=== PATIENT | female | born 1960 | race Two or more races ===

== ENCOUNTER 2023-06-06 10:56 | Outpatient (REF) | payer MEDICAID, SELFPAY ==
[2023-06-08 03:51] LABS: HBS Num1 0.29 mIU/mL (0-7.99); HBc Num1 0.12 S/CO (0.00-0.79); HBsAGNum1 0.29 S/CO (0.00-0.99); Hepatitis A Antibody IgM 0.45 Index (0-0.79); Hepatitis B Core Antibody Nonreactive (Nonreactive); Hepatitis B Surface Antigen Negative (Negative); ~HepC Num1 0.08 S/CO (0.00-0.79); ~Hepatitis A Antibody IgM Nonreactive (Nonreactive); ~Hepatitis B Surface Antibody NONREACTIVE (Nonreactive); ~Hepatitis C Antibody Nonreactive (Nonreactive)
[2023-06-08 16:28] LABS: Immunoglobulin G 1486 mg/dL (600-1540)
[2023-06-09 11:33] LABS: Cyclic Citrullinated Peptide <16 UNITS
[2023-06-14 14:48] LABS: Anti Nuclear Antibody Pattern Nuclear, Homogeneous; Anti Nuclear Antibody Screen POSITIVE (NEGATIVE); Anti Nuclear Antibody Titer 1:40 titer
== END 2023-06-06 10:57 | disposition home or self-care (01) ==
LOC: HO.CHCLDS 10:56
PROVIDERS: Visit Provider Family Medicine
DX: M25.50 Pain in unspecified joint (principal)
CPT/HCPCS: 36415; 82784; 84550; 85652; 86038; 86039; 86140; 86200; 86431; 86704; 86706; 86709; 86803; 87340

== ENCOUNTER 2023-09-16 08:19 | Outpatient (REF) | payer MEDICAID, SELFPAY ==
[2023-09-16 14:31] LABS: MANUAL DIFF FLAG NO
[2023-09-16 14:44] LABS: Basophils Percent Auto 0.6 % (0-2); Eosinophils Absolute Auto 0.1 X10*3/uL (0.0-0.4); Eosinophils Percent Auto 2.1 % (0-4); Hematocrit 45.8 % (37.0-47.0); Imm Gran Abs Auto 0.01 X10*3/uL (0.00-0.03); Imm Gran Pct Auto 0.2 % (0.0-0.4); Lymphocytes Absolute Auto 2.7 X10*3/uL (1.2-4.9); Lymphocytes Percent Auto 41.5 % (20-40); Mean Corpuscular HGB Conc 32.8 g/dl (31.0-35.0); Mean Corpuscular Hemoglobin 29.6 pg (27.0-33.0); Mean Corpuscular Volume 90.3 fL (80.0-98.0); Mean Platelet Volume 9.3 fL (9.4-12.3); Monocytes Absolute Auto 0.6 X10*3/uL (0.1-1.2); Monocytes Percent Auto 8.5 % (2-11); Neutrophils Absolute Auto 3.1 x10*3/uL (2.0-8.3); Neutrophils Percent Auto 47.1 % (45-73); Platelet Count 287 X10*3/uL (160-400); Red Blood Count 5.07 X10*6/uL (4.20-5.50); Red Cell Distribution Width 15.1 % (11.0-16.0); White Blood Count 6.6 X10*3/uL (4.8-10.8)
[2023-09-16 14:46] LABS: Appearance Urine Clear; Color Urine Yellow; Glucose Urine UA Negative (Negative); Leukocyte Esterase Urine Negative (Negative); Nitrite Urine Negative (Negative); PH 6.5 (5.0-9.0); Urine Blood Negative (Negative); Urine Ketones Negative (Negative); Urine Protein Negative (Neg-Trace)
[2023-09-16 14:57] LABS: Estimated Average Glucose 108 mg/dL; Hemoglobin A1c % 5.4 % (<6.0)
[2023-09-16 14:59] LABS: Alanine Aminotransferase 11 U/L (0-31); Albumin Level 4.4 g/dL (3.5-5.0); Alkaline Phosphatase 96 U/L (39-117); Anion Gap 14 (12-20); Aspartate Amino Transferase 20 U/L (5-31); Bilirubin Total 0.7 mg/dL (0.0-1.0); Blood Urea Nitrogen 11 mg/dL (9-16); Calcium 10.2 mg/dL (8.4-10.2); Carbon Dioxide 26 mmol/L (22-29); Chloride 103 mmol/L (96-108); Cholesterol 169 mg/dL (<200); Estimated Glomerular Filt Rate > 60; Glucose Fasting 78 mg/dL (60-99); HDL Cholesterol 53 mg/dL (>40); LDL Cholesterol Calculated 98 mg/dL (<100); Potassium 4.2 mmol/L (3.3-5.1); Sodium 139 mmol/L (135-145); Total Protein 8.1 g/dL (6.5-8.0); Triglycerides 91 mg/dL (<150)
[2023-09-16 15:15] LABS: TSH reflex Free T4 2.29 uIU/mL (0.32-4.0)
[2023-09-16 15:30] LABS: Creatinine Urine 196.49 mg/dL; Microalbum/Creatinine Ratio Ur 5.5 ug/mg cr (<30)
[2023-09-19 03:45] LABS: HIV AB/AG Nonreactive (Nonreactive); HIV Num 1 0.05 S/CO (0.00-0.99)
[2023-09-21 17:38] LABS: VITAMIN D (1,25 OH) D3 54 pg/mL; Vit D (1,25-Dihydroxy) Total 54 pg/mL (18-72); Vitamin D (1,25 OH) D2 <8 pg/mL
== END 2023-09-16 08:20 | disposition home or self-care (01) ==
LOC: HO.CHCLDS 08:19
PROVIDERS: Visit Provider Family Medicine
DX: I10 Essential (primary) hypertension (principal); E66.9 Obesity, unspecified; Z68.36 Body mass index [BMI] 36.0-36.9, adult; R73.03 Prediabetes; E55.9 Vitamin D deficiency, unspecified; Z11.4 Encounter for screening for human immunodeficiency virus [HIV]
CPT/HCPCS: 36415; 80053; 80061; 81003; 82043; 82570; 82652; 83036; 84443; 85025; 87389

== ENCOUNTER 2024-08-10 08:21 | Outpatient (REF) | payer MEDICAID, SELFPAY ==
[2024-08-10 14:57] LABS: MANUAL DIFF FLAG NO
[2024-08-10 15:03] LABS: Basophils Absolute Auto 0.1 X10*3/uL (0.0-0.2); Basophils Percent Auto 0.7 % (0-2); Eosinophils Absolute Auto 0.1 X10*3/uL (0.0-0.4); Hematocrit 45.9 % (37.0-47.0); Hemoglobin 15.3 g/dl (12.0-16.0); Imm Gran Abs Auto 0.02 X10*3/uL (0.00-0.03); Imm Gran Pct Auto 0.3 % (0.0-0.4); Lymphocytes Absolute Auto 2.7 X10*3/uL (1.2-4.9); Mean Corpuscular HGB Conc 33.3 g/dl (31.0-35.0); Mean Corpuscular Hemoglobin 29.9 pg (27.0-33.0); Mean Corpuscular Volume 89.8 fL (80.0-98.0); Monocytes Absolute Auto 0.6 X10*3/uL (0.1-1.2); Monocytes Percent Auto 8.3 % (2-11); Neutrophils Absolute Auto 3.6 x10*3/uL (2.0-8.3); Neutrophils Percent Auto 50.7 % (45-73); Platelet Count 307 X10*3/uL (160-400); Red Blood Count 5.11 X10*6/uL (4.20-5.50); Red Cell Distribution Width 14.7 % (11.0-16.0); White Blood Count 7.1 X10*3/uL (4.8-10.8)
[2024-08-10 15:09] LABS: Estimated Average Glucose 108 mg/dL; Hemoglobin A1c % 5.4 % (<6.0); Total Hemoglobin (HGBA1C) 3744.1805 umol/L
[2024-08-10 15:28] LABS: Alanine Aminotransferase 12 U/L (0-31); Albumin Level 4.4 g/dL (3.5-5.0); Alkaline Phosphatase 78 U/L (39-117); Anion Gap 13 (12-20); Aspartate Amino Transferase 18 U/L (5-31); Bilirubin Total 0.7 mg/dL (0.0-1.0); Blood Urea Nitrogen 10 mg/dL (9-16); Calcium 10.1 mg/dL (8.4-10.2); Carbon Dioxide 27 mmol/L (22-29); Chloride 105 mmol/L (96-108); Cholesterol 197 mg/dL (<200); Estimated Glomerular Filt Rate > 60; Glucose Random 71 mg/dL (60-115); HDL Cholesterol 58 mg/dL (>40); LDL Cholesterol Calculated 120 mg/dL (<100); Potassium 4.1 mmol/L (3.3-5.1); Sodium 141 mmol/L (135-145); Total Protein 7.9 g/dL (6.5-8.0); Triglycerides 97 mg/dL (<150)
[2024-08-10 15:45] LABS: Folate 10.5 ng/mL (> or = 4.0); TSH reflex Free T4 2.16 uIU/mL (0.32-4.0); Vitamin B12 456 pg/mL (200-900)
[2024-08-10 17:00] LABS: Valproate < 12.5 mcg/mL (50.0-100.0)
== END 2024-08-10 08:22 | disposition home or self-care (01) ==
LOC: HO.CHCLDS 08:21
PROVIDERS: Visit Provider Family Medicine
DX: E66.09 Other obesity due to excess calories (principal); Z68.35 Body mass index [BMI] 35.0-35.9, adult; S09.90XS Unspecified injury of head, sequela; R73.03 Prediabetes
CPT/HCPCS: 36415; 80053; 80061; 80164; 82607; 82746; 83036; 84443; 85025

== ENCOUNTER 2024-12-11 13:29 | Outpatient (REF) | payer MEDICAID, SELFPAY ==
[2024-12-11 16:17] LABS: Bacterial Vaginosis PCR NEGATIVE (Negative); Candida Group PCR NOT DETECTED (Not Detect); Candida glab krusei PCR NOT DETECTED (Not Detect); Trichomonas vaginalis PCR NOT DETECTED (Not Detect)
[2024-12-11 16:49] LABS: CT PCR NOT DETECTED (Not Detect.); NG PCR NOT DETECTED (Not Detect.)
== END 2024-12-11 13:30 | disposition home or self-care (01) ==
LOC: HO.CHCLNP 13:29
PROVIDERS: Visit Provider Internal Medicine
DX: B37.31 Acute candidiasis of vulva and vagina (principal); Z11.3 Encounter for screening for infections with a predominantly sexual mode of transmission
CPT/HCPCS: 81515; 87491; 87591

== ENCOUNTER 2025-01-30 08:07 | Outpatient (REF) | payer MEDICAID, SELFPAY ==
--- OUTSIDE RECORDS SUMMARY | 2025-01-30 08:21 | XMS_ITS | Data Portability ---
Author Organization [place] [facility] Former[facility], Allergy Address [address] [address] Assessment Encounter Date Assessment Date Assessment LastModified by Organization Details LastModified Time 04/13/2024 04/13/2024 Patient with several months or more of bilateral tinnitus and hearing loss. History of head trauma but no clear episode causing perforation. She has had no discharge from the ear. Audiometric testing shows bilateral sensorineural hearing loss with a slight conductive component on the right side in the mid frequencies. Tympanometry confirms large volume consistent with perforation. Because of the snoring, hypertension and diabetes coupled with the physical examination I recommended a sleep study. Medically clear for amplification for both ears [email or web address] Not available 04/13/2024 15:50:07 Plan of Treatment Reminders Order Date Submit Date Provider Last Modified By Organization Details Last Modified Time Details Appointments None recorded. Lab None recorded. Referral None recorded. Procedures home sleep testing (PROC) [phone] [email or web address], [address] [place] [address], [address], 11:12:14 Surgeries None recorded. Imaging None recorded. Medication Orders None recorded. Patient TargetsNo targets recorded. Patient InstructionsNo instructions recorded. Reason for Referral None Reported. Results Created Date Observation Date Name Description Value Unit Range Abnormal Flag Note LastModifiedBy Organization Detail LastModifiedTime 07/17/20 24 04/13/2024 imagi ng/di agnos tic resul t No observ ation record ed. [email or web address] Not Available 16:03:12 07/17/20 24 04/13/2024 imagi ng/di agnos tic resul t No observ ation record ed. [email or web address] Not Available 16:03:15 Result Notes None recorded. Problems Name Problem SNOMED Code Status Onset Date Resolution Date Notes Provider Name and Address Organization Details Recorded Time Sensorineur al hearing loss of bilateral ears 130555877 Active 2023 BERHANE AKINS 100 [facility],[address], [place], [address], [facility] - [facility] [place] 4 15:02:30 Bilateral tinnitus 6218364933566 Active 2023 BERHANE AKINS 100 [facility],[address], [place], [address], [facility] - [facility] [place] 4 15:02:42 Sensorineur al hearing loss of bilateral ears 938491219 Active 2023 QUINCY HERNANDEZ , AUD 100 [facility],[address], [place], [address], [facility] - [facility] [place] 4 15:02:54 Central perforation of right tympanic membrane 6326691901532 101 Active 2023 DANIELLE LOREDO MD 100 [facility],[address], [place], [address], [facility] - [facility] [place] 4 15:48:50 Snoring 59110335 Active 2023 DANIELLE LOREDO MD 100 [facility],[address], [place], [address], [facility] - [facility] [place] 4 15:49:05 Problem Notes None recorded. Procedures Surgical History Date Name Laterality Status Provider Name and Address Organization Details Recorded Time 4 Comp Audio with Tymps (93516 & 35926) completed BERHANE AKINS 100 [facility],[place] [address], [place], [address], [facility] - [facility] 04/13/2024 15:02:06 procedure on urinary bladder completed Ray Galvan [place] - [facility] 04/13/2024 15:16:05 hernia repair completed Ray Galvna [place] - [facility] 04/13/2024 15:16:30 Imaging Results Imaging Date Name Status LastModified by Organ [facility] Details LastModified Time 04/13/2024 imaging/diag nostic result completed Information not available 07/17/2024 16:03:12 04/13/2024 imaging/diag nostic result completed Information not available 07/17/2024 16:03:15 Procedure Notes None recorded. Medical Equipment None Reported. Medications Name Sig Start Date Stop Date Status Note LastModified by Organization Details LastModified Time gabapentin 600 mg tablet TAKE 1 TABLET BY MOUTH 3 TIMES DAILY. active Not Available Not Available No t Available sumatriptan 100 mg tablet PLEASE SEE ATTACHED FOR DETAILED DIRECTIONS active Not Available Not Available N ot Available felodipine ER 5 mg tablet,exten ded release 24 hr TAKE ONE TABLET EVERY MORNING active Not Available Not Available No t Available doxepin 10 mg capsule TAKE 1 CAPSULE (10 MG TOTAL) BY MOUTH NIGHTLY. active Not Available Not Available No t Available acetaminophe n 500 mg tablet TAKE 1 TABLET (500 MG) BY MOUTH EVERY 6 (SIX) HOURS IF NEEDED FOR MILD PAIN FOR UP TO 10 DAYS. active Not Available Not Available No t Available lidocaine-pr ilocaine 2.5 %-2.5 % topical cream APPLY TO RIGHT LEG ONE HOUR PRIOR TO PROCEDURE AND WRAP LEG IN PLASTIC WRAP. active Not Available Not Available No t Available lorazepam 0.5 mg tablet TAKE 1 TABLET BY MOUTH EVENING PRIOR TO PROCEDURE AND 1 TAB 1 HOUR PRIOR TO PROCEDURE active Not Available Not Available No t Available pantoprazole 40 mg tablet,delay ed release TAKE ONE TABLET EVERY MORNING BEFORE BREAKFAST active Not Available Not Available No t Available divalproex ER 500 mg tablet,exten ded release 24 hr TOME DOS TABLETAS POR VIA ORAL TODOS LOS SHARIF active Not Available Not Available No t Available gabapentin 300 mg capsule TAKE ONE CAPSULE THREE TIMES DAILY active Not Available Not Available No t Available ammonium lactate 12 % topical cream APPLY TO THE AFFECTED AREA(S) TWICE DAILY active Not Available Not Available Not Available gabapentin 100 mg capsule TOME LADAN C PSULAS POR V A ORAL LADAN VECES AL D A active Not Available Not Available No t Available losartan 100 mg tablet TAKE ONE TABLET EVERY MORNING active Not Available Not Available No t Available cholecalcife rol (vitamin D3) 25 mcg (1,000 unit) tablet TAKE TWO TABLETS BY MOUTH EVERY MORNING active Not Available Not Available No t Available calcium 600 mg (as carbonate)-v itamin D3 10 mcg (400 unit) tablet TAKE ONE TABLET EVERY MORNING active Not Available Not Available No t Available diclofenac 1 % topical gel APPLY 4 G TOPICALLY 4 (FOUR) TIMES A DAY. APPLY TO NECK active Not Available Not Available No t Available Vitals Date Recorded Body height Body mass index (BMI) Body weight Provider Name and Address Organization Details Last Updated DateTime 04/13/2024 185.42 cm 26.4 kg/m2 51014.47 g Ray Galvan [facility] 04/13/2024 15:18:16 Social History Question Answer Notes LastModified by Organizat ion Details LastModified Time Tobacco Smoking Status Never Smoker Ray dela cruz [facility] 04/13/2024 14:20:35 What Is Your Level Of Alcohol Consumption? None [email or web address] Information not available 04/13/2024 Do You Use Any Illicit Or Recreational Drugs? No [email or web address] Information not available 04/13/2024 Do You Or Have You Ever Used Any Other Forms Of Tobacco Or Nicotine? No [email or web address] Information not available 04/13/2024 Sex: Unknown Functional Status None recorded. Mental Status None recorded. Family History Nothing Reported. Medical History Condition Response Allergies/Hayfever N Heart Problems N Anxiety Y Tonsil Infections N Emphysema N Migraines Y Thyroid Problems N Glaucoma N Depression Y Developmental Delay N Nasal or Sinus Problems N Anemia N Anesthesia Complications N Heart Attack ([place]) N Other Skin Condition N Diabetes Y Rhinitis N Bleeding Disorder N Food Allergy N Arthritis N Hearing Loss Y Cancer N Stroke N Dementia N Asthma N Sleep Disorder N High Cholesterol Y Liver Disease N Headaches Y Fibromyalgia N Hypertension Y Speech Delay N Kidney Disease N Gynecological HistoryNo gynecological history recorded. Obstetrics History GPAL:G 0 P 0 0 0 0 Past Encounters Encounter ID Performer Location Encounter Start Date Encounter Closed Date Diagnosis/Indication Diagnosis SNOMED-CT Code Diagnosis ICD10 Code Diagnosis Note [id number] DANIELLE RON MD [facility] [address] [address] 04/13/2024 14:14:08 04/13/2024 15:57:41 Sensorineural hearing loss of bilateral ears 138141923 H90.3 Audiometri c evaluation results: Right ear: {{Normal M ild Modera te Moderat taty-severe Severe Pr ofound Bor derline normal to moderate #}} {{hearing flat high frequency low frequency mid frequency cookie bite braga curve SNHL #}} {{with* se nsorineura l hearing loss with condu ctive hearing loss with mixed hearing loss with}} {{excellen t* good fa ir poor no t measurable }} speech discrimina tion. Left ear: {{Normal M ild Modera te Moderat taty-severe Severe Pr ofound Mil d #}} {{hearing flat high frequency low frequency mid frequency cookie bite braga curve SNHL #}} {{with* se nsorineura l hearing loss with condu ctive hearing loss with mixed hearing loss with}} {{excellen t* good fa ir poor no t measurable }} speech discrimina tion. Tympanomet ry: Right Ear:{{Type A Type As Type Ad Type C Type C, shallow & rounded Ty pe B Type B with large volume* Co uld not maintain a hermetic seal}} Left Ear:{{Type A* Type As Type Ad Type C Type C, shallow & rounded Ty pe B Type B with large volume Cou ld not maintain a hermetic seal}} Recommenda tions include:Trever finch may want to consider amplificat ion pending medical clearance. Bilateral tinnitus 62619 43363 102 H93.13 Central pe rforation of right tympanic membrane 3119053763 935765 H72.01 Snoring 59807205 R06.83 Health Concerns Section Related Observation LastModified by Organization Detai ls LastModified Time None Recorded Concern Status LastModified by Organization Details LastModified Time None Recorded Advance Directives Directive None Recorded Payers Encounter Date Sequence Insurance Name Policy Number Policy Milian Covered Member ID Milian Member ID Guarantor Name 04/13/2024 1 [place] [facility] Ruthie Powell [id number] Ruthie Powell Notes Date Note Type Note Provider Name and Address Organization Details Recorded Time 04/13/2024 text/html Patient reports multiple falls where she hit her head. She notes ringing in the ears for several months and hearing loss for some time. She has snoring without clear history of apnea. She has type 2 diabetes and hypertension. She denies any drainage from the ears. Lightheaded with arising but no true vertigo DANIELLE DOMINGUEZ MD [address] [place] [address], [place], [address], [place] [facility] 04/13/2024 15:50:27 OBGyn Episode No OBEpisode recorded.
--- OUTSIDE RECORDS SUMMARY | 2025-01-30 08:21 | XMS_ITS | Clinical Summary ---
Author Organization 175 [facility] Address [address] [place] [address] Phone Care Team Providers Care Applications Administrator Name Role Phone Marley Rich MD Primary Care Provider [phone] Social History Tobacco Use Types Packs/Day Years Used Date Smoking Tobacco: Never Assessed Comments Unknown Sex and Gender Information Value Date Recorded Sex Assigned at Not on file Legal Sex Female 11:13 AM EST Gender Identity Not on file Sexual Orientation Not on file Plan of Treatment Upcoming Encounters Date Type Department Care Team ([facility] Contact Info) Description 02/20/2025 3:15 PM EDT Consult Orthopedic Surgery - [place] [id number] [phone] Aditya Mclaughlin, DPM [address] [address] Health Maintenance Due Date Last Done Comments Breast Cancer Screening 1960 DTaP,Tdap,and Td Vaccines (1 - Tdap) 1979 Cervical Cancer Screening: P ap Smear 1981 Pneumococcal Vaccine: 50+ Ye ars (1 of 1 - PCV) 2010 Zoster Vaccines (1 of 2) 2010 COVID-19 Vaccine ( - 2023-2 5 season) 2024 Influenza Vaccine (#1) 2024 Colorectal Cancer Screening: Colonoscopy 01/02/2025 Depression Screening 01/02/2025 HIV Screening 01/02/2025 Hepatitis C Screening 01/02/2025 Social Influencers of Health Screening 01/02/2025 RSV Immunization Patients 60 + Years Old (1 - 1-dose 75+ series) 2035 HIB Vaccines Aged Out No longer eligi ble based on patient's age to complete this topic HPV Vaccines Aged Out No longer eligi ble based on patient's age to complete this topic Hepatitis A Vaccines Aged Out No long er eligible based on patient's age to complete this topic Hepatitis B Vaccines Aged Out No long er eligible based on patient's age to complete this topic IPV Vaccines Aged Out No longer eligi ble based on patient's age to complete this topic MMR Vaccines Aged Out No longer eligi ble based on patient's age to complete this topic Meningococcal ACWY Vaccine Aged Out N o longer eligible based on patient's age to complete this topic Meningococcal B Vacine Aged Out No lo nger eligible based on patient's age to complete this topic Pneumococcal Vaccine: Pediat rics (0 to 5 Years) and At-Risk Patients (6 to 64 Years) Aged Out No longer eligible b ased on patient's age to complete this topic RSV Immunization Patients Un olaf 20 months Aged Out No longer eligible b ased on patient's age to complete this topic Varicella Vaccines Aged Out No longer eligible based on patient's age to complete this topic Insurance MEDICAID - [place] Care Teams Applications Administrator Relationship Specialty Start Date End Date Marley Rich MD [address] [place] [id number] PCP - General Family Medicine 01/02/25
[2025-01-30 14:38] LABS: Cholesterol 178 mg/dL (<200); HDL Cholesterol 56 mg/dL (>40); LDL Cholesterol Calculated 105 mg/dL (<100); Triglycerides 86 mg/dL (<150)
[2025-01-30 14:52] LABS: Vitamin D 25-OH Total 70.5 ng/mL (>30)
== END 2025-01-30 08:08 | disposition home or self-care (01) ==
LOC: HO.CHCLDS 08:07
PROVIDERS: Visit Provider Registered Nurse
DX: I10 Essential (primary) hypertension (principal); E55.9 Vitamin D deficiency, unspecified
CPT/HCPCS: 36415; 80061; 82306

== ENCOUNTER 2025-06-20 08:15 | Outpatient (REF) | payer MEDICAID, SELFPAY ==
--- OUTSIDE RECORDS SUMMARY | 2022-03-10 08:24 | XMS_ITS | Continuity of Care Document ---
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 [place] tel:[phone] [facility] f/u labs. (chief complaint) Autoimmune diseasePosit zach LENCHO (antinuclear antibody)Pre diabetes 5 No Information [facility], [address] [facility] [address], [place], [place], [id number], [place] tel:[phone] [facility] Joint painPositive LENCHO (antinuclear antibody) 4 No Information OFFICE/OUTPA TIENT VISIT, [facility], [address] [facility] [address], [place], [place], [id number], [place] tel:[phone] [facility] f/u chest xray (chief complaint)pa in on her bones (chief complaint)Ch est discomfort (chief complaint)fo ot wound (chief complaint) Joint painDizzines sChest Tightness 4 No Information OFFICE/OUTPA TIENT VISIT, [facility], [address], [place], [place], [id number], [place] tel:[phone] [facility] Cough (chief complaint) CoughURI, acute Oct- 0- 4 No Information [facility], [address], [place], [place], [id number], [place] tel:[phone] [facility] Sleep apnea Oct- 8- 4 No Information OFFICE/OUTPA TIENT VISIT, EST [facility], [address], [place], [place], [id number], [place] tel:[phone] [facility] sore throat (chief complaint) URI, acute 4 No Information OFFICE/OUTPA TIENT VISIT, [facility], [address], [place], [place], [id number], [place] tel:[phone] [facility] Hypertension (follow up) (chief complaint) HeadacheHype rtension, Benign Sep-2 - 4 No Information OFFICE/OUTPA TIENT VISIT, EST [facility], [address], [place], [place], [id number], [place] tel:[phone] [facility] hypertension (follow up) (chief complaint) Hypertension , Benign Sep-0 2- 4 No Information [facility], [address], [place], [place], [id number], [place] tel:[phone] [facility] Unspecified abnormal mammogram Jun- 4 No Information OFFICE/OUTPA TIENT VISIT, [facility], [address], [place], [place], [id number], [place] tel:[phone] [facility] hypertension (follow up) (chief complaint) Urine frequencyHyp ertension, Benign Jun-0 - 4 No Information [facility], [address], [place], [place], [id number], [place] tel:[phone] [facility] Unspecified abnormal mammogram 4 No Information OFFICE/OUTPA TIENT VISIT, EST Anam [facility], [address], [place], [place], [id number], [place] tel:[phone] [facility] follow up on lab/diagnost ic test (chief complaint)he adache (chief complaint)va ricose veins (chief complaint) Urge incontinence Varicose veinsHeadach eHypertensio n, Benign 4 No Information OFFICE/OUTPA TIENT VISIT, EST izzy [facility], [address], [place], [place], [id number], [place] tel:[phone] [facility] walk-in- UTI sx (chief complaint) Urinary symptom or sign 4 No Information OFFICE/OUTPA TIENT VISIT, EST izzy [facility], [address], [place], [place], [id number], [place] tel:[phone] [facility] f/u ED (chief complaint)he adache (chief complaint)fo llow up on lab/diagnost ic test (chief complaint)ur ine problems (chief complaint) Urinary incontinence Calcaneal spurVaginal itchingHeada yeimy 4 No Information OFFICE/OUTPA TIENT VISIT, EST izzy [facility], [address], [place], [place], [id number], [place] tel:[phone] [facility] PAP test (chief complaint)BP check (chief complaint)fo ot pain (chief complaint) Screening for malignant neoplasms of the cervixHypert ension, BenignBilate ral foot painVaginiti s 4 No Information PREV VISIT, EST, AGE 40-64 [facility], [address], [place], [place], [id number], [place] tel:[phone] [facility] preventive exam (chief complaint) Routine general medical examination at [facility] for screening colonoscopyE demaHeadache Hypertension , BenignRoutin e Medical Exam 4 No Information OFFICE/OUTPA TIENT VISIT, B[facility], [address], [place], [place], [id number], [place] tel:[phone] [facility] care (chief complaint)hy pertension (chief complaint) Hypertension , BenignMammog simeon, Screening 4 No Information Family History Family Member [...] Immuniza tion Record Influenza Quad MDV 0.5ml administered Source: New Immuniza tion Record Influenza, [...] Provider Payers Payer name Insurance type Covered libertarian ID Authoriza tion(s) [facility] C3 ACO [id number] [facility] C3 ACO [id number] [facility] C3 ACO [id number] [facility] C3 ACO [id number] [facility] C3 ACO [id number] [facility] [id number] [facility] [id number] [facility] [id number] [id number] [id number] [facility] CI [id number] [facility] [id number] [facility] [id number] [facility] CI [id number] Social History Type Description Quantity Date Captured Comments Sex Female Smoking Status No Information Chief Complaint And Reason For Visit No [...] on due Goal Diabetes Screening. Due on 6 due Goal IAP. Due on due Goal [...] Influenza vaccine. Due on Se due Goal LDL Cholesterol (Direct). Due on [...] Referral Referred To: Dr Durham Ordered: Referrals: Uro/Tuber Machine Cutter. Dr Durham. Location: [facility]. Evaluate and treat ordered Referral Ordered: MAMMOGRAM [...] Evaluate and treat. ordered Referral Ordered: Referral: Uro/Tuber Machine Cutter. Evaluate and treat. ordered Referral Ordered: Referral: Podiatry. Evaluate and treat. ordered Referral Ordered: X-RAY EXAM OF FOOT 2 VIEWS ordered Referral Ordered: COLONOSCOPY SCREENING ordered Referral Ordered: MAMMOGRAM SCREENING, BILATERAL Appointment date/timeframe: 04/02/2014 ordered Patient Education Upper Respiratory Infec tion: After You completed Future Order: Lab Order UA/M w/r flx Culture, Routine ([id number]), Sent on: Sent Future Order: Lab Order CULTURE, GROUP A STREP ([id number]), Sent on: Sent Future Order: Lab Order CULTURE, URINE ([id number]), Sent on: Sent Future Order: Lab Order BASIC ME TABOLIC PANEL ([id number]), Sent on: Sent Future Order: Lab Order LIPID PA JOSE ([id number]), Sent on: Sent Future Order: Lab Order HEMOGLOB IN A1C ([id number]), Sent on: Sent Future Order: Lab Order [...] Needs Mammo referral 1 preventive exam (comments) 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 Contraindications and risk factors assessed. Patient's questions answered. 1 COVID test Pt presents for car side COV ID test via nasal swab per provider POC for positive exposure. 1 COVID Vaccine #1 Patient presents in NAD for COVID vaccin e. Patient meets criteria of cohort currently sanctioned by [facility]. Contraindications and risk factors assessed. Patient's questions [...] also had similar ED visit back in [facility] but was not given ativan script for home. 1 Anxiety This is an initial visit. Re lated symptoms are unstable. The patient presents with anxious/fearful thoughts and excessive worry. Additional information: went to [facility] ER on 12/22 s/p COVID dx [...] letter to work. 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 interperter [facility] [place] # [id number] 0 Headache Additional information: has meds with neurologist at [facility]. doing okay. 0 chronic conditions 1) Essential [...] regardign job injury. neurologist /dr Luis at [facility] tx'ed with meds. f/u. 0 BP check Pt appears in NAD for BP yeimy ck, per plan by [facility]. Per chart review, pt taking 50 mg [...] occurs constantly. Additional information: offered surgery at [facility] with urogyn. but pt refused.. 9 Urinary [...] injury. has neurologist Dr Sergei Luis at [facility] saw him before injury. appt was in march started on doxepin and ibfn. taking with some benefit. f/u planned for aug 9 head injury The patient does not use alc ohol. Associated symptoms include gait disturbance and headache. Pertinent negatives include seizures. 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 ED visit [...] information: Dr Mira Viramontes (first name) at [facility] for depression prescribing sleeping medicatio and antidepressantsrecent pap with at [facility] pap normal-1 mos ago. had UVP, 03/2015 supracervical hysterectomy and mesh support. preventive exam (comments) doesn't recall sleeping pill name taking fluoxetine not duloxetine. ct to have multiple joint pains back pain and headaches. 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 urinary symptoms Onset: 1 week ago. Additional [...] wants to go in to one in [place]. 8 headache Additional information: hurt s very much get very dizzy forget everything neurologist told me there is nothing else he can do for me wants a good doctor in [place] happened at work work insurance has to [...] vaginal symptoms. klebsiella was sensitive to bactrim 7 dysuria 7 sore throat (comments) also c/o 2 days [...] types of tx's. pt doesn't recall which. 7 Burning on urination Presenting/Initial symptoms include burn ing. Associated symptoms include dysuria, frequency, pelvic pain and urgency. Pertinent negatives include dribbling, hesitancy, nocturia or vaginal discharge. Additional information: certain that she has a UTI, urgency burning. pelvic pain. ditropan didn't help. pelvic pain Location is diffuse. Sympto m is aggravated by intercourse. Additional information: hx [...] Pt also goes to vision therapy at [place], next appointment is next week. Pt also experiences burning, redness and floaters. Pt experiences CASTILLO and diplopia everyday since accident mostly on the right side of her head. Pt does not experience flashes, discharge, itching, or watering. 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 Follow Up of car [...] cinthya, h/as . neurologist Dr. Cheung @ [facility] pelvic and abdom pain nausea no vomitting. taking ibfn 600 tid . notes sexual dysfunction. saw 3d specialist surgeon, Dr Durham pt tried on ditropan [...] went with medication first. f/u appt in [place] in 2 mos. urinary symptoms The problem is resolved. Additional info rmation: history of UTIs, sexually active and saw urogyne in [place] Dr Durham saw pt had UTI felt better after treatment. every thing seems fine now. always some urgency. can't hold it long. interperter #[id number]. Hemorrhoids Location is perianal. The rosamaria finch [...] thinking about her pain. doing PT in [place] sees Neurologist this week constipation, dry mouth [...] information: stop ped flouxetine a therapist at [facility] told her to stop it. headache (comments) [...] into the skin and quintana. 7 f/u [facility] 12/24 fell at work. since then has had severe pain. 01/10 in [facility] ER for pain headache, back and [...] 3 days. no increase in freq. pos urgency dysuria Vaginal discharge (comments) little bit. bothers. [...] headaches.accident at work. 01/19/2014 went to ER [facility]. slipped and fell backward on wet floor and hit her head. no loc. went to ER CT head and neck neg. went home. had h/a's saw Neurologist 09/2014 ongoing headaches unable to get back to work. MRI T2 changes suggestive of post trauma h/a concussion. started on nortyptiline with some improvement. still not able to work, however. 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 requests improved documentation of health care. can insurance help me. ?? 6 urinary symptoms [id number] 6 urinary symptoms (comments) She saw her specialist in [place] 1 week ago ( ? urogYN) and [...] asking for MRI back results ordered by administrative specialist . Dysuria Onset: 8 days ago. [...] . unresolving.also she has appoint soon with [employer] for f/u . of note she had [...] no urine symptoms. no other GI symptoms. Follow Up of headache Follow Up of [...] was denied by insurance. 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 his employer said if she cannot [...] work off until she see ortho at [facility] 07/04/15 . says she cannot work with [...] up Pt says she had surgery in [place] in apr for uterine prolapse ? supracervical [...] result Pt saw Dr Светлана durham at [facility] urogyn , she was scheduled for [...] new, it has just worsened with PT Back pain Additional information: Pt h ere [...] area, radiates to left arm, works in [place], involves heavy lifting, vague pain in left [...] negatives include chills/rigors, fever, headache or rhinitis. 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
--- OUTSIDE RECORDS SUMMARY | 2025-06-20 08:27 | XMS_ITS | Encounter Summary ---
Author Organization [employer] Address [address] [place] [address] 7 [place] [address] Care Team Providers Care Underwriter Solicitation Director Name Role Phone Marley Rich MD Primary Care Provider [phone] Encounter Details Date Type Department Care Team ([facility] st Contact Info) Description 03/09/2023 Orders Only [facility] MED & PEDS [address] [place] [address] Marley Rich MD [address] [place] [address] Social History Tobacco Use Types Packs/Day Years Used Date Smoking Tobacco: Never Passive Smoke Exposure: Never Smokeless Tobacco: Never Alcohol Use Standard Drinks/Week Comments Never 0 (1 standard drink = 0.6 oz pur e alcohol) Depression Answer Date Recorded Patient Health Questionnaire-9 Score 10 03/04/2023 Depression Answer Date Recorded Patient Health Questionnaire-2 Score 2 03/04/2023 Comments Unknown Sex and Gender Information Value Date Recorded Sex Assigned at Female 09/27/2022 10:39 AM EDT Legal Sex Female 10:39 AM EDT Gender Identity Female 09/27/2022 10:39 AM EDT Sexual Orientation Straight 12/02/2022 8: 21 PM EST COVID-19 Exposure Response Date Recorded In the last 10 days, have yo u been in contact with someone who was confirmed or suspected to have Coronavirus/COVID-19? No / Unsure 03/04/2023 11:07 AM EDT documented as of this encounter Plan of Treatment Upcoming Encounters Date Type Department Care Team (Late st Contact Info) Description 07/26/2025 9:00 AM EDT Office Visit [facility] MED & PEDS [address] [place] [address] Marley Rich MD [address] [place] [address] 08/23/2025 3:00 PM EDT Office Visit [facility] ADULT DENTAL [address] [place] [address] Carli Casanova Pending Results Name Type Priority Associated Diagnoses Date /Time LENCHO SCR, IFA W/Refl Titer and Pattern Lab Routine 06/06/2023 11:38 AM EDT documented as of this encounter Procedures Procedure Name Priority Date/Time Associated Diagnosis Comments URINALYSIS WITH REFLEX TO MICROSCOPIC Routine 09/16/2023 8:30 AM EDT COMPREHENSIVE METABOLIC PANEL, FASTING Routine 09/16/2023 8:27 AM EDT HIV ANTIBODY/ANTIGEN ([place] [facility]) Routine 09/16/2023 8:27 AM EDT HEPATITIS PANEL, GENERAL Routine 06/06/2023 11:38 AM EDT CYCLIC CITRULLINATED PEPTIDE (CCP) AB (IGG) Routine 06/06/2023 11:38 AM EDT SED RATE BY MODIFIED WESTERGREN Routine 06/06/2023 11:38 AM EDT RHEUMATOID FACTOR Routine 06/06/2023 11: 38 AM EDT C-REACTIVE PROTEIN Routine 06/06/2023 11 :38 AM EDT LENCHO SCREEN, IFA, W/REFL TITER AND PATTERN Routine 06/06/2023 11:38 AM EDT URIC ACID Routine 06/06/2023 11:38 AM EDT IMMUNOGLOBULIN G Routine 06/06/2023 11:3 8 AM EDT COLONOSCOPY Routine 12/30/2022 documented in this encounter Results * Urinalysis with Reflex to Microscopic (09/16/2023 8:30 AM EDT) Color Urine Yellow [facility] Appearance Urine Clear [facility] PH 6.5 5.0 - 9.0 [facility] Glucose Urine UA Negative Negative mg/dL [facility] Urine Blood Negative Negative [facility] Specific [place] - Urine 1.020 1.005 - 1.025 [facility] Urine Protein Negative Neg-Trace mg/dL [facility] Urine Ketones Negative Negative mg/dL [facility] Nitrite Urine Negative Negative [facility] Leukocyte Esterase Urine Negative Negative [facility] 09/16/2023 8:30 AM EDT 09/16/2023 2:34 PM EDT us Marley Rich MD LAB URINE ORDERABLES Final Re sult [facility] [address] [place] [address] [phone] * HIV Ab/Ag ([facility]) (09/16/2023 8:27 AM EDT) HIV AB/AG Nonreactive Nonreactive [facility] Comment:HIV-1 p24 Ag and/or HIV-1/HIV-2 Ab not detected.A test result that is nonreactive does not exclude thepossibility of exposure to or infection with HIV-1 and/orHIV-2. Nonreactive results in this assay for individualswith prior exposure to HIV-1 and/or HIV-2 may be due toantigen and antibody levels that are below the limit ofdetection of this assay.[employer] HIV Ag/Ab Combo assay result andsupplemental assay results should be interpreted inconjunction with the patient's clinical presentation,history and other laboratory results. If the results areinconsistent with clinical evidence, additional testing issuggested to confirm the result. 09/16/2023 8:27 AM EDT 09/16/2023 2:26 PM EDT us Marley Rich MD LAB BLOOD ORDERABLES Final Re sult [facility] [address] [place] [address] [phone] * (ABNORMAL) Comprehensive Metabolic Panel, Fasting (09/16/2023 8:27 AM EDT) Sodium 139 135 - 145 mmol/L [facility] Potassium 4.2 3.3 - 5.1 mmol/L [facility] Chloride 103 96 - 108 mmol/L [facility] Carbon Dioxide 26 22 - 29 mmol/L [facility] Anion Gap 14 12 - 20 [facility] Urea Nitrogen (BUN) 11 9 - 16 mg/dL [facility] Creatinine, Serum 0.74 0.5 - 1.4 mg/dL [facility] Estimated Glomerular Filt Rate >60 [facility] Comment:NOTE: For -Am erican individuals, multiply the result by 1.210.Chronic Kidney Disease: Estimated GFR < 60 mL/min/1.47i7Wlnbzh Kidney Disease: Estimated GFR < 15 mL/min/1.73m2 Glucose Fasting 78 60 - 99 mg/dL [facility] Calcium 10.2 8.4 - 10.2 mg/dL [facility] Bilirubin, Total 0.7 0.0 - 1.0 mg/dL [facility] Aspartate Amino Transferase 20 5 - 31 U/L [facility] Alanine Aminotransferase 11 0 - 31 U/L [facility] Total Protein 8.1(H) 6.5 - 8.0 g/dL [facility] Albumin Level 4.4 3.5 - 5.0 g/dL [facility] Alkaline Phosphatase 96 39 - 117 U/L [facility] 09/16/2023 8:27 AM EDT 09/16/2023 2:26 PM EDT Marley Rich MD LAB BLOOD ORDERABLES Final Re sult Performing Organization Address [facility] Co de Phone Number [facility] [address] [place] [phone] * Cyclic Citrullinated Peptide (CCP) Antibody (IgG) (06/06/2023 11:38 AM EDT) Pathologist [facility] Cyclic Citrullinated Peptide <16 UNITS [facility] Comment:Reference RangeNegat zach: <20Weak Positive: 20-39Moderate Positive: 40-59Strong Positive: >59THIS TEST WAS PERFORMED AT:[employer] [address] [phone] RODGERS MD 06/06/2023 11:3 8 AM EDT 06/06/2023 2:12 PM EDT Result [facility] External Provider LAB BLO OD ORDERABLES Final Result Performing Organization Address [facility] de Phone Number [facility] [address] [place] [phone] * Immunoglobulin G (06/06/2023 11:38 AM EDT) Pathologist [facility] Immunoglobulin G 1486 600 - 1540 mg/dL [facility] Comment:THIS TEST WAS PERFOR MED AT:[employer] [address] [id number] RODGERS MD 06/06/2023 11:3 8 AM EDT 06/06/2023 2:12 PM EDT [facility] External Provider LAB BLO OD ORDERABLES Final Result Performing Organization Address [facility] Co de Phone Number [facility] [address] [place] [phone] * Hepatitis Panel, General (06/06/2023 11:38 AM EDT) Hepatitis A IgM Nonreactive Nonreactive [facility] Comment:IgM antibodies to CASTILLO V not detected; does not exclude earlyacute or recovered HAV infection. ~Hepatitis B Surface Antibody NONREACTIVE Nonreactive [facility] Comment:Nonreactive: < 8.00 mIU/mL Hepatitis B Core Antibody Nonreactive Nonreactive [facility] Hepatitis C Antibody Nonreactive Nonreactive [facility] Comment:Antibodies to HCV no t detected; does not exclude early acuteHCV infection. Hepatitis B Surface Ag Negative Negative [facility] 06/06/2023 11:3 8 AM EDT 06/06/2023 2:12 PM EDT [facility] External Provider LAB BLO OD ORDERABLES Final Result Performing Organization Address [facility] de Phone Number [facility] [address] [place] [phone] * Rheumatoid Factor (06/06/2023 11:38 AM EDT) Rheumatoid Factor <13.0 <15.0 IU/mL [facility] 06/06/2023 11:3 8 AM EDT 06/06/2023 2:12 PM EDT [facility] External Provider LAB BLO OD ORDERABLES Final Result Performing Organization Address [facility] Co de Phone Number [facility] [address] [place] [phone] * (ABNORMAL) C-reactive Protein (06/06/2023 11:38 AM EDT) C Reactive Protein 0.66(H) < or = 0.50 mg/dL [facility] 06/06/2023 11:3 8 AM EDT 06/06/2023 2:12 PM EDT [facility] External Provider LAB BLO OD ORDERABLES Final Result Performing Organization Address [facility] Co de Phone Number [facility] [address] [place] [address] [phone] * Uric acid (06/06/2023 11:38 AM EDT) Uric Acid 4.3 2.4 - 5.7 mg/dL [facility] 06/06/2023 11:3 8 AM EDT 06/06/2023 2:12 PM EDT [facility] External Provider LAB BLO OD ORDERABLES Final Result Performing Organization Address [facility] [place] [facility] de Phone Number [facility] [address] [place] [address] [phone] * Sed Rate by Modified Javyren (06/06/2023 11:38 AM EDT) Erythrocyte Sedimentation Rate 11 0 - 20 MM/HR [facility] Comment:Patients with polycy themia and many hemoglobin abnormalitiesmay have depressed sed rates whereas patients with anemiamay have elevated sed rates. 06/06/2023 11:3 8 AM EDT 06/06/2023 2:12 PM EDT [facility] External Provider LAB BLO OD ORDERABLES Final Result Performing Organization Address [facility] [place] [facility] de Phone Number [facility] [address] [place] [address] [phone] * Hm Colonoscopy (12/30/2022) Colonoscopy Normal Normal 12/30/2022 Historical Provider HEALTH MAINTENANCE Edited Result - Final documented in this encounter Visit Diagnoses Not on filedocumented in this encounter Additional Health Concerns Assessment Noted Time PHQ-9 Depression Total Score: 10 03/04/2 023 11:29 AM EDT documented as of this encounter Care Teams Underwriter Solicitation Director Relationship Specialty Start Date End Date Marley Rich MD [address] [place] [address] PCP - General Family Medicine 11/25/21 documented as of this encounter
--- OUTSIDE RECORDS SUMMARY | 2025-06-20 08:27 | XMS_ITS | Clinical Summary ---
Author Organization [facility] Address [address] [place] [address] Phone Care Team Providers Care Health Program Analyst Name Role Phone Marley Rich MD Primary Care Provider [phone] Allergies No known active allergies Medications ciclopirox (PENLAC) 8 % solution Apply topically at bedtime. Apply over nail and surrounding skin. Apply daily over previous coat. After seven (7) days, may remove with alcohol and continue cycle. 6.6 mL 3 08/21/20 25 Active Encounters Date Type Department Care Team Description 05/23/2025 2:30 PM EDT Office Visit Orthopedic Surgery [facility] [address] [facility] [address] [place] [phone] Aditya Mclaughlin, DPM Dermatophytosis of nail (Primary Dx); Ingrown toenail; Pain in toe of right foot; Pain in toe of left foot; Difficulty walking from Last 3 Months Social History Tobacco Use Types Packs/Day Years Used Date Smoking Tobacco: Never Assessed Comments Unknown Sex and Gender Information Value Date Recorded Sex Assigned at Not on file Legal Sex Female 11:13 AM EST Gender Identity Not on file Sexual Orientation Not on file Last Filed Vital Signs Vital Sign Reading Time Taken Comments Blood Pressure - - Pulse - - Temperature - - Respiratory Rate - - Oxygen Saturation - - Inhaled Oxygen Concentration - - Weight 96.2 kg (212 lb) 02/20/2025 3:30 PM EDT Height 165.1 cm (5' 5 ) 02/20/2025 3:30 PM EDT Body Mass Index 35.28 02/20/2025 3:30 PM EDT Plan of Treatment Upcoming Encounters Date Type Department Care Team ([facility] st Contact Info) Description 08/26/2025 2:15 PM EDT Office Visit Orthopedic Surgery - [place] 250 175 [facility] [address] [place] [phone] Aditya Mclaughlin, DPChika [address] [address] Health Maintenance Due Date Last Done Comments Breast Cancer Screening 1960 COVID-19 Vaccine ( season) 2024 09/19/2023, 01/26/2023, 05/05/2022, Additional history exists Depression Screening 11/28/2024 Colorectal Cancer Screening: Colonoscopy 01/02/2025 HIV Screening 01/02/2025 Hepatitis C Screening 01/02/2025 Social Influencers of Health Screening 01/02/2025 Hypertension/CHF/CAD Annual BMP Blood Test 02/20/2025 Influenza Vaccine (#1) 2025 , 07/26/2023, 08/09/2022, Additional history exists Cervical Cancer Screening: Pap Smear 09/09/2025 09/09/2022 Cholesterol Screening (Lipid Panel) 01/30/2030 01/30/2025 DTaP,Tdap,and Td Vaccines (3 - Td or Tdap) 09/12/2033 09/12/2023, 07/17/2013 MMR Vaccines Aged Out 07/17/2013 No longer eligi ble based on patient's age to complete this topic Zoster Vaccines Completed 04/08/2020, 12/18/2019 Hepatitis A Vaccines Aged Out 2021, 12/18/19 20 No longer eligible based on patient's age to complete this topic Pneumococcal Vaccine: 50+ Years Completed 07/04/2023 RSV Immunization Adult Patients Completed 09/26/2023 HIB Vaccines Aged Out No longer eligi [...] age to complete this topic Meningococcal B Vaccine Aged Out No l onger eligible based on patient's age to complete this topic RSV Immunization Patients Under 20 months Aged Out No longer eligible based on patient's age to complete this topic Varicella Vaccines Aged Out No longer eligible based on patient's age to complete this topic Insurance MEDICAID - [place] Care Teams Health Program Analyst Relationship Specialty Start Date End Date Marley Rich MD [address] [place] [address] PCP - General Family Medicine 01/02/25
--- OUTSIDE RECORDS SUMMARY | 2025-06-20 08:27 | XMS_ITS | Encounter Summary ---
Author Organization [facility] Address [address] [address] Phone Care Team Providers Care Lens Silverer Name Role Phone Unknown, Unknown Primary Care Provider Veronique Jackson MD Primary Care Provider [phone] Reason for Referral * Physical Therapy (Within 1 month) - Closed Specialty Diagnoses / Procedures Referred By Contac t Referred To Contact Physical Therapy Diagnoses Traumatic injury of head, sequela Sergei Luis MD Phone: tel: fax: mailto:[email or web address] [email or web address] Page PT Phone: tel: mailto:[email or web address] Referral ID Status Reason Start Date Expiration Date Visits Re quested Visits Authorized [id number] Closed 01/28/2020 04/07/2020 9 9 Encounter Details Date Type Department Care Team (Latest Contact Info) Description 01/28/2020 Transcribe Orders [facility] [address] [place] [phone] Sergei Luis MD [address] [place] [address], [place] [address] [email or web address] Traumatic injury of head, sequela (Primary Dx) Social History Tobacco Use Types Packs/Day Years Used Date Smoking Tobacco: Never Assessed Comments Unknown Sex and Gender Information Value Date Recorded Sex Assigned at Not on file Legal Sex Female 9:34 AM EST Gender Identity Not on file Sexual Orientation Not on file documented as of this encounter Plan of Treatment Upcoming Encounters Date Type Department Care Team ([facility] st Contact Info) Description 12/24/2025 9:00 AM EST Office Visit [facility] in [address] [address] Chauncey Kurtz OD [address] [place] [address] [email or web address] 12/24/2025 9:15 AM EST Procedure visit [facility] in [address] [address] Scheduled Referrals Name Type Priority Associated Diagnoses Order Schedule Ambulatory referral to N Physical Therapy Outpatient Referral Routine Traumatic injury of head, sequela Ordered: 01/28/2020 documented as of this encounter Visit Diagnoses Diagnosis Traumatic injury of head, sequela- Primary documented in this encounter Care Teams Lens Silverer Relationship Specialty Start Date End Date Unknown, Unknown, MD PCP - General 12/20/19 07/03/20 Veronique Jack MD [address] [place] [phone] [email or web address] PCP - General Internal Medicine 07/04/20 documented as of this encounter Additional Source Comments The information contained in this document represents components of the legal health record. It is not the complete legal health record.[facility]
--- OUTSIDE RECORDS SUMMARY | 2025-06-20 08:28 | XMS_ITS | Data Portability ---
Author Organization [place] [facility], Allergy Address [address] [address] Assessment Encounter Date Assessment Date Assessment LastModified [...] Procedures home sleep testing (PROC) [phone] [email or web address] Sleep [facility] Services, [facility]0 [place], [address], 4 11:12:14 Surgeries None recorded. Imaging None recorded. Medication Orders None recorded. Patient TargetsNo targets recorded. Patient InstructionsNo instructions recorded. Reason for Referral None Reported. Results Created Date Observation Date Name Description Value Unit Range Abnormal Flag Note LastModifiedBy Organization Detail LastModifiedTime 07/17/2004/13/2024 imagi ng/di agnos tic resul t No observ ation record ed. [email or web address] Not Available 16:03:12 07/17/20 24 04/13/2024 imagi ng/di agnos tic resul t No observ ation record ed. [email or web address] Not Available 16:03:15 Result Notes None recorded. Problems Name Problem SNOMED Code Status Onset Date Resolution Date Notes Provider Name and Address Organization Details Recorded Time Sensorineur al hearing loss of bilateral ears 172881315 Active 2023 QUINCY HERNANDEZ , BERHANE [address] [place], [place], [phone], [facility] - [facility] [place] 4 15:02:30 Bilateral tinnitus 2739893948656 Active 2023 QUINCY HERNANDEZ , BERHANE [address] [facility] [place], [place], [address], [facility] - [facility] [place] 4 15:02:42 Sensorineur al hearing loss of bilateral ears 915246934 Active 2023 QUINCY HERNANDEZ , AUD [address] [facility] [place], [place], [phone], [facility] - [facility] [place] 4 15:02:54 Central perforation of right tympanic membrane 4895302620748 101 Active 2023 DANIELLE LOERDO MD [address] [facility],[address], [place], [phone], [facility] - [facility] [place] 4 15:48:50 Snoring 37082563 Active 2023 DANIELLE LOREDO MD [address] [facility] [place], [place], [address], [facility] - [facility] 4 15:49:05 Problem Notes None recorded. Procedures Surgical History Date Name Laterality Status Provider Name and Address Organization Details Recorded Time 4 Comp Audio with Tymps - 09059 & 57958 completed BERHANE AKINS [address] [facility] [place],[address], [address], [facility] - [facility] 04/13/2024 15:02:06 procedure on urinary bladder completed Ray Galvan [place] - [facility] 04/13/2024 15:16:05 hernia repair completed Ray Galvan [place] - [facility] 04/13/2024 15:16:30 Imaging Results None recorded. Procedure Notes None recorded. Medical Equipment None [...] Updated DateTime 04/13/2024 185.42 cm 26.4 kg/m2 33814.47 g Ray Galvan [place] - [facility] 04/13/2024 15:18:16 Social History None recorded. Functional Status Question Answer Note LastModified by Organizat ion Details LastModified Time Do you use any illicit or recreational drugs? No [email or web address] Information not available 04/13/2024 Do you or have you ever used any other forms of tobacco or nicotine? No [email or web address] Information not available 04/13/2024 What is your level of alcohol consumption? None [email or web address] Information not available 04/13/2024 Mental Status None recorded. Family History Nothing Reported. Medical History Condition Response Allergies/Hayfever N Heart Problems N Anxiety Y Tonsil Infections N Emphysema N Migraines Y Thyroid Problems N Developmental Delay N Glaucoma N Depression Y Nasal or Sinus Problems N Anemia N Anesthesia Complications N Heart Attack (AR) N Other Skin Condition N Diabetes Y Rhinitis N Bleeding Disorder N Food Allergy N Arthritis N Hearing Loss Y Cancer N Stroke N Dementia N Asthma N High Cholesterol Y Sleep Disorder N Liver Disease N Headaches Y Fibromyalgia N Hypertension Y Speech Delay N Kidney Disease N Gynecological HistoryNo gynecological history recorded. Obstetrics History GPAL:G 0 P 0 0 0 0 Past Encounters Encounter ID Performer Location Encounter Start Date Encounter Closed Date Diagnosis/Indication Diagnosis SNOMED-CT Code Diagnosis ICD10 Code Diagnosis Note [id number] DANIELLE RON MD [facility] [address] [phone] 04/13/2024 14:14:08 04/13/2024 15:57:41 Sensorineural hearing loss of bilateral ears 824155495 H90.3 Audiometri c evaluation results: Right ear: Borderline normal to moderate SNHL with excellent speech discrimina tion. Left ear: Mild SNHL with excellent speech discrimina tion. Tympanomet ry: Right Ear:Type B with large volume Left Ear:Type A Recommenda tions include:Trever tient may want to consider amplificat ion pending medical clearance. Bilateral tinnitus [address] 00348 102 H93.13 Central pe rforation of right tympanic membrane 0388139101 971313 H72.01 Snoring 07267152 R06.83 Health Concerns Section Related Observation LastModified by Organization Detai ls LastModified Time None Recorded Concern Status LastModified by Organization Details LastModified Time None Recorded Advance Directives Directive None Recorded Payers Insurance Date Sequence Insurance Name Policy Number Policy Milian Covered Member ID Milian Member ID Guarantor Name 04/13/2024 1 [place] [facility] Ruthie Powell [id number] Ruthie Powell Notes Date Note Type Note [...] but no true vertigo DANIELLE DOMINGUEZ MD [address] [place] [address], [phone], [facility] - [facility] 04/13/2024 15:50:27 OBGyn Episode No OBEpisode recorded.
[2025-06-20 14:05] LABS: MANUAL DIFF FLAG NO
[2025-06-20 14:13] LABS: Hematocrit 42.5 % (37.0-47.0); Hemoglobin 14.2 g/dl (12.0-16.0); Imm Gran Abs Auto 0.01 X10*3/uL (0.00-0.03); Imm Gran Pct Auto 0.2 % (0.0-0.4); Lymphocytes Absolute Auto 2.6 X10*3/uL (1.2-4.9); Mean Corpuscular HGB Conc 33.4 g/dl (31.0-35.0); Mean Corpuscular Hemoglobin 29.6 pg (27.0-33.0); Mean Corpuscular Volume 88.5 fL (80.0-98.0); NRBC Abs Auto 0.000 X10*3/uL (0.0-0.012); NRBC Pct Auto 0.0 /100WBC (0.0-0.2); Platelet Count 239 X10*3/uL (160-400); Red Blood Count 4.80 X10*6/uL (4.20-5.50); White Blood Count 6.0 X10*3/uL (4.8-10.8)
[2025-06-20 14:41] LABS: Alanine Aminotransferase 11 U/L (0-31); Albumin Level 4.5 g/dL (3.5-5.0); Alkaline Phosphatase 79 U/L (39-117); Anion Gap 10 (12-20); Aspartate Amino Transferase 27 U/L (5-31); Blood Urea Nitrogen 13 mg/dL (9-16); Calcium 9.4 mg/dL (8.4-10.2); Carbon Dioxide 28 mmol/L (22-29); Chloride 107 mmol/L (96-108); Cholesterol 111 mg/dL (<200); Estimated Glomerular Filt Rate > 60; HDL Cholesterol 55 mg/dL (>40); Iron 90 mcg/dL (30-160); Percent Iron Saturation 34 % (15-50); Potassium 3.8 mmol/L (3.3-5.1); Sodium 141 mmol/L (135-145); Total Iron Binding Capacity 262 mcg/dL (228-428); Total Protein 7.6 g/dL (6.5-8.0); Triglycerides 59 mg/dL (<150); Unsaturated Iron Binding 172 ug/dL
[2025-06-20 15:01] LABS: Ferritin 254 ng/mL (10-250)
[2025-06-20 15:03] LABS: Folate 9.5 ng/mL (> or = 4.0); Vitamin B12 478 pg/mL (200-900)
[2025-06-26 20:28] LABS: Calprotectin, Fecal 86 mcg/g
== END 2025-06-20 08:16 | disposition home or self-care (01) ==
LOC: CF 08:15
PROVIDERS: Visit Provider Family Medicine
DX: I10 Essential (primary) hypertension (principal); K12.1 Other forms of stomatitis; E78.49 Other hyperlipidemia
CPT/HCPCS: 36415; 80053; 80061; 82607; 82728; 82746; 83540; 83993; 85025

== ENCOUNTER 2025-07-13 08:45 | Outpatient (REF) | payer MEDICAID, SELFPAY ==
--- NOTE | ~2025-07-13 | CT_ITS ---
CLINICAL HISTORY: Lumbar pain CT lumbar spine without contrast Comparison: None provided Findings: Normal vertebral body alignment. No acute fractures or dislocations. No significant degenerative change. Visualized abdominal contents unremarkable. IMPRESSION: No acute findings. No significant spondylosis. This document has been electronically signed by: Les Rowland MD on 07/15/2025 23:00:55
[2025-07-13 11:17] LABS: Alanine Aminotransferase 10 U/L (0-31); Albumin Level 4.6 g/dL (3.5-5.0); Alkaline Phosphatase 80 U/L (39-117); Aspartate Amino Transferase 23 U/L (5-31); Total Protein 7.7 g/dL (6.5-8.0)
== END 2025-07-13 08:46 | disposition home or self-care (01) ==
LOC: HO.CT 08:45
PROVIDERS: Registered Nurse; PCP Family Medicine; Visit Provider Family Medicine
DX: E78.49 Other hyperlipidemia (principal); K12.1 Other forms of stomatitis; M54.16 Radiculopathy, lumbar region
CPT/HCPCS: 36415; 72131; 80076; 84630

== ENCOUNTER → 2025-07-13 09:00 | Outpatient (BNV) | payer MEDICAID, SELFPAY | PROVIDERS: PCP Family Medicine; Visit Provider Student in an Organized Health Care Education/Training Program | DX: M54.50 Low back pain, unspecified (principal) | CPT/HCPCS: 72131 ==

== ENCOUNTER 2025-07-13 09:49 | Emergency (ER) | payer MEDICAID, SELFPAY ==
[2025-07-13 10:00] VITALS: BP 119/69; PULSE 83; RESP 16; TEMP 36.7; O2SAT 95; BMI 27.5
--- NOTE | 2025-07-13 10:10 | ED_ITS ---
HPI - Female Genitourinary General Chief complaint: Urogenital-Female Stated complaint: urine infection Time Seen by Provider: 07/13/25 10:10 Source: patient and vice president financial (all interactions with this patient were facilitated with an [facility] communications station manager.) Mode of arrival: ambulatory Limitations: language barrier (all interactions with this patient were facilitated with an [facility] communications station manager.) History of Present Illness ED Provider: Neelam Franco PA-C HPI Narrative: Patient is a 64 year old assigned female at with no significant past medical history presenting with 2 days of pain and burning with urination. She says she has had UTI's in the past and this feels similar to those times. She describes pain in her lower abdomen as well as in her flanks. The pain does not radiate to anywhere else. She denies fever, chills, chest pain, nausea, vomiting, or shortness of breath. Related Data Previous Rx's ?Medication ?Instructions ?Recorded cefpodoxime 200 mg tablet 200 mg PO BID 10 days #20 ta bs 07/13/25 Allergies Allergy/AdvReac Type Severity Reaction Status Date / Time No Known Allergies Allergy Verified 07/13/25 10:01 Review of Systems 2 Constitutional: Constitutional: Reports no additional constitutional complaints, Denies chills, Denies fever(s) and Denies night sweats Eyes: Eyes: Reports no additional eye complaints, Denies blurry vision and Denies eye pain ENT: Denies dizziness Cardiovascular: Cardiovascular: Reports no additional cardiovascular complaints, Denies chest pain, Denies lightheadedness, Denies Loss of Consciousness and Denies dyspnea Respiratory: Respiratory: Reports no additional respiratory complaints and Denies dyspnea Gastrointestinal: Gastrointestinal: Reports no additional gastrointestinal complaints, Denies nausea and Denies vomiting Genitourinary: Genitourinary: Reports as per HPI, Denies hematuria, Reports urinary frequency, Reports dysuria, Denies urinary hesitancy and Denies urinary urgency Musculoskeletal: Musculoskeletal: Reports no additional musculoskeletal complaints, Reports back pain (flank), Denies numbness and Denies tingling Neurologic: Denies dizziness, Denies numbness and Denies tingling Psychiatric: Psychiatric: Reports no additional psychiatric complaints Endocrine: Endocrine: Reports no additional endocrine complaints Hematologic/Lymphatic: Hematologic/Lymphatic: Reports no additional hematologic/lymphatic complaints Allergic/Immunologic: Allergic/Immunologic: Reports no additional allergic/immunologic complaints PMFSH Past Medical History Attestation statement: The following information was validated with the patient. Source: old records reviewed and nursing notes reviewed Social History Social History Smoked in Last 30 Days: No Use of substances other than those prescribed or required for medical reasons: No Advance Directives: Yes Advance Directives Information Provided: Yes Advance Directives on File: No Patient : No Physical Exam 2 Vital Signs: Vital Signs: Last Vital Signs Temp 98 F 07/13/25 13:03 Pulse 79 07/13/25 13:03 Resp 17 07/13/25 13:03 BP 121/65 07/13/25 13:03 Pulse Ox 96 07/13/25 13:03 O2 Del Method Room Air 07/13/25 13:03 BMI result Body Mass Index 27.5 Const: General: cooperative, no acute distress, alert and awake Nutritional Appearance: well nourished Orientation/consciousness: patient oriented x3 HEENT: Head: Yes normal to inspection and Yes atraumatic Ears: hearing grossly normal bilaterally and external ears normal General nose exam: Normal external nose present, no nasal discharge noted and no epistaxis Face and sinus: Yes normal facial exam, No abrasion and No laceration Mouth: Normal oral and palatal mucosa present, no drooling and no muffled voice Eyes: General: appearance normal, both eyes and all related structures P eriorbital: periorbital findings normal Eyelids: Yes eyelids normal C onjunctivae: conjunctivae normal Pupils: Equal, round and reactive pupils present EOM: EOMs intact bilaterally Neck: Neck: Yes normal visual inspection and Yes full ROM Resp: Effort & Inspection: normal respiratory effort and able to speak in complete sentences GI: Inspection: Yes normal to inspection Palpation (GI): Soft to palpation, not firm, nontender and no guarding Auscultation: normal bowel sounds : General: Yes CVA tenderness Back/Spine/Pelvis: Back: CVA tenderness Neuro: General: patient oriented x3, moves all extremities and CN's II-XI intact bilaterally Cranial nerves: Yes Equal, round and reactive pupils present Cognition (Neuro): normal cognition Extrem: General: Yes normal to inspection, Yes full ROM and Yes capillary refill normal Psych: Appearance: grossly normal Mental Status: mental status grossly normal Affect: normal affect Attitude: cooperative Thought process: N ormal thought process present Thought content: Normal thought content present Insight: Good insight present (Psych) Medications Administered Discontinued Medications Generic Name Dose Route Start Last Admin Trade Name Diya PRN Reason Stop Dose Admin Ceftriaxone Sodium 1 gm 07/13/25 10:39 07/13/25 11:14 Ceftriaxone Sodium 1 Gm Vial IVPUSH 07/13/25 10:40 1 gm ONCE ONE Administration Sodium Chloride 1,000 mls @ 999 mls/hr 07/13/25 10:45 07/13/25 12:41 Ns IV 07/13/25 11:45 Infused .Q1H1M BEBE Infusion Medical Decision Making Medical Decision Making [facility] Narrative: Patient is a 64 year old assigned female at with no significant past medical history presenting with 2 days of pain and burning with urination. Patient's physical exam was as noted in the physical exam portion of this note. Patient's blood work was unremarkable. Patient's urine showed evidence of a UTI. I explained my physical exam findings as well as all test results to the patient. I answered all questions asked by the patient. Patient received IV fluids while in the department. I stressed the importance of the patient taking her medication as directed (either prescribed or as the over the counter packaging recommends). I stressed the importance of the patient following up with her primary care provider. I stressed the importance of the patient returning to the emergency department immediately if her symptoms were to worsen or if she were to develop any dizziness, shortness of breath, difficulty breathing, chest pain, blurry vision, loss of vision, nausea, vomiting, abdominal pain, fever, chills, back pain, or any other complaints. Patient verbalized agreement and understanding with this treatment plan and discharge. Note: Patient was able to tolerate PO intake while in the department and had no episodes of vomiting. Differential Diagnosis Differential Diagnoses: The differential diagnosis associated with the presentation includes UTI Pyelonephritis Admission/Observation Consideration of admission/observation: Escalation of care including admission/observation considered Patient would have been admitted to the hospital had her work up had any findings where hospital admission was appropriate and her clinical presentation warranted hospital admission. Lab Data [facility] Lab Attestation statement: I reviewed the patient's lab results. My interpretation of these results are in the MDM Rationale portion of this note. 07/13/25 10:49 07/13/25 10:49 Labs: Lab Results 07/13/25 07/13/25 Range/Units 10:20 10:49 WBC 6.9 (4.8-10.8) X10*3/uL RBC 4.70 (4.20-5.50) X10*6/uL Hgb 13.8 (12.0-16.0) g/dl Hct 40.5 (37.0-47.0) % MCV 86.2 (80.0-98.0) fL MCH 29.4 (27.0-33.0) pg MCHC 34.1 (31.0-35.0) g/dl RDW 14.9 (11.0-16.0) % Plt Count 246 (160-400) X10*3/uL MPV 8.1 L (9.4-12.3) fL Immature Gran % (Auto) 0.3 (0.0-0.4) % Neut % (Auto) 66.0 (45-73) % Lymph % (Auto) 24.0 (20-40) % Calhoun % (Auto) 7.9 (2-11) % Eos % (Auto) 1.2 (0-4) % Baso % (Auto) 0.6 (0-2) % Lymph # (Auto) 1.7 (1.2-4.9) X10*3/uL Calhoun # (Auto) 0.5 (0.1-1.2) X10*3/uL Eos # (Auto) 0.1 (0.0-0.4) X10*3/uL Baso # (Auto) 0.0 (0.0-0.2) X10*3/uL Abs Immat Gran (auto) 0.02 (0.00-0.03) X10*3/uL Absolute Neuts (auto) 4.5 (2.0-8.3) x10*3/uL Absolute Nucleated RBC 0.000 (0.0-0.012) X10*3/uL Nucleated RBC % (auto) 0.0 (0.0-0.2) /100WBC Sodium 143 (135-145) mmol/L Potassium 4.0 (3.3-5.1) mmol/L Chloride 104 (96-108) mmol/L Carbon Dioxide 27 (22-29) mmol/L Anion Gap 16 (12-20) BUN 15 (9-16) mg/dL Creatinine 0.79 (0.5-1.4) mg/dL Estim Creat Clear Calc 67.6 Estimated GFR > 60 Random Glucose 99 (60-115) mg/dL Calcium 9.8 (8.4-10.2) mg/dL Magnesium 1.9 (1.6-2.6) mg/dL Total Bilirubin 0.4 (0.0-1.0) mg/dL AST 21 (5-31) U/L ALT 8 (0-31) U/L Alkaline Phosphatase 81 (39-117) U/L Total Protein 7.8 (6.5-8.0) g/dL Albumin 4.7 (3.5-5.0) g/dL Urine Color Yellow Urine Appearance Clear Urine pH 8.0 (5.0-9.0) Ur Specific Peterson 1.010 (1.005-1.025) Urine Protein Negative (Neg-Trace) mg/dL Urine Glucose (UA) Negative (Negative) mg/dL Urine Ketones Negative (Negative) mg/dL Urine Blood Negative (Negative) Urine Nitrite Negative (Negative) Ur Leukocyte Esterase Large (3+) H (Negative) Urine RBC 0-2 (0-2) /HPF Urine WBC >50 H (0-5) /HPF Ur Squamous Epith Cells 0-2 (0-2) /HPF Urine Bacteria Trace (None Seen) Hyaline Casts 0-2 (0-2) /LPF Tests considered The following testing was considered but not selected: I considered obtaining a CT scan of the abdomen / pelvis however, the patient's current clinical presentation and work up did not warrant this. Prescription Management I considered prescription management with: Antibiotic (Patient was prescribed an antibiotic for UTI vs. Pyelonephritis) Discharge Plan Discharge Clinical Impression: Pyelonephritis, Urinary tract infection Patient Disposition: Home, Self-Care Instructions: Urinary Tract Infection in Older Adults (ED) Additional Instructions: Your work up today showed evidence of a urinary tract infection and given your symptoms of low back pain - I am suspicious there is kidney involvement. It is crucial you take your antibiotic as prescribed. Tus an?lisis de hoy mostraron evidencia de payam infecci?n del tracto urinario y, dados tus s?ntomas de dolor lumbar, sospecho que hay afectaci?n renal. Es crucial que tomes el antibi?vini seg?n lo recetado. IF you are prescribed home medications and/or you are taking over the counter medications at home- it is very important you continue to do so as prescribed / directed unless told otherwise. SI le recetan medicamentos y/o est? tomando medicamentos de venta torsten, es muy importante que contin?e haci?ndolo seg?n lo recetado/indicado a menos que le indiquen lo contrario. Follow up with your primary care provider. Return to the emergency department immediately if your symptoms worsen or if you develop any dizziness, shortness of breath, difficulty breathing, chest pain, blurry vision, loss of vision, nausea, vomiting, abdominal pain, fever, chills, back pain, or any other complaints. Noelle?seguimiento?con shaw m?dico de atenci?n primaria. Acuda inmediatamente al servicio de urgencias si brandan s?ntomas empeoran o si presenta falta de aliento, dificultad para respirar, dolor tor?cico, mareos, aturdimiento, dolor de espalda, dolor abdominal, fiebre, escalofr?os o cualquier otro s?ntoma. Please see the information below about our Patient Portal. If you are not yet enrolled in the [facility] Patient Portal, you will receive an enrollment email invitation following your visit to any [facility] setting. You may also self-enroll in the Patient Portal by visiting our website: [email or web address] The following information is required to access the Patient Portal: - Your [facility] Medical Record Number - Your personal home email address (must match what is in your electronic medical record, Registration staff can assist with this) - Name - Date of Capabilities of the Patient Portal: - Message some providers - View upcoming appointments - Access your health summary, medical history, and visit history - View current conditions and allergies - View procedure and lab results - View your medications, including guidelines, side effects, and precautions - Complete pre-appointment questionnaires requested by your provider - Ready summary reports of your office visits and procedures To access the Patient Portal Mobile Lianne, follow these directions: - Search [employer] in the Lianne Store or AOL Store - Download the Lianne - Search for [facility] - Enter your login/password Portal del paciente Si usted no esta inscrito en el portal de pacientes de [facility] y [facility], recibira payam invitacion de inscripcion despues de shaw visita al [facility] o al [facility] via correo electronico. Tambien puede inscribirse voluntariamente en el portal de pacientes visitando nuestra pagina web: [email or web address]/portal La siguiente informacion sera requerida para acceder al portal: - Shaw chanelle de historia medica de [facility] - Shaw direccion de correo electronico personal - Nombre - Fecha de nacimiento Capacidades: Las siguientes capacidades estan disponibles en el portal de pacientes: - Enviar mensajes a algunos doctores - Verificar proximas citas - Acceso a shaw historial de salomón, registro medico e historial de visitas - [place] las condiciones actuales y alergias [place] procedimientos y resultados del laboratorio - [place] brandan medicamentos, incluyendo las pautas - Efectos secundarios y precauciones - Completar o llenar formularios / cuestionarios de - Citas solicitadas por shaw doctor - Leer los resumenes de reportes medicos de brandan visitas y procedimientos Theresa acceder a la aplicacion movil: - Busque [employer] en la Lianne Store o AOL Store - Descargue la aplicacion - Busque [facility] - Ingrese shaw nombre de usuario / Contrasena Prescriptions: New cefpodoxime 200 mg tablet 200 mg PO BID 10 Days Qty: 20 0RF Rx Instructions: must administer with a meal/food Referrals: Marley Rich MD [Primary Care Provider, Medical] Interventions: ED Discharge Assessment Last Done: 07/13/25 13:03 Discharge Date/Time: 07/13/25 13:04 Print Language: Romansh
--- OUTSIDE RECORDS SUMMARY | 2025-07-13 10:22 | XMS_ITS | Clinical Summary ---
Author Organization [address] [facility] Address [address] [place] [address] Phone Care Team Providers Care Director Of Market Intelligence Name Role Phone Marley Rich MD Primary Care Provider [phone] Allergies No known active allergies Medications ciclopirox [...] [facility] [address] [facility] [address] [place] [phone] Aditya Mclaughlin, DPM Dermatophytosis of nail [...] [facility] st Contact Info) Description 08/26/2025 2:15 PM EDT Office Visit Orthopedic Surgery - [place] [address] [facility] [address] [place] [phone] Aditya Mclaughlin, DPChika [address] [address] Health Maintenance Due Date Last Done Comments [...] topic Insurance MEDICAID - [place] Care Teams Director Of Market Intelligence Relationship Specialty Start Date End Date Marley Rich MD [address] [place] [address] PCP - General Family Medicine 01/02/25
--- OUTSIDE RECORDS SUMMARY | 2025-07-13 10:22 | XMS_ITS | Encounter Summary ---
Author Organization [facility] Address [address] [address] Phone Care Team Providers Care Senior Auditor Name Role Phone Unknown, Unknown Primary Care Provider Veronique Jackson MD Primary Care Provider [phone] Reason for Referral * Physical Therapy (Within 1 month) - Closed Specialty Diagnoses / Procedures Referred By Contac t Referred To Contact Physical Therapy Diagnoses Traumatic injury of head, sequela Sergei Luis MD Phone: tel: fax: mailto:[email or web address] Giovanna Page PT Phone: tel: mailto:[email or web address] Referral ID Status Reason Start Date Expiration Date Visits Re quested Visits Authorized [id number] Closed 01/28/2020 04/07/2020 9 9 Encounter Details Date Type Department Care Team (Latest Contact Info) Description 01/28/2020 Transcribe Orders [facility] [address] [place] [id number] Sergei Luis MD [address] [place] [address], [place] [address] [email or web address] Traumatic injury of head, sequela (Primary Dx) [...] Upcoming Encounters Date Type Department Care Team ([facility] st Contact Info) Description 12/24/2025 9:00 AM EST Office Visit [facility] in [address] [address] Chauncey Kurtz OD [address] [place] [address] [email or web address] 12/24/2025 9:15 AM EST Procedure visit [facility] in [address] [address] Scheduled Referrals Name Type Priority Associated Diagnoses Order Schedule Ambulatory referral to N Physical Therapy Outpatient Referral Routine Traumatic injury of head, sequela Ordered: 01/28/2020 documented as of this encounter Visit Diagnoses Diagnosis Traumatic injury of head, sequela- Primary documented in this encounter Care Teams Senior Auditor Relationship Specialty Start Date End Date Unknown, Unknown, MD PCP - General 12/20/19 07/03/20 Veronique Jack MD [address] [place] [id number] [email or web address] PCP - General Internal Medicine 07/04/20 documented as of this encounter Additional Source Comments The information contained in this document represents components of the legal health record. It is not the complete legal health record.[facility]
--- OUTSIDE RECORDS SUMMARY | 2025-07-13 10:22 | XMS_ITS | Encounter Summary ---
Author Organization [employer] Address [address] [place] [address] 7 [place] [address] Care Team Providers Care Health And Nutrition Specialist Name Role Phone Marley Rich MD Primary Care Provider [phone] Encounter Details Date Type Department Care Team ([facility] st Contact Info) Description 03/09/2023 Orders Only [facility] MED & PEDS [address] [place] [address] Marley Rich MD [address] [place] [address] Social History Tobacco Use Types Packs/Day Years [...] Description 07/26/2025 9:00 AM EDT Office Visit [facility] MED & PEDS [address] [place] [address] Marley Rich MD [address] [place] [address] 08/23/2025 3:00 PM EDT Office Visit [facility] ADULT DENTAL [address] [place] [address] Carli Casanova 09/17/2025 11:20 AM EDT Procedure Visit [facility] MED & PEDS [address] [place] [address] Marley Rich MD [address] [place] [address] Pending Results Name Type Priority Associated Diagnoses [...] G Routine 06/06/2023 11:3 8 AM EDT HM COLONOSCOPY Routine 12/30/2022 documented in this encounter Results * Urinalysis with Reflex to Microscopic (09/16/2023 8:30 AM EDT) Color Urine Yellow [facility] Appearance Urine Clear [facility] PH 6.5 5.0 - 9.0 [facility] Glucose Urine UA Negative Negative mg/dL [facility] Urine Blood Negative Negative [facility] Specific [place] - Urine 1.020 1.005 - 1.025 [facility] Urine Protein Negative Neg-Trace mg/dL [facility] Urine Ketones Negative Negative mg/dL [facility] Nitrite Urine Negative Negative [facility] Leukocyte Esterase Urine Negative Negative [facility] 09/16/2023 8:30 AM EDT 09/16/2023 2:34 PM EDT us Marley Rich MD LAB URINE ORDERABLES Final Re sult [facility] [address] [place] [phone] * HIV Ab/Ag (OK DP) (09/16/2023 8:27 AM EDT) HIV AB/AG Nonreactive Nonreactive [facility] Comment:HIV-1 p24 Ag and/or HIV-1/HIV-2 Ab not detected.A test result that is nonreactive does not exclude thepossibility of exposure to or infection with HIV-1 and/orHIV-2. Nonreactive results in this assay for individualswith prior exposure to HIV-1 and/or HIV-2 may be due toantigen and antibody levels that are below the limit ofdetection of this assay.The [employer] HIV Ag/Ab Combo assay result andsupplemental assay results should be interpreted inconjunction with the patient's clinical presentation,history and other laboratory results. If the results areinconsistent with clinical evidence, additional testing issuggested to confirm the result. 09/16/2023 8:27 AM EDT 09/16/2023 2:26 PM EDT us Marley Rihc MD LAB BLOOD ORDERABLES Final Re sult [facility] [address] [place] [address] [phone] * (ABNORMAL) Comprehensive Metabolic Panel, Fasting (09/16/2023 8:27 AM EDT) Sodium 139 135 - 145 mmol/L [facility] Potassium 4.2 3.3 - 5.1 mmol/L [facility] Chloride 103 96 - 108 mmol/L [facility] Carbon Dioxide 26 22 - 29 mmol/L [facility] Anion Gap 14 12 - 20 [facility] Urea Nitrogen (BUN) 11 9 - 16 mg/dL [facility] Creatinine, Serum 0.74 0.5 - 1.4 mg/dL [facility] Estimated Glomerular Filt Rate >60 [facility] Comment:NOTE: For -Am erican individuals, multiply the result by 1.210.Chronic Kidney Disease: Estimated GFR < 60 mL/min/[id number] Kidney Disease: Estimated GFR < 15 mL/min/1.73m2 Glucose Fasting 78 60 - 99 mg/dL [facility] Calcium 10.2 8.4 - 10.2 mg/dL [facility] Bilirubin, Total 0.7 0.0 - 1.0 mg/dL [facility] Aspartate Amino Transferase 20 5 - 31 U/L [facility] Alanine Aminotransferase 11 0 - 31 U/L [facility] Total Protein 8.1(H) 6.5 - 8.0 g/dL [facility] Albumin Level 4.4 3.5 - 5.0 g/dL [facility] Alkaline Phosphatase 96 39 - 117 U/L [facility] 09/16/2023 8:27 AM EDT 09/16/2023 2:26 PM EDT Result [facility] Marley Rich MD LAB BLOOD ORDERABLES Final Re sult Performing Organization Address [facility] Co de Phone Number [facility] [address] [place] [address] [phone] * Cyclic Citrullinated Peptide (CCP) Antibody (IgG) (06/06/2023 11:38 AM EDT) Cyclic Citrullinated Peptide <16 UNITS [facility] Comment:Reference RangeNegat zach: <20Weak Positive: 20-39Moderate Positive: 40-59Strong Positive: >59THIS TEST WAS PERFORMED AT:[facility] [address] [id number] RODGERS MD 06/06/2023 11:3 8 AM EDT 06/06/2023 2:12 PM EDT Result [facility] External Provider LAB BLO OD ORDERABLES Final Result Performing Organization Address [facility] de Phone Number [facility] [address] [place] [address] [phone] * Immunoglobulin G (06/06/2023 11:38 AM EDT) Immunoglobulin G 1486 600 - 1540 mg/dL [facility] Comment:THIS TEST WAS PERFOR MED AT:[facility] [address] [id number] RODGERS MD 06/06/2023 11:3 8 AM EDT 06/06/2023 2:12 PM EDT [facility] External Provider LAB BLO OD ORDERABLES Final Result Performing Organization Address [facility]/ZIP Co de Phone Number [facility] [address] [place] [phone] * Hepatitis Panel, General (06/06/2023 11:38 AM EDT) Hepatitis A IgM Nonreactive Nonreactive [facility] Comment:IgM antibodies to CASTILLO V not detected; does not exclude earlyacute or recovered HAV infection. ~Hepatitis B Surface Antibody NONREACTIVE Nonreactive [facility] Comment:Nonreactive: < 8.00 mIU/mL Hepatitis B Core Antibody Nonreactive Nonreactive [facility] Hepatitis C Antibody Nonreactive Nonreactive [facility] Comment:Antibodies to HCV no t detected; does not exclude early acuteHCV infection. Hepatitis B Surface Ag Negative Negative [facility] 06/06/2023 11:3 8 AM EDT 06/06/2023 2:12 PM EDT [facility] External Provider LAB BLO OD ORDERABLES Final Result Performing Organization Address [facility]/ZIP Co de Phone Number [facility] [address] [place] [phone] * Rheumatoid Factor (06/06/2023 11:38 AM EDT) Pathologist [facility] Rheumatoid Factor <13.0 <15.0 IU/mL [facility] 06/06/2023 11:3 8 AM EDT 06/06/2023 2:12 PM EDT [facility] External Provider LAB BLO OD ORDERABLES Final Result Performing Organization Address [facility] Co de Phone Number [facility] [address] [place] [phone] * (ABNORMAL) C-reactive Protein (06/06/2023 11:38 AM EDT) Pathologist [facility] C Reactive Protein 0.66(H) < or = 0.50 mg/dL [facility] 06/06/2023 11:3 8 AM EDT 06/06/2023 2:12 PM EDT [facility] External Provider LAB BLO OD ORDERABLES Final Result Performing Organization Address [facility] Co de Phone Number [facility] [address] [place] [phone] * Uric acid (06/06/2023 11:38 AM EDT) Uric Acid 4.3 2.4 - 5.7 mg/dL [facility] 06/06/2023 11:3 8 AM EDT 06/06/2023 2:12 PM EDT [facility] External Provider LAB BLO OD ORDERABLES Final Result Performing Organization Address [facility] de Phone Number [facility] [address] [place] [phone] * Sed Rate by Modified Nimeshergren (06/06/2023 11:38 AM EDT) Erythrocyte Sedimentation Rate 11 0 - 20 MM/HR [facility] Comment:Patients with polycy themia and many hemoglobin abnormalitiesmay have depressed sed rates whereas patients with anemiamay have elevated sed rates. 06/06/2023 11:3 8 AM EDT 06/06/2023 2:12 PM EDT [facility] External Provider LAB BLO OD ORDERABLES Final Result Performing Organization Address [facility] de Phone Number [facility] [address] [place] [phone] * Hm Colonoscopy (12/30/2022) Colonoscopy Normal Normal 12/30/2022 us Historical Provider HEALTH MAINTENANCE Edited Result - Final documented in this encounter Visit Diagnoses Not on filedocumented in this encounter Additional Health Concerns Assessment Noted Time PHQ-9 Depression Total Score: 10 023 11:29 AM EDT documented as of this encounter Care Teams Health And Nutrition Specialist Relationship Specialty Start Date End Date Marley Rich MD [address] [place] [address] PCP - General Family Medicine 11/25/21 documented as of this encounter
[2025-07-13 10:29] LABS: Appearance Urine Clear; Glucose Urine UA Negative (Negative); PH 8.0 (5.0-9.0); Specific Gravity - Urine 1.010 (1.005-1.025); UMIC TRIGGER UACC YES
[2025-07-13 10:41] LABS: UACC Culture Trigger YES
[2025-07-13 10:53] LABS: MANUAL DIFF FLAG NO
[2025-07-13 10:55] LABS: Hematocrit 40.5 % (37.0-47.0); Hemoglobin 13.8 g/dl (12.0-16.0); Imm Gran Abs Auto 0.02 X10*3/uL (0.00-0.03); Imm Gran Pct Auto 0.3 % (0.0-0.4); Lymphocytes Absolute Auto 1.7 X10*3/uL (1.2-4.9); Mean Corpuscular HGB Conc 34.1 g/dl (31.0-35.0); Mean Corpuscular Hemoglobin 29.4 pg (27.0-33.0); Mean Corpuscular Volume 86.2 fL (80.0-98.0); NRBC Abs Auto 0.000 X10*3/uL (0.0-0.012); NRBC Pct Auto 0.0 /100WBC (0.0-0.2); Platelet Count 246 X10*3/uL (160-400); Red Blood Count 4.70 X10*6/uL (4.20-5.50); White Blood Count 6.9 X10*3/uL (4.8-10.8)
[2025-07-13 11:11] LABS: Alanine Aminotransferase 8 U/L (0-31); Albumin Level 4.7 g/dL (3.5-5.0); Alkaline Phosphatase 81 U/L (39-117); Anion Gap 16 (12-20); Aspartate Amino Transferase 21 U/L (5-31); Blood Urea Nitrogen 15 mg/dL (9-16); Calcium 9.8 mg/dL (8.4-10.2); Carbon Dioxide 27 mmol/L (22-29); Chloride 104 mmol/L (96-108); Creatinine Clr Calc Pharmacy 67.6; Estimated Glomerular Filt Rate > 60; Magnesium 1.9 mg/dL (1.6-2.6); Potassium 4.0 mmol/L (3.3-5.1); Sodium 143 mmol/L (135-145); Total Protein 7.8 g/dL (6.5-8.0)
[2025-07-13 12:08] VITALS: BP 115/63; PULSE 80; RESP 16; TEMP 36.8; O2SAT 96
[2025-07-13 13:03] VITALS: BP 121/65; PULSE 79; RESP 17; TEMP 36.6; O2SAT 96
== END 2025-07-13 13:04 | disposition home or self-care (01) ==
PROVIDERS: Physician Assistant Medical; Emergency Provider Emergency Medicine; PCP Family Medicine
DX: N10 Acute pyelonephritis (principal); N39.0 Urinary tract infection, site not specified
CPT/HCPCS: 36415; 80053; 81001; 83735; 85025; 87086; 87088; 87186; 96361; 96374; 99284; J0696

== ENCOUNTER 2025-08-17 08:37 | Outpatient (REF) | payer MEDICAID, SELFPAY ==
--- OUTSIDE RECORDS SUMMARY | 2022-03-10 08:24 | XMS_ITS | Continuity of Care Document ---
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 tel:[phone] [facility] Back pain (chief complaint) Low back painDizzines sBenign essential hypertension 5 No Information OFFICE/OUTPA TIENT VISIT, [facility], [address] [facility] [address], [place], [place], [id number], [place] tel:[phone] [facility] chest pain radiating to Left arm (chief complaint)dy suria (chief complaint)CASTILLO (chief complaint) DysuriaRight shoulder painPersiste nt headaches 5 No Information [facility], [address] [facility] [address], [place], [place], [id number], [place] tel:[phone] [facility] Abnormal mammogram 5 No Information OFFICE/OUTPA TIENT VISIT, [facility], [address] [facility] [facility],[address], [place], [place], [id number], [place] tel:[phone] [facility] f/u labs. (chief complaint) Autoimmune diseasePosit zach LENCHO (antinuclear antibody)Pre diabetes 5 No Information [facility], [address] [facility] [address], [place], [place], [id number], [place] tel:[phone] [facility] Joint painPositive LENCHO (antinuclear antibody) 4 No Information OFFICE/OUTPA TIENT VISIT, [facility], [address] [facility] [facility],[address], [place], [place], [id number], [place] tel:[phone] [facility] f/u chest xray (chief complaint)pa in on her bones (chief complaint)Ch est discomfort (chief complaint)fo ot wound (chief complaint) Joint painDizzines sChest Tightness 4 No Information OFFICE/OUTPA TIENT VISIT, [facility], [address], [place], [place], [id number], [place] tel:[phone] [facility] Cough (chief complaint) CoughURI, acute Oct- 0- 4 No Information [facility], [address], [place], [place], [id number], [place] tel:[phone] [facility] Sleep apnea Oct- 8- 4 No Information OFFICE/OUTPA TIENT VISIT, EST [facility], [address] [facility] [address], [place], [place], [id number], [place] tel:[phone] [facility] sore throat (chief complaint) URI, acute 4 No Information OFFICE/OUTPA TIENT VISIT, [facility], [address] [facility] [address], [place], [place], [id number], [place] tel:[phone] [facility] Hypertension (follow up) (chief complaint) HeadacheHype rtension, Benign Sep-2 - 4 No Information OFFICE/OUTPA TIENT VISIT, EST [facility], [address] [facility] [address], [place], [place], [id number], [place] tel:[phone] [facility] hypertension (follow up) (chief complaint) Hypertension , Benign Sep-0 2- 4 No Information [facility], [address] [facility] [address], [place], [place], [id number], [place] tel:[phone] [facility] Unspecified abnormal mammogram Jun- 4 No Information OFFICE/OUTPA TIENT VISIT, [facility], [address] [facility] [address], [place], [place], [id number], [place] tel:[phone] [facility] hypertension (follow up) (chief complaint) Urine frequencyHyp ertension, Benign Jun-0 - 4 No Information [facility], [address] [facility] [address], [place], [place], [id number], [place] tel:[phone] [facility] Unspecified abnormal mammogram 4 No Information OFFICE/OUTPA TIENT VISIT, EST [facility], [address] [facility] [address], [place], [place], [id number], [place] tel:[phone] [facility] follow up on lab/diagnost ic test (chief complaint)he adache (chief complaint)va ricose veins (chief complaint) Urge incontinence Varicose veinsHeadach eHypertensio n, Benign 4 No Information OFFICE/OUTPA TIENT VISIT, EST izzy [facility], [address] [facility] [address], [place], [place], [id number], [place] tel:[phone] [facility] walk-in- UTI sx (chief complaint) Urinary symptom or sign 4 No Information OFFICE/OUTPA TIENT VISIT, EST izzy [facility], [address] [facility] [address], [place], [place], [id number], [place] tel:[phone] [facility] f/u ED (chief complaint)he adache (chief complaint)fo llow up on lab/diagnost ic test (chief complaint)ur ine problems (chief complaint) Urinary incontinence Calcaneal spurVaginal itchingHeada yeimy 4 No Information OFFICE/OUTPA TIENT VISIT, EST izzy [facility], [address] [facility] [address], [place], [place], [id number], [place] tel:[phone] [facility] PAP test (chief complaint)BP check (chief complaint)fo ot pain (chief complaint) Screening for malignant neoplasms of the cervixHypert ension, BenignBilate ral foot painVaginiti s 4 No Information PREV VISIT, EST, AGE 40-64 [facility], [address] [facility] [address], [place], [place], [id number], [place] tel:[phone] [facility] preventive exam (chief complaint) Routine general medical examination at [facility] for screening colonoscopyE demaHeadache Hypertension , BenignRoutin e Medical Exam 4 No Information OFFICE/OUTPA TIENT VISIT, [facility], [address], [place], [place], [address], [place] tel:[phone] [facility] care (chief complaint)hy pertension (chief [...] type Covered alliance party ID Authoriza tion(s) [facility] C3 ACO [id number] [facility] C3 ACO [id number] [facility] C3 ACO [id number] [facility] C3 ACO [id number] [facility] C3 ACO [id number] [facility] [id number] [facility] [id number] [facility] [id number] [id number] [facility] [id number] [facility] CI [id number] [facility] [id number] [facility] [id number] [facility] CI [id number] Social History Type Description Quantity Date Captured [...] Referral Referred To: Dr Durham Ordered: Referrals: Uro/Pediatrics Hospitalist. Dr Durham. Location: [facility]. Evaluate and treat ordered Referral Ordered: MAMMOGRAM [...] Evaluate and treat. ordered Referral Ordered: Referral: Uro/Pediatrics Hospitalist. Evaluate and treat. ordered Referral Ordered: Referral: Podiatry. Evaluate and treat. ordered Referral Ordered: X-RAY EXAM OF FOOT 2 VIEWS ordered Referral Ordered: COLONOSCOPY SCREENING ordered Referral Ordered: MAMMOGRAM SCREENING, BILATERAL Appointment date/timeframe: 04/02/2014 ordered Patient Education Upper Respiratory Infec tion: After You completed Future Order: Lab Order UA/M w/r flx Culture, Routine ([id number]), Sent on: Sent Future Order: Lab Order CULTURE, GROUP A STREP ([id number]), Sent on: Sent Future Order: Lab Order CULTURE, URINE ([id number]), Sent on: Sent Future Order: Lab Order BASIC ME TABOLIC PANEL ([id number]), Sent on: Sent Future Order: Lab Order LIPID PA JOSE ([id number]), Sent on: Sent Future Order: Lab Order HEMOGLOB IN A1C ([id number]), Sent on: Sent Future Order: Lab Order [...] Needs Mammo referral 1 preventive exam (comments) swazi 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 Contraindications and risk factors assessed. Patient's questions answered. 1 COVID test Pt presents for car side COV ID test via nasal swab per provider POC for positive exposure. 1 COVID Vaccine #1 Patient presents in NAD for COVID vaccin e. Patient meets criteria of cohort currently sanctioned by [facility]. Contraindications and risk factors assessed. Patient's [...] also had similar ED visit back in [facility] but was not given ativan script for home. 1 Anxiety This is an initial visit. Re lated symptoms are unstable. The patient presents with anxious/fearful thoughts and excessive worry. Additional information: went to [facility] ER on 12/22 s/p COVID dx [...] letter to work. 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 interperter [facility] # [id number] Headache Additional information: has meds with neurologist at [facility]. doing okay. 0 chronic conditions 1) Essential [...] regardign job injury. neurologist /dr Luis at [facility] tx'ed with meds. f/u. 0 BP check Pt appears in NAD for BP yeimy ck, per plan by [facility]. Per chart review, pt taking 50 mg [...] occurs constantly. Additional information: offered surgery at [facility] with urogyn. but pt refused.. 9 Urinary [...] injury. has neurologist Dr Sergei Luis at [facility] saw him before injury. appt was in march started on doxepin and ibfn. taking with some benefit. f/u planned for aug 9 head injury The patient does not use alc ohol. Associated symptoms include gait disturbance and headache. Pertinent negatives include seizures. 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 ED visit [...] information: Dr Mira Viramontes (first name) at [facility] for depression prescribing sleeping medicatio and antidepressantsrecent pap with at [facility] pap normal-1 mos ago. had UVP, 03/2015 supracervical hysterectomy and mesh support. preventive exam (comments) doesn't recall sleeping pill name taking fluoxetine not duloxetine. ct to have multiple joint pains back pain and headaches. 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 urinary symptoms Onset: 1 week ago. Additional [...] wants to go in to one in [place]. 8 headache Additional information: hurt s very much get very dizzy forget everything neurologist told me there is nothing else he can do for me wants a good doctor in [place] happened at work work insurance has to [...] Pt also goes to vision therapy at [place], next appointment is next week. Pt also experiences burning, redness and floaters. Pt experiences CASTILLO and diplopia everyday since accident mostly on the right side of her head. Pt does not experience flashes, discharge, itching, or watering. 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 Follow Up of car [...] cinthya, h/as . neurologist Dr. Cheung @ [facility] 7 pelvic and abdom pain nausea no vomitting. taking ibfn 600 tid . notes sexual dysfunction. saw logistics research engineer surgeon, Dr Durham pt tried on ditropan [...] went with medication first. f/u appt in [place] in 2 mos. urinary symptoms The problem is resolved. Additional info rmation: history of UTIs, sexually active and saw urogyne in [place] Dr Durham saw pt had UTI felt better after treatment. every thing seems fine now. always some urgency. can't hold it long. interperter #[id number]. Hemorrhoids Location is [place]. The rosamaria finch [...] thinking about her pain. doing PT in [place] sees Neurologist this week constipation, dry mouth [...] information: stop ped flouxetine a therapist at [facility] told her to stop it. [...] on second step fell back wards on [facility] and back, back probably [...] into the skin and quintana. 7 f/u [facility] 12/24 fell at work. since then has had severe pain. 01/10 in [facility] ER for pain headache, back and chest [...] headaches.accident at work. 01/19/2014 went to ER [facility]. slipped and fell backward on wet floor and hit her head. no loc. went to ER CT head and neck neg. went home. had h/a's saw Neurologist 09/2014 ongoing headaches unable to get back to work. MRI T2 changes suggestive of post trauma h/a concussion. started on nortyptiline with some improvement. still not able to work, however. 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 requests improved documentation of health care. can insurance help me. ?? 6 urinary symptoms [id number] 6 urinary symptoms (comments) She saw her specialist in [place] 1 week ago ( ? urogYN) and [...] asking for MRI back results ordered by agricultural systems specialist . Dysuria Onset: 8 days ago. [...] . unresolving.also she has appoint soon with [employer] for f/u . of note she had [...] was denied by insurance. 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 his employer said if she cannot [...] work off until she see ortho at [facility] 07/04/15 . says she cannot work [...] up Pt says she had surgery in [place] in apr for uterine prolapse ? 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
--- NOTE | ~2025-08-17 | MR_ITS ---
CLINICAL HISTORY: Radiculopathy lumbar region MR lumbar spine without gadolinium Comparison: CT/SR - CT LUMBAR SPINE WO IV CON - 07/13/25 09:04 EDT Findings: Normal alignment. No acute fracture or pathologic bone lesion. Cauda equina and conus medullaris within normal limits. Disc desiccation is seen at all levels in the lumbar spine. Mild loss of disc height is noted at L1-L2 and L5-S1 in particular. At T12-L1 there is no significant annular bulge or focal disc herniation. The foramina are patent. At L1-L2 there is a mild annular bulge mildly deforming the dural sac. The foramina are patent. At L2-L3 there is a minimal annular bulge. The foramina are patent. At L3-L4 there is a minimal annular bulge. The neural foramina are patent. At L4-L5 there is a right subarticular disc protrusion. There is no neural foraminal narrowing At L5-S1 there is a minimal annular bulge with mild right neural foraminal narrowing. There is no evidence of nerve root impingement at this or any other level. Hemangiomata are noted at T12, L2 and L4. The paraspinal soft tissues are normal. The visualized abdominal and pelvic contents are within normal limits. IMPRESSION: 1. Hemangiomata at T12, L2 and L4. 2. Multilevel disc desiccation with disc space narrowing particularly at the L1-L2 and L5-S1 levels. 3. Mild to minimal annular bulges are seen at the L1-L2 through L3-L4 and at L5-S1. There is mild right neural foraminal narrowing at L5-S1. 4. Right subarticular disc protrusion at L4-L5. This document has been electronically signed by: Ernesto Pereira MD on 08/19/2025 12:45:33
--- OUTSIDE RECORDS SUMMARY | 2025-08-17 08:40 | XMS_ITS | Encounter Summary ---
Author Organization [employer] Address [address] [place] [address] 7 [place] [address] Care Team Providers Care Marker Machine Attendant Name Role Phone Marley Rich MD Primary Care Provider [phone] Encounter Details Date Type Department Care Team ([facility] st Contact Info) Description 03/09/2023 Orders Only [facility] MED & PEDS [address] [place] [address] Marley Rich MD [address] [place] [address] Social History Tobacco Use Types Packs/Day Years [...] Care Team (Late st Contact Info) Description 08/23/2025 2:00 PM EDT Office Visit [facility]ULT [facility] [address] [place] [address] Kamran Sherman 08/28/2025 3:15 PM EDT Clinical Support [facility] [address] [place] [address] Aletha Vazquez RN [address] [place] [address] 09/17/2025 11:20 AM EDT Procedure Visit [facility] [address] [place] [address] Marley Rich MD [address] [place] [address] Pending Results Name Type Priority Associated Diagnoses [...] (09/16/2023 8:30 AM EDT) Color Urine Yellow [facility] Appearance Urine Clear [facility] PH 6.5 5.0 - 9.0 [facility] Glucose Urine UA Negative Negative mg/dL [facility] Urine Blood Negative Negative [facility] Specific [place] - Urine 1.020 1.005 - 1.025 [facility] Urine Protein Negative Neg-Trace mg/dL [facility] Urine Ketones Negative Negative mg/dL [facility] Nitrite Urine Negative Negative [facility] Leukocyte Esterase Urine Negative Negative [facility] 09/16/2023 8:30 AM EDT 09/16/2023 2:34 PM EDT us Marley Rich MD LAB URINE ORDERABLES Final Re sult [facility] [address] [place] [phone] * HIV Ab/Ag ([place] [facility]) (09/16/2023 8:27 AM EDT) HIV AB/AG Nonreactive Nonreactive [facility] Comment:HIV-1 p24 Ag and/or HIV-1/HIV-2 Ab not detected.A test result that is nonreactive does not exclude thepossibility of exposure to or infection with HIV-1 and/orHIV-2. Nonreactive results in this assay for individualswith prior exposure to HIV-1 and/or HIV-2 may be due toantigen and antibody levels that are below the limit ofdetection of this assay.The [employer] HIV Ag/Ab Combo assay result andsupplemental assay results should be interpreted inconjunction with the patient's clinical presentation,history and other laboratory results. If the results areinconsistent with clinical evidence, additional testing issuggested to confirm the result. 09/16/2023 8:27 AM EDT 09/16/2023 2:26 PM EDT us Marley Rich MD LAB BLOOD ORDERABLES Final Re sult [facility] [address] [place] [phone] [phone] * (ABNORMAL) Comprehensive Metabolic Panel, Fasting (09/16/2023 8:27 AM EDT) Sodium 139 135 - 145 mmol/L [facility] Potassium 4.2 3.3 - 5.1 mmol/L [facility] Chloride 103 96 - 108 mmol/L [facility] Carbon Dioxide 26 22 - 29 mmol/L [facility] Anion Gap 14 12 - 20 [facility] Urea Nitrogen (BUN) 11 9 - 16 mg/dL [facility] Creatinine, Serum 0.74 0.5 - 1.4 mg/dL [facility] Estimated Glomerular Filt Rate >60 [facility] Comment:NOTE: For -Am erican individuals, multiply the result by 1.210.Chronic Kidney Disease: Estimated GFR < 60 mL/min/1.52u2Cdlrmz Kidney Disease: Estimated GFR < 15 mL/min/1.73m2 Glucose Fasting 78 60 - 99 mg/dL [facility] Calcium 10.2 8.4 - 10.2 mg/dL [facility] Bilirubin, Total 0.7 0.0 - 1.0 mg/dL [facility] Aspartate Amino Transferase 20 5 - 31 U/L [facility] Alanine Aminotransferase 11 0 - 31 U/L [facility] Total Protein 8.1(H) 6.5 - 8.0 g/dL [facility] Albumin Level 4.4 3.5 - 5.0 g/dL [facility] Alkaline Phosphatase 96 39 - 117 U/L [facility] 09/16/2023 8:27 AM EDT 09/16/2023 2:26 PM EDT Result [facility] Marley Rich MD LAB BLOOD ORDERABLES Final Re sult Performing Organization Address [facility] Co de Phone Number [facility] [address] [place] [phone] [phone] * Cyclic Citrullinated Peptide (CCP) Antibody (IgG) (06/06/2023 11:38 AM EDT) Cyclic Citrullinated Peptide <16 UNITS [facility] Comment:Reference RangeNegat zach: <20Weak Positive: 20-39Moderate Positive: 40-59Strong Positive: >59THIS TEST WAS PERFORMED AT:[facility] [employer] [address] [id number] RODGERS MD 06/06/2023 11:3 8 AM EDT 06/06/2023 2:12 PM EDT Result [facility] External Provider LAB BLO OD ORDERABLES Final Result Performing Organization Address [facility] de Phone Number [facility] [address] [place] [phone] * Immunoglobulin G (06/06/2023 11:38 AM EDT) Immunoglobulin G 1486 600 - 1540 mg/dL [facility] Comment:THIS TEST WAS PERFOR MED AT:[facility] [employer] [address] [id number] RODGERS MD 06/06/2023 11:3 8 AM EDT 06/06/2023 2:12 PM EDT [facility] External Provider LAB BLO OD ORDERABLES Final Result Performing Organization Address [facility] Co de Phone Number [facility] [address] [place] [phone] * Hepatitis Panel, General (06/06/2023 11:38 AM EDT) Hepatitis A IgM Nonreactive Nonreactive [facility] Comment:IgM antibodies to CASTILLO V not detected; does not exclude earlyacute or recovered HAV infection. ~Hepatitis B Surface Antibody NONREACTIVE Nonreactive [facility] Comment:Nonreactive: < 8.00 mIU/mL Hepatitis B Core Antibody Nonreactive Nonreactive [facility] Hepatitis C Antibody Nonreactive Nonreactive [facility] Comment:Antibodies to HCV no t detected; does not exclude early acuteHCV infection. Hepatitis B Surface Ag Negative Negative [facility] 06/06/2023 11:3 8 AM EDT 06/06/2023 2:12 PM EDT [facility] External Provider LAB BLO OD ORDERABLES Final Result Performing Organization Address [facility] Co de Phone Number [facility] [address] [place] [phone] * Rheumatoid Factor (06/06/2023 11:38 AM EDT) Pathologist [facility] Rheumatoid Factor <13.0 <15.0 IU/mL [facility] 06/06/2023 11:3 8 AM EDT 06/06/2023 2:12 PM EDT [facility] External Provider LAB BLO OD ORDERABLES Final Result Performing Organization Address [facility] Co de Phone Number [facility] [address] [place] [phone] * (ABNORMAL) C-reactive Protein (06/06/2023 11:38 AM EDT) Pathologist [facility] C Reactive Protein 0.66(H) < or = 0.50 mg/dL [facility] 06/06/2023 11:3 8 AM EDT 06/06/2023 2:12 PM EDT [facility] External Provider LAB BLO OD ORDERABLES Final Result Performing Organization Address [facility] de Phone Number [facility] [address] [place] [phone] * Uric acid (06/06/2023 11:38 AM EDT) Uric Acid 4.3 2.4 - 5.7 mg/dL [facility] 06/06/2023 11:3 8 AM EDT 06/06/2023 2:12 PM EDT [facility] External Provider LAB BLO OD ORDERABLES Final Result Performing Organization Address [facility] Phone Number [facility] [address] [place] [phone] * Sed Rate by Modified Nimeshergren (06/06/2023 11:38 AM EDT) Erythrocyte Sedimentation Rate 11 0 - 20 MM/HR [facility] Comment:Patients with polycy themia and many hemoglobin abnormalitiesmay have depressed sed rates whereas patients with anemiamay have elevated sed rates. 06/06/2023 11:3 8 AM EDT 06/06/2023 2:12 PM EDT [facility] External Provider LAB BLO OD ORDERABLES Final Result Performing Organization Address [facility] de Phone Number [facility] [address] [place] [phone] * Hm Colonoscopy (12/30/2022) Colonoscopy Normal Normal 12/30/2022 us Historical Provider HEALTH MAINTENANCE Edited Result - Final documented in this encounter Visit Diagnoses Not on filedocumented in this encounter Additional Health Concerns Assessment Noted Time PHQ-9 Depression Total Score: 10 023 11:29 AM EDT documented as of this encounter Care Teams Marker Machine Attendant Relationship Specialty Start Date End Date Marley Rich MD [address] [place] [address] PCP - General Family Medicine 11/25/21 documented as of this encounter
--- OUTSIDE RECORDS SUMMARY | 2025-08-17 08:40 | XMS_ITS | Encounter Summary ---
Author Organization [email or web address] Address [address] [place] [address] [address] [place] [address] Care Team Providers Care Child Care Assistant Name Role Phone Marley Rich MD Primary Care Provider [phone] Reason for Visit * Reason Comments Med Refill Encounter Details Date Type Department Care Team ([facility] st Contact Info) Description 08/14/2025 Refill [facility] PEDS [address] [place] [address] Marley Rich MD [address] [place] [address] Lumbar back pain with radiculopathy affecting right lower extremity; History of vitamin D deficiency Social History Tobacco Use Types Packs/Day Years Used Date Smoking Tobacco: Never Passive Smoke Exposure: Never Smokeless Tobacco: Never Alcohol Use Standard Drinks/Week Comments Never 0 (1 standard drink = 0.6 oz pur e alcohol) Depression Answer Date Recorded Patient Health Questionnaire-9 Score 0 06/14/2025 Patient Health Questionnaire-9 Score 0 06/14/2025 Last PHQ-9: Questionnaire Data Not on file 0 06/14/2025 Housing Stability Answer Date Recorded What is your housing situation today? I have randy montgomery 04/30/[address] you li ve. Do you have problems with any of the following? None of the above 04/30/2025 Food Insecurity Answer Date Recorded Within the past 12 months, y ou worried that your food would run out before you got money to buy more: Sometimes True 2024 Within the past 12 months,th e food you bought just didn't last and you didn't have enough money to get more: Sometimes True 04/30/2025 Transportation Answer Date Recorded In the past 12 months, has l ack of transportation kept you from medical appts, meetings, work or from getting things needed for daily living? No 04/30/2025 Utilities Answer Date Recorded In the past 12 months, has t he electric, gas, oil or water company threatened to shut off services in your home? Yes 04/30/2025 Depression Answer Date Recorded Patient Health Questionnaire-2 Score 0 06/14/2025 Internet Access Answer Date Recorded Internet Access Q1 Yes 04/30/2025 Internet Access Q2 Not on file 04/30/2025 Comments No Sex and Gender Information Value Date Recorded Sex Assigned at Female 09/27/2022 10:39 AM EDT Legal Sex Female 10:39 AM EDT Gender Identity Female 09/27/2022 10:39 AM EDT Sexual Orientation Straight 12/02/2022 8: 21 PM EST documented as of this encounter Plan of Treatment Upcoming Encounters Date Type Department Care Team (Late st Contact Info) Description 08/23/2025 2:00 PM EDT Office Visit [facility] [address] [place] [address] Kamran Sherman 08/28/2025 3:15 PM EDT Clinical Support [facility] MED & PEDS [address] [place] [address] Aletha Vazquez, EAN [address] [place] [address] 09/17/2025 11:20 AM EDT Procedure Visit [facility] MED & PEDS [address] [place] [address] Marley Rich MD [address] [place] [address] documented as of this encounter Goals Goal Patient Goal Type Associated Problems Recent Progress Patient-Stated? Author Blood Pressure < 150/90 Blood Pressure 138/78(2024 8:58 AM EDT) No Mary Higgins PharmD Immunization General No Higgins, Mary, PharmD Note: Receive all recommended vaccines: due for RSV documented as of this encounter Visit Diagnoses Diagnosis Lumbar back pain with radiculopathy affecting right lower extremity History of vitamin D deficiency documented in this encounter Additional Health Concerns Assessment Noted Time PHQ-9 Depression Total Score: 0 06/14/20 25 10:14 AM EDT documented as of this encounter Care Teams Child Care Assistant Relationship Specialty Start Date End Date Marley Rich MD [address] [place] [phone] PCP - General Family Medicine 11/25/21 documented as of this encounter
--- OUTSIDE RECORDS SUMMARY | 2025-08-17 08:40 | XMS_ITS | Encounter Summary ---
Author Organization [employer] Address [address] [place] [address] 7 [place] [address] Care Team Providers Care Bottle Dealer Name Role Phone Marley Rich MD Primary Care Provider [phone] Reason for Visit * Reason Onset Date Comments pt1 07/30/2025 Encounter Details Date Type Department Care Team ([facility] st Contact Info) Description 07/30/[address] [facility] CHC MED & PEDS [address] [place] [address] Marley Rich MD [address] [place] [address] pt1 Social History Tobacco Use Types Packs/Day Years [...] PM EST documented as of this encounter Miscellaneous Notes * Telephone Encounter - Aletha Vazquez RN - 08/01/2025 3:17 PM EDT TC to pt via S ID# [id number]. Initial [employer] appt scheduled for 08/28/25 @ 3:15pm. * Telephone Encounter - Justa Frausto - 07/30/2025 12:33 PM EDT Patient calling requesting PT1 Home Address verified: Y/N: Yes Provider name or facility name: [email or web address] [address] [facility] Escort needed: Y/N: No Do you have a wheelchair: Y/N: No If yes- Manual or electric: Visits: 1x a month documented in this encounter Plan of Treatment Upcoming Encounters Date Type Department Care Team ([facility] st Contact Info) Description 08/23/2025 2:00 PM EDT Office Visit [facility]ULT [facility] [address] [place] [address] Kamran Sherman 08/28/2025 3:15 PM EDT Clinical Support [facility] MED & PEDS [address] [place] [address] Aletha Vazquez, RN 505 [place] [address] 09/17/2025 11:20 AM EDT Procedure Visit [facility] MED & PEDS [address] [place] [address] Marley Rich MD [address] [place] [address] documented as of this encounter Goals Goal Patient Goal Type Associated Problems Recent Progress Patient-Stated? Author Blood Pressure < 150/90 Blood Pressure 138/78(2024 8:58 AM EDT) No Mary Higgins PharmD Immunization General No Mary Higgins PharmD Note: Receive all recommended vaccines: due for RSV documented as of this encounter Visit Diagnoses Not on filedocumented in this encounter Additional Health Concerns Assessment Noted Time PHQ-9 Depression Total Score: 0 06/14/20 25 10:14 AM EDT documented as of this encounter Care Teams Bottle Dealer Relationship Specialty Start Date End Date Marley Rich MD [address] [place] [address] PCP - General Family Medicine 11/25/21 documented as of this encounter
--- OUTSIDE RECORDS SUMMARY | 2025-08-17 08:40 | XMS_ITS | Encounter Summary ---
Author Organization [employer] Address [address] [place] [address] 7 [place] [address] Care Team Providers Care Security Auditor Name Role Phone Marley Rich MD Primary Care Provider [phone] Reason for Visit * Reason Comments Med Refill Encounter Details Date Type Department Care Team ([facility] st Contact Info) Description 08/12/2025 Refill [facility] CHC MED & PEDS [address] [place] [address] Marley Rich MD [address] [place] [address] Acute bilateral low back pain with right-sided sciatica Social History Tobacco Use Types Packs/Day Years [...] Description 08/23/2025 2:00 PM EDT Office Visit [facility] [address] [place] [address] Kamran Sherman 08/28/2025 3:15 PM EDT Clinical Support [facility] MED & PEDS [address] [place] [address] Aletha Vazquez RN 505 [place] [address] 09/17/2025 11:20 AM EDT Procedure Visit [facility] MED & PED[facility] [address] [place] [address] Marley Rich MD [address] [place] [address] documented as of this encounter Goals Goal Patient Goal Type Associated Problems Recent Progress Patient-Stated? Author Blood Pressure < 150/90 Blood Pressure 138/78(2024 8:58 AM EDT) No Mary Higgins PharmD Immunization General No Mary Higgins PharmD Note: Receive all recommended vaccines: due for RSV documented as of this encounter Visit Diagnoses Diagnosis Acute bilateral low back pain with right-sided sciatica documented in this encounter Additional Health Concerns Assessment Noted Time PHQ-9 Depression Total Score: 0 06/14/20 25 10:14 AM EDT documented as of this encounter Care Teams Security Auditor Relationship Specialty Start Date End Date Marley Rich MD [address] [place] [address] PCP - General Family Medicine 11/25/21 documented as of this encounter
--- OUTSIDE RECORDS SUMMARY | 2025-08-17 08:40 | XMS_ITS | Encounter Summary ---
Author Organization [employer] Address [address] [place] [address] 7 [place] [address] Care Team Providers Care Erp Pm Name Role Phone Marley Rich MD Primary Care Provider [phone] Encounter Details Date Type Department Care Team (Late st Contact Info) Description 07/23/2025 Results Follow-Up [facility] CHC MED & PEDS [address] [place] [address] Marley Rich MD [address] [place] [address] CT Lumbar Spine w/o Contrast Social History Tobacco Use Types Packs/Day Years [...] Description 08/23/2025 2:00 PM EDT Office Visit [facility] ADULT DENT[facility] [address] [place] [address] Kamran Sherman 08/28/2025 3:15 PM EDT Clinical Support [facility] MED & PEDS [address] [place] [address] Aletha Vazquez RN [address] [place] [address] 09/17/2025 11:20 AM EDT Procedure Visit [facility] MED & PEDS [address] [place] [address] Marley Rich MD [address] [place] [address] documented as of this encounter Goals Goal [...] documented as of this encounter Care Teams Erp Pm Relationship Specialty Start Date End Date Marley Rich MD [address] [place] [address] PCP - General Family Medicine 11/25/21 documented as of this encounter
--- OUTSIDE RECORDS SUMMARY | 2025-08-17 08:40 | XMS_ITS | Encounter Summary ---
Author Organization [employer] Address [address] [place] [address] 7 [place] [address] Care Team Providers Care Associate Professor Of Forestry Name Role Phone Marley Rich MD Primary Care Provider [phone] Reason for Visit * Reason Comments Med Refill Encounter Details Date Type Department Care Team ([facility] st Contact Info) Description 07/15/2025 Refill [facility] CHC MED & PEDS [address] [place] [address] Ashlee Huertas FNP [address] [place], [place] [id number] Essential hypertension Social History Tobacco Use Types Packs/Day Years [...] EDT Office Visit [facility] [address] [place] [address] Kamran Sherman 08/28/2025 3:15 PM EDT Clinical Support [facility] [address] [place] [address] Aletha Vazquez RN [address] [place] [address] 09/17/2025 11:20 AM EDT Procedure Visit [facility] [address] [place] [address] Marley Rich MD [address] [place] [address] documented as of this encounter Goals Goal Patient Goal Type Associated Problems Recent Progress Patient-Stated? Author Blood Pressure < 150/90 Blood Pressure 138/78(2024 8:58 AM EDT) No Mary Higgins PharmD Immunization General No Mary Higgins PharmD Note: Receive all recommended vaccines: due for RSV documented as of this encounter Visit Diagnoses Diagnosis Essential hypertension Unspecified essential hypertension documented in this encounter Additional Health Concerns Assessment Noted Time PHQ-9 Depression Total Score: 0 06/14/20 25 10:14 AM EDT documented as of this encounter Care Teams Associate Professor Of Forestry Relationship Specialty Start Date End Date Marley Rich MD [address] [place] [address] PCP - General Family Medicine 11/25/21 documented as of this encounter
--- OUTSIDE RECORDS SUMMARY | 2025-08-17 08:41 | XMS_ITS | Encounter Summary ---
Author Organization [employer] Address [address] [place] [address] 7 [place] [address] Care Team Providers Care Feather Washer Name Role Phone Marley Rich MD Primary Care Provider [phone] Reason for Visit * Reason Onset Date Comments PT1 06/17/2025 Encounter Details Date Type Department Care Team ([facility] st Contact Info) Description 06/17/[address] [facility] CHC MED & PEDS [address] [place] [address] Marley Rich MD [address] [place] [address] PT1 Social History Tobacco Use Types Packs/Day Years [...] encounter Miscellaneous Notes * Telephone Encounter - Luis Hoffman - 06/17/2025 3:17 PM EDT Patient calling requesting PT1 Home Address verified: Y/N: Yes Provider name or facility name: [facility] radiology Escort needed: Y/N: No Do you have a wheelchair: Y/N: No Visits: (2x months) documented in this encounter Plan of Treatment Upcoming Encounters Date Type Department Care Team (Late st Contact Info) Description 08/23/2025 2:00 PM EDT Office Visit [facility] [address] [place] [address] Kamran Sherman 08/28/2025 3:15 PM EDT Clinical Support [facility] MED & PEDS [address] [place] [address] Aletha Vazquez, RN [address] [place] [address] 09/17/2025 11:20 AM EDT Procedure Visit [facility] MED & PEDS [address] [place] [address] Marley Rich MD [address] [place] [address] documented as of this encounter Goals Goal [...] documented as of this encounter Care Teams Feather Washer Relationship Specialty Start Date End Date Marley Rich MD [address] [place] [address] PCP - General Family Medicine 11/25/21 documented as of this encounter
--- OUTSIDE RECORDS SUMMARY | 2025-08-17 08:41 | XMS_ITS | Encounter Summary ---
Author Organization [facility] Address [address] [address] Phone Care Team Providers Care Facilities Maintenance Worker Name Role Phone Unknown, Unknown Primary Care Provider Veronique Jackson MD Primary Care Provider [phone] Reason for Referral * Physical Therapy (Within 1 month) - Closed Specialty Diagnoses / Procedures Referred By Contac t Referred To Contact Physical Therapy Diagnoses Traumatic injury of head, sequela Sergei Luis MD Phone: tel: fax: mailto:[email or web address] Giovanna aPge PT Phone: tel: mailto:[email or web address] Referral ID Status Reason Start Date Expiration Date Visits Re quested Visits Authorized [id number] Closed 01/28/2020 04/07/2020 9 9 Encounter Details Date Type Department Care Team (Latest Contact Info) Description 01/28/2020 Transcribe Orders [facility] [address] [place] [address] Sergei Luis MD [address] [place] [address], [place] [address] [email or web address] Traumatic injury of head, sequela (Primary Dx) [...] Upcoming Encounters Date Type Department Care Team ([facility] st Contact Info) Description 12/24/2025 9:00 AM EST Office Visit [facility] in [address] [address] Chauncey Kurtz OD [address] [place] [address] [email or web address] 12/24/2025 9:15 AM EST Procedure visit [facility] in [address] [address] Scheduled Referrals Name Type Priority Associated Diagnoses Order Schedule Ambulatory referral to N Physical Therapy Outpatient Referral Routine Traumatic injury of head, sequela Ordered: 01/28/2020 documented as of this encounter Visit Diagnoses Diagnosis Traumatic injury of head, sequela- Primary documented in this encounter Care Teams Facilities Maintenance Worker Relationship Specialty Start Date End Date Unknown, Unknown, MD PCP - General 12/20/19 07/03/20 Veronique Jack MD [address] [place] [address] [email or web address] PCP - General Internal Medicine 07/04/20 documented as of this encounter Additional Source Comments The information contained in this document represents components of the legal health record. It is not the complete legal health record.[facility]
--- OUTSIDE RECORDS SUMMARY | 2025-08-17 08:41 | XMS_ITS | Encounter Summary ---
Author Organization [employer] Address [address] [place] [address] 7 [place] [address] Care Team Providers Care Insert Cutter Name Role Phone Marley Rich MD Primary Care Provider [phone] Reason for Visit * Reason Comments Med Refill Encounter Details Date Type Department Care Team ([facility] st Contact Info) Description 08/15/2025 Refill [facility] CHC MED & PEDS [address] [place] [address] Marley Rich MD [address] [place] [address] History of vitamin D deficiency Social History [...] 2:00 PM EDT Office Visit [facility] ADULT D[facility] [address] [place] [address] Kamran Sherman 08/28/2025 3:15 PM EDT Clinical Support [facility] MED & PEDS [address] [place] [address] Aletha Vazquez RN [address] [place] [address] 09/17/2025 11:20 AM EDT Procedure Visit [facility] MED & PEDS [address] [place] [address] Marley Rich MD [address] [place] [address] documented as of this encounter Goals Goal Patient Goal Type Associated Problems Recent Progress Patient-Stated? Author Blood Pressure < 150/90 Blood Pressure 138/78(2024 8:58 AM EDT) No Mary Higgins, Isabelle Immunization General No Mary Higgins PharmD Note: Receive all recommended vaccines: due for RSV documented as of this encounter Visit Diagnoses Diagnosis History of vitamin D deficiency documented in this encounter Additional Health Concerns Assessment Noted Time PHQ-9 Depression Total Score: 0 06/14/20 25 10:14 AM EDT documented as of this encounter Care Teams Insert Cutter Relationship Specialty Start Date End Date Marley Rich MD [address] [place] [address] PCP - General Family Medicine 11/25/21 documented as of this encounter
--- OUTSIDE RECORDS SUMMARY | 2025-08-17 08:41 | XMS_ITS | Encounter Summary ---
Author Organization [employer] Address [address] [place] [address] 7 [place] [address] Care Team Providers Care Bulldozer Operator Name Role Phone Marley Rich MD Primary Care Provider [phone] Reason for Visit * Reason Comments Med Refill Encounter Details Date Type Department Care Team ([facility] st Contact Info) Description 05/14/2025 Refill [facility] [address] [place] [address] Carl Casillas, DMD [address] [place] [address] Dental caries Social History Tobacco Use Types Packs/Day Years Used Date Smoking Tobacco: Never Passive Smoke Exposure: Never Smokeless Tobacco: Never Alcohol Use Standard Drinks/Week Comments Never 0 (1 standard drink = 0.6 oz pur e alcohol) Depression Answer Date Recorded Patient Health Questionnaire-9 Score 2 08/06/2024 Patient Health Questionnaire-9 Score 2 08/06/2024 Last PHQ-9: Questionnaire Data Not on file 0 08/06/2024 Housing Stability Answer Date Recorded What is [...] Date Recorded Patient Health Questionnaire-2 Score 0 08/06/2024 Internet Access Answer Date Recorded Internet Access [...] encounter Miscellaneous Notes * Telephone Encounter - Carl Casillas DMD - 05/14/2025 8:24 AM EDT Approving, but needs appt for additional refills. documented in this encounter Plan of Treatment Upcoming Encounters Date Type Department Care Team (Late st Contact Info) Description 08/23/2025 2:00 PM EDT Office [facility] [address] [place] [address] Kamran Sherman 08/28/2025 3:15 PM EDT Clinical Support [facility] MED [facility] PEDS [address] [place] [address] Aletha Vazquez RN 505 [place] [address] 09/17/2025 11:20 AM EDT Procedure Visit [facility] [address] [place] [address] Marley Rich MD [address] [place] [address] documented as of this encounter Goals Goal Patient Goal Type Associated Problems Recent Progress Patient-Stated? Author Blood Pressure < 150/90 Blood Pressure 138/78(2024 8:58 AM EDT) No Mary Higgins PharmD Immunization General No Mary Higgins PharmD Note: Receive all recommended vaccines: due for RSV documented as of this encounter Visit Diagnoses Diagnosis Dental caries Unspecified dental caries documented in this encounter Additional Health Concerns Assessment Noted Time PHQ-9 Depression Total Score: 2 08/06/20 24 10:25 AM EDT documented as of this encounter Care Teams Bulldozer Operator Relationship Specialty Start Date End Date Marley Rich MD [address] [place] [address] PCP - General Family Medicine 11/25/21 documented as of this encounter
--- OUTSIDE RECORDS SUMMARY | 2025-08-17 08:41 | XMS_ITS | Clinical Summary ---
Author Organization [employer] Address [address] [place] [address] [address] [place] [address] Care Team Providers Care Subject Scientific Research Name Role Phone Marley Rich MD Primary Care Provider [phone] Allergies No known active allergies Medications Blood Pressure Monitor misc Check blood pressure on arm as directed 1-2 TIMES DAILY Active divalproex (Depakote ER) 500 MG 24 hr tablet TOME DOS TABLETAS POR VIA ORAL A DIARIO (TAKE 2 TABLETS BY MOUTH DAILY). Active SUMAtriptan (Imitrex) 100 MG tablet PLEASE SEE ATTACHED FOR DETAILED DIRECTIONS Active loratadine (Claritin) 10 MG tablet Take 1 tablet (10 mg) by mouth Once per day. 90 tablet 1 024 Active ammonium lactate (Amlactin) 12 % creamIndications: Xerosis of skin APPLY TOPICALLY TO AFFECTED AREA(s) TWICE DAILY 385 g 1 024 Active pantoprazole (ProtoNix) 40 MG EC tabletIndications :Gastroesophageal reflux disease, unspecified whether esophagitis present Take 1 tablet (40 mg) by mouth before breakfast. Do not crush, chew, or split. 90 tablet 1 025 Active gabapentin (Neurontin) 300 MG capsule Take 2 capsules (600 mg) by mouth 3 times daily. 180 capsule 2025 Active Spacer/Aero-Holdi ng Chambers (OptiChamber Patrizia) misc 1 each every 4 (four) hours if needed (asthma). 1 each 025 Active acetaminophen (Tylenol Extra Strength) 500 MG tabletIndications :Fibromyalgia Take 1-2 tablets (500-1,000 mg) by mouth every 8 (eight) hours if needed (pain or fever). 100 tablet 1 025 2025 Active losartan (Cozaar) 100 MG tabletIndications :Essential hypertension TAKE ONE TABLET EVERY MORNING 90 tablet 1 025 Active Calcium Carb-Cholecalcife rol (Calcium + Vitamin D3) 600-10 MG-MCG tabletIndications :Vitamin D deficiency Take 1 tablet by mouth in the morning. 90 tablet 1 025 Active Ventolin HFA 108 (90 Base) MCG/ACT inhalerIndication s:Upper respiratory disease INHALE 2 PUFFS EVERY 4 (FOUR) HOURS IF NEEDED FOR WHEEZING OR SHORTNESS OF BREATH. 1 g 1 025 Active Sod Fluoride-Potassiu m Nitrate (Sodium Fluoride 5000 Sensitive) 1.1-5 % gelIndications:De ntal caries BRUSH TEETH FOR 2 MINUTES, MORNING AND NIGHT. SPIT, DO NOT RINSE. DO NOT EAT OR DRINK ANYTHING FOR 30 MINUTES FOLLOWING USE 112 g 3 025 Active Diclofenac Sodium 1 % gel APPLY 4 G TOPICALLY 4 (FOUR) TIMES A DAY. APPLY TO NECK 300 g 025 Active meloxicam (Mobic) 15 MG tabletIndications :Acute bilateral low back pain with right-sided sciatica Take 1 tablet (15 mg) by mouth Once per day. 30 tablet 025 2025 Active triamcinolone (Kenalog) 0.1 % oral paste Use in the mouth or throat 2 times daily. 10 g 025 Active felodipine ER (Plendil) 5 MG 24 hr tabletIndications :Essential hypertension Take 1 tablet (5 mg) by mouth Once per day. Take with 2.5mg dose for total daily dose of 7.5mg. Do not crush, chew, or split. 90 tablet 1 025 Active felodipine ER (Plendil) 2.5 MG 24 hr tabletIndications :Essential hypertension Take 1 tablet (2.5 mg) by mouth Once per day. Do not crush, chew, or split. (Take with the 5mg dose for total dose of 7.5mg daily) 90 tablet 1 025 Active rosuvastatin (Crestor) 10 MG tabletIndications :Other hyperlipidemia Take 1 tablet (10 mg) by mouth at bedtime. (For cholesterol) 90 tablet 1 025 Active cyclobenzaprine (Flexeril) 10 MG tabletIndications :Acute bilateral low back pain with right-sided sciatica TAKE ONE TABLET THREE TIMES DAILY 90 tablet 1 025 Active traMADol (Ultram) 50 MG tabletIndications :Lumbar back pain with radiculopathy affecting right lower extremity Take 1 tablet (50 mg) by mouth every 8 (eight) hours if needed for severe pain for up to 14 days. 42 tablet 025 2024 Active cholecalciferol (Vitamin D-3) 25 MCG tabletIndications :History of vitamin D deficiency TAKE 1 TABLET (25 MCG) BY MOUTH ONCE PER DAY. 90 tablet 1 025 Active cholecalciferol (Vitamin D-3) 25 MCG tabletIndications :History of vitamin D deficiency Take 1 tablet (25 mcg) by mouth Once per day. 90 tablet 1 025 2024 Discontinued(R eorder (will not trigger notification to Pharmacy)) rosuvastatin (Crestor) 10 MG tabletIndications :Other hyperlipidemia Take 1 tablet (10 mg) by mouth at bedtime. (For cholesterol) 90 tablet 1 025 2024 Discontinued(R eorder (will not trigger notification to Pharmacy)) cyclobenzaprine (Flexeril) 10 MG tabletIndications :Acute bilateral low back pain with right-sided sciatica Take 1 tablet (10 mg) by mouth 3 times daily. 90 tablet 1 025 2024 Discontinued(R eorder (will not trigger notification to Pharmacy)) benzocaine (Orajel) 10 % mucosal gel Use in the mouth or throat if needed for mucositis. 9 g 025 2024 Discontinued(T herapy completed) chlorhexidine (Peridex) 0.12 % solutionIndicatio ns:Gingival ulcer Swish 15 mL morning and night for 1 minute. Spit, do not swallow. Do not eat or drink for 30 minutes following use. 473 mL 025 2024 Discontinued(T herapy completed) traMADol (Ultram) 50 MG tabletIndications :Lumbar back pain with radiculopathy affecting right lower extremity Take 1 tablet (50 mg) by mouth every 6 (six) hours if needed for severe pain for up to 5 days. 15 tablet 025 2024 Discontinued traMADol (Ultram) 50 MG tabletIndications :Lumbar back pain with radiculopathy affecting right lower extremity Take 1 tablet (50 mg) by mouth every 6 (six) hours if needed for severe pain. 56 tablet 025 2024 Discontinued Active Problems Problem Noted Date Diagnosed Date Pyelonephritis 07/26/2025 Stomatitis 06/14/2025 Other insomnia 06/11/2025 Overview (07/26/2025): 06/12/25 [facility]: Referred by Rajwinder Cassidy MD, for CBT-I. Pt reports poor sleep due to headache and incontinence 3x/week for several years since first TBI in 2016. Pt describes prolonged sleep onset latency (30-45min) at beginning of night and trouble falling back asleep after waking up 2-3x/night to go to bathroom. Pt denies naps; endorses staying in bed in the AM to avoid daytime sleepiness. Pt denies substance use and SI/HI/AVH/selvin. Focus treatment on stimulus control, relaxation, and cognitive patterns to manage trouble falling asleep and falling back asleep. Modify stimulus control given Pt's chronic pain conditions and limited mobility. No sleep restriction given h/o TBI. Pt would benefit from behavioral therapy focused on urinary incontinence; will recommend to referring provider. 06/12/25 [facility]: Referred by Rajwinder Cassidy MD, for CBT-I. Pt reports poor sleep due to headache and incontinence 3x/week for several years since first TBI in 2016. Pt describes prolonged sleep onset latency (30-45min) at beginning of night and trouble falling back asleep after waking up 2-3x/night to go to bathroom. Pt denies naps; endorses staying in bed in the AM to avoid daytime sleepiness. Pt denies substance use and SI/HI/AVH/selvin. 07/24/25 Termination. CBT-I not recommended for this patient as poor sleep primarily due to poorly managed pain and urinary incontinence. Provided brief course of treatment on stimulus control, relaxation, and cognitive patterns to manage trouble falling asleep and falling back asleep. No sleep restriction given h/o TBI. Refer back to referring provider, Dr. Cassidy. Pt may benefit from behavioral therapy focused on urinary incontinence. Other hyperlipidemia 02/07/2025 Overview (02/07/2025): Lab Results Component Value Date CHOL 178 01/30/2025 CHOL 197 08/10/2024 CHOL 169 09/16/2023 TRIG 86 01/30/2025 TRIG 97 08/10/2024 TRIG 91 09/16/2023 HDL 56 01/30/2025 HDL 58 08/10/2024 HDL 53 09/16/2023 LDLCHOLCAL 105 (H) 01/30/2025 LDLCHOLCAL 120 (H) 08/10/2024 LDLCHOLCAL 98 09/16/2023 - Cont lifestyle modifications - Rosuvastatin 10mg nightly Assessment & Plan (02/07/2025 5:02 PM EDT): The 10-year ASCVD risk score (Neil COTO, et al., 2019) is: 7.2% Values used to calculate the score: Age: 64 years Sex: Female Is Non- : No Diabetic: No Tobacco smoker: No Systolic Blood Pressure: 138 mmHg Is BP treated: Yes HDL Cholesterol: 56 mg/dL Total Cholesterol: 178 mg/dL Shared decision making to proceed with initiation of statin therapy in conjunction with lifestyle interventions. Plan: start rosuvastatin 10mg nightly. Reviewed med safety and SE. Repeat LFT and FLP in 4-12 weeks. 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 Pt stated it is causing side effects (Dizziness). -Pt agreed continuing med's but at a lower dosage. Lowered dosage of Gabapentin (Neurontin)from 600 to 300 MG capsule -Pt's XR results confirmed Arthritis -Pt gave consent to have injections administered at 3:15 pm -To relieve pain , the pt was injected with : lidocaine (Xylocaine) 1 % injection 20 mg triamcinolone acetonide (Kenalog-40) injection 40 mg -Advised pt to ice the site of injection Assessment & Plan (03/20/2024 3:39 PM EDT): Ordering XR imaging of left shoulder for further investigation of rotator cuff pain. Discussed continuing on current medication but increasing dosage. F/u in 6 weeks. Relevant Medication Gabapentin (Neurontin) 600 MG Tablet Assessment & Plan (01/26/2024 10:45 AM EST): Per equip tech patient has fibromyalgia. I prescribed her Gabapentin 300 mg. If this medication doesn't help with the pain then I will change the medication to Lyrica. 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 Varicose veins of both legs with edema Assessment & Plan (06/06/2023 10:51 AM EDT): Patient with varicose veins of bilateral lower extremities with associated edema. Will refer to vascular surgeon for further evaluation. Polyarthralgia 06/06/2023 Assessment & Plan (12/06/2024 1:36 PM EST): Ddx Fibromyalgia vs other causes of joint aches. Autoimmune lab test. Assessment & Plan (06/06/2023 10:53 AM EDT): Patient with chronic polyarthralgia with tenderness upon palpation, joint line pain, and pain with arlene and fadir upon examination. Will refer to rheumatology for further evaluation and send labs to check levels. Ear pain, bilateral 12/02/2022 Assessment & Plan (12/02/2022 6:11 PM EST): R lower opacification and some congestion, rx antibiotics and decongestant, if no improvement RTC Prediabetes 10/29/2022 Assessment & Plan (08/06/2024 11:00 AM EDT): Ordering lab work for further evaluation. Chronic abdominal pain 10/29/2022 Assessment & Plan (10/29/2022 3:35 PM EST): CT w/ diverticulosis, responsive to pantoprazole. Will want referral to GI, referral placed Urinary tract infection 10/11/2022 Essential hypertension 10/11/2022 Assessment & Plan (02/07/2025 4:54 PM EDT): -Well-controlled -Continue losartan 100 mg daily -Continue felodipine to 7.5 mg daily -Encouraged low-sodium diet and routine exercise (chair exercises) as able -Baseline, asymptomatic EKG completed today: NSR w/ left axis deviation. BP goal less than 140/90 mmHg. If less than 75% of home blood pressure readings are within goal, consider med adjustment such as increase of felodipine to 10 mg daily or addition of thiazide/beta-chemo. Assessment & Plan (01/20/2025 2:21 PM EST): -Well-controlle elevated per home and office readings -Continue losartan 100 mg daily -Increase felodipine to 7.5 mg daily -Encouraged low-sodium diet and routine exercise (chair exercises) as able -Follow up: 3 weeks for RN BP check, also due for baseline EKG. BP goal less than 140/90 mmHg. If less than 75% of home blood pressure readings are within goal, consider med adjustment such as increase of felodipine to 10 mg daily or addition of thiazide/beta-chemo. Assessment & Plan (12/30/2024 6:37 PM EST): -Well-controlled today in office -Continue losartan 100 mg -Continue felodipine 5 mg -After recovery from current illness, encouraged to record home blood pressure reading 1 hour after taking BP meds in the morning, and second reading before bed x 1 to 2 weeks. Plan to follow-up in office to review readings and make med adjustments if needed -Encouraged low-sodium diet and routine exercise as able -Plan for routine baseline EKG at subsequent appointment Assessment & Plan (12/11/2024 10:40 AM EST): Uncontrolled, will increase felodipine, pending nurse bp follow up Assessment & Plan (12/06/2024 1:46 PM EST): Nursing Visit Instructions: - If SBP < 140/DBP <90 mmHg in more than 75% of home self-monitoring, continue current medication regimen and make f/u with PCP in 3 month - If SBP >140-165/DBP >90-115 mmHg , incr felodipine to 10 mg and f/u with PCP in 1 month - If SBP > 165/ DBP> 115 mmHg, consult with covering provider - If SBP <90/DBP <50 mmHg, consult with covering provider. Assessment & Plan (08/06/2024 11:00 AM EDT): Slightly elevated, continue on current medications. Assessment & Plan (09/12/2023 12:01 PM EDT): Controlled: will keep treating with medications. Advised patient to keep monitoring blood pressure readings at home. Follow up in 4 months. Assessment & Plan (03/04/2023 12:48 PM EDT): Blood pressure controlled under current regimen. Will follow up and repeat labs in 6 months. Assessment & Plan (10/29/2022 3:34 PM EST): 136/84 mmHg and with home monitor 136/90 mmHg, controlled. F/u 4 months Chronic post-traumatic headache 10/11/2022 Assessment & Plan (03/20/2024 3:29 PM EDT): Further evaluation needed for headaches and neck pain. Referral to Neurologist. Obesity 11/25/2021 Assessment & Plan (08/06/2024 11:00 AM EDT): Ordering lab work for further evaluation. Assessment & Plan (05/03/2024 3:50 PM EDT): Discussed calorie deficit, recommended reduction of 20-30% of maintenance calories; seismograph recorder referral offered. Recommended to decrease soda and sugary beverage consumption. Recommended at least 20 g per meal of protein to assist with satiety. Recommended at least 150 min/week of moderate intensity exercise. Assessment & Plan (09/12/2023 12:04 PM EDT): Discussed calorie deficit, recommended reduction of 20-30% of maintenance calories; seismograph recorder referral offered. Recommended to decrease soda and sugary beverage consumption. Recommended at least 20 g per meal of protein to assist with satiety. Recommended at least 150 min/week of moderate intensity exercise. -Labs: Albumin, CBC, Met. Panel, Lipid Panel, TSH/FT4, Urinalysis, Vit.D 1,25 Head trauma, sequela 04/21/2018 Overview (10/29/2022): Last Assessment & Plan: H/O abdominal supracervical subtotal hysterectom y 06/09/2016 Overview (10/29/2022): 04/2015: Supracervical hysterectomy, mesh sacrocolpopexy for stage 3 uterovaginal prolapse Will continue to need pap tests Pap history: 03/2015 NILM, HPV neg 03/09/2018: Pap collected Last Assessment & Plan: Pap/HPV sent today High-tone pelvic floor dysfunction 12/04/2015 Overview (10/29/2022): Last Assessment & Plan: Exam consistent with severe pelvic floor dysfunction with associated hip and back dysfunction Limited ability to access physical therapy due to transport issues No success with vaginal valium Has taken amitriptyline for headaches and stopped due to side effects Unable to come/pay out of pocket for pelvic floor injections - botox/PT trial at [facility] has completed pt recruitment Discussed that this is a chronic condition that will have to be managed. While there is no cure, it can be successfully managed, but she has difficulty accessing options for treatment, so very challenging. We discussed myofascial pelvic pain/levator muscle spasm and its role in pelvic pain syndromes. We reviewed the pelvic floor muscle anatomy and the role that the muscles play in bowel, bladder, and sexual function. We discussed that this is often a difficult problem to treat, but the best treatment is specialized, directed pelvic floor physical therapy with myofascial release and possibly the addition of electric stimulation to encourage relaxation of the muscle group. Some medications can be used such as amitriptyline, gabapentin, or vaginal valium, but their use does not obviate the need for PT. We reviewed the role that stress plays on pelvic muscle tension. Alternative therapies for relaxation and stress management including meditation, yoga, acupuncture can also be helpful. I offered a referral to the [place]ative medicine [place] [facility] access to these complementary therapies. Trigger point injections to the pelvic floor with either lidocaine/bupivicaine or botulinum toxin are other considerations. Botox injections for pelvic muscle is currently an off-label use and may not be covered by insurance. All questions and concerns were answered. Plan: - Referral to pelvic PT at [place] given - Will try [facility] again Urge urinary incontinence 06/13/2015 Overview (10/29/2022): Oxybutynin - failed Trospium - failed Mirabegron - failed Last Assessment & Plan: Not currently on medication Not interested in SNM or botox at this time Handouts given, SNM may have added benefit of helping to relax pelvic muscles as well. Assessment & Plan (01/26/2024 10:18 AM EST): Ruthie Morales requires diapers given a history of (dx (urge incontinence, stress, mixed, overflow, fecal, functional, indeterminable incontinence), she has had appropriate workup, treatment and referrals to evaluate for potential reversible factors contributing to her incontinence with partial/incomplete resolution of symptoms. The patient is not able to use pull-on products given she is (bedridden, mental incapacity, etc). The patient has the following risk factors for developing incontinence ( F: high parity, hx of vaginal deliveries, menopause) (M: history of prostate surgery); (G: lower GI tract disorder, impaired cognitive function, neurological disorders, impaired mobility, increasing age, obesity). Prior referrals: Urology Test results: UA/UCx Prior Treatments and efficacy: oxybutynin- failed, trospium-failed, mirabegron- failed Prior pelvic/rectal examination: PRIOR Resolved Problems Problem Noted Date Diagnosed Date Resolved Date History of vitamin D deficiency 02/07/2025 02/21/2025 Overview (02/07/2025): Lab Results Component Value Date [id number] 70.5 01/30/2025 - January 2025 - decrease Vit D supplement from 2000 units daily to 1000 units daily Upper respiratory disease 11/12/2023 Assessment & Plan (11/12/2023 6:47 PM EST): Covid,Flu and strep rapid test neg Symptoms suggestive of viral upper respiratory infection -supportive tx,alarm signs and symptoms. -return to clinic in next 72 h if no better Gastroesophageal reflux disease 09/12/2023 02/21/2025 Assessment & Plan (09/12/2023 12:08 PM EDT): Patient still reports complaints of stomach pain, will be referred to Gastroenterology. Will be given medication to control discomfort. Encounters Date Type Department Care Team Description 08/16/2025 Telephone [facility] [address] [place] [address] Aletha Vazquez RN 08/15/2025 Refill [facility] [address] [place] [address] Marley Rich MD History of vitamin D deficiency 08/14/2025 Refill [facility] [address], [place] [phone] Marley Rich MD Lumbar back pain with radiculopathy affecting right lower extremity; History of vitamin D deficiency 08/12/2025 Refill [facility] [address] [place] [address] Marley Rich MD Acute bilateral low back pain with right-sided sciatica 08/07/2025 Refill [facility] [address], [place] [phone] Marley Rich MD Other hyperlipidemia 08/01/2025 Travel 07/30/2025 Telephone [facility] [address] [place] [address] Marley Rich MD pt1 07/30/2025 Telephone [facility] [address] [place] [address] Marley Rich MD 07/30/2025 Refill [facility] [address], [place] [phone] Marley Rich MD Lumbar back pain with radiculopathy affecting right lower extremity 07/26/2025 9:00 AM EDT Office Visit [facility] [address] [place] [address] Marley Rihc MD Acute cystitis without hematuria (Primary Dx); Polyarthralgia; Lumbar back pain with radiculopathy affecting right lower extremity 07/26/2025 Travel 07/23/2025 Telephone [facility] [address] [place] [address] Marley Rich MD chart prep 07/23/2025 Results Follow-Up [facility] [address] [place] [address] Lumbar Spine w/o Contrast 07/19/2025 Travel 07/15/2025 Refill [facility] [address] [place] [address] Ashlee Huertas FNP Essential hypertension 07/13/2025 Orders Only GENERIC EXTERNAL DATA DEPARTMENT Provider, Generic External Data 06/27/2025 Results Follow-Up [facility] [address] [place] [address] Marley Rich MD Lipid Panel, Standard, CBC auto differential, Comprehensive Metabolic Panel, Additional followed-up results: 4 06/25/2025 Patient Outreach [address] [phone] Marley Rich MD Care Coordination ([facility] outreach for SDOH PT-1 and food needs-referral completed /) 06/25/[address] [phone] Marley Rich MD pt1 06/17/2025 Patient Outreach [address] [phone] Marley Rich MD Care Coordination ([facility] outreach for SDOH PT-1 and food needs-referral completed /) 06/17/2025 Telephone [facility] [address] [place] [address] Marley Rich MD PT1 06/17/2025 Telephone [facility] [address] [place] [address] Marley Rich MD Referral 06/14/2025 10:30 AM EDT Office Visit [facility] [address] [place] [address] Marley Rich MD Lumbar back pain with radiculopathy affecting right lower extremity (Primary Dx); Right hip pain; Acute bilateral low back pain with right-sided sciatica; Stomatitis; Other hyperlipidemia; Essential hypertension; Gingival ulcer 06/14/2025 Travel 06/07/2025 Patient Outreach [address] [address] Fredo Pascual MD Pre-visit Planning (Pre visit planning LVM ) 06/07/2025 Refill [facility] [address] [place] [address] Eugenio Belle MD 06/03/2025 Refill [facility] [address] [place] [address] Eriberto Sherman MD Acute bilateral low back pain with right-sided sciatica 05/20/2025 Patient Outreach [facility] [address] [place] [address] Marley Rich MD Care Coordination ([facility] outreach for SDOH PT-1 - LVM ) 05/20/2025 Telephone [facility] [address] [place], [place] [phone] Marley Rich MD PT1 from Last 3 Months Immunizations Immunization Administration Dates Next Due Hep A, Adult 2021,12/18/2019 Influenza injectable quadriv alent IIV4 with preservative 12/06/2019,09/05/2018,09/05/2017 Influenza injectable quadriv alent preservative free 07/26/2023,08/09/2022,09/02/2021,2019 Influenza, IIV3, injectable 08/06/2024,0 12/15/2016,09/29/2015,2012 Influenza, seasonal, injecta ble, preservative free 08/06/2024 MMR 07/17/2013 Moderna Covid-19 Vaccine 12+ 11/18/2021,03/19/20 21,02/16/2021 Pneumococcal Conjugate PCV 20 07/04/2023 RSV Adjuvant 09/26/2023 Tdap 09/12/2023,07/17/2013 Zoster, Recombinant 04/08/2020,12/18/2019 Social History Tobacco Use Types Packs/Day Years Used Date Smoking Tobacco: Never Passive Smoke Exposure: Never Smokeless Tobacco: Never Tobacco Cessation:Counseling Given: Not Answered Alcohol Use Standard Drinks/Week Comments Never 0 [...] Orientation Straight 12/02/2022 8: 21 PM EST Last Filed Vital Signs Vital Sign Reading Time Taken Comments Blood Pressure 138/78 07/26/2025 8:58 AM EDT Pulse 82 07/26/2025 8:58 AM EDT Temperature 36.8 C (98.2 F) 07/26/2025 8:58 AM EDT Respiratory Rate 20 07/26/2025 8:58 AM EDT Oxygen Saturation 98% 07/26/2025 8:58 AM EDT Inhaled Oxygen Concentration - - Weight 93.6 kg (206 lb 6.4 oz) 07/26/2025 8:58 A M EDT Height 161 cm (5' 3.39 ) 07/26/2025 8:58 AM EDT Body Mass Index 36.12 07/26/2025 8:58 AM EDT Plan of Treatment Upcoming Encounters Date Type Department Care Team (Late st Contact Info) Description 08/23/2025 2:00 PM EDT Office Visit [facility] [address] [place] [address] Kamran Sherman 08/28/2025 3:15 PM EDT Clinical Support [facility] [address] [place] [address] Aletha Vazquez RN [address] [place] [address] 09/17/2025 11:20 AM EDT Procedure Visit [facility] [address] [place] [phone] Marley Rich MD [address] [place] [address] Health Maintenance Due Date Last Done Comments CT Colonography 1960 FIT DNA/Cologuard 1960 FIT 1960 FOBT 1960 Sigmoidoscopy 1960 COVID-19 Vaccine ( season) 2025 09/19/2023, 01/26/2023, 05/05/2022, Additional history exists Influenza Vaccine (#1) 2025 , 08/06/2024, 07/26/2023, Additional history exists Diabetes: Hemoglobin A1C 08/10/2025 024, 09/16/2023, 09/07/2022, Additional history exists Dental Oral Exam 08/25/2025 02/21/2025, , 07/29/2023, Additional history exists Dental Prophylaxis 08/25/2025 02/21/2025, 0 08/21/2024, 07/29/2023 Pap Smear 09/09/2025 09/09/2022, 08/28, 09/09/2022 Mammogram 11/03/2025 11/03/2023, 10/31/2021 Dental X-Ray: Full Mouth 12/21/2025 12/20/2022, 11/29 Dental X-Ray: Bitewings 02/22/2026 02/22/20 25, 08/21/2024, 12/20/2022, Additional history exists SDOH Screening 04/30/2026 04/30/2025 Alcohol/Substance Use Screening 06/14/2026 06/14/2025 Depression Screening 06/14/2026 06/14/2025, 06/14/20 Tobacco Screening 07/26/2026 07/26/2025 Cervical Cancer Screening 09/09/2027 HPV/Cotest 09/09/2027 09/09/2022 Lipid Panel 06/20/2030 06/20/2025, 03/0 03/2025, 08/10/2024, Additional history exists Colonoscopy 12/30/2032 12/30/2022 Colorectal Cancer Screening 12/30/2032 DTaP/Tdap/Td Vaccines (3 - Td or Tdap) 09/12/2033 09/12/2023, 07/17/2013 Zoster Vaccines Completed 04/08/2020, 12/18/2019 Hepatitis A Vaccines Aged Out 2021, 12/18/19 20 No longer eligible based on patient's age to complete this topic Hepatitis C Screening Completed 06/06/2023 Pneumococcal Vaccine: 50+ Years Completed 07/04/2023 RSV Patients and Patients Aged 60 years or older Completed 09/26/2023 HIB Vaccines Aged Out No [...] patient's age to complete this topic Meningococcal Vaccine Aged Out No tahira lizy eligible based on patient's age to complete this topic RSV under 20 months Aged Out No longe r eligible based on patient's age to complete this topic Rotavirus Vaccines Aged Out No longer eligible based on patient's age to complete this topic Goals Goal Patient Goal Type Associated Problems Recent Progress Patient-Stated? Author Blood Pressure < 150/90 Blood Pressure 138/78(2024 8:58 AM EDT) No Mary Higgins, Isabelle Immunization General No Mary Higgins, PharmD Note: Receive all recommended vaccines: due for RSV Procedures Procedure Name Priority Date/Time Associated Diagnosis Comments CT LUMBAR SPINE WO CONTRAST Routine 07/15/2025 11:00 PM EDT MAGNESIUM Routine 07/13/2025 10:49 AM EDT COMPREHENSIVE METABOLIC PANEL Routine 07/13/2025 10:49 AM EDT CBC WITH AUTO DIFFERENTIAL Routine 07/13/2025 10:49 AM EDT URINALYSIS, COMPLETE, WITH REFLEX TO CULTURE Routine 07/13/2025 10:20 AM EDT ZINC Routine 07/13/2025 9:44 AM EDT Stomatitis HEPATIC FUNCTION PANEL Routine 07/13/2025 9:44 AM EDT Other hyperlipidemia CULTURE, URINE, ROUTINE Routine 07/13/2025 12:00 AM EDT CALPROTECTIN, STOOL Routine 06/20/2025 9 :00 AM EDT Stomatitis VITAMIN B12/FOLATE, SERUM PANEL Routine 06/20/2025 8:19 AM EDT Stomatitis FERRITIN Routine 06/20/2025 8:19 AM EDT Stomatitis IRON AND TOTAL IRON BINDING CAPACITY Routine 06/20/2025 8:19 AM EDT Stomatitis COMPREHENSIVE METABOLIC PANEL Routine 06/20/2025 8:19 AM EDT Essential hypertension CBC WITH AUTO DIFFERENTIAL Routine 06/20/2025 8:19 AM EDT Essential hypertension LIPID PANEL, STANDARD Routine 06/20/2025 8:19 AM EDT Other hyperlipidemia PROPHYLAXIS - ADULT Routine 02/21/2025 2 :00 PM EDT BITEWINGS - 2 RADIOGRAPHIC IMAGES Routine 02/21/2025 2:00 PM EDT PERIODIC ORAL EVALUATION - ESTABLISHED PATIENT Routine 02/21/2025 2:00 PM EDT HEMOGLOBIN A1C Routine 08/10/2024 8:24 AM EDT Prediabetes HM MAMMOGRAPHY Routine 11/03/2023 HEPATITIS PANEL, GENERAL Routine 06/06/2023 11:38 AM EDT HM COLONOSCOPY Routine 12/30/2022 INTRAORAL - COMPLETE SERIES OF RADIOGRAPHIC IMAGES Routine 12/20/2022 9:00 AM EST THINPREP IMAGING PAP AND HPV MRNA E6/E7, WITH CT/NG, TRICHOMONAS Routine 09/09/2022 12:00 AM EDT PAP SMEAR Routine 09/09/2022 12:00 AM EDT from Last 3 Months or Most Recently Relevant to Health Maintenance Results * CT Lumbar Spine w/o Contrast (07/15/2025 11:00 PM EDT) Anatomical Region Laterality Modality Spine, L-spine Computed Tomogra phy 07/15/2025 11:0 0 PM EDT Narrative 07/15/2025 11:02 PM EDT [place] [address] CT Scan Report Signed Patient: Ruthie Johnston MR #: [id number] : 1960 Acct:[id number] Age/Sex: 64 / F ADM Date: 07/13/25 Loc: HO.CT Attending Dr: Marley Rich MD Ordering Physician: Marley Rich MD Date of Service: 07/13/25 Procedure(s): CT lumbar spine wo IV con Accession Number(s): [id number] cc: Marley Rich MD Report Number: [id number]: Total DLP = 790.00 mGy-cm CLINICAL HISTORY: Lumbar pain CT lumbar spine without contrast Comparison: None provided Findings: Normal vertebral body alignment. No acute fractures or dislocations. No significant degenerative change. Visualized abdominal contents unremarkable. IMPRESSION: No acute findings. No significant spondylosis. This document has been electronically signed by: Les Rowland MD on 07/15/2025 23:00:55 Dictated By: Les Rowland MD Signed By: <Electronically signed by Les Rowland MD in OV> 07/15/252300 DD/ 99 TD/TT: 07/15/252299 Gas And Oil Checker: Procedure Note Donotuseinterpreter, Image - 07/15/[address] [address] [address] Scan Report Signed Patient: Ruthie JohnstonMR #: [id number] : 1960Acct:[id number] Age/Sex: 64 / FADM Date: 07/13/25 Loc: HO.CT Attending Dr: Marley Rich MD Ordering Physician: Marley Rich MD Date of Service: 07/13/25 Procedure(s): CT lumbar spine wo IV con Accession Number(s): [id number] cc: Marley Rich MD Report Number: [id number]: Total DLP = 790.00 mGy-cm CLINICAL HISTORY: Lumbar pain CT lumbar spine without contrast Comparison: None provided Findings: Normal vertebral body alignment. No acute fractures or dislocations. No significant degenerative change. Visualized abdominal contents unremarkable. IMPRESSION: No acute findings. No significant spondylosis. This document has been electronically signed by: Les Rowland MD on 07/15/2025 23:00:55 Dictated By: Les Rowland MD Signed By: <Electronically signed by Les Rowland MD in OV> 07/15/252300 DD/ 99 TD/TT: 07/15/252299 Gas And Oil Checker: Marley Rich MD IMG CT PROCEDURES Final Resul t * (ABNORMAL) CBC auto differential (07/13/2025 10:49 AM EDT) Only the most recent of2 resultswithin the time period is included. White Blood Count 6.9 4.8 - 10.8 X10*3/uL [facility] Red Blood Count 4.70 4.20 - 5.50 X10*6/uL [facility] Hemoglobin 13.8 12.0 - 16.0 g/dl [facility] Hematocrit 40.5 37.0 - 47.0 % [facility] Mean Corpuscular Volume 86.2 80.0 - 98.0 fL [facility] Mean Corpuscular Hemoglobin 29.4 27.0 - 33.0 pg [facility] Mean Corpuscular HGB Conc 34.1 31.0 - 35.0 g/dl [facility] Red Cell Distribution Width 14.9 11.0 - 16.0 % [facility] Platelet Count 246 160 - 400 X10*3/uL [facility] Mean Platelet Volume 8.1(L) 9.4 - 12.3 fL [facility] Neutrophils Percent Auto 66.0 45 - 73 % [facility] Imm Gran Pct Auto 0.3 0.0 - 0.4 % [facility] Lymphocytes Percent Auto 24.0 20 - 40 % [facility] Monocytes Percent Auto 7.9 2 - 11 % [facility] Eosinophils Percent Auto 1.2 0 - 4 % [facility] Basophils Percent Auto 0.6 0 - 2 % [facility] NRBC Pct Auto 0.0 0.0 - 0.2 /100WBC [facility] Neutrophils Absolute Auto 4.5 2.0 - 8.3 x10*3/uL [facility] Imm Gran Abs Auto 0.02 0.00 - 0.03 X10*3/uL [facility] Lymphocytes Absolute Auto 1.7 1.2 - 4.9 X10*3/uL [facility] Monocytes Absolute Auto 0.5 0.1 - 1.2 X10*3/uL [facility] Eosinophils Absolute Auto 0.1 0.0 - 0.4 X10*3/uL [facility] Basophils Absolute Auto 0.0 0.0 - 0.2 X10*3/uL [facility] NRBC Abs Auto 0.000 0.0 - 0.012 X10*3/uL [facility] 07/13/2025 10:4 9 AM EDT 07/13/2025 10:53 AM EDT Generic External Data Provider LAB BLOOD ORDERAB LES Final Result Performing Organization Address City/[facility]/ZIP Co de Phone Number [facility] [address] [place] [phone] * Magnesium (07/13/2025 10:49 AM EDT) Magnesium 1.9 1.6 - 2.6 mg/dL [facility] 07/13/2025 10:4 9 AM EDT 07/13/2025 10:53 AM EDT Generic External Data Provider LAB BLOOD ORDERAB LES Final Result Performing Organization Address City/[facility] Co de Phone Number [facility] [address] [place] [phone] * Comprehensive Metabolic Panel (07/13/2025 10:49 AM EDT) Only the most recent of2 resultswithin the time period is included. Sodium 143 135 - 145 mmol/L [facility] Potassium 4.0 3.3 - 5.1 mmol/L [facility] Chloride 104 96 - 108 mmol/L [facility] Carbon Dioxide 27 22 - 29 mmol/L [facility] Anion Gap 16 12 - 20 [facility] Urea Nitrogen (BUN) 15 9 - 16 mg/dL [facility] Creatinine, Serum 0.79 0.5 - 1.4 mg/dL [facility] Creatinine Clr Calc Pharmacy 67.6 [facility] Comment:Provided height and weight: 160.02 cm,70.307 kg.eGFR (calculated from the MDRD study equation) and eCrCl(calculated from the Cockcroft-Gault equation) are based ondifferent parameters and may not yield comparable results.If eCrCl result is absurd, please check patient'sheight/weight. Estimated Glomerular Filt Rate >60 [facility] Comment:Chronic Kidney Disea se: Estimated GFR < 60 mL/min/1.78j1Evncfu Kidney Disease: Estimated GFR < 15 mL/min/1.73m2 Glucose 99 60 - 115 mg/dL [facility] Calcium 9.8 8.4 - 10.2 mg/dL [facility] Bilirubin, Total 0.4 0.0 - 1.0 mg/dL [facility] Aspartate Amino Transferase 21 5 - 31 U/L [facility] Alanine Aminotransferase 8 0 - 31 U/L [facility] Total Protein 7.8 6.5 - 8.0 g/dL [facility] Albumin Level 4.7 3.5 - 5.0 g/dL [facility] Alkaline Phosphatase 81 39 - 117 U/L [facility] 07/13/2025 10:4 9 AM EDT 07/13/2025 10:53 AM EDT us Generic External Data Provider LAB BLOOD ORDERAB LES Final Result [facility] [address] [place] [address] [phone] * (ABNORMAL) Urinalysis, Complete, with Reflex to Culture (07/13/2025 10:20 AM EDT) Color Urine Yellow [facility] Appearance Urine Clear [facility] PH 8.0 5.0 - 9.0 [facility] Glucose Urine UA Negative Negative mg/dL [facility] Urine Blood Negative Negative [facility] Specific [place] - Urine 1.010 1.005 - 1.025 [facility] Urine Protein Negative Neg-Trace mg/dL [facility] Urine Ketones Negative Negative mg/dL [facility] Nitrite Urine Negative Negative [facility] Leukocyte Esterase Urine Large (3+)(A) Negative [facility] RBC Urine 0-2 0 - 2 /HPF [facility] Urine WBC >50(A) 0 - 5 /HPF [facility] Urine Squamous Epithelial Cell 0-2 0 - 2 /HPF [facility] Urine Bacteria Trace None Seen [facility] Hyaline Casts, Urine 0-2 0 - 2 /LPF [facility] 07/13/2025 10:2 0 AM EDT 07/13/2025 10:26 AM EDT Narrative [facility] - 07/13/2025 10:49 AM EDT Urine, Clean Catch us Generic External Data Provider LAB URINE ORDERAB LES Final Result Performing Organization Address [facility]/ZIP Co de Phone Number [facility] [address] [place] [address] [phone] * Zinc (07/13/2025 9:44 AM EDT) Zinc 71 60 - 130 mcg/dL [facility] Comment:This test was develo ped and its analytical performancecharacteristics have been determined by [employer] [place], [place]. It hasnot been cleared or approved by the U.S. Food and DrugAdministration. This assay has been validated pursuantto the CLIA regulations and is used for clinicalpurposes.THIS TEST WAS PERFORMED AT:[employer]/[facility] [place] [address]SQTBZABRAJAT COMOBS MD,PHD Blood Venous blood specimen / Unknown 07/13/2025 9:44 AM EDT 07/13/2025 9:44 AM EDT us Marley Rich MD LAB BLOOD ORDERABLES Final Re sult Performing Organization Address [facility]/ZIP Co de Phone Number [facility] [address] [place] [phone] * Hepatic Function Panel (07/13/2025 9:44 AM EDT) Bilirubin, Total 0.4 0.0 - 1.0 mg/dL [facility] Bilirubin, Direct 0.2 0.0 - 0.5 mg/dL [facility] Aspartate Amino Transferase 23 5 - 31 U/L [facility] Alanine Aminotransferase 10 0 - 31 U/L [facility] Total Protein 7.7 6.5 - 8.0 g/dL [facility] Albumin Level 4.6 3.5 - 5.0 g/dL [facility] Alkaline Phosphatase 80 39 - 117 U/L [facility] Blood Venous blood specimen / Unknown 07/13/2025 9:44 AM EDT 07/13/2025 9:44 AM EDT Ashlee [facility] LAB BLOOD ORDERABLES Final Res ult Performing Organization Address [facility] Co de Phone Number [facility] [address] [place] [phone] * Culture, Urine, Routine (07/13/2025 12:00 AM EDT) Urine Urine specimen obtained by clean catch procedure / Unknown 07/13/2025 07/13/2025 Comment:CC Narrative [facility] - 07/15/2025 8:06 AM EDT Escherichia coli Quant > 100,000 cfu/mL Escherichia coli: Ampicillin >=32(R) Escherichia coli: Cefazolin (Urine) 8(S) Escherichia coli: Cefepime <=0.12(S) Escherichia coli: Ceftriaxone <=0.25(S) Escherichia coli: Ciprofloxacin <=0.06(S) Escherichia coli: Gentamicin >=16(R) Escherichia coli: Nitrofurantoin <=16(S) Escherichia coli: Trimethoprim/Sulfamethoxazole >=320(R) Specimen Source: Urine clean catch us Generic External Data Provider LAB MICROBIOLOGY - GENERAL ORDERABLES Final Result Performing Organization Address [facility] Co de Phone Number [facility] [address] [place] [phone] * Calprotectin, Stool (06/20/2025 9:00 AM EDT) Calprotectin,Fecal 86 mcg/g [facility] Comment:Reference Range: <50 Normal 50-120 Borderline >120 ElevatedCalprotectin in Crohn's disease and ulcerative colitis canbe five to several thousand times above the referencepopulation (50 mcg/g or less). Levels are usually 50 mcg/gor less in healthy patients and with irritable bowelsyndrome. Repeat testing in 4-6 weeks is suggested forborderline values.THIS TEST WAS PERFORMED AT:[employer] [id number] [place] [address]APFCTRAMIN SUN MD,PHD,CHRISTINE Stool 06/20/2025 9:00 AM EDT 06/20/2025 2:03 PM EDT Marley Rich MD LAB BODY FLUIDS AND STOOLS OR DERABLES Final Result Performing Organization Address City/[facility] Co de Phone Number [facility] [address] [place] [phone] * Vitamin B12 (Cobalamin) and Folate Panel, Serum (06/20/2025 8:19 AM EDT) Vitamin B12 478 200 - 900 pg/mL [facility] Comment:NORMAL 200-900 PG/ML INDETERMINATE 160-199 PG/ML DEFICIENT < 160 PG/ML Folate 9.5 > or = 4.0 ng/mL [facility] Comment:Reference Values:> o r = 4.0 ng/mL< 4.0 ng/mL suggests folate deficiency Methotrexate, aminopterin and folinic acid(leucovorin) are chemotherapeutic agents whose molecularstructures are similar to folate; therefore, the Architectfolate assay cannot be used for patients using these drugs. Blood Venous blood specimen / Unknown 06/20/2025 8:19 AM EDT 06/20/2025 2:02 PM EDT Marley Rich MD LAB BLOOD ORDERABLES Final Re sult [facility] [address] [place] [phone] * Iron And Total Iron Binding Capacity (06/20/2025 8:19 AM EDT) Iron 90 30 - 160 mcg/dL [facility] Total Iron Binding Capacity 262 228 - 428 mcg/dL [facility] Percent Iron Saturation 34 15 - 50 % [facility] Unsaturated Iron Binding 172 ug/dL [facility] Blood Venous blood specimen / Unknown 06/20/2025 8:19 AM EDT 06/20/2025 2:02 PM EDT Marley Rich MD LAB BLOOD ORDERABLES Final Re sult Performing Organization Address [facility] Co de Phone Number [facility] [address] [place] [phone] * (ABNORMAL) Ferritin (06/20/2025 8:19 AM EDT) Ferritin 254(H) 10 - 250 ng/mL [facility] Blood Venous blood specimen / Unknown 06/20/2025 8:19 AM EDT 06/20/2025 2:02 PM EDT Marley Rich MD LAB BLOOD ORDERABLES Final Re sult Performing Organization Address [facility] Co de Phone Number [facility] [address] [place] [phone] * Lipid Panel, Standard (06/20/2025 8:19 AM EDT) Triglycerides 59 <150 mg/dL [facility] Comment:Desirable Triglyceri de: less than 150 mg/dLBorderline High Triglyceride 150-199 mg/dLHigh Triglyceride: 200-499 mg/dLVery High Triglyceride: greater than or equal to 5OO mg/dL Cholesterol 111 <200 mg/dL [facility] Comment:Desirable Cholestero l: less than 200 mg/dLBorderline High Cholesterol: 200-239 mg/dLHigh Cholesterol: greater than 239 mg/dL LDL Cholesterol Calculated 45 <100 mg/dL [facility] Comment:Desirable LDL: less than 100 mg/dLNear Optimal/Above Optimal LDL: 110- 129 mg/dLBorderline High LDL: 130-159 mg/dLHigh LDL: 160-189 mg/dLVery High LDL: greater than or equal to 190 mg/dL HDL Cholesterol 55 >40 mg/dL [facility] Comment:Desirable HDL: great er than 40 mg/dL Note: This HDL assay may give artificially low results in patients with liver disease. Blood Venous blood specimen / Unknown 06/20/2025 8:19 AM EDT 06/20/2025 2:02 PM EDT Marley Rich MD LAB BLOOD ORDERABLES Final Re sult Performing Organization Address [facility] Co de Phone Number [facility] [address] [place] [phone] * Hemoglobin A1c (08/10/2024 8:24 AM EDT) Hemoglobin A1c 5.4 <6.0 % [facility] Comment:Hemoglobin A1C Refer ence Range Adults: 4.8 - 6.0 % Non diabetic: < 6.0 % Goal: < 7.0 %Additional Action Suggested: > 8.0 %Note: Hemoglobin A1c results are invalid for patients with abnormal amounts of HbF. Blood transfusions may impact the HbA1c concentration in the patient sample. Estimated Average Glucose 108 mg/dL [facility] Comment:eAG = Estimated ave rage glucose which is %A1C expressed asaverage glucose, using the formula of the O4C-DubaahiXouojdo Glucose study (ADAG), Diabetes Care, Vol.31,#8,Jun. 2007 Blood Venous blood specimen / Unknown 08/10/2024 8:24 AM EDT 08/10/2024 2:52 PM EDT Marley Rich MD LAB BLOOD ORDERABLES Final Re sult Performing Organization Address City/State/[facility] Co de Phone Number [facility] [address] [place] [phone] * Mammography (11/03/2023) Mammogram BIRADS 1 Normal, Abnormal, BIRADS 1 , BIRADS 2 Anatomical Region Laterality Modality Other Marley Rich MD HEALTH MAINTENANCE Final Resu lt * Hepatitis Panel, General (06/06/2023 11:38 AM EDT) Pathologist [facility] [place] Hepatitis A IgM Nonreactive Nonreactive [facility] Comment:IgM antibodies to CASTILLO V not detected; does not exclude earlyacute or recovered HAV infection. ~Hepatitis B Surface Antibody NONREACTIVE Nonreactive [facility] Comment:Nonreactive: < 8.00 mIU/mL Hepatitis B Core Antibody Nonreactive Nonreactive [facility] Hepatitis C Antibody Nonreactive Nonreactive [facility] Comment:Antibodies to HCV no t detected; does not exclude early acuteHCV infection. Hepatitis B Surface Ag Negative Negative [facility] 06/06/2023 11:3 8 AM EDT 06/06/2023 2:12 PM EDT [facility] External Provider LAB BLO OD ORDERABLES Final Result Performing Organization Address [facility] Co de Phone Number [facility] [address] [place] [phone] * Colonoscopy (12/30/2022) Pathologist [facility] [place] Colonoscopy Normal Normal 12/30/2022 Historical Provider HEALTH MAINTENANCE Edited Result - Final * THINPREP TIS PAP AND HPV mRNA E6/E7, CT/NG, TRICH (09/09/2022 12:00 AM EDT) [facility] Chlamydia trachomatis RNA, TMA, Urogenital NOT DETECTED NOT DETECTED [facility] Clinical Information: None given [facility] COMMENT SEE COMMENT [facility] Comment: The analytical performance characteristics of this assay, when used to test SurePath(TM) specimens have been determined by [employer]. The modifications have not been cleared or approved by the FDA. This assay has been validated pursuant to the CLIA regulations and is used for clinical purposes. For additional information, please refer to https://Yowza.[employer]/faq/DSN864 (This link is being provided for information/ educational purposes only.) COMMENT SEE COMMENT [facility] Comment: EXPLANATORY NOTE: The Pap is a screening test for cervical cancer. It is not a diagnostic test and is subject to false negative and false positive results. It is most reliable when a satisfactory sample, regularly obtained, is submitted with relevant clinical findings and history, and when the Pap result is evaluated along with historic and current clinical information. COMMENT: This Pap test has been evaluated with computer assisted technology. [facility] Counseling Case Manager: SEE COMMENT [facility] Comment: ED, CT(ASCP) CT screening location: [place] [address] HPV nRNA E6/E7 Not Detected Not Detected CONVERTED Amind Comment: Methodology: Airline Stewardess-Mediated Amplification This assay detects E6/E7 viral messenger RNA (mRNA) from 14 high-risk HPV types (16,18,31,33,35,39,45,51,52,56,58,59,66,68). Cervical sources are required for HPV testing. If a vaginal source from a patient who has had a total hysterectomy with removal of cervix was submitted, please contact the testing laboratory for alternative testing options. For additional information, please refer to http://education.Intiza/faq/UTX924d0 (This link if provided for information/ educational purposes only.) Interpretation/Re sult: Negative for intraepithelial lesion or malignancy. [facility] LMP: NONE GIVEN [facility] Neisseria gonorrhoeae RNA, TMA, Urogenital NOT DETECTED NOT DETECTED [facility] Prev. BX: NONE GIVEN [facility] Prev. PAP: NONE GIVEN CONVERTE D LEGACY LABS SOURCE: None given CONVERTED LEGACY LABS Statement Of Adequacy: SEE COMMENT CONVERTED LEGACY LABS Comment: Satisfactory for evaluation. Endocervical/transformation zone component present. Trichomonas vaginalis, QL, TMA, PAP Vial NOT DETECTED NOT DETECTED CONVERTED LEGACY LABS Comment: The analytical performance characteristics of this assay have been determined by [employer]. The modifications have not been cleared or approved by the FDA. This assay has been validated pursuant to the CLIA regulations and is used for clinical purposes. For additional information, please refer to http://education.[employer]iza/ faq/Trichomonastma (This link is being provided for information/ educational purposes only.) 09/09/2022 us Marley Rich MD LAB PATHOLOGY ORDERABLES Alethea l Result CONVERTED LEGACY LABS * Pap Smear (09/09/2022 12:00 AM EDT) Swab us Historical Provider MD LAB CYTOLOGY ORDERABLES F inal Result Performing Organization Address City/[facility]/ZIP Co de Phone Number [facility] [address], [facility] [place] [address] from Last 3 Months or Most Recently Relevant to Health Maintenance [place] [address] [address] C3 DENTAL-[facility] MEDICAID STAND ADULT Care Teams Subject Scientific Research Relationship Specialty Start Date End Date Marley Rich MD [address] [place] [address] PCP - General Family Medicine 11/25/21
--- OUTSIDE RECORDS SUMMARY | 2025-08-17 08:41 | XMS_ITS | Encounter Summary ---
Author Organization [employer] Address [address] [place] [address] 7 [place] [address] Care Team Providers Care Shoe Sticks Repairer Name Role Phone Marley Rich MD Primary Care Provider [phone] Reason for Visit * Reason Onset Date Comments PT-1 08/22/2024 Encounter Details Date Type Department Care Team (Late st Contact Info) Description 08/22/2024 Telephone [facility] MEDICINE [address] [place] [address] Marley Rich MD 505 [place] [address] PT-1 Social History Tobacco Use Types Packs/Day Years [...] housing situation today? I have randy montgomery 09/12/[address] you li ve. Do you have problems with any of the following? None of the above 09/12/2023 Food Insecurity Answer Date Recorded Within the past 12 months, y ou worried that your food would run out before you got money to buy more: Often true 01/19/2024 Within the past 12 months,th e food you bought just didn't last and you didn't have enough money to get more: Often true Transportation Answer Date Recorded In the past 12 months, has l ack of transportation kept you from medical appts, meetings, work or from getting things needed for daily living? No 09/12/2023 Utilities Answer Date Recorded In the past 12 months, has t he electric, gas, oil or water company threatened to shut off services in your home? No 09/12/2023 Depression Answer Date Recorded Patient Health Questionnaire-2 Score 0 08/06/2024 Comments Unknown Sex and Gender Information Value Date Recorded Sex Assigned at Female 09/27/2022 10:39 AM EDT Legal Sex Female 10:39 AM EDT Gender Identity Female 09/27/2022 10:39 AM EDT Sexual Orientation Straight 12/02/2022 8: 21 PM EST documented as of this encounter Miscellaneous Notes * Telephone Encounter - Bill Turner - 08/22/2024 9:17 AM EDT Patient calling requesting PT1 Home Address verified: Y/N: Yes Provider name or facility name: [facility] Facility Address: [address] [place] [address] Escort needed: Y/N: No Do you have a wheelchair: Y/N: No If yes- Manual or electric: no Visits: 6 documented in this encounter Plan of Treatment Upcoming Encounters Date Type Department Care Team (Late st Contact Info) Description 08/23/2025 2:00 PM EDT Office Visit [facility] ADULT DENTAL [address] [place] [address] Kamran Sherman 08/28/2025 3:15 PM EDT Clinical Support [facility] MED & PEDS [address] [place] [address] Aletha Vazquez RN 505 [place] [address] 09/17/2025 11:20 AM EDT Procedure Visit [facility] MED [facility] PEDS [address] [place] [address] Marley Rich MD [address] [place] [address] documented as of this encounter Goals Goal [...] documented as of this encounter Care Teams Shoe Sticks Repairer Relationship Specialty Start Date End Date Marley Rich MD [address] [place] [address] PCP - General Family Medicine 11/25/21 documented as of this encounter
--- OUTSIDE RECORDS SUMMARY | 2025-08-17 08:41 | XMS_ITS | Encounter Summary ---
Author Organization [employer] Address [address] [place] [address] 7t [place] [address] Care Team Providers Care Trust Operations Assistant Name Role Phone Marley Rich MD Primary Care Provider [phone] Encounter Details Date Type Department Care Team (Late st Contact Info) Description 10/13/2023 Abstract [facility] MEDICINE [address] [place] [address] Mily Calderon Social History Tobacco Use Types Packs/Day Years Used Date Smoking Tobacco: Never Passive Smoke Exposure: Never Smokeless Tobacco: Never Alcohol Use Standard Drinks/Week Comments Never 0 (1 standard drink = 0.6 oz pur e alcohol) Depression Answer Date Recorded Patient Health Questionnaire-9 Score 10 03/04/2023 Housing Stability Answer Date Recorded What is your housing situation today? I have randy montgomery 09/12/[address] you li ve. Do you have problems with any of the following? None of the above 09/12/2023 Food Insecurity Answer Date Recorded Within the past 12 months, y ou worried that your food would run out before you got money to buy more: Never True 09/12/2023 Within the past 12 months,th e food you bought just didn't last and you didn't have enough money to get more: Never True Transportation Answer Date Recorded In the past [...] 2:00 PM EDT Office Visit [facility] ADULT DENTAL [address] [place] [address] Kamran Sherman 08/28/2025 3:15 PM EDT Clinical Support [facility] MED & PEDS [address] [place] [address] Aletha Vazquez, RN [address] [place] [address] 09/17/2025 11:20 AM EDT Procedure Visit [facility] MED & PEDS [address] [place] [address] Marley Rich MD 505 [place] [address] documented as of this encounter Visit Diagnoses Not on filedocumented in this encounter Additional Health Concerns Assessment Noted Time PHQ-9 Depression Total Score: 10 023 11:29 AM EDT documented as of this encounter Care Teams Trust Operations Assistant Relationship Specialty Start Date End Date Marley Rich MD [address] [place] [address] PCP - General Family Medicine 11/25/21 documented as of this encounter
--- OUTSIDE RECORDS SUMMARY | 2025-08-17 08:41 | XMS_ITS | Encounter Summary ---
Author Organization [employer] Address [address] [place] [address] 7 [place] [address] Care Team Providers Care Intermediate Frame Tender Name Role Phone Marley Rich MD Primary Care Provider [phone] Reason for Visit * Reason Onset Date Comments PT-1 03/29/2024 Encounter Details Date Type Department Care Team (Late st Contact Info) Description 03/29/2024 Telephone [facility] MEDICINE [address] [place] [address] Marley Rich MD [address] [place] [address] PT-1 Social History Tobacco Use Types Packs/Day Years Used Date Smoking Tobacco: Never Passive Smoke Exposure: Never Smokeless Tobacco: Never Alcohol Use Standard Drinks/Week Comments Never 0 (1 standard drink = 0.6 oz pur e alcohol) Depression Answer Date Recorded Patient Health Questionnaire-9 Score 11 01/26/2024 Patient Health Questionnaire-9 Score 11 01/26/2024 Last PHQ-9: Questionnaire Data Not on file 0 01/26/2024 Housing Stability Answer Date Recorded What is [...] Date Recorded Patient Health Questionnaire-2 Score 2 01/26/2024 Comments Unknown Sex and Gender Information Value Date Recorded Sex Assigned at Female 09/27/2022 10:39 AM EDT Legal Sex Female 10:39 AM EDT Gender Identity Female 09/27/2022 10:39 AM EDT Sexual Orientation Straight 12/02/2022 8: 21 PM EST documented as of this encounter Miscellaneous Notes * Telephone Encounter - Kesha Herndon - 03/29/2024 4:23 PM EDT PT-1 submitted for patient. They will receive a letter of approval or denial in the mail. * Telephone Encounter - Bill Turner - 03/29/2024 1:37 PM EDT Patient calling requesting PT1 Home Address verified: Y/N: Yes Provider name or facility name: [facility] Facility Address: [address] [place] [address] Escort needed: Y/N: No Do you have a wheelchair: Y/N: No If yes- Manual or electric: no Visits: 3 documented in this encounter Plan of Treatment Upcoming Encounters Date Type Department Care Team ([facility] st Contact Info) Description 08/23/2025 2:00 PM EDT Office Visit [facility] ADULT DENTAL [address] [place] [address] Kamran Sherman 08/28/2025 3:15 PM EDT Clinical Support [facility] MED & PEDS [address] [place] [address] Aletha Vazquez, EAN [address] [place] [address] 09/17/2025 11:20 AM EDT Procedure Visit [facility] CHC MED & PEDS [address] [place] [address] Marley Rich MD [address] [place] [address] documented as of this encounter Goals Goal [...] Assessment Noted Time PHQ-9 Depression Total Score: 11 024 10:07 AM EST documented as of this encounter Care Teams Intermediate Frame Tender Relationship Specialty Start Date End Date Marley Rich MD [address] [place] [address] PCP - General Family Medicine 11/25/21 documented as of this encounter
--- OUTSIDE RECORDS SUMMARY | 2025-08-17 08:41 | XMS_ITS | Encounter Summary ---
Author Organization [employer] Address [address] [place] [address] 7 [place] [address] Care Team Providers Care Personnel Analyst Name Role Phone Marley Rich MD Primary Care Provider [phone] Reason for Visit * Reason Onset Date Comments PT1 05/20/2025 Encounter Details Date Type Department Care Team ([facility] st Contact Info) Description 05/20/2025 Telephone [facility] MEDICINE [address] [place] [address] Marley Rich MD [address] [place] [address] PT1 Social History Tobacco Use Types Packs/Day [...] encounter Miscellaneous Notes * Telephone Encounter - Irma Perea - 05/20/2025 8:37 AM EDT Patient calling requesting PT1 Home Address verified: Y/N: Yes Provider name or facility name: [facility] [address] [place] [address] Escort needed: Y/N: No Do you have a wheelchair: Y/N: No If yes- Manual or electric: N/A Visits: (2x weekly) documented in this encounter Plan of Treatment Upcoming Encounters Date Type Department Care Team (Late st Contact Info) Description 08/23/2025 2:00 PM EDT Office Visit [facility] ADULT DENTAL [address] [place] [address] Kamran Sherman 08/28/2025 3:15 PM EDT Clinical Support [facility] MED & PEDS [address] [place] [address] Aletha Vazquez, RN 505 [place] [address] 09/17/2025 11:20 AM EDT Procedure Visit [facility] CHC MED & PEDS [address] [place] [address] Marley Rich MD [address] [place] [address] documented as of this encounter Goals Goal [...] documented as of this encounter Care Teams Personnel Analyst Relationship Specialty Start Date End Date Marley Rich MD [address] [place] [address] PCP - General Family Medicine 11/25/21 documented as of this encounter
--- OUTSIDE RECORDS SUMMARY | 2025-08-17 08:41 | XMS_ITS | Clinical Summary ---
Author Organization [facility] Address [address] [place] [address] Phone Care Team Providers Care Energy Systems Laboratory Director Name Role Phone Veronique Jack MD Primary Care Provider [phone] Allergies No known active allergies Medications gabapentin (NEURONTIN) 100 MG capsule Take 100 mg by mouth 3 (three) times a day. Active doxepin (SINEQUAN) 10 MG capsule Take 30 mg by mouth nightly at bedtime. Active SUMAtriptan (IMITREX) 50 MG tablet Take 50 mg by mouth every 2 (two) hours as needed for migraine. Not to exceed 200 mg/day Active promethazine (PHENERGAN) 50 MG tablet Take 50 mg by mouth. Active losartan potassium (LOSARTAN ORAL) Take by mouth. Active Active Problems Problem Noted Date Diagnosed Date Chronic pain 11/28/2013 Overview (07/04/2020): neck, shoulder, lower back from fall Prediabetes Family History Medical History Relation Comments Cardiovascular disease Father Diabetes Father Glaucoma Neg Hx Retinal detachment Neg Hx Relation Status Comments Father Social History Tobacco Use Types Packs/Day Years Used Date Smoking Tobacco: Never Smokeless Tobacco: Never Tobacco Cessation:Counseling Given: Not Answered Alcohol Use Standard Drinks/Week Comments Never 0 (1 standard drink = 0.6 oz pur e alcohol) Education Answer Date Recorded Are you interested in more education? Not on krishna e 03/25/2023 Are you concerned about learning? Not on file 03/25/2023 No 03/25/2023 No 03/25/2023 Digital Access Answer Date Recorded No 04/23/2023 No 04/23/2023 Reliable internet access at home? Not on file 04/23/2023 Device with a working camera? Not on file Comments Unknown Sex and Gender Information Value Date Recorded Sex Assigned at Not on file Legal Sex Female 9:34 AM EST Gender Identity Not on file Sexual Orientation Not on file Plan of Treatment Upcoming Encounters Date Type Department Care Team ([facility] st Contact Info) Description 12/24/2025 9:00 AM EST Office Visit [facility] in [address] [address] Chauncey Kurtz, OD [address] [place] [address] [email or web address] 12/24/2025 9:15 AM EST Procedure visit [facility] in [address] [address] Health Maintenance Due Date Last Done Comments CREATININE LEVEL 1960 POTASSIUM LEVEL 1960 DEPRESSION SCREENING 1972 HEPATITIS C SCREENING 1978 HIV ONE-TIME SCREENING (18-6 5 YEARS) 1978 MAMMOGRAM 2000 COLOGUARD 2005 COLONOSCOPY 2005 COLORECTAL CANCER SCREENING 2005 FIT TEST 2005 FOBT 2005 SIGMOIDOSCOPY 2005 VIRTUAL COLONOSCOPY 2005 PNEUMOCOCCAL VACCINES (50+ years) (1 of 1 - PCV) 2010 ZOSTER VACCINES (1 of 2) 2010 INFLUENZA VACCINE (#1) 2025 COVID-19 VACCINE (1 - 2023-2 5 season) 2025 PAP SMEAR 09/09/2025 09/09/2022 LIPID PANEL 08/10/2029 08/10/2024, 09/16/2023 Adult Td,Tdap Booster 09/12/2033 09/12/2023 , 07/17/2013 RSV VACCINE (1 - 1-dose 75+ series) 2035 SMOKING STATUS SCREENING (On ce After 26 Yrs) Completed 12/18/2024 HEPATITIS A VACCINES Aged Out No long er eligible based on patient's age to complete this topic HIB VACCINES Aged Out No longer eligi ble based on patient's age to complete this topic MENINGOCOCCAL VACCINES (ACWY) Aged Out No longer eligible based on patient's age to complete this topic MENINGOCOCCAL VACCINES (B) Aged Out N o longer eligible based on patient's age to complete this topic Medical Devices Not on file [place] [address] [place] [address] [place] [id number] [employer] [address] [place] [address] [employer] [address] [place] [address] [employer] [address] [place] [address] Care Teams Energy Systems Laboratory Director Relationship Specialty Start Date End Date Veronique Jack MD [address] [place] [phone] [email or web address] PCP - General Internal Medicine 07/04/20 Additional Source Comments The information contained in this document represents components of the legal health record. It is not the complete legal health record.[facility]
--- OUTSIDE RECORDS SUMMARY | 2025-08-17 08:41 | XMS_ITS | Encounter Summary ---
Author Organization [employer] Address [address] [place] [address] 7 [place] [address] Care Team Providers Care Assignment Officer Name Role Phone Marley Rich MD Primary Care Provider [phone] Reason for Visit * Reason Comments Med Refill Encounter Details Date Type Department Care Team ([facility] st Contact Info) Description 09/03/2024 Refill [facility] CHC MED & PEDS [address] [place] [address] Marley Rich MD 505 [place] [address] Essential hypertension Social History Tobacco Use Types [...] 2:00 PM EDT Office Visit [facility] ADULT DENTAL [address] [place] [address] Kamran Sherman 08/28/2025 3:15 PM EDT Clinical Support [facility] MED & PEDS [address] [place] [address] Aletha Vazquez RN [address] [place] [address] 09/17/2025 11:20 AM EDT Procedure Visit [facility] MED & PEDS [address] [place] [address] Marley Rich MD [address] [place] [address] documented as of this encounter Goals Goal Patient Goal Type Associated Problems Recent Progress Patient-Stated? Author Blood Pressure < 150/90 Blood Pressure 138/78(2024 8:58 AM EDT) Mary Brock PharmD Immunization General No Mary Higgins PharmD Note: Receive all recommended vaccines: due for RSV documented as of this encounter Visit Diagnoses Diagnosis Essential hypertension Unspecified essential hypertension documented in this encounter Additional Health Concerns Assessment Noted Time PHQ-9 Depression Total Score: 2 08/06/20 24 10:25 AM EDT documented as of this encounter Care Teams Assignment Officer Relationship Specialty Start Date End Date Marley Rich MD [address] [place] [address] PCP - General Family Medicine 11/25/21 documented as of this encounter
--- OUTSIDE RECORDS SUMMARY | 2025-08-17 08:41 | XMS_ITS | Encounter Summary ---
Author Organization [employer] Address [address] [place] [address] 7 [place] [address] Care Team Providers Care Mobile Sales Expert Name Role Phone Marley Rich MD Primary Care Provider [phone] Reason for Visit * Reason Onset Date Comments [facility] 03/23/2024 Encounter Details Date Type Department Care Team ([facility] st Contact Info) Description 03/23/2024 Telephone [facility] MEDICINE [address] [place] [address] Marley Rich MD [address] [place] [address] [facility] Social History Tobacco Use Types Packs/Day Years [...] encounter Miscellaneous Notes * Telephone Encounter - Margot Colmenares RN - 03/26/2024 3:24 PM EDT Clinic does not provide Uber for XR's or labs. * Telephone Encounter - Bill Turner - 03/23/2024 12:36 PM EDT Tc from patient requesting status in regards to message below * Telephone Encounter - Sarina Martínez - 03/23/2024 8:38 AM EDT Tc from pt requesting Uber to came for XR Shoulder 2+ Views Left documented in this encounter Plan of Treatment Upcoming Encounters Date Type Department Care Team (Late st Contact Info) Description 08/23/2025 2:00 PM EDT Office Visit [facility] ADULT DENTAL [address] [place] [address] Kamran Sherman 08/28/2025 3:15 PM EDT Clinical Support [facility] MED & PEDS [address] [place] [address] Aletha Vazquez, RN [address] [place] [address] 09/17/2025 11:20 AM EDT Procedure Visit [facility] CHC MED & PEDS [address] [place] [address] Marley Rich MD [address] [place] [address] documented as of this encounter Goals Goal [...] documented as of this encounter Care Teams Mobile Sales Expert Relationship Specialty Start Date End Date Marley Rich MD [address] [place] [address] PCP - General Family Medicine 11/25/21 documented as of this encounter
--- OUTSIDE RECORDS SUMMARY | 2025-08-17 08:41 | XMS_ITS | Encounter Summary ---
Author Organization [employer] Address [address] [place] [address] 7t [place] [address] Care Team Providers Care Outside Sales Consultant Name Role Phone Marley Rich MD Primary Care Provider [phone] Encounter Details Date Type Department Care Team ([facility] st Contact Info) Description 09/07/[address] [facility] MEDICINE [address] [place] [address] Marley Rich MD [address] [place] [address] Social History Tobacco Use Types Packs/Day Years Used Date Smoking Tobacco: Never Passive Smoke Exposure: Never Smokeless Tobacco: Never Alcohol Use Standard Drinks/Week Comments Never 0 (1 standard drink = 0.6 oz pur e alcohol) Depression Answer Date Recorded Patient Health Questionnaire-9 Score 10 03/04/2023 Housing Stability Answer Date Recorded What is your housing situation today? I have randy montgomery 09/05/[address] you li ve. Do you have problems with any of the following? None of the above 09/05/2023 Food Insecurity Answer Date Recorded Within the past 12 months, y ou worried that your food would run out before you got money to buy more: Never True 09/05/2023 Within the past 12 months,th e food you bought just didn't last and you didn't have enough money to get more: Never True 07/2023 Transportation Answer Date Recorded In the past 12 months, has l ack of transportation kept you from medical appts, meetings, work or from getting things needed for daily living? No 09/05/2023 Utilities Answer Date Recorded In the past 12 months, has t he electric, gas, oil or water company threatened to shut off services in your home? No 09/05/2023 Depression Answer Date Recorded Patient Health Questionnaire-2 [...] 08/23/2025 2:00 PM EDT Office Visit [facility] ADULT D[facility] [address] [place] [address] Kamran Sherman 08/28/2025 3:15 PM EDT Clinical Support [facility] MED & PEDS [address] [place] [address] Aletha Vazquez, RN [address] [place] [address] 09/17/2025 11:20 AM EDT Procedure Visit [facility] MED & PEDS [address] [place] [address] Marley Rich MD [address] [place] [address] documented as of this encounter Visit Diagnoses Not on filedocumented in this encounter Additional Health Concerns Assessment Noted Time PHQ-9 Depression Total Score: 10 023 11:29 AM EDT documented as of this encounter Care Teams Outside Sales Consultant Relationship Specialty Start Date End Date Marley Rich MD [address] [place] [address] PCP - General Family Medicine 11/25/21 documented as of this encounter
--- OUTSIDE RECORDS SUMMARY | 2025-08-17 08:41 | XMS_ITS | Encounter Summary ---
Author Organization [employer] Address [address] [place] [address] 7t [place] [address] Care Team Providers Care Supervisor Game Farm Name Role Phone Marley Rich MD Primary Care Provider [phone] Encounter Details Date Type Department Care Team ([facility] st Contact Info) Description 08/16/2025 Telephone [facility] CHC MED & PEDS [address] [place] [address] Aletha Vazquez, EAN [address] [place] [address] Social History Tobacco Use Types Packs/Day Years [...] Telephone Encounter - Aletha Vazquez RN - 08/16/2025 11:53 AM EDT Pt already has Rim Technician initial appt scheduled for 08/28/25. documented in this encounter Plan of Treatment Upcoming Encounters Date Type Department Care Team (Late st Contact Info) Description 08/23/2025 2:00 PM EDT Office Visit [facility] ADULT DENTAL [address] [place] [address] Kamran Sherman 08/28/2025 3:15 PM EDT Clinical Support [facility] MED & PEDS [address] [place] [address] Aletha Vazquez RN [address] [place] [address] 09/17/2025 11:20 AM EDT Procedure Visit [facility] MED & PEDS [address] [place] [address] Marley Rich MD 505 [place] [address] documented as of this encounter Goals Goal [...] documented as of this encounter Care Teams Supervisor Game Farm Relationship Specialty Start Date End Date Marley Rich MD [address] [place] [address] PCP - General Family Medicine 11/25/21 documented as of this encounter
--- OUTSIDE RECORDS SUMMARY | 2025-08-17 08:41 | XMS_ITS | Encounter Summary ---
Author Organization [employer] Address [address] [place] [address] 7 [place] [address] Care Team Providers Care Auto Crane Driver Name Role Phone Marley Rich MD Primary Care Provider [phone] Reason for Visit * Reason Comments Med Refill Encounter Details Date Type Department Care Team ([facility] st Contact Info) Description 01/19/2025 Refill [facility]C ADULT DENTAL [address] [place] [address] Carl Casillas, DMD 505 [place] [address] Dental caries Social History Tobacco Use Types [...] Telephone Encounter - Carl Casillas DMD - 01/21/2025 8:06 AM EST Approving, but needs appt for additional refills. documented in this encounter Plan of Treatment Upcoming Encounters Date Type Department Care Team (Late st Contact Info) Description 08/23/2025 2:00 PM EDT Office Visit [facility] ADULT DENTAL [address] [place] [address] Kamran Sherman 08/28/2025 3:15 PM EDT Clinical Support [facility] [address] [place] [address] Aletha Vazquez RN 505 [place] [address] 09/17/2025 11:20 AM EDT Procedure Visit [facility] [address] [place] [address] Marley Rich MD 505 [place] [address] documented as of this encounter Goals Goal [...] documented as of this encounter Care Teams Auto Crane Driver Relationship Specialty Start Date End Date Marley Rich MD 230 [place] [address] PCP - General Family Medicine 11/25/21 documented as of this encounter
--- OUTSIDE RECORDS SUMMARY | 2025-08-17 08:41 | XMS_ITS | Clinical Summary ---
Author Organization 175 [facility] Address 175 [place] [address] Phone Care Team Providers Care Compressor Service Technician Name Role Phone Marley Rich MD Primary Care Provider [phone] Allergies No known active allergies Medications ciclopirox (PENLAC) 8 % solution Apply topically at bedtime. Apply over nail and surrounding skin. Apply daily over previous coat. After seven (7) days, may remove with alcohol and continue cycle. 6.6 mL 3 08/21/20 25 Active Encounters Date Type Department Care Team Description 05/23/2025 2:30 PM EDT Office Visit Orthopedic Surgery [facility] 250 175 [facility] [address] [place] [phone] Aditya Mclaughlin, DPM Dermatophytosis of nail [...] Team ([facility] st Contact Info) Description 08/26/2025 2:15 PM EDT Office Visit Orthopedic Surgery - [place] 250 175 [facility] 250 [place] [phone] Aditya Mclaughlin DPChika [address] [phone] Health Maintenance Due Date Last Done Comments Breast Cancer Screening 1960 Depression Screening 11/28/2024 Colorectal Cancer Screening: Colonoscopy 01/02/2025 Hepatitis C Screening 01/02/2025 Osteoporosis Screening (Bone Density Screening) 01/02/2025 Social Influencers of Health Screening 01/02/2025 Hypertension/CHF/CAD Annual BMP Blood Test 02/20/2025 COVID-19 Vaccine ( season) 2025 09/19/2023, 01/26/2023, 05/05/2022, Additional history exists Influenza Vaccine (#1) 2025 , 07/26/2023, 08/09/2022, Additional history exists Falls Risk Assessment 2025 Cervical Cancer Screening: Pap Smear 09/09/2025 09/09/2022 [...] topic Insurance MEDICAID - [place] Care Teams Compressor Service Technician Relationship Specialty Start Date End Date Marley Rich MD 230 [place] [address] PCP - General Family Medicine 01/02/25
--- OUTSIDE RECORDS SUMMARY | 2025-08-17 08:41 | XMS_ITS | Encounter Summary ---
Author Organization [employer] Address [address] [place] [address] 7 [place] [address] Care Team Providers Care Surgical Technician Name Role Phone Marley Rich MD Primary Care Provider [phone] Encounter Details Date Type Department Care Team (Late st Contact Info) Description 10/25/2022 Abstract [facility] MEDICINE 230 [place] [address] Provider, MD Jomar Social History Tobacco Use Types Packs/Day Years [...] Description 08/23/2025 2:00 PM EDT Office Visit [facility] ADULT DENTAL 505 [place] [address] Kamran Sherman 08/28/2025 3:15 PM EDT Clinical Support [facility] 505 [place] [address] Aletha Vazquez, EAN 505 [place] [address] 09/17/2025 11:20 AM EDT Procedure Visit [facility] 505 [place] [address] Marley Rich MD [address] [place] [address] documented as of this encounter Visit Diagnoses Not on filedocumented in this encounter Care Teams Surgical Technician Relationship Specialty Start Date End Date Marley Rich MD [address] [place] [address] PCP - General Family Medicine 11/25/21 documented as of this encounter
--- OUTSIDE RECORDS SUMMARY | 2025-08-17 08:42 | XMS_ITS | Encounter Summary ---
Author Organization [employer] Address [address] [place] [address] 7 [place] [address] Care Team Providers Care Bar Gauger And Lubricator Tender Name Role Phone Marley Rich MD Primary Care Provider [phone] Reason for Visit * Reason Onset Date Comments Dr. Casillas continued pain 03/04/2025 Encounter Details Date Type Department Care Team ([facility] st Contact Info) Description 03/04/2025 Telephone [facility] CHC ADULT DENTAL 505 [place] [address] Carl Casillas, DMD [address] [place], [place] [phone] Dr. Casillas continued pain Social History Tobacco Use Types Packs/Day Years [...] encounter Miscellaneous Notes * Telephone Encounter - Peggy [place] - 03/04/2025 1:05 PM EDT Message for Dr. Casillas Patient is calling in because she had extraction done on 02/26 and is still currently in pain She states the pain has not gotten better. Has stayed the same and has to continue taking ibuprofen consistently as scheduled otherwise the pain is intense. Patient is looking to see if something else needs to be sent I to pharmacy or if she needs to be seen again DR documented in this encounter Plan of Treatment Upcoming Encounters Date Type Department Care Team (Late st Contact Info) Description 08/23/2025 2:00 PM EDT Office Visit [facility] ADULT DENTAL 505 [place] [address] Kamran Sherman 08/28/2025 3:15 PM EDT Clinical Support [facility] MED & PEDS 505 [place] [address] Aletha Vazquez, RN 505 [place] [address] 09/17/2025 11:20 AM EDT Procedure Visit [facility] MED & PEDS 505 [place] [address] Marley Rich MD [address] [place] [address] documented as of this encounter Goals Goal [...] documented as of this encounter Care Teams Bar Gauger And Lubricator Tender Relationship Specialty Start Date End Date Marley Rich MD [address] [place] [address] PCP - General Family Medicine 11/25/21 documented as of this encounter
--- OUTSIDE RECORDS SUMMARY | 2025-08-17 08:42 | XMS_ITS | Encounter Summary ---
Author Organization [employer] Address [address] [place] [address] 7 [place] [address] Care Team Providers Care Phlebotomy Instructor Name Role Phone Marley Rich MD Primary Care Provider [phone] Reason for Visit * Reason Onset Date Comments PT1 01/02/2025 Encounter Details Date Type Department Care Team ([facility] st Contact Info) Description 01/02/2025 Telephone [facility] CHC MED & PEDS 505 [place] [address] Marley Rich MD 505 [place] [address] PT1 Social History Tobacco Use Types Packs/Day [...] encounter Miscellaneous Notes * Telephone Encounter - Leora Mejia - 01/02/2025 12:10 PM EST Patient calling requesting PT1 Home Address verified: Y/N: Yes Provider name or facility name: Dr Mclaughlin Facility Address: [address] [place] [address] 2nd Floor [address] [place] [address] Escort needed: Y/N: Yes Do you have a wheelchair: Y/N: No If yes- Manual or electric: n/a Visits: 2 x a month documented in this encounter Plan of Treatment Upcoming Encounters Date Type Department Care Team (Late st Contact Info) Description 08/23/2025 2:00 PM EDT Office Visit [facility] ADULT DENTAL 505 [place] [address] Kamran Sherman 08/28/2025 3:15 PM EDT Clinical Support [facility] MED & PEDS 505 [place] [address] Aletha Vazquez, EAN 505 [place] [address] 09/17/2025 11:20 AM EDT Procedure Visit [facility] MED [facility] PED[facility] 505 [place] [address] Marley Rich MD [address] [place] [address] documented as of this encounter Goals Goal [...] documented as of this encounter Care Teams Phlebotomy Instructor Relationship Specialty Start Date End Date Marley Rich MD [address] [place] [address] PCP - General Family Medicine 11/25/21 documented as of this encounter
--- OUTSIDE RECORDS SUMMARY | 2025-08-17 08:42 | XMS_ITS | Encounter Summary ---
Author Organization [employer] Address [address] [place] [address] 7 [place] [address] Care Team Providers Care Biochemistry Teacher Name Role Phone Marley Rich MD Primary Care Provider [phone] Reason for Visit * Reason Onset Date Comments PT-1 03/07/2025 0 Encounter Details Date Type Department Care Team ([facility] st Contact Info) Description 03/07/2025 Telephone [facility] MEDICINE 230 [place] [address] Marley Rcih MD 505 [place], [place] [phone] PT-1 (0) Social History Tobacco Use Types Packs/Day Years [...] encounter Miscellaneous Notes * Telephone Encounter - Prosper Marte - 03/07/2025 2:36 PM EDT Patient calling requesting PT1 Home Address verified: Y/N: Yes Provider name or facility name: [facility] [place] [address] Escort needed: Y/N: No Do you have a wheelchair: Y/N: No If yes- Manual or electric: Visits: (1 x Monthly) Contact pt at [phone] documented in this encounter Plan of Treatment Upcoming Encounters Date Type Department Care Team (Late st Contact Info) Description 08/23/2025 2:00 PM EDT Office Visit [facility] ADULT DENTAL 505 [place] [address] Kamran Sherman 08/28/2025 3:15 PM EDT Clinical Support [facility] MED & PED[facility] [address] [place] [address] Aletha Vazquez, RN 505 [place] [address] 09/17/2025 11:20 AM EDT Procedure Visit [facility] 505 [place] [address] Marley Rich MD [address] [place] [address] documented as of this encounter Goals Goal [...] documented as of this encounter Care Teams Biochemistry Teacher Relationship Specialty Start Date End Date Marley Rich MD [address] [place] [address] PCP - General Family Medicine 11/25/21 documented as of this encounter
--- OUTSIDE RECORDS SUMMARY | 2025-08-17 08:42 | XMS_ITS | Encounter Summary ---
Author Organization [employer] Address [address] [place] [address] 7t [place] [address] Care Team Providers Care Crm Marketing Executive Name Role Phone Marely Rich MD Primary Care Provider [phone] Encounter Details Date Type Department Care Team ([facility] st Contact Info) Description 06/06/2024 Telephone [facility] CHC MED & PEDS 505 [place] [address] Marley Rich MD 505 [place] [address] Social History Tobacco Use Types Packs/Day Years [...] encounter Miscellaneous Notes * Telephone Encounter - Marti Owen - 06/06/2024 1:45 PM EDT Tc from pt requesting a new referral for services that insurance help pay for . Pt states a card isprovided for pt to get the help to purchase food, stuff for the home or anything important pt may need. Please call pt to clarify . documented in this encounter Plan of Treatment Upcoming Encounters Date Type Department Care Team (Late st Contact Info) Description 08/23/2025 2:00 PM EDT Office Visit [facility] ADULT DENTAL 505 [place] [address] Kamran Sherman 08/28/2025 3:15 PM EDT Clinical Support [facility] MED & PEDS 505 [place] [address] Aletha Vazquez RN 505 [place] [address] 09/17/2025 11:20 AM EDT Procedure Visit [facility] MED & PEDS 505 [place] [address] Marley Rich MD 505 [place] [address] documented as of this encounter Goals Goal [...] documented as of this encounter Care Teams Crm Marketing Executive Relationship Specialty Start Date End Date Marley Rich MD 230 [place] [address] PCP - General Family Medicine 11/25/21 documented as of this encounter
--- OUTSIDE RECORDS SUMMARY | 2025-08-17 08:42 | XMS_ITS | Encounter Summary ---
Author Organization [employer] Address [address] [place] [address] 7t [place] [address] Care Team Providers Care Tool Maker Bench Name Role Phone Marley Rich MD Primary Care Provider Reason for Visit * Reason Comments Med Refill Encounter Details Date Type Department Care Team (Late st Contact Info) Description 03/23/2025 Refill [facility] [address] [place] [phone] Kashif Layne MD 230 [place], [place] [phone] Social History Tobacco Use Types Packs/Day Years [...] is your housing situation today? I have randyafshin montgomery 09/12/[address] you [...] 08/23/2025 2:00 PM EDT Office Visit [facility] ADULT DENTAL 505 [place] [address] Kamran Sherman 08/28/2025 3:15 PM EDT Clinical Support [facility] MED & PEDS 505 [place] [address] Aletha Vazquez RN 505 [place] [address] 09/17/2025 11:20 AM EDT Procedure Visit [facility] MED [facility] PEDS 505 [place] [address] Marley Rich MD 505 [place] [address] documented as of this encounter Goals Goal [...] documented as of this encounter Care Teams Tool Maker Bench Relationship Specialty Start Date End Date Marley Rich MD 230 [place] [address] PCP - General Family Medicine 11/25/21 documented as of this encounter
--- OUTSIDE RECORDS SUMMARY | 2025-08-17 08:42 | XMS_ITS | Encounter Summary ---
Author Organization [employer] Address [address] [place] [address] 7 [place] [address] Care Team Providers Care Grain Drier Operator Name Role Phone Marley Rich MD Primary Care Provider [phone] Reason for Visit * Reason Onset Date Comments PT-1 08/17/2024 Encounter Details Date Type Department Care Team (Late st Contact Info) Description 08/17/2024 Telephone [facility] MEDICINE 230 [place] [address] Marley Rich MD 505 [place] [address] PT-1 Social History Tobacco Use Types Packs/Day [...] * Telephone Encounter - Bill Turner - 08/17/2024 10:13 AM EDT Patient calling requesting PT1 Home Address verified: Y/N: Yes Provider name or facility name: [facility] Facility Address: [address] [facility] [address] [place] [address] Escort needed: Y/N: No Do you have a wheelchair: Y/N: No If yes- Manual or electric: no Visits: 6 Patient calling requesting PT1 Home Address verified: Y/N: Yes Provider name or facility name: [facility] Facility Address: [address] [place] [address] [facility] [address] Escort needed: Y/N: Yes Do you have a wheelchair: Y/N: No If yes- Manual or electric: no Visits: 6 Patient calling requesting PT1 Home Address verified: Y/N: Yes Provider name or facility name: [facility] Facility Address: [address] [facility] 201 [place] [address] Escort needed: Y/N: No Do you have a wheelchair: Y/N: No If yes- Manual or electric: no Visits: 6 Patient calling requesting PT1 Home Address verified: Y/N: Yes Provider name or facility name: [facility] Facility Address: [address] [place] [address] Escort needed: Y/N: No Do you have a wheelchair: Y/N: No If yes- Manual or electric: no Visits: 6 documented in this encounter Plan of Treatment Upcoming Encounters Date Type Department Care Team (Late st Contact Info) Description 08/23/2025 2:00 PM EDT Office Visit [facility] ADULT DENTAL 505 [place] [address] Kamran Sherman 08/28/2025 3:15 PM EDT Clinical Support [facility] MED & PEDS 505 [place], [place] [phone] Aletha Vazquez, EAN 505 [place] [address] 09/17/2025 11:20 AM EDT Procedure Visit [facility] MED & PEDS 505 [place], [place] [phone] Marley Rich MD 505 [place], [place] [phone] documented as of this encounter Goals Goal [...] documented as of this encounter Care Teams Grain Drier Operator Relationship Specialty Start Date End Date Marley Rich MD 230 [place] [address] PCP - General Family Medicine 11/25/21 documented as of this encounter
== END 2025-08-17 08:38 | disposition home or self-care (01) ==
LOC: HO.MRI 08:37
PROVIDERS: PCP Family Medicine; Visit Provider Family Medicine
DX: M54.16 Radiculopathy, lumbar region (principal)
CPT/HCPCS: 72148

== ENCOUNTER → 2025-08-17 08:52 | Outpatient (BNV) | payer MEDICAID, SELFPAY | PROVIDERS: PCP Family Medicine; Visit Provider Radiology Diagnostic Radiology | DX: M54.16 Radiculopathy, lumbar region (principal); M51.369 Other intervertebral disc degeneration, lumbar region without mention of lumbar back pain or lower extremity pain; D18.09 Hemangioma of other sites; M51.26 Other intervertebral disc displacement, lumbar region | CPT/HCPCS: 72148 ==

== ENCOUNTER 2025-08-19 09:13 | Outpatient (REF) | payer MEDICAID, SELFPAY ==
--- OUTSIDE RECORDS SUMMARY | 2022-03-10 08:24 | XMS_ITS | Continuity of Care Document ---
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 est discomfort (chief complaint)fo ot wound (chief complaint) Joint painDizzines sChest Tightness 4 No Information OFFICE/OUTPA TIENT VISIT, [facility], [address], [place], [place], [id number], [place] tel:[phone] [facility] Cough (chief complaint) CoughURI, acute Oct- 0- 4 No Information [facility], [address], [place], [place], [id number], [place] tel:[phone] [facility] Sleep apnea Oct- 8- 4 No Information OFFICE/OUTPA TIENT VISIT, EST [facility], [address], [place], [place], [id number], [place] tel:[phone] [facility] sore throat (chief complaint) URI, acute 4 No Information OFFICE/OUTPA TIENT VISIT, [facility], [address], [place], [place], [id number], [place] tel:[phone] [facility] Hypertension (follow up) (chief complaint) HeadacheHype rtension, Benign Sep-2 - 4 No Information OFFICE/OUTPA TIENT VISIT, EST [facility], [address], [place], [place], [id number], [place] tel:[phone] [facility] hypertension (follow up) (chief complaint) Hypertension , Benign Sep-0 2- 4 No Information [facility], [address], [place], [place], [id number], [place] tel:[phone] [facility] Unspecified abnormal mammogram Jun- 4 No Information OFFICE/OUTPA TIENT VISIT, [facility], [address], [place], [place], [id number], [place] tel:[phone] [facility] hypertension (follow up) (chief complaint) Urine frequencyHyp ertension, Benign Jun-0 - 4 No Information [facility], [address], [place], [place], [id number], [place] tel:[phone] [facility] Unspecified abnormal mammogram 4 No Information OFFICE/OUTPA TIENT VISIT, EST [facility], [address], [place], [place], [id number], [place] tel:[phone] [facility] follow up on lab/diagnost ic test (chief complaint)he adache (chief complaint)va ricose veins (chief complaint) Urge incontinence Varicose veinsHeadach eHypertensio n, Benign 4 No Information OFFICE/OUTPA TIENT VISIT, EST izzy [facility], [address], [place], [place], [id number], [place] tel:[phone] [facility] walk-in- UTI sx (chief complaint) Urinary symptom or sign 4 No Information OFFICE/OUTPA TIENT VISIT, EST izzy [facility], [address], [place], [place], [address], [place] tel:[phone] [facility] f/u ED (chief complaint)he adache (chief complaint)fo llow up on lab/diagnost ic test (chief complaint)ur ine problems (chief complaint) Urinary incontinence Calcaneal spurVaginal itchingHeada yeimy 4 No Information OFFICE/OUTPA TIENT VISIT, EST izzy [facility], [address], [place], [place], [id number], [place] tel:[phone] [facility] PAP test (chief complaint)BP check (chief complaint)fo ot pain (chief complaint) Screening for malignant neoplasms of the cervixHypert ension, BenignBilate ral foot painVaginiti s 4 No Information PREV VISIT, EST, AGE 40-64 [facility], [address], [place], [place], [id number], [place] tel:[phone] [facility] preventive exam (chief complaint) Routine general medical examination at [facility] for screening colonoscopyE demaHeadache Hypertension , BenignRoutin e Medical Exam 4 No Information OFFICE/OUTPA TIENT VISIT, [facility], [address], [place], [place], [id number], [place] tel:[phone] [facility] care (chief complaint)hy pertension (chief complaint) [...] Insurance type Covered libertarian ID Authoriza tion(s) [facility] C3 ACO [id number] [facility] ACO [id number] [facility] C3 ACO [id number] [facility] C3 ACO [id number] [facility] C3 ACO [id number] [facility] [id number] [facility] [id number] [facility] [id number] [facility] [id number] [facility] [id number] [facility] CI [id number] [facility] [id number] [facility] [id number] [facility] CI [id number] Social History Type Description Quantity Date Captured [...] Referral Referred To: Dr Durham Ordered: Referrals: Uro/Public Health Sanitarian. Dr Durham. Location: [facility]. Evaluate and treat ordered Referral Ordered: MAMMOGRAM [...] Evaluate and treat. ordered Referral Ordered: Referral: Uro/Public Health Sanitarian. Evaluate and treat. ordered Referral Ordered: Referral: Podiatry. Evaluate and treat. ordered Referral Ordered: X-RAY EXAM OF FOOT 2 VIEWS ordered Referral Ordered: COLONOSCOPY SCREENING ordered Referral Ordered: MAMMOGRAM SCREENING, BILATERAL Appointment date/timeframe: 04/02/2014 ordered Patient Education Upper Respiratory Infec tion: After You completed Future Order: Lab Order UA/M w/r flx Culture, Routine ([id number]), Sent on: Sent Future Order: Lab Order CULTURE, GROUP A STREP ([id number]), Sent on: Sent Future Order: Lab Order CULTURE, URINE ([id number]), Sent on: Sent Future Order: Lab Order BASIC ME TABOLIC PANEL ([id number]), Sent on: Sent Future Order: Lab Order LIPID PA JOSE ([id number]), Sent on: Sent Future Order: Lab Order HEMOGLOB IN A1C ([id number]), Sent on: Sent Future Order: Lab Order [...] Needs Mammo referral 1 preventive exam (comments) 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 Contraindications and risk factors assessed. Patient's questions answered. 1 COVID test Pt presents for car side COV ID test via nasal swab per provider POC for positive exposure. 1 COVID Vaccine #1 Patient presents in NAD for COVID vaccin e. Patient meets criteria of cohort currently sanctioned by [facility]. Contraindications and risk factors assessed. Patient's questions [...] also had similar ED visit back in [facility] but was not given ativan script for home. 1 Anxiety This is an initial visit. Re lated symptoms are unstable. The patient presents with anxious/fearful thoughts and excessive worry. Additional information: went to [facility] ER on 12/22 s/p COVID dx and [...] letter to work. 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 interperter [facility] # [id number] Headache Additional information: has meds with neurologist at [facility]. doing okay. 0 chronic conditions 1) Essential [...] regardign job injury. neurologist /dr Luis at [facility] tx'ed with meds. f/u. 0 BP check Pt appears in NAD for BP yeimy ck, per plan by [facility]. Per chart review, pt taking 50 mg [...] occurs constantly. Additional information: offered surgery at [facility] with urogyn. but pt refused.. 9 Urinary [...] injury. has neurologist Dr Sergei Luis at [facility] saw him before injury. appt was in march started on doxepin and ibfn. taking with some benefit. f/u planned for aug 9 head injury The patient does not use alc ohol. Associated symptoms include gait disturbance and headache. Pertinent negatives include seizures. 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 ED visit [...] information: Dr Mira Viramontes (first name) at [facility] for depression prescribing sleeping medicatio and antidepressantsrecent pap with at [facility] pap normal-1 mos ago. had UVP, 03/2015 supracervical hysterectomy and mesh support. preventive exam (comments) doesn't recall sleeping pill name taking fluoxetine not duloxetine. ct to have multiple joint pains back pain and headaches. 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 urinary symptoms Onset: 1 week ago. Additional [...] wants to go in to one in [place]. 8 headache Additional information: hurt s very much get very dizzy forget everything neurologist told me there is nothing else he can do for me wants a good doctor in [place] happened at work work insurance has to [...] aggravated by intercourse. Additional information: hx supracervical BABIE mesh sacrocopplexy for Stage 3 uterovag prolapse. [...] Pt also goes to vision therapy at [place], next appointment is next week. Pt also experiences burning, redness and floaters. Pt experiences CASTILOL and diplopia everyday since accident mostly on the right side of her head. Pt does not experience flashes, discharge, itching, or watering. 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 Follow Up of car [...] cinthya, h/as . neurologist Dr. Cheung @ [facility] 7 pelvic and abdom pain nausea no vomitting. taking ibfn 600 tid . notes sexual dysfunction. saw line rider surgeon, Dr Durham pt tried on ditropan and toviaz XL stopped due to SE's also using premarin cream with no benefit has f/u appt for 3 mos from now but Dr Durham note is to come back sooner if not improve.d pt will make appt. 7 back pain Additional information: stil l doing [...] went with medication first. f/u appt in [place] in 2 mos. urinary symptoms The problem is resolved. Additional info rmation: history of UTIs, sexually active and saw urogyne in [place] Dr Durham saw pt had UTI felt better after treatment. every thing seems fine now. always some urgency. can't hold it long. interperter #[id number]. Hemorrhoids Location is [place]ian[place]. The rosamaria finch [...] thinking about her pain. doing PT in [place] sees Neurologist this week constipation, dry mouth [...] information: stop ped flouxetine a therapist at [facility] told her to stop it. headache [...] on second step fell back wards on [facility] and back, back probably hit first" no [...] into the skin and quintana. 7 f/u [facility] 12/24 fell at work. since then has had severe pain. 01/10 in [facility] ER for pain headache, back and chest [...] well with flouxetine. therapist appt coming up. 6 Cold symptoms The patient describes the co [...] headaches.accident at work. 01/19/2014 went to ER [facility]. slipped and fell backward on wet floor and hit her head. no loc. went to ER CT head and neck neg. went home. had h/a's saw Neurologist 09/2014 ongoing headaches unable to get back to work. MRI T2 changes suggestive of post trauma h/a concussion. started on nortyptiline with some improvement. still not able to work, however. 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 requests improved documentation of health care. can insurance help me. ?? 6 urinary symptoms [id number] 6 urinary symptoms (comments) She saw her specialist in [place] 1 week ago ( ? urogYN) and [...] asking for MRI back results ordered by deaf/hard of hearing specialist . Dysuria Onset: 8 days ago. [...] . unresolving.also she has appoint soon with [employer] for f/u . of note she had [...] was denied by insurance. 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 his employer said if she cannot [...] work off until she see ortho at [facility] 07/04/15 . says she cannot work [...] up Pt says she had surgery in [place] in apr for uterine prolapse ? supracervical [...] result Pt saw Dr Светлана durham at [facility] , she was scheduled for supracervical [...] has not heard from anesthesiologist. 5 Dizziness Headache Back pain (comments) This patient has [...] area, radiates to left arm, works in [place], involves heavy lifting, vague pain in left [...]
--- OUTSIDE RECORDS SUMMARY | 2025-08-19 10:48 | XMS_ITS | Encounter Summary ---
Author Organization [employer] Address [address] [place] [address] 7 [place] [address] Care Team Providers Care Manager Cardiac Cath Name Role Phone Marley Rich MD Primary Care Provider [phone] Reason for Visit * Reason Comments Med Refill Encounter Details Date Type Department Care Team ([facility] st Contact Info) Description 08/12/2025 Refill [facility] CHC MED & PEDS 505 [place] [address] Marley Rich MD 505 [place] [address] Acute bilateral low back pain with right-sided [...] 08/23/2025 2:00 PM EDT Office Visit [facility] ADULT DENTAL 505 [place] [address] Kamran Sherman 08/28/2025 3:15 PM EDT Clinical Support [facility] MED [facility]ED[facility] 505 [place] [address] Aletha Vazquez RN 505 [place] [address] 09/17/2025 11:20 AM EDT Procedure Visit [facility] MED [facility] PEDS 505 [place] [address] Marley Rich MD 505 [place] [address] documented as of this encounter Goals Goal [...] documented as of this encounter Care Teams Manager Cardiac Cath Relationship Specialty Start Date End Date Marley Rich MD 230 [place] [address] PCP - General Family Medicine 11/25/21 documented as of this encounter
--- OUTSIDE RECORDS SUMMARY | 2025-08-19 10:48 | XMS_ITS | Encounter Summary ---
Author Organization [employer] Address [address] [place] [address] 7 [place] [address] Care Team Providers Care Real Estate Broker Associate Name Role Phone Marley Rich MD Primary Care Provider [phone] Reason for Visit * Reason Onset Date Comments PT1 05/20/2025 Encounter Details Date Type Department Care Team ([facility] st Contact Info) Description 05/20/2025 Telephone [facility] MEDICINE 230 [place] [address] Marley Rich MD 505 [place] [address] PT1 Social History Tobacco Use Types Packs/Day [...] name or facility name: [facility] [address] [place] [address] Escort needed: Y/N: No Do you have a wheelchair: Y/N: No If yes- Manual or electric: N/A Visits: (2x weekly) documented in this encounter Plan of Treatment Upcoming Encounters Date Type Department Care Team (Late st Contact Info) Description 08/23/2025 2:00 PM EDT Office Visit [facility] ADULT DENTAL 505 [place] [address] Kamran Sherman 08/28/2025 3:15 PM EDT Clinical Support [facility] MED & PEDS 505 [place] [address] Aletha Vazquez, RN 505 [place] [address] 09/17/2025 11:20 AM EDT Procedure Visit [facility] CHC MED & PEDS [address] [place] [address] Marley Rich MD [address] [place] [address] documented as of this encounter Goals Goal [...] documented as of this encounter Care Teams Real Estate Broker Associate Relationship Specialty Start Date End Date Marley Rich MD [address] [place] [address] PCP - General Family Medicine 11/25/21 documented as of this encounter
--- OUTSIDE RECORDS SUMMARY | 2025-08-19 10:48 | XMS_ITS | Encounter Summary ---
Author Organization [employer] Address [address] [place] [address] 7 [place] [address] Care Team Providers Care Shoe Cutter Name Role Phone Marley Rich MD Primary Care Provider [phone] Reason for Visit * Reason Onset Date Comments PT1 06/17/2025 Encounter Details Date Type Department Care Team ([facility] st Contact Info) Description 06/17/2025 Telephone [facility] CHC MED & PEDS 505 [place] [address] Marley Rich MD 505 [place] [address] PT1 Social History Tobacco Use Types Packs/Day [...] Y/N: Yes Provider name or facility name: [facility] radiology Escort needed: Y/N: No Do you have a wheelchair: Y/N: No Visits: (2x months) documented in this encounter Plan of Treatment Upcoming Encounters Date Type Department Care Team (Late st Contact Info) Description 08/23/2025 2:00 PM EDT Office Visit [facility] ADULT DENTAL 505 [place] [address] Kamran Sherman 08/28/2025 3:15 PM EDT Clinical Support [facility] MED & PEDS 505 [place] [address] Aletha Vazquez, RN 505 [place] [address] 09/17/2025 11:20 AM EDT Procedure Visit [facility] MED & PEDS 505 [place] [address] Marley Rich MD [address] [place] [address] documented as of this encounter Goals Goal [...] as of this encounter Care Teams Shoe Cutter Relationship Specialty Start Date End Date Marley Rich MD [address] [place] [address] PCP - General Family Medicine 11/25/21 documented as of this encounter
--- OUTSIDE RECORDS SUMMARY | 2025-08-19 10:48 | XMS_ITS | Encounter Summary ---
Author Organization [employer] Address [address] [place] [address] 7 [place] [address] Care Team Providers Care Bell Neck Hammerer Name Role Phone Marley Rich MD Primary Care Provider [phone] Reason for Visit * Reason Onset Date Comments PT-1 08/22/2024 Encounter Details Date Type Department Care Team (Late st Contact Info) Description 08/22/2024 Telephone [facility] [address] [place] [address] Marley Rich MD 505 [place] [address] PT-1 Social History Tobacco Use Types Packs/Day [...] Y/N: Yes Provider name or facility name: [facility] Facility Address: [address] [place] [address] Escort needed: Y/N: No Do you have a wheelchair: Y/N: No If yes- Manual or electric: no Visits: 6 documented in this encounter Plan of Treatment Upcoming Encounters Date Type Department Care Team (Late st Contact Info) Description 08/23/2025 2:00 PM EDT Office Visit [facility] ADULT [facility] 505 [place] [address] Kamran Sherman 08/28/2025 3:15 PM EDT Clinical Support [facility] MED & PED[facility] [address] [place] [address] Aletha Vazquez RN 505 [place] [address] 09/17/2025 11:20 AM EDT Procedure Visit [facility] [address] [place] [address] Marley Rich MD [address] [place] [address] documented as of this encounter Goals Goal [...] documented as of this encounter Care Teams Bell Neck Hammerer Relationship Specialty Start Date End Date Marley Rich MD [address] [place] [address] PCP - General Family Medicine 11/25/21 documented as of this encounter
--- OUTSIDE RECORDS SUMMARY | 2025-08-19 10:48 | XMS_ITS | Encounter Summary ---
Author Organization [employer] Address [address] [place] [address] 7 [place] [address] Care Team Providers Care Park Maintainer Name Role Phone Marley Rich MD Primary Care Provider [phone] Reason for Visit * Reason Comments Med Refill Encounter Details Date Type Department Care Team ([facility] st Contact Info) Description 09/03/2024 Refill [facility] MED & PEDS [address] [place] [address] Marley Rich MD 505 [place] [address] Essential hypertension Social History Tobacco Use Types [...] Description 08/23/2025 2:00 PM EDT Office Visit [facility] ADULT DENTAL [address] [place] [address] Kamran Sherman 08/28/2025 3:15 PM EDT Clinical Support [facility] [address] [place] [address] Aletha Vazquez RN 505 [place] [address] 09/17/2025 11:20 AM EDT Procedure Visit [facility] [address] [place] [address] Marley Rich MD 505 [place] [address] documented as of this encounter Goals Goal [...] documented as of this encounter Care Teams Park Maintainer Relationship Specialty Start Date End Date Marley Rich MD 230 [place] [address] PCP - General Family Medicine 11/25/21 documented as of this encounter
--- OUTSIDE RECORDS SUMMARY | 2025-08-19 10:48 | XMS_ITS | Encounter Summary ---
Author Organization [employer] Address [address] [place] [address] 7 [place] [address] Care Team Providers Care Airplane Cleaner Name Role Phone Marley Rich MD Primary Care Provider [phone] Encounter Details Date Type Department Care Team (Late st Contact Info) Description 07/23/2025 Results [facility] [address] [place] [address] Marley Rich MD 505 [place] [address] CT Lumbar Spine w/o Contrast Social History [...] Description 08/23/2025 2:00 PM EDT Office Visit [facility] ADULT DENTAL [address] [place] [address] Kamran Sherman 08/28/2025 3:15 PM EDT Clinical Support [facility] MED & PEDS [address] [place] [address] Aletha Vazquez RN 505 [place] [address] 09/17/2025 11:20 AM EDT Procedure Visit [facility] MED & PEDS [address] [place] [address] Marley Rich MD 505 [place] [address] documented as of this encounter Goals Goal [...] documented as of this encounter Care Teams Airplane Cleaner Relationship Specialty Start Date End Date Marley Rich MD 230 [place] [address] PCP - General Family Medicine 11/25/21 documented as of this encounter
--- OUTSIDE RECORDS SUMMARY | 2025-08-19 10:48 | XMS_ITS | Encounter Summary ---
Author Organization [employer] Address [address] [place] [address] 7t [place] [address] Care Team Providers Care Insurance Manager Name Role Phone Marley Rich MD Primary Care Provider [phone] Reason for Visit * Reason Comments Med Refill Encounter Details Date Type Department Care Team ([facility] st Contact Info) Description 08/14/2025 Refill [facility] MED & PEDS 505 [place] [address] Marley Rich MD 505 [place] [address] Lumbar back pain with radiculopathy affecting right [...] 2:00 PM EDT Office Visit [facility] ADULT D[facility] 505 [place] [address] Kamran Sherman 08/28/2025 3:15 PM EDT Clinical Support [facility] MED & PEDS 505 [place] [address] Aletha Vazquez, EAN 505 [place] [address] 09/17/2025 11:20 AM EDT Procedure Visit [facility] 505 [place] [address] Marley Rich MD 505 [place] [address] documented as of this encounter Goals Goal [...] documented as of this encounter Care Teams Insurance Manager Relationship Specialty Start Date End Date Marley Rich MD [address] [place] [address] PCP - General Family Medicine 11/25/21 documented as of this encounter
--- OUTSIDE RECORDS SUMMARY | 2025-08-19 10:48 | XMS_ITS | Encounter Summary ---
Author Organization [employer] Address [address] [place] [address] 7 [place] [address] Care Team Providers Care Sumac Tanner Name Role Phone Marley Rich MD Primary Care Provider [phone] Reason for Visit * Reason Comments Med Refill Encounter Details Date Type Department Care Team ([facility] st Contact Info) Description 05/14/2025 Refill [facility] ADULT DENTAL [address] [place] [address] Carl Casillas, DMD 505 [place] [address] Dental caries Social History Tobacco Use Types [...] 08/23/2025 2:00 PM EDT Office Visit [facility] 505 [place] [address] Kamran Sherman 08/28/2025 3:15 PM EDT Clinical Support [facility] [address] [place] [address] Aletha Vazquez RN 505 [place] [address] 09/17/2025 11:20 AM EDT Procedure Visit [facility] [address] [place] [address] Marley Rich MD 505 [place] [address] documented as of this encounter Goals Goal [...] documented as of this encounter Care Teams Sumac Tanner Relationship Specialty Start Date End Date Marley Rich MD 230 [place] [address] PCP - General Family Medicine 11/25/21 documented as of this encounter
--- OUTSIDE RECORDS SUMMARY | 2025-08-19 10:48 | XMS_ITS | Encounter Summary ---
Author Organization [employer] Address [address] [place] [address] 7t [place] [address] Care Team Providers Care Product Marketing Manager Name Role Phone Marley Rich MD Primary Care Provider [phone] Encounter Details Date Type Department Care Team ([facility] st Contact Info) Description 08/16/2025 Telephone [facility] MED & PEDS 505 [place] [address] Aletha Vazquez, EAN 505 [place] [address] Social History Tobacco Use Types Packs/Day Years [...] 08/16/2025 11:53 AM EDT Pt already has On Site Soil Evaluator initial appt scheduled for 08/28/25. documented in this encounter Plan of Treatment Upcoming Encounters Date Type Department Care Team (Late st Contact Info) Description 08/23/2025 2:00 PM EDT Office Visit [facility] ADULT DENTAL 505 [place] [address] Kamran Sherman 08/28/2025 3:15 PM EDT Clinical Support [facility] MED & PEDS [address] [place] [address] Aletha Vazquez RN 505 [place] [address] 09/17/2025 11:20 AM EDT Procedure Visit [facility] PEDS 505 [place] [address] Marley Rich MD 505 [place] [address] documented as of this encounter Goals Goal [...] documented as of this encounter Care Teams Product Marketing Manager Relationship Specialty Start Date End Date Marley Rich MD [address] [place] [address] PCP - General Family Medicine 11/25/21 documented as of this encounter
--- OUTSIDE RECORDS SUMMARY | 2025-08-19 10:48 | XMS_ITS | Encounter Summary ---
Author Organization [employer] Address [address] [place] [address] 7 [place] [address] Care Team Providers Care Jewelry Coater Name Role Phone Marley Rich MD Primary Care Provider [phone] Reason for Visit * Reason Onset Date Comments pt1 07/30/2025 Encounter Details Date Type Department Care Team ([facility] st Contact Info) Description 07/30/2025 Telephone [facility] MED & PEDS 505 [place] [address] Marley Rich MD 505 [place] [address] pt1 Social History Tobacco Use Types Packs/Day [...] EDT TC to pt via S ID# [id number]. Initial CROP PRODUCTION ADVISOR appt scheduled for 08/28/25 @ 3:15pm. * Telephone Encounter - Justa Frausto - 07/30/2025 12:33 PM EDT Patient calling requesting PT1 Home Address verified: Y/N: Yes Provider name or facility name: [facility] [address] [facility] Escort needed: Y/N: No Do you have a wheelchair: Y/N: No If yes- Manual or electric: Visits: 1x a month documented in this encounter Plan of Treatment Upcoming Encounters Date Type Department Care Team ([facility] st Contact Info) Description 08/23/2025 2:00 PM EDT Office Visit [facility] ADULT DENTAL [address] [place] [address] Kamran Sherman 08/28/2025 3:15 PM EDT Clinical Support [facility] MED & PEDS [address] [place] [address] Aletha Vazquez, RN 505 [place] [address] 09/17/2025 11:20 AM EDT Procedure Visit [facility] MED & PEDS 505 [place] [address] Marley Rich MD 505 [place] [address] documented as of this encounter Goals Goal [...] documented as of this encounter Care Teams Jewelry Coater Relationship Specialty Start Date End Date Marley Rich MD 230 [place] [address] PCP - General Family Medicine 11/25/21 documented as of this encounter
--- OUTSIDE RECORDS SUMMARY | 2025-08-19 10:48 | XMS_ITS | Encounter Summary ---
Author Organization [employer] Address [address] [place] [address] 7 [place] [address] Care Team Providers Care Ice Guard Tester Name Role Phone Marley Rich MD Primary Care Provider [phone] Reason for Visit * Reason Comments Med Refill Encounter Details Date Type Department Care Team ([facility] st Contact Info) Description 08/15/2025 Refill [facility] MED & PEDS 505 [place] [address] Marley Rich MD 505 [place] [address] History of vitamin D deficiency Social History [...] PM EDT Office Visit [facility] ADULT DENTAL 505 [place] [address] Kamran Sherman 08/28/2025 3:15 PM EDT Clinical Support [facility] MED & PEDS 505 [place] [address] Aletha Vazquez RN 505 [place] [address] 09/17/2025 11:20 AM EDT Procedure Visit [facility] MED & PEDS 505 [place] [address] Marley Rich MD 505 [place] [address] documented as of this encounter Goals Goal [...] documented as of this encounter Care Teams Ice Guard Tester Relationship Specialty Start Date End Date Marley Rich MD [address] [place] [address] PCP - General Family Medicine 11/25/21 documented as of this encounter
--- OUTSIDE RECORDS SUMMARY | 2025-08-19 10:48 | XMS_ITS | Encounter Summary ---
Author Organization [employer] Address [address] [place] [address] 7 [place] [address] Care Team Providers Care Body And Frame Man Name Role Phone Marley Rich MD Primary Care Provider [phone] Encounter Details Date Type Department Care Team ([facility] st Contact Info) Description 03/09/2023 Orders Only [facility] MED & PEDS [address] [place] [address] Marley Rich MD 505 [place] [address] Social History Tobacco Use Types Packs/Day Years [...] 2:00 PM EDT Office Visit [facility] ADULT DENTAL [address] [place] [address] Kamran Sherman 08/28/2025 3:15 PM EDT Clinical Support [facility] MED & PEDS [address] [place] [address] Aletha Vazquez RN 505 [place] [address] 09/17/2025 11:20 AM EDT Procedure Visit [facility] MED & PEDS [address] [place] [address] Marley Rich MD 505 [place] [address] Pending Results Name Type Priority Associated Diagnoses [...] (09/16/2023 8:30 AM EDT) Color Urine Yellow [facility] Appearance Urine Clear [facility] PH 6.5 5.0 - 9.0 [facility] Glucose Urine UA Negative Negative mg/dL [facility] Urine Blood Negative Negative [facility] Specific [place] - Urine 1.020 1.005 - 1.025 [facility] Urine Protein Negative Neg-Trace mg/dL [facility] Urine Ketones Negative Negative mg/dL [facility] Nitrite Urine Negative Negative [facility] Leukocyte Esterase Urine Negative Negative [facility] 09/16/2023 8:30 AM EDT 09/16/2023 2:34 PM EDT us Marley Rich MD LAB URINE ORDERABLES Final Re sult [facility] [address] [place] [phone] * HIV Ab/Ag ([place] [facility]) (09/16/2023 8:27 AM EDT) HIV AB/AG Nonreactive Nonreactive [facility] Comment:HIV-1 p24 Ag and/or HIV-1/HIV-2 Ab not detected.A test result that is nonreactive does not exclude thepossibility of exposure to or infection with HIV-1 and/orHIV-2. Nonreactive results in this assay for individualswith prior exposure to HIV-1 and/or HIV-2 may be due toantigen and antibody levels that are below the limit ofdetection of this assay.The [employer] HIV Ag/Ab Combo assay result andsupplemental assay results should be interpreted inconjunction with the patient's clinical presentation,history and other laboratory results. If the results areinconsistent with clinical evidence, additional testing issuggested to confirm the result. 09/16/2023 8:27 AM EDT 09/16/2023 2:26 PM EDT us Marley Rich MD LAB BLOOD ORDERABLES Final Re sult [facility] [address] [place] [address] [phone] * (ABNORMAL) Comprehensive Metabolic Panel, Fasting (09/16/2023 8:27 AM EDT) Sodium 139 135 - 145 mmol/L [facility] Potassium 4.2 3.3 - 5.1 mmol/L [facility] Chloride 103 96 - 108 mmol/L [facility] Carbon Dioxide 26 22 - 29 mmol/L [facility] Anion Gap 14 12 - 20 [facility] Urea Nitrogen (BUN) 11 9 - 16 mg/dL [facility] Creatinine, Serum 0.74 0.5 - 1.4 mg/dL [facility] Estimated Glomerular Filt Rate >60 [facility] Comment:NOTE: For -Am erican individuals, multiply the result by 1.210.Chronic Kidney Disease: Estimated GFR < 60 mL/min/[id number] Kidney Disease: Estimated GFR < 15 mL/min/1.73m2 Glucose Fasting 78 60 - 99 mg/dL [facility] Calcium 10.2 8.4 - 10.2 mg/dL [facility] Bilirubin, Total 0.7 0.0 - 1.0 mg/dL [facility] Aspartate Amino Transferase 20 5 - 31 U/L [facility] Alanine Aminotransferase 11 0 - 31 U/L [facility] Total Protein 8.1(H) 6.5 - 8.0 g/dL [facility] Albumin Level 4.4 3.5 - 5.0 g/dL [facility] Alkaline Phosphatase 96 39 - 117 U/L [facility] 09/16/2023 8:27 AM EDT 09/16/2023 2:26 PM EDT Result [facility] Marley Rich MD LAB BLOOD ORDERABLES Final Re sult Performing Organization Address [facility] Co de Phone Number [facility] [address] [place] [address] [phone] * Cyclic Citrullinated Peptide (CCP) Antibody (IgG) (06/06/2023 11:38 AM EDT) Cyclic Citrullinated Peptide <16 UNITS [facility] Comment:Reference RangeNegat zach: <20Weak Positive: 20-39Moderate Positive: 40-59Strong Positive: >59THIS TEST WAS PERFORMED AT:[facility] [address] [phone] RODGERS MD 06/06/2023 11:3 8 AM EDT 06/06/2023 2:12 PM EDT Result [facility] External Provider LAB BLO OD ORDERABLES Final Result Performing Organization Address [facility] de Phone Number [facility] [address] [place] [phone] * Immunoglobulin G (06/06/2023 11:38 AM EDT) Immunoglobulin G 1486 600 - 1540 mg/dL [facility] Comment:THIS TEST WAS PERFOR MED AT:[facility] [address] [phone] RODGERS MD 06/06/2023 11:3 8 AM EDT 06/06/2023 2:12 PM EDT [facility] External Provider LAB BLO OD ORDERABLES Final Result Performing Organization Address [facility] Co de Phone Number [facility] [address] [place] [phone] * Hepatitis Panel, General (06/06/2023 11:38 AM EDT) Hepatitis A IgM Nonreactive Nonreactive [facility] Comment:IgM antibodies to CASTILLO V not detected; does not exclude earlyacute or recovered HAV infection. ~Hepatitis B Surface Antibody NONREACTIVE Nonreactive [facility] Comment:Nonreactive: < 8.00 mIU/mL Hepatitis B Core Antibody Nonreactive Nonreactive [facility] Hepatitis C Antibody Nonreactive Nonreactive [facility] Comment:Antibodies to HCV no t detected; does not exclude early acuteHCV infection. Hepatitis B Surface Ag Negative Negative [facility] 06/06/2023 11:3 8 AM EDT 06/06/2023 2:12 PM EDT [facility] External Provider LAB BLO OD ORDERABLES Final Result Performing Organization Address [facility] Co de Phone Number [facility] [address] [place] [phone] * Rheumatoid Factor (06/06/2023 11:38 AM EDT) Pathologist [facility] Rheumatoid Factor <13.0 <15.0 IU/mL [facility] 06/06/2023 11:3 8 AM EDT 06/06/2023 2:12 PM EDT [facility] External Provider LAB BLO OD ORDERABLES Final Result Performing Organization Address [facility] Co de Phone Number [facility] [address] [place] [phone] * (ABNORMAL) C-reactive Protein (06/06/2023 11:38 AM EDT) Pathologist [facility] C Reactive Protein 0.66(H) < or = 0.50 mg/dL [facility] 06/06/2023 11:3 8 AM EDT 06/06/2023 2:12 PM EDT [facility] External Provider LAB BLO OD ORDERABLES Final Result Performing Organization Address [facility] de Phone Number [facility] [address] [place] [phone] * Uric acid (06/06/2023 11:38 AM EDT) Uric Acid 4.3 2.4 - 5.7 mg/dL [facility] 06/06/2023 11:3 8 AM EDT 06/06/2023 2:12 PM EDT [facility] External Provider LAB BLO OD ORDERABLES Final Result Performing Organization Address [facility] Phone Number [facility] [address] [place] [phone] * Sed Rate by Modified Nimeshergren (06/06/2023 11:38 AM EDT) Erythrocyte Sedimentation Rate 11 0 - 20 MM/HR [facility] Comment:Patients with polycy themia and many hemoglobin abnormalitiesmay have depressed sed rates whereas patients with anemiamay have elevated sed rates. 06/06/2023 11:3 8 AM EDT 06/06/2023 2:12 PM EDT [facility] External Provider LAB BLO OD ORDERABLES Final Result Performing Organization Address [facility] de Phone Number [facility] [address] [place] [phone] * Hm Colonoscopy (12/30/2022) Colonoscopy Normal Normal 12/30/2022 us Historical Provider HEALTH MAINTENANCE Edited Result - Final documented in this encounter Visit Diagnoses Not on filedocumented in this encounter Additional Health Concerns Assessment Noted Time PHQ-9 Depression Total Score: 10 023 11:29 AM EDT documented as of this encounter Care Teams Body And Frame Man Relationship Specialty Start Date End Date Marley Rich MD [address] [place] [address] PCP - General Family Medicine 11/25/21 documented as of this encounter
--- OUTSIDE RECORDS SUMMARY | 2025-08-19 10:48 | XMS_ITS | Clinical Summary ---
Author Organization [address] [facility] Address [address] [place] [address] Phone Care Team Providers Care Online Merchant Name Role Phone Marley Rich MD Primary Care Provider [phone] Allergies No known active allergies Medications ciclopirox (PENLAC) 8 % solution Apply topically at bedtime. Apply over nail and surrounding skin. Apply daily over previous coat. After seven (7) days, may remove with alcohol and continue cycle. 6.6 mL 3 08/21/20 25 Active Encounters Date Type Department Care Team Description 05/23/2025 2:30 PM EDT Office Visit Orthopedic Surgery [facility] [address] [employer] [address] [place] [phone] Aditya Mclaughlin, DPM Dermatophytosis of nail [...] PM EDT Office Visit Orthopedic Surgery - [place] 250 175 [facility] [address] [place] [phone] Aditya Mclaughlin DPChika [address] [phone] Health Maintenance Due Date Last Done Comments [...] topic Insurance MEDICAID - [place] Care Teams Online Merchant Relationship Specialty Start Date End Date Marley Rich MD [address] [place] [address] PCP - General Family Medicine 01/02/25
--- OUTSIDE RECORDS SUMMARY | 2025-08-19 10:48 | XMS_ITS | Encounter Summary ---
Author Organization [employer] Address [address] [place] [address] 7 [place] [address] Care Team Providers Care Cell Biology Scientist Name Role Phone Marley Rich MD Primary Care Provider [phone] Reason for Visit * Reason Comments Med Refill Encounter Details Date Type Department Care Team ([facility] st Contact Info) Description 07/15/2025 Refill [facility] MED & PEDS [address] [place] [address] Ashlee Huertas FNP 505 [place], [place] [phone] Essential hypertension Social History Tobacco Use Types [...] 2:00 PM EDT Office Visit [facility] ADULT DENTAL [address] [place] [address] Kamran Sherman 08/28/2025 3:15 PM EDT Clinical Support [facility] MED & PEDS [address] [place] [address] Aletha Vazquez RN 505 [place] [address] 09/17/2025 11:20 AM EDT Procedure Visit [facility] MED & PEDS [address] [place] [address] Marley Rich MD 505 [place] [address] documented as of this encounter Goals Goal [...] documented as of this encounter Care Teams Cell Biology Scientist Relationship Specialty Start Date End Date Marley Rich MD [address] [place] [address] PCP - General Family Medicine 11/25/21 documented as of this encounter
--- OUTSIDE RECORDS SUMMARY | 2025-08-19 10:48 | XMS_ITS | Clinical Summary ---
Author Organization [employer] Address [address] [place] [place] [address] 7 [place] [address] Care Team Providers Care Pastry Wrapper Name Role Phone Marley Rich MD Primary Care Provider [phone] Allergies No known active allergies Medications Blood [...] Other insomnia 06/11/2025 Overview (07/26/2025): 06/12/25 Sleep Clinic[facility]: Referred by Rajwinder Cassidy MD, for CBT-I. [...] will recommend to referring provider. 06/12/25 Sleep Clinic-[facility]: Referred by Rajwinder Cassidy MD, for CBT-I. [...] & Plan (01/26/2024 10:45 AM EST): Per computator patient has fibromyalgia. I prescribed her Gabapentin [...] recommended reduction of 20-30% of maintenance calories; sizing sponger referral offered. Recommended to decrease soda and sugary beverage consumption. Recommended at least 20 g per meal of protein to assist with satiety. Recommended at least 150 min/week of moderate intensity exercise. Assessment & Plan (09/12/2023 12:04 PM EDT): Discussed calorie deficit, recommended reduction of 20-30% of maintenance calories; sizing sponger referral offered. Recommended to decrease soda and [...] pelvic floor injections - botox/PT trial at [facility] has completed pt recruitment Discussed that this [...] to the integrative medicine group here at [facility] for access to these complementary therapies. Trigger point injections to the pelvic floor with either lidocaine/bupivicaine or botulinum toxin are other considerations. Botox injections for pelvic muscle is currently an off-label use and may not be covered by insurance. All questions and concerns were answered. Plan: - Referral to pelvic PT at [place] given - Will try [facility] again [...] Overview (02/07/2025): Lab Results Component Value Date [id number] 70.5 01/30/2025 - January 2025 - decrease [...] Type Department Care Team Description 08/16/2025 Telephone [facility] [address] [place] [address] Aletha Vazquez RN 08/15/2025 Refill [facility] [address] [place] [address] Marley Rich MD History of vitamin D deficiency 08/14/2025 Refill [facility] [address], [place] [phone] Marley Rich MD Lumbar back pain with radiculopathy affecting right lower extremity; History of vitamin D deficiency 08/12/2025 Refill [facility] [address] [place] [address] Marley Rich MD Acute bilateral low back pain with right-sided sciatica 08/07/2025 Refill [facility] [address], [place] [phone] Marley Rich MD Other hyperlipidemia 08/01/2025 Travel 07/30/2025 Telephone [facility] [address] [place] [address] Marley Rich MD pt1 07/30/2025 Telephone [facility] [address] [place] [address] Marley Rich MD 07/30/2025 Refill [facility] [address], [place] [phone] Marley Rich MD Lumbar back pain with radiculopathy affecting right lower extremity 07/26/2025 9:00 AM EDT Office Visit [facility] [address] [place] [address] Marley Rich MD Acute cystitis without hematuria (Primary Dx); Polyarthralgia; Lumbar back pain with radiculopathy affecting right lower extremity 07/26/2025 Travel 07/23/2025 Telephone [facility] [address] [place] [address] Marley Rich MD chart prep 07/23/2025 Results Follow-Up [facility] [address] [place] [address] Lumbar Spine w/o Contrast 07/19/2025 Travel 07/15/2025 Refill [facility] [address] [place] [address] Ashlee Huertas FNP Essential hypertension 07/13/2025 Orders Only GENERIC EXTERNAL DATA DEPARTMENT Provider, Generic External Data 06/27/2025 Results Follow-Up [facility] [address] [place] [address] Marley Rich MD Lipid Panel, Standard, CBC auto differential, Comprehensive Metabolic Panel, Additional followed-up results: 4 06/25/2025 Patient Outreach [address] [address] Marley Rihc MD Care Coordination (CHW outreach for SDOH PT-1 and food needs-referral completed /) 06/25/[address] [address] Marley Rich MD pt1 06/17/2025 Patient Outreach [address] [address] Marley Rich MD Care Coordination (CHW outreach for SDOH PT-1 and food needs-referral completed /) 06/17/2025 Telephone [facility] [address] [place] [address] Marley Rich MD PT1 06/17/2025 Telephone [facility] [address] [place] [address] Marley Rich MD Referral 06/14/2025 10:30 AM EDT Office Visit [facility] [address] [place] [address] Marley Rich MD Lumbar back pain with radiculopathy affecting right lower extremity (Primary Dx); Right hip pain; Acute bilateral low back pain with right-sided sciatica; Stomatitis; Other hyperlipidemia; Essential hypertension; Gingival ulcer 06/14/2025 Travel 06/07/2025 Patient Outreach [address] [address] Fredo Pascual MD Pre-visit Planning (Pre visit planning LVM ) 06/07/2025 Refill [facility] [address] [place] [address] Eugenio Belle MD 06/03/2025 Refill [facility] [address] [place] [address] Eriberto Sherman MD Acute bilateral low back pain with right-sided sciatica 05/20/2025 Patient Outreach [facility] [address] [place] [address] Marley Rich MD Care Coordination (CHW outreach for SDOH PT-1 - LVM ) 05/20/2025 Telephone [facility] [address] [place], [place] [phone] Marley Rich MD PT1 from Last 3 [...] 2:00 PM EDT Office Visit [facility] [address] [place] [address] Kamran Sherman 08/28/2025 3:15 PM EDT Clinical Support [facility] [address] [place] [address] Aletha Vazquez RN [address] [place] [address] 09/17/2025 11:20 AM EDT Procedure Visit [facility] [address] [place] [address] Marley Rich MD [address] [place] [address] Health Maintenance Due Date Last Done Comments [...] PM EDT Narrative 07/15/2025 11:02 PM EDT [place] [address] [address] Scan Report Signed Patient: Ruthie Johnston MR #: [id number] : 1960 Acct:[id number] Age/Sex: 64 / F ADM Date: 07/13/25 Loc: HO.CT Attending Dr: Marley Rich MD Ordering Physician: Marley Rich MD Date of Service: 07/13/25 Procedure(s): CT lumbar spine wo IV con Accession Number(s): [id number] cc: Marley Rich MD Report Number: [id number]: Total DLP = 790.00 mGy-cm CLINICAL HISTORY: [...] in OV> 07/15/252300 DD/ 99 TD/TT: 07/15/252299 Bulk Mail Technician: Procedure Note Donotuseinterpreter, Image - 07/15/[address] [address] [address] Scan Report Signed Patient: Ruthie JohnstonMR #: [id number] : 1960Acct:[id number] Age/Sex: 64 / FADM Date: 07/13/25 Loc: HO.CT Attending Dr: Marley Rich MD Ordering Physician: Marley Rich MD Date of Service: 07/13/25 Procedure(s): CT lumbar spine wo IV con Accession Number(s): [id number] cc: Marley Rich MD Report Number: [id number]: Total DLP = 790.00 mGy-cm CLINICAL HISTORY: [...] in OV> 07/15/252300 DD/ 99 TD/TT: 07/15/252299 Bulk Mail Technician: Marley Rich MD IMG CT PROCEDURES Final Resul t * (ABNORMAL) CBC auto differential (07/13/2025 10:49 AM EDT) Only the most recent of2 resultswithin the time period is included. White Blood Count 6.9 4.8 - 10.8 X10*3/uL [facility] Red Blood Count 4.70 4.20 - 5.50 X10*6/uL [facility] Hemoglobin 13.8 12.0 - 16.0 g/dl [facility] Hematocrit 40.5 37.0 - 47.0 % [facility] Mean Corpuscular Volume 86.2 80.0 - 98.0 fL [facility] Mean Corpuscular Hemoglobin 29.4 27.0 - 33.0 pg [facility] Mean Corpuscular HGB Conc 34.1 31.0 - 35.0 g/dl [facility] Red Cell Distribution Width 14.9 11.0 - 16.0 % [facility] Platelet Count 246 160 - 400 X10*3/uL [facility] Mean Platelet Volume 8.1(L) 9.4 - 12.3 fL [facility] Neutrophils Percent Auto 66.0 45 - 73 % [facility] Imm Gran Pct Auto 0.3 0.0 - 0.4 % [facility] Lymphocytes Percent Auto 24.0 20 - 40 % [facility] Monocytes Percent Auto 7.9 2 - 11 % [facility] Eosinophils Percent Auto 1.2 0 - 4 % [facility] Basophils Percent Auto 0.6 0 - 2 % [facility] NRBC Pct Auto 0.0 0.0 - 0.2 /100WBC [facility] Neutrophils Absolute Auto 4.5 2.0 - 8.3 x10*3/uL [facility] Imm Gran Abs Auto 0.02 0.00 - 0.03 X10*3/uL [facility] Lymphocytes Absolute Auto 1.7 1.2 - 4.9 X10*3/uL [facility] Monocytes Absolute Auto 0.5 0.1 - 1.2 X10*3/uL [facility] Eosinophils Absolute Auto 0.1 0.0 - 0.4 X10*3/uL [facility] Basophils Absolute Auto 0.0 0.0 - 0.2 X10*3/uL [facility] NRBC Abs Auto 0.000 0.0 - 0.012 X10*3/uL [facility] 07/13/2025 10:4 9 AM EDT 07/13/2025 10:53 AM EDT Generic External Data Provider LAB BLOOD ORDERAB LES Final Result Performing Organization Address City/[facility]/ZIP Co de Phone Number [facility] [address] [place] [phone] * Magnesium (07/13/2025 10:49 AM EDT) Magnesium 1.9 1.6 - 2.6 mg/dL [facility] 07/13/2025 10:4 9 AM EDT 07/13/2025 10:53 AM EDT Generic External Data Provider LAB BLOOD ORDERAB LES Final Result Performing Organization Address City/[facility] Co de Phone Number [facility] [address] [place] [phone] * Comprehensive Metabolic Panel (07/13/2025 10:49 AM EDT) Only the most recent of2 resultswithin the time period is included. Sodium 143 135 - 145 mmol/L [facility] Potassium 4.0 3.3 - 5.1 mmol/L [facility] Chloride 104 96 - 108 mmol/L [facility] Carbon Dioxide 27 22 - 29 mmol/L [facility] Anion Gap 16 12 - 20 [facility] Urea Nitrogen (BUN) 15 9 - 16 mg/dL [facility] Creatinine, Serum 0.79 0.5 - 1.4 mg/dL [facility] Creatinine Clr Calc Pharmacy 67.6 [facility] Comment:Provided height and weight: 160.02 cm,70.307 kg.eGFR (calculated from the MDRD study equation) and eCrCl(calculated from the Cockcroft-Gault equation) are based ondifferent parameters and may not yield comparable results.If eCrCl result is absurd, please check patient'sheight/weight. Estimated Glomerular Filt Rate >60 [facility] Comment:Chronic Kidney Disea se: Estimated GFR < 60 mL/min/1.08y4Vbzmrr Kidney Disease: Estimated GFR < 15 mL/min/1.73m2 Glucose 99 60 - 115 mg/dL [facility] Calcium 9.8 8.4 - 10.2 mg/dL [facility] Bilirubin, Total 0.4 0.0 - 1.0 mg/dL [facility] Aspartate Amino Transferase 21 5 - 31 U/L [facility] Alanine Aminotransferase 8 0 - 31 U/L [facility] Total Protein 7.8 6.5 - 8.0 g/dL [facility] Albumin Level 4.7 3.5 - 5.0 g/dL [facility] Alkaline Phosphatase 81 39 - 117 U/L [facility] 07/13/2025 10:4 9 AM EDT 07/13/2025 10:53 AM EDT us Generic External Data Provider LAB BLOOD ORDERAB LES Final Result [facility] [address] [place] [phone] [phone] * (ABNORMAL) Urinalysis, Complete, with Reflex to Culture (07/13/2025 10:20 AM EDT) Color Urine Yellow [facility] Appearance Urine Clear [facility] PH 8.0 5.0 - 9.0 [facility] Glucose Urine UA Negative Negative mg/dL [facility] Urine Blood Negative Negative [facility] Specific Lyerly - Urine 1.010 1.005 - 1.025 [facility] Urine Protein Negative Neg-Trace mg/dL [facility] Urine Ketones Negative Negative mg/dL [facility] Nitrite Urine Negative Negative [facility] Leukocyte Esterase Urine Large (3+)(A) Negative [facility] RBC Urine 0-2 0 - 2 /HPF [facility] Urine WBC >50(A) 0 - 5 /HPF [facility] Urine Squamous Epithelial Cell 0-2 0 - 2 /HPF [facility] Urine Bacteria Trace None Seen [facility] Hyaline Casts, Urine 0-2 0 - 2 /LPF [facility] 07/13/2025 10:2 0 AM EDT 07/13/2025 10:26 AM EDT Narrative [facility] - 07/13/2025 10:49 AM EDT Urine, Clean Catch us Generic External Data Provider LAB URINE ORDERAB LES Final Result Performing Organization Address [facility]/ZIP Co de Phone Number [facility] [address] [place] [phone] * Zinc (07/13/2025 9:44 AM EDT) Zinc 71 60 - 130 mcg/dL [facility] Comment:This test was develo ped and its analytical performancecharacteristics have been determined by [employer] [place], [place]. It hasnot been cleared or approved by the U.S. Food and DrugAdministration. This assay has been validated pursuantto the CLIA regulations and is used for clinicalpurposes.THIS TEST WAS PERFORMED AT:[employer] [place] [address]BBMJEIGRAJAT COOMBS MD,PHD Blood Venous blood specimen / Unknown 07/13/2025 9:44 AM EDT 07/13/2025 9:44 AM EDT us Marley Rich MD LAB BLOOD ORDERABLES Final Re sult Performing Organization Address [facility]/ZIP Co de Phone Number [facility] [address] [place] [phone] * Hepatic Function Panel (07/13/2025 9:44 AM EDT) Bilirubin, Total 0.4 0.0 - 1.0 mg/dL [facility] Bilirubin, Direct 0.2 0.0 - 0.5 mg/dL [facility] Aspartate Amino Transferase 23 5 - 31 U/L [facility] Alanine Aminotransferase 10 0 - 31 U/L [facility] Total Protein 7.7 6.5 - 8.0 g/dL [facility] Albumin Level 4.6 3.5 - 5.0 g/dL [facility] Alkaline Phosphatase 80 39 - 117 U/L [facility] Blood Venous blood specimen / Unknown 07/13/2025 9:44 AM EDT 07/13/2025 9:44 AM EDT [facility] LAB BLOOD ORDERABLES Final Res ult Performing Organization Address [facility] Co de Phone Number [facility] [address] [place] [phone] * Culture, Urine, Routine (07/13/2025 12:00 AM EDT) Urine Urine specimen obtained by clean catch procedure / Unknown 07/13/2025 07/13/2025 Comment:CC Narrative [facility] - 07/15/2025 8:06 AM EDT [...] GENERAL ORDERABLES Final Result Performing Organization Address [facility] Co de Phone Number [facility] [address] [place] [phone] * Calprotectin, Stool (06/20/2025 9:00 AM EDT) Calprotectin,Fecal 86 mcg/g [facility] Comment:Reference Range: <50 Normal 50-120 Borderline >120 ElevatedCalprotectin in Crohn's disease and ulcerative colitis canbe five to several thousand times above the referencepopulation (50 mcg/g or less). Levels are usually 50 mcg/gor less in healthy patients and with irritable bowelsyndrome. Repeat testing in 4-6 weeks is suggested forborderline values.THIS TEST WAS PERFORMED AT:[employer] [id number] [place] [address]ZLTRIRAMIN SUN MD,PHD,CHRISTINE Stool 06/20/2025 9:00 AM EDT 06/20/2025 2:03 PM EDT Marley Rich MD LAB BODY FLUIDS AND STOOLS OR DERABLES Final Result Performing Organization Address City/[facility] Co de Phone Number [facility] [address] [place] [phone] * Vitamin B12 (Cobalamin) and Folate Panel, Serum (06/20/2025 8:19 AM EDT) Vitamin B12 478 200 - 900 pg/mL [facility] Comment:NORMAL 200-900 PG/ML INDETERMINATE 160-199 PG/ML DEFICIENT < 160 PG/ML Folate 9.5 > or = 4.0 ng/mL [facility] Comment:Reference Values:> o r = 4.0 ng/mL< 4.0 ng/mL suggests folate deficiency Methotrexate, aminopterin and folinic acid(leucovorin) are chemotherapeutic agents whose molecularstructures are similar to folate; therefore, the Architectfolate assay cannot be used for patients using these drugs. Blood Venous blood specimen / Unknown 06/20/2025 8:19 AM EDT 06/20/2025 2:02 PM EDT Marley Rich MD LAB BLOOD ORDERABLES Final Re sult [facility] [address] [place] [phone] * Iron And Total Iron Binding Capacity (06/20/2025 8:19 AM EDT) Iron 90 30 - 160 mcg/dL [facility] Total Iron Binding Capacity 262 228 - 428 mcg/dL [facility] Percent Iron Saturation 34 15 - 50 % [facility] Unsaturated Iron Binding 172 ug/dL [facility] Blood Venous blood specimen / Unknown 06/20/2025 8:19 AM EDT 06/20/2025 2:02 PM EDT Marley Rich MD LAB BLOOD ORDERABLES Final Re sult Performing Organization Address [facility] Co de Phone Number [facility] [address] [place] [phone] * (ABNORMAL) Ferritin (06/20/2025 8:19 AM EDT) Ferritin 254(H) 10 - 250 ng/mL [facility] Blood Venous blood specimen / Unknown 06/20/2025 8:19 AM EDT 06/20/2025 2:02 PM EDT Marley Rich MD LAB BLOOD ORDERABLES Final Re sult Performing Organization Address [facility] Co de Phone Number [facility] [address] [place] [phone] * Lipid Panel, Standard (06/20/2025 8:19 AM EDT) Triglycerides 59 <150 mg/dL [facility] Comment:Desirable Triglyceri de: less than 150 mg/dLBorderline High Triglyceride 150-199 mg/dLHigh Triglyceride: 200-499 mg/dLVery High Triglyceride: greater than or equal to 5OO mg/dL Cholesterol 111 <200 mg/dL [facility] Comment:Desirable Cholestero l: less than 200 mg/dLBorderline High Cholesterol: 200-239 mg/dLHigh Cholesterol: greater than 239 mg/dL LDL Cholesterol Calculated 45 <100 mg/dL [facility] Comment:Desirable LDL: less than 100 mg/dLNear Optimal/Above Optimal LDL: 110- 129 mg/dLBorderline High LDL: 130-159 mg/dLHigh LDL: 160-189 mg/dLVery High LDL: greater than or equal to 190 mg/dL HDL Cholesterol 55 >40 mg/dL [facility] Comment:Desirable HDL: great er than 40 mg/dL Note: This HDL assay may give artificially low results in patients with liver disease. Blood Venous blood specimen / Unknown 06/20/2025 8:19 AM EDT 06/20/2025 2:02 PM EDT Marley Rich MD LAB BLOOD ORDERABLES Final Re sult Performing Organization Address [facility] Co de Phone Number [facility] [address] [place] [phone] * Hemoglobin A1c (08/10/2024 8:24 AM EDT) Hemoglobin A1c 5.4 <6.0 % [facility] Comment:Hemoglobin A1C Refer ence Range Adults: 4.8 - 6.0 % Non diabetic: < 6.0 % Goal: < 7.0 %Additional Action Suggested: > 8.0 %Note: Hemoglobin A1c results are invalid for patients with abnormal amounts of HbF. Blood transfusions may impact the HbA1c concentration in the patient sample. Estimated Average Glucose 108 mg/dL [facility] Comment:eAG = Estimated ave rage glucose which is %A1C expressed asaverage glucose, using the formula of the K1F-CuhohncMthimsu Glucose study (ADAG), Diabetes Care, Vol.31,#8,Jun. 2007 Blood Venous blood specimen / Unknown 08/10/2024 8:24 AM EDT 08/10/2024 2:52 PM EDT Marley Rich MD LAB BLOOD ORDERABLES Final Re sult Performing Organization Address City/State/[facility] Co de Phone Number [facility] [address] [place] [phone] * Mammography (11/03/2023) Mammogram BIRADS 1 Normal, Abnormal, BIRADS 1 , BIRADS 2 Anatomical Region Laterality Modality Other Marley Rich MD HEALTH MAINTENANCE Final Resu lt * Hepatitis Panel, General (06/06/2023 11:38 AM EDT) Pathologist [facility] Hepatitis A IgM Nonreactive Nonreactive [facility] Comment:IgM antibodies to CASTILLO V not detected; does not exclude earlyacute or recovered HAV infection. ~Hepatitis B Surface Antibody NONREACTIVE Nonreactive [facility] Comment:Nonreactive: < 8.00 mIU/mL Hepatitis B Core Antibody Nonreactive Nonreactive [facility] Hepatitis C Antibody Nonreactive Nonreactive [facility] Comment:Antibodies to HCV no t detected; does not exclude early acuteHCV infection. Hepatitis B Surface Ag Negative Negative [facility] 06/06/2023 11:3 8 AM EDT 06/06/2023 2:12 PM EDT [facility] External Provider LAB BLO OD ORDERABLES Final Result Performing Organization Address [facility] Co de Phone Number [facility] [address] [place] [phone] * Colonoscopy (12/30/2022) Pathologist [facility] Colonoscopy Normal Normal 12/30/2022 Historical Provider HEALTH MAINTENANCE Edited Result - Final * THINPREP TIS PAP AND HPV mRNA E6/E7, CT/NG, TRICH (09/09/2022 12:00 AM EDT) [facility] Chlamydia trachomatis RNA, TMA, Urogenital NOT DETECTED NOT DETECTED [facility] Clinical Information: None given [facility] COMMENT SEE COMMENT [facility] Comment: The analytical performance characteristics of this assay, when used to test SurePath(TM) specimens have been determined by [employer]. The modifications have not been cleared or approved by the FDA. This assay has been validated pursuant to the CLIA regulations and is used for clinical purposes. For additional information, please refer to [email or web address] (This link is being provided for information/ [...] been evaluated with computer assisted technology. CONVERTED [facility] Drop Forge Operator: SEE COMMENT CONVERTED LEGACY LABS Comment: ED, CT(ASCP) CT screening location: [place] [address] HPV nRNA E6/E7 Not Detected Not Detected CONVERTED Kwicr Comment: Methodology: Er Tech-Mediated Amplification This assay detects E6/E7 viral messenger RNA (mRNA) from 14 high-risk HPV types (16,18,31,33,35,39,45,51,52,56,58,59,66,68). Cervical sources are required for HPV testing. If a vaginal source from a patient who has had a total hysterectomy with removal of cervix was submitted, please contact the testing laboratory for alternative testing options. For additional information, please refer to http://education.[employer]/faq/ZCQ988c5 (This link if provided for information/ educational [...] of this assay have been determined by [employer]. The modifications have not been cleared or approved by the FDA. This assay has been validated pursuant to the CLIA regulations and is used for clinical purposes. For additional information, please refer to http://education.[employer]/ faq/Trichomonastma (This link is being provided for information/ educational purposes only.) 09/09/2022 us Marley Rich MD LAB PATHOLOGY ORDERABLES Alethea l Result CONVERTED LEGACY LABS * Pap Smear (09/09/2022 12:00 AM EDT) Swab us Historical Provider MD LAB CYTOLOGY ORDERABLES F inal Result Performing Organization Address City/[facility]/ZIP Co de Phone Number [facility] [address], [facility] [place] [address] from Last 3 Months or Most Recently Relevant to Health Maintenance [place] [address] [address] [place] [address] [address]-[facility] MEDICAID STAND ADULT Care Teams Pastry Wrapper Relationship Specialty Start Date End Date Marley Rich MD [address] [place] [address] PCP - General Family Medicine 11/25/21
--- OUTSIDE RECORDS SUMMARY | 2025-08-19 10:49 | XMS_ITS | Encounter Summary ---
Author Organization [employer] Address [address] [place] [address] 7 [place] [address] Care Team Providers Care Director Career Services Name Role Phone Marley Rich MD Primary Care Provider [phone] Reason for Visit * Reason Onset Date Comments Dr. Casillas continued pain 03/04/2025 Encounter Details Date Type Department Care Team ([facility] st Contact Info) Description 03/04/2025 Telephone [facility] CH[facility] ADULT DENTAL 505 [place] [address] Carl Casillas, DMD 505 [place], [place] [phone] Dr. Casillas continued pain Social History Tobacco [...] [facility] [address] [place] [address] Kamran Sherman 08/28/2025 3:15 PM EDT Clinical Support [facility] [address] [place] [address] Aletha Vazquez, RN 505 [place] [address] 09/17/2025 11:20 AM EDT Procedure Visit [facility] 505 [place] [address] Marley Rich MD [address] [place] [address] documented as of this encounter Goals Goal Patient Goal Type Associated Problems Recent Progress Patient-Stated? Author Blood Pressure < 150/90 Blood Pressure 138/78(2024 8:58 AM EDT) No Mray Higgins PharmD Immunization General No Mary Higgins PharmD Note: Receive all recommended vaccines: due for RSV documented as of this encounter Visit Diagnoses Not on filedocumented in this encounter Additional Health Concerns Assessment Noted Time PHQ-9 Depression Total Score: 2 08/06/20 24 10:25 AM EDT documented as of this encounter Care Teams Director Career Services Relationship Specialty Start Date End Date Marley Rich MD [address] [place] [address] PCP - General Family Medicine 11/25/21 documented as of this encounter
--- OUTSIDE RECORDS SUMMARY | 2025-08-19 10:49 | XMS_ITS | Encounter Summary ---
Author Organization [employer] Address [address] [place] [address] 7 [place] [address] Care Team Providers Care Golf Club Maker Name Role Phone Marley Rich MD Primary Care Provider [phone] Reason for Visit * Reason Onset Date Comments PT1 01/02/2025 Encounter Details Date Type Department Care Team ([facility] st Contact Info) Description 01/02/2025 Telephone [facility] CHC MED & PEDS [address] [place] [address] Marley Rich MD 505 [place] [address] PT1 Social History Tobacco Use Types Packs/Day [...] or facility name: Dr Mclaughlin Facility Address: [address] [place] [address] 2nd Floor [address] [place] [address] Escort needed: Y/N: Yes Do you have a wheelchair: Y/N: No If yes- Manual or electric: n/a Visits: 2 x a month documented in this encounter Plan of Treatment Upcoming Encounters Date Type Department Care Team (Late st Contact Info) Description 08/23/2025 2:00 PM EDT Office Visit [facility] ADULT DENTAL [address] [place] [address] Kamran Sherman 08/28/2025 3:15 PM EDT Clinical Support [facility] MED & PEDS [address] [place] [address] Aletha Vazquez, EAN 505 [place] [address] 09/17/2025 11:20 AM EDT Procedure Visit [facility] MED & PEDS [address] [place] [address] Marley Rich MD [address] [place] [address] documented as of this encounter Goals Goal [...] documented as of this encounter Care Teams Golf Club Maker Relationship Specialty Start Date End Date Marley Rich MD [address] [place] [address] PCP - General Family Medicine 11/25/21 documented as of this encounter
--- OUTSIDE RECORDS SUMMARY | 2025-08-19 10:49 | XMS_ITS | Encounter Summary ---
Author Organization [employer] Address [address] [place] [address] 7 [place] [address] Care Team Providers Care Library Clerk Name Role Phone Marley Rich MD Primary Care Provider [phone] Encounter Details Date Type Department Care Team (Late st Contact Info) Description 10/25/2022 Abstract [facility] MEDICINE 230 [place] [address] Provider, MD Jomar Social History Tobacco Use [...] [facility] AD[facility] 505 [place] [address] Kamran Sherman 08/28/2025 3:15 PM EDT Clinical Support [facility] MED & PEDS 505 [place] [address] Aletha Vazquez, EAN 505 [place] [address] 09/17/2025 11:20 AM EDT Procedure Visit [facility] MED & PEDS 505 [place] [address] Marley Rich MD [address] [place] [address] documented as of this encounter Visit Diagnoses Not on filedocumented in this encounter Care Teams Library Clerk Relationship Specialty Start Date End Date Marley Rich MD [address] [place] [address] PCP - General Family Medicine 11/25/21 documented as of this encounter
--- OUTSIDE RECORDS SUMMARY | 2025-08-19 10:49 | XMS_ITS | Encounter Summary ---
Author Organization [employer] Address [address] [place] [address] 7 [place] [address] Care Team Providers Care Director Athletic Name Role Phone Marley Rich MD Primary Care Provider [phone] Reason for Visit * Reason Comments Med Refill Encounter Details Date Type Department Care Team ([facility] st Contact Info) Description 01/19/2025 Refill [facility] CHC ADULT DENTAL 505 [place] [address] Carl Casillas, DMD 505 [place] [address] Dental caries Social History Tobacco Use Types [...] 2:00 PM EDT Office Visit [facility] ADULT DENTAL 505 [place] [address] Kamran Sherman 08/28/2025 3:15 PM EDT Clinical Support [facility] MED & PEDS 505 [place] [address] Aletha Vazquez RN 505 [place] [address] 09/17/2025 11:20 AM EDT Procedure Visit [facility] MED & PEDS 505 [place] [address] Marley Rich MD 505 [place] [address] documented as of this encounter Goals Goal [...] as of this encounter Care Teams Director Athletic Relationship Specialty Start Date End Date Marley Rich MD 230 [place] [address] PCP - General Family Medicine 11/25/21 documented as of this encounter
--- OUTSIDE RECORDS SUMMARY | 2025-08-19 10:49 | XMS_ITS | Encounter Summary ---
Author Organization [employer] Address [address] [place] [address] 7 [place] [address] Care Team Providers Care Chief Risk Officer Name Role Phone Marley Rich MD Primary Care Provider [phone] Reason for Visit * Reason Onset Date Comments PT-1 03/07/2025 0 Encounter Details Date Type Department Care Team ([facility] st Contact Info) Description 03/07/2025 Telephone [facility] MEDICINE 230 [place] [address] Marley Rich MD 505 [place], [place] [phone] PT-1 (0) Social History Tobacco Use Types [...] Y/N: Yes Provider name or facility name: [facility] Radiology & [place] [address] Escort needed: Y/N: No Do you have a wheelchair: Y/N: No If yes- Manual or electric: Visits: (1 x Monthly) Contact pt at [phone] documented in this encounter Plan of Treatment Upcoming Encounters Date Type Department Care Team (Late st Contact Info) Description 08/23/2025 2:00 PM EDT Office Visit [facility] ADULT DENTAL 505 [place] [address] Kamran Sherman 08/28/2025 3:15 PM EDT Clinical Support [facility] MED & PEDS 505 [place] [address] Aletha Vazquez, RN 505 [place] [address] 09/17/2025 11:20 AM EDT Procedure Visit [facility] PEDS 505 [place] [address] Marley Rich MD [address] [place] [address] documented as of this encounter Goals Goal [...] documented as of this encounter Care Teams Chief Risk Officer Relationship Specialty Start Date End Date Marley Rich MD [address] [place] [address] PCP - General Family Medicine 11/25/21 documented as of this encounter
--- OUTSIDE RECORDS SUMMARY | 2025-08-19 10:49 | XMS_ITS | Clinical Summary ---
Author Organization [facility] Address [address] [facility] [address] [place] [address] Phone Care Team Providers Care Industrial Hygenist Name Role Phone Veronique Jack MD Primary Care Provider [phone] Allergies No known active allergies Medications gabapentin [...] Upcoming Encounters Date Type Department Care Team ([facility] st Contact Info) Description 12/24/2025 9:00 AM EST Office Visit [facility] in [address] [address] Chauncey Kurtz, OD 50 [place] [address] 12/24/2025 9:15 AM EST Procedure visit [facility] in [address] [address] Health Maintenance Due Date Last Done Comments [...] topic Medical Devices Not on file [place] [address] [place] [address] [employer] [address] [place] [address] [place] [employer] [address] [place] [address] [employer] [address] [place] [address] Care Teams Industrial Hygenist Relationship Specialty Start Date End Date Veronique Jack MD [address] [place] [address] [email or web address] PCP - General Internal Medicine 07/04/20 Additional Source Comments The information contained in this document represents components of the legal health record. It is not the complete legal health record.[facility]
--- OUTSIDE RECORDS SUMMARY | 2025-08-19 10:49 | XMS_ITS | Encounter Summary ---
Author Organization [employer] Address [address] [place] [address] 7 [place] [address] Care Team Providers Care Network Pricing Consultant Name Role Phone Marley Rich MD Primary Care Provider [phone] Reason for Visit * Reason Onset Date Comments PT-1 03/29/2024 Encounter Details Date Type Department Care Team (Late st Contact Info) Description 03/29/2024 Telephone [facility] MEDICINE 230 [place] [address] Marley Rich MD 505 [place] [address] PT-1 Social History Tobacco Use Types Packs/Day [...] Y/N: Yes Provider name or facility name: [facility] Rad[facility] & [facility] Facility Address: [address] [place] [address] Escort needed: Y/N: No Do you have a wheelchair: Y/N: No If yes- Manual or electric: no Visits: 3 documented in this encounter Plan of Treatment Upcoming Encounters Date Type Department Care Team ([facility] st Contact Info) Description 08/23/2025 2:00 PM EDT [facility] 505 [place] [address] Kamran Sherman 08/28/2025 3:15 PM EDT Clinical Support [facility] 505 [place] [address] Aletha Vazquez, EAN [address] [place] [address] 09/17/2025 11:20 AM EDT Procedure Visit [facility] CHC MED & PEDS [address] [place] [address] Marley Rich MD [address] [place] [address] documented as of this encounter Goals Goal [...] documented as of this encounter Care Teams Network Pricing Consultant Relationship Specialty Start Date End Date Marley Rich MD 230 [place] [address] PCP - General Family Medicine 11/25/21 documented as of this encounter
--- OUTSIDE RECORDS SUMMARY | 2025-08-19 10:49 | XMS_ITS | Encounter Summary ---
Author Organization [employer] Address [address] [place] [address] 7t [place] [address] Care Team Providers Care Pediatric Associate Name Role Phone Marley Rich MD Primary Care Provider [phone] Encounter Details Date Type Department Care Team ([facility] st Contact Info) Description 06/06/2024 Telephone [facility] CHC MED & PEDS 505 [place] [address] Marley Rich MD 505 [place] [address] Social History Tobacco Use Types Packs/Day Years [...] Description 08/23/2025 2:00 PM EDT Office Visit [facility] ADULT DENTAL 505 [place] [address] Kamran Sherman 08/28/2025 3:15 PM EDT Clinical Support [facility] MED & PEDS 505 [place] [address] Aletha Vazquez RN 505 [place] [address] 09/17/2025 11:20 AM EDT Procedure Visit [facility] MED & PEDS 505 [place] [address] Marley Rich MD 505 [place] [address] documented as of this encounter Goals Goal [...] documented as of this encounter Care Teams Pediatric Associate Relationship Specialty Start Date End Date Marley Rich MD 230 [place] [address] PCP - General Family Medicine 11/25/21 documented as of this encounter
--- OUTSIDE RECORDS SUMMARY | 2025-08-19 10:49 | XMS_ITS | Encounter Summary ---
Author Organization [employer] Address [address] [place] [address] 7 [place] [address] Care Team Providers Care Mine Analyst Name Role Phone Marley Rich MD Primary Care Provider [phone] Reason for Visit * Reason Onset Date Comments PT-1 08/17/2024 Encounter Details Date Type Department Care Team (Late st Contact Info) Description 08/17/2024 Telephone [facility] MEDICINE 230 [place] [address] Marley Rich MD 505 [place] [address] PT-1 Social History Tobacco Use Types Packs/Day [...] Y/N: Yes Provider name or facility name: [facility] Facility Address: [address] [facility] [address] [place] [address] Escort needed: Y/N: No Do you have a wheelchair: Y/N: No If yes- Manual or electric: no Visits: 6 Patient calling requesting PT1 Home Address verified: Y/N: Yes Provider name or facility name: [facility] Facility Address: [address] [place] [address] [address] [facility] [address] Escort needed: Y/N: Yes Do you have a wheelchair: Y/N: No If yes- Manual or electric: no Visits: 6 Patient calling requesting PT1 Home Address verified: Y/N: Yes Provider name or facility name: [facility] Facility Address: [address] [facility] [address] [place] [address] Escort needed: Y/N: No Do you have a wheelchair: Y/N: No If yes- Manual or electric: no Visits: 6 Patient calling requesting PT1 Home Address verified: Y/N: Yes Provider name or facility name: [facility] Facility Address: [address] [place] [address] Escort needed: Y/N: No Do you have a wheelchair: Y/N: No If yes- Manual or electric: no Visits: 6 documented in this encounter Plan of Treatment Upcoming Encounters Date Type Department Care Team (Late st Contact Info) Description 08/23/2025 2:00 PM EDT Office Visit [facility] ADULT DENTAL 505 [place] [address] Kamran Sherman 08/28/2025 3:15 PM EDT Clinical Support [facility] MED & PEDS 505 [place], [place] [phone] Aletha Vazquez, EAN 505 [place] [address] 09/17/2025 11:20 AM EDT Procedure Visit [facility] MED [facility] PED[facility] 505 [place], [place] [phone] Marley Rich MD 505 [place], [place] [phone] documented as of this encounter Goals Goal [...] documented as of this encounter Care Teams Mine Analyst Relationship Specialty Start Date End Date Marley Rich MD 230 [place] [address] PCP - General Family Medicine 11/25/21 documented as of this encounter
--- OUTSIDE RECORDS SUMMARY | 2025-08-19 10:49 | XMS_ITS | Encounter Summary ---
Author Organization [employer] Address [address] [place] [address] 7t [place] [address] Care Team Providers Care Export Agent Name Role Phone Marley Rich MD Primary Care Provider Encounter Details Date Type Department Care Team ([facility] st Contact Info) Description 09/07/2023 Telephone [facility] MEDICINE 230 [place] [address] Marley Rich MD 505 [place] [address] Social History Tobacco Use Types Packs/Day Years [...] [facility] ADULT DENTAL 505 [place] [address] Kamran Sherman 08/28/2025 3:15 PM EDT Clinical Support [facility] MED & PEDS 505 [place] [address] Aletha Vazquez, RN 505 [place] [address] 09/17/2025 11:20 AM EDT Procedure Visit [facility] MED & PEDS 505 [place] [address] Marley Rich MD 505 [place] [address] documented as of this encounter Visit Diagnoses Not on filedocumented in this encounter Additional Health Concerns Assessment Noted Time PHQ-9 Depression Total Score: 10 023 11:29 AM EDT documented as of this encounter Care Teams Export Agent Relationship Specialty Start Date End Date Marley Rich MD [address] [place] [address] PCP - General Family Medicine 11/25/21 documented as of this encounter
--- OUTSIDE RECORDS SUMMARY | 2025-08-19 10:49 | XMS_ITS | Encounter Summary ---
Author Organization [facility] Address [address] [address] Phone Care Team Providers Care Executive Casino Host Name Role Phone Unknown, Unknown Primary Care Provider Veronique Jackson MD Primary Care Provider [phone] Reason for Referral * Physical Therapy (Within 1 month) - Closed Specialty Diagnoses / Procedures Referred By Contac t Referred To Contact Physical Therapy Diagnoses Traumatic injury of head, sequela Sergei Luis MD Phone: tel: fax: mailto:[email or web address] Giovanna Page PT Phone: tel: mailto:[email or web address] Referral ID Status Reason Start Date Expiration Date Visits Re quested Visits Authorized [id number] Closed 01/28/2020 04/07/2020 9 9 Encounter Details Date Type Department Care Team (Latest Contact Info) Description 01/28/2020 Transcribe Orders [facility] [place] [facility] [address] [place] [address] Sergei Luis MD [address] [place] [address], [place] [address] [email or web address] Traumatic injury of head, sequela (Primary Dx) [...] Upcoming Encounters Date Type Department Care Team ([facility] st Contact Info) Description 12/24/2025 9:00 AM EST Office Visit [facility] in [address] [address] Chauncey Kurtz OD 50 [place] [address] [email or web address] 12/24/2025 9:15 AM EST Procedure visit [facility] in [address] [address] Scheduled Referrals Name Type Priority Associated Diagnoses Order Schedule Ambulatory referral to N Physical Therapy Outpatient Referral Routine Traumatic injury of head, sequela Ordered: 01/28/2020 documented as of this encounter Visit Diagnoses Diagnosis Traumatic injury of head, sequela- Primary documented in this encounter Care Teams Executive Casino Host Relationship Specialty Start Date End Date Unknown, Unknown, MD PCP - General 12/20/19 07/03/20 Veronique Jack MD [address] [place] [address] [email or web address] PCP - General Internal Medicine 07/04/20 documented as of this encounter Additional Source Comments The information contained in this document represents components of the legal health record. It is not the complete legal health record.[facility]
--- OUTSIDE RECORDS SUMMARY | 2025-08-19 10:49 | XMS_ITS | Encounter Summary ---
Author Organization [employer] Address [address] [place] [address] 7t [place] [address] Care Team Providers Care Stretching Machine Operator Name Role Phone Marley Rich MD Primary Care Provider [phone] Encounter Details Date Type Department Care Team (Late st Contact Info) Description 10/13/2023 Abstract [facility] MEDICINE 230 [place] [address] Mily Calderon Social History Tobacco Use Types [...] [facility] ADULT DENTAL 505 [place] [address] Kamran Sherman 08/28/2025 3:15 PM EDT Clinical Support [facility] MED & PEDS 505 [place] [address] Aletha Vazquez, RN 505 [place] [address] 09/17/2025 11:20 AM EDT Procedure Visit [facility] MED & PEDS 505 [place] [address] Marley Rich MD 505 [place] [address] documented as of this encounter Visit Diagnoses Not on filedocumented in this encounter Additional Health Concerns Assessment Noted Time PHQ-9 Depression Total Score: 10 023 11:29 AM EDT documented as of this encounter Care Teams Stretching Machine Operator Relationship Specialty Start Date End Date Marley Rich MD 230 [place] [address] PCP - General Family Medicine 11/25/21 documented as of this encounter
--- OUTSIDE RECORDS SUMMARY | 2025-08-19 10:49 | XMS_ITS | Encounter Summary ---
Author Organization [employer] Address [address] [place] [address] 7t [place] [address] Care Team Providers Care Sewing Machine Operator Zipper Name Role Phone Marley Rich MD Primary Care Provider [phone] Reason for Visit * Reason Comments Med Refill Encounter Details Date Type Department Care Team (Late st Contact Info) Description 03/23/[address] [facility] [address] [place] [phone] Kashif Layne MD 230 [place], [place] [phone] Social History Tobacco Use Types Packs/Day Years [...] 2:00 PM EDT Office Visit [facility] ADULT DENTAL 505 [place] [address] Kamran Sherman 08/28/2025 3:15 PM EDT Clinical Support [facility] MED & PEDS 505 [place] [address] Aletha Vazquez RN 505 [place] [address] 09/17/2025 11:20 AM EDT Procedure Visit [facility] MED & PEDS 505 [place] [address] Marley Rich MD 505 [place] [address] documented as of this encounter Goals Goal [...] documented as of this encounter Care Teams Sewing Machine Operator Zipper Relationship Specialty Start Date End Date Marley Rich MD 230 [place] [address] PCP - General Family Medicine 11/25/21 documented as of this encounter
--- OUTSIDE RECORDS SUMMARY | 2025-08-19 10:49 | XMS_ITS | Encounter Summary ---
Author Organization [employer] Address [address] [place] [address] 7 [place] [address] Care Team Providers Care Manager Engagement Name Role Phone Marley Rich MD Primary Care Provider [phone] Reason for Visit * Reason Onset Date Comments [facility] 03/23/2024 Encounter Details Date Type Department Care Team ([facility] st Contact Info) Description 03/23/2024 Telephone [facility] MEDICINE [address] [place] [address] Marley Rich MD [address] [place] [address] [facility] Social History Tobacco Use Types Packs/Day [...] Visit [facility] [address] [place] [address] Kamran Sherman 08/28/2025 3:15 PM EDT Clinical Support [facility] MED & PEDS [address] [place] [address] Aletha Vazquez, RN [address] [place] [address] 09/17/2025 11:20 AM EDT Procedure Visit [facility] CHC MED & PEDS [address] [place] [address] Marley Rich MD [address] [place] [address] documented as of this encounter Goals Goal [...] as of this encounter Care Teams Manager Engagement Relationship Specialty Start Date End Date Marley Rich MD [address] [place] [address] PCP - General Family Medicine 11/25/21 documented as of this encounter
[2025-08-19 14:20] LABS: Appearance Urine Clear; Glucose Urine UA Negative (Negative); PH 6.5 (5.0-9.0); Specific Gravity - Urine 1.015 (1.005-1.025)
[2025-08-25 02:38] LABS: Calprotectin, Fecal 78 mcg/g
== END 2025-08-19 09:14 | disposition home or self-care (01) ==
LOC: HO.CHCLNP 09:13
PROVIDERS: Visit Provider Family Medicine
DX: N30.00 Acute cystitis without hematuria (principal); R89.9 Unspecified abnormal finding in specimens from other organs, systems and tissues
CPT/HCPCS: 81001; 83993

== ENCOUNTER 2025-09-17 14:14 | Outpatient (REF) | payer OTHER, SELFPAY ==
--- OUTSIDE RECORDS SUMMARY | 2025-09-17 11:20 | XMS_ITS | Encounter Summary ---
Author Organization [employer] Address [address] [place] [address] Care Team Providers Care Embedded Software Development Engineer Name Role Phone Marley Rich MD Primary Care Provider [phone] Reason for Referral * Consultation (Routine) - Authorized Specialty Diagnoses / Procedures Referred By Contac t Referred To Contact Pain Medicine Diagnoses Chronic right-sided low back pain with right-sided sciatica Marley Rich MD [address] [place] [address] Phone: tel: fax: Gio Fairbanks MD [address] [place] [address] [place] [address] Phone: tel: fax: Referral ID Status Reason Start Date Expiration Date Visits Requested Visits Authorized [id number] Authorized Specialty Services Required 09/17/2026 1 1 Reason for Visit * Reason Comments Well Woman Exam Encounter Details Date Type Department Care Team (Latest Contact Info) Description 09/17/2025 11:20 AM EDT Procedure Visit [facility] CHC MED & PEDS [address] [place], [place] [phone] Marley Rich MD [address] [place], [place] [phone] Cervical cancer screening (Primary Dx); Chronic right-sided low back pain with right-sided sciatica; Encounter for vaccination Social History Tobacco Use Types Packs/Day Years [...] PM EST documented as of this encounter Last Filed Vital Signs Vital Sign Reading Time Taken Comments Blood Pressure 162/94 09/17/2025 11:01 AM EDT Pulse 76 09/17/2025 10:42 AM EDT Temperature 36.5 C (97.7 F) 09/17/2025 10:42 AM EDT Respiratory Rate 20 09/17/2025 10:42 AM EDT Oxygen Saturation 98% 09/17/2025 10:42 AM EDT Inhaled Oxygen Concentration - - Weight 94.5 kg (208 lb 6.4 oz) 09/17/2025 10:42 AM EDT Height 161 cm (5' 3.39 ) 09/17/2025 10:42 AM EDT Body Mass Index 36.47 09/17/2025 10:42 AM EDT documented in this encounter Progress Notes * Marley Rich MD - 09/17/2025 11:20 AM EDT Subjective Patient ID: Ruthie Powell is a 65 y.o. female who presents for Well Woman Exam. Ruthie Powell presents for cervical cancer screening visit with multiple ongoing medical concerns including hypertension, diabetes, and back pain with arthritis. The patient reports right leg pain associated with back arthritis and a small herniation identifiedon MRI performed one month ago. The imaging showed significant arthritis in her back with a small herniation in the lower region affecting her right nerve. She expresses interest in seeing a pain specialist. Regarding her hypertension, the patient admits she has not been monitoring her blood pressure at home as recommended. Her blood pressure reading today was elevated at 162/94, compared to 126/76 at her last visit, indicating poor control despite medication. The patient completed urine and stool tests in May, both of which had normal results. She underwent mammography earlier this year (November or December) and reports being told the results were normal, though she has not received official results. She has not received any calls regarding mammographyscheduling. She has dense breast tissue with significant fibrosis. She expresses willingness to receive a COVID booster vaccination but has concerns about potential side effects. The patient requests authorization for a shower chair to assist with bathing and a commode. Review of Systems Objective Visit Vitals BP (!) 162/94 (BP Location: Left arm, Patient Position: Sitting, BP Cuff Size: Large adult) Pulse 76 Temp 97.7 ??F (36.5 ??C) (Oral) Resp 20 Ht 5' 3.39 (1.61 m) Wt 208 lb 6.4 oz (94.5 kg) SpO2 98% BMI 36.47 kg/m?? OB Status Premenopausal Smoking Status Never BSA 2.06 m?? Physical Exam Exam conducted with a job site superintendent present. Constitutional: General: She is not in acute distress. Appearance: She is obese. She is not ill-appearing. HENT: Head: Normocephalic and atraumatic. Nose: No congestion. Pulmonary: Effort: Pulmonary effort is normal. No respiratory distress. Breath sounds: Normal breath sounds. Genitourinary: Vagina: Normal. Cervix: Normal. Musculoskeletal: Cervical back: Normal range of motion. Comments: Walks with cane, difficulties with bending and walking Neurological: General: No focal deficit present. Mental Status: She is alert. Psychiatric: Mood and Affect: Mood normal. Assessment/Plan Problem List Items Addressed This Visit Chronic right-sided low back pain with right-sided sciatica Relevant Orders Referral to Pain Medicine Cervical cancer screening - Primary 65 y.o. here for cervical cancer screening. Will continue monitoring following ASCCP guidelines. Relevant Orders Pap Smear HPV High Risk with Reflex to Subtypes Other Visit Diagnoses Encounter for vaccination Relevant Orders COVID-19 VACCINE [id number] (Comirnaty) 19 yrs + Ruthie rush Faulkner presents for follow-up with hypertension, lumbar spine arthritis with herniation causing right leg pain, and routine preventive care needs. Hypertension Assessment: Blood pressure elevated at 162/94 mmHg during today's visit, significantly higher than previous reading of 126/76 mmHg. Patient reports not monitoring blood pressure at home, which limitsassessment of control and medication effectiveness. Plan: - Monitor blood pressure at home - Adjust medication if elevated readings continue - Follow-up in 2 months to reassess blood pressure control Lumbar spine arthritis with herniation Assessment: MRI performed one month ago shows extensive arthritis in the back with small herniation. Lower portion is impinging on right nerve, correlating with patient's right leg pain. Surgical intervention not indicated. Plan: - Referral to pain specialist for consideration of spinal injection - Continue current arthritis medication - Patient requesting commode and shower chair Diabetes mellitus Assessment: Patient has established diabetes requiring ongoing monitoring and management. Plan: - Follow-up in 2 months to check diabetes management Preventive care needs Assessment: Patient completed mammography earlier this year with reportedly normal results, though official results not yet received. Last documented mammography in system from 2022. Urine and stool tests completed in May with normal results. Patient has dense breast tissue with significant fibrosis. Due for COVID booster vaccination. Patient expressed concern about vaccine side effects but agreed to proceed. Plan: - Administer COVID booster vaccination - Patient counseled that benefits outweigh risks of vaccination - Follow-up on mammography results Mobility assistance needs Assessment: Patient requesting authorization for shower chair to assist with bathing. Has bathroom on same floor, indicating some mobility limitations. Plan: - Authorize shower chair - Send message for shower chair approval documented in this encounter Miscellaneous Notes * Assessment & Plan Note - Marley Rich MD - 09/17/2025 11:19 AM EDT Associated Problem(s): Cervical cancer screening 65 y.o. here for cervical cancer screening. Will continue monitoring following ASCCP guidelines. documented in this encounter Plan of Treatment Upcoming Encounters Date Type Department Care Team (Late st Contact Info) Description 09/19/2025 2:00 PM EDT Office Visit [facility] [address] [place] [address] Elbert Martinez DDS [address] [place] [address] 10/28/2025 3:30 PM EST Office Visit [facility] MED [facility] PED[facility] [address] [place] [address] Marley Rich MD [address] [place] [address] 12/31/2025 2:30 PM EST Clinical Support [facility] [address] [place] [address] Aletha Vazquez, EAN [address] [place] [address] 02/21/2026 1:30 PM EDT Office Visit [facility] [address] [place] [address] Kamran Sherman Scheduled Orders Name Type Priority Associated Diagnoses Orde r Schedule Pap Smear Pathology and Cytology Routine Cervical cancer screening Ordered: 09/17/2025 HPV High Risk with Reflex to Subtypes Lab Routine Cervical cancer screening Ordered: 09/17/2025 Scheduled Referrals Name Type Priority Associated Diagnoses Orde r Schedule Referral to Pain Medicine Outpatient Referral Routine Chronic right-sided low back pain with right-sided sciatica Expected: 09/17/2025 (Approximate), Expires: 09/17/2026 documented as of this encounter Goals Goal Patient Goal Type Associated Problems Recent Progress Patient-Stated? Author Blood Pressure < 150/90 Blood Pressure 162/94(2024 11:01 AM EDT) No Mary Higgins PharmD Immunization General No Mary Higgins PharmD Note: Receive all recommended vaccines: due for RSV documented as of this encounter Visit Diagnoses Diagnosis Cervical cancer screening- Primary Screening for malignant neoplasm of the cervix Chronic right-sided low back pain with right-sided sciatica Encounter for vaccination documented in this encounter Additional Health Concerns Assessment Noted Time PHQ-9 Depression Total Score: 0 06/14/20 25 10:14 AM EDT documented as of this encounter Care Teams Embedded Software Development Engineer Relationship Specialty Start Date End Date Marley Rich MD [address] [place] [address] PCP - General Family Medicine 11/25/21 documented as of this encounter
--- OUTSIDE RECORDS SUMMARY | 2025-09-17 19:13 | XMS_ITS | Encounter Summary ---
Author Organization [employer] Address [address] [place] [address] 7 [place] [address] Care Team Providers Care Regional Environmental Manager Name Role Phone Marley Rich MD Primary Care Provider [phone] Encounter Details Date Type Department Care Team ([facility] st Contact Info) Description 03/09/2023 Orders Only [facility] CHC MED & PEDS [address] [place] [address] Marley Rich MD [address] [place] [address] Social History Tobacco Use Types Packs/Day Years [...] Description 09/19/2025 2:00 PM EDT Office Visit [facility] [address] [place] [address] Elbert Martinez DDS [address] [place] [address] 10/28/2025 3:30 PM EST Office Visit [facility] [address] [place] [address] Marley Rich MD [address] [place] [address] 12/31/2025 2:30 PM EST Clinical Support [facility] [address] [place] [address] Aletha Vazquez RN [address] [place] [address] 02/21/2026 1:30 PM EDT Office Visit [facility] [address] [place] [address] Kamran Sherman Pending Results Name Type Priority Associated Diagnoses [...] (09/16/2023 8:30 AM EDT) Color Urine Yellow [facility] Appearance Urine Clear [facility] PH 6.5 5.0 - 9.0 [facility] Glucose Urine UA Negative Negative mg/dL [facility] Urine Blood Negative Negative [facility] Specific [place] - Urine 1.020 1.005 - 1.025 [facility] Urine Protein Negative Neg-Trace mg/dL [facility] Urine Ketones Negative Negative mg/dL [facility] Nitrite Urine Negative Negative [facility] Leukocyte Esterase Urine Negative Negative [facility] 09/16/2023 8:30 AM EDT 09/16/2023 2:34 PM EDT us Marley Rich MD LAB URINE ORDERABLES Final Re sult [facility] [address] [place] [address] [phone] * HIV Ab/Ag ([facility]) (09/16/2023 8:27 AM EDT) HIV AB/AG Nonreactive Nonreactive [facility] Comment:HIV-1 p24 Ag and/or HIV-1/HIV-2 Ab not detected.A test result that is nonreactive does not exclude thepossibility of exposure to or infection with HIV-1 and/orHIV-2. Nonreactive results in this assay for individualswith prior exposure to HIV-1 and/or HIV-2 may be due toantigen and antibody levels that are below the limit ofdetection of this assay.[employer] HIV Ag/Ab Combo assay result andsupplemental assay results should be interpreted inconjunction with the patient's clinical presentation,history and other laboratory results. If the results areinconsistent with clinical evidence, additional testing issuggested to confirm the result. 09/16/2023 8:27 AM EDT 09/16/2023 2:26 PM EDT us Marley Rich MD LAB BLOOD ORDERABLES Final Re sult [facility] [address] [place] [phone] * (ABNORMAL) Comprehensive Metabolic Panel, Fasting (09/16/2023 8:27 AM EDT) Sodium 139 135 - 145 mmol/L [facility] Potassium 4.2 3.3 - 5.1 mmol/L [facility] Chloride 103 96 - 108 mmol/L [facility] Carbon Dioxide 26 22 - 29 mmol/L [facility] Anion Gap 14 12 - 20 [facility] Urea Nitrogen (BUN) 11 9 - 16 mg/dL [facility] Creatinine, Serum 0.74 0.5 - 1.4 mg/dL [facility] Estimated Glomerular Filt Rate >60 [facility] Comment:NOTE: For -Am erican individuals, multiply the result by 1.210.Chronic Kidney Disease: Estimated GFR < 60 mL/min/1.03h7Frysdx Kidney Disease: Estimated GFR < 15 mL/min/1.73m2 Glucose Fasting 78 60 - 99 mg/dL [facility] Calcium 10.2 8.4 - 10.2 mg/dL [facility] Bilirubin, Total 0.7 0.0 - 1.0 mg/dL [facility] Aspartate Amino Transferase 20 5 - 31 U/L [facility] Alanine Aminotransferase 11 0 - 31 U/L [facility] Total Protein 8.1(H) 6.5 - 8.0 g/dL [facility] Albumin Level 4.4 3.5 - 5.0 g/dL [facility] Alkaline Phosphatase 96 39 - 117 U/L [facility] 09/16/2023 8:27 AM EDT 09/16/2023 2:26 PM EDT Marley Rich MD LAB BLOOD ORDERABLES Final Re sult Performing Organization Address [facility] Co de Phone Number [facility] [address] [place] [phone] * Cyclic Citrullinated Peptide (CCP) Antibody (IgG) (06/06/2023 11:38 AM EDT) Cyclic Citrullinated Peptide <16 UNITS [facility] Comment:Reference RangeNegat zach: <20Weak Positive: 20-39Moderate Positive: 40-59Strong Positive: >59THIS TEST WAS PERFORMED AT:[employer] [address] [id number] RODGERS MD 06/06/2023 11:3 8 AM EDT 06/06/2023 2:12 PM EDT [facility] External Provider LAB BLO OD ORDERABLES Final Result Performing Organization Address [facility] Co de Phone Number [facility] [address] [place] [address] [phone] * Immunoglobulin G (06/06/2023 11:38 AM EDT) Immunoglobulin G 1486 600 - 1540 mg/dL [facility] Comment:THIS TEST WAS PERFOR MED AT:[facility] [address] [id number] RODGERS MD 06/06/2023 11:3 8 AM EDT 06/06/2023 2:12 PM EDT [facility] External Provider LAB BLO OD ORDERABLES Final Result Performing Organization Address City/[facility]/ZIP Co de Phone Number [facility] [address] [place] [address] [phone] * Hepatitis Panel, General (06/06/2023 11:38 AM EDT) Hepatitis A IgM Nonreactive Nonreactive [facility] Comment:IgM antibodies to CASTILLO V not detected; does not exclude earlyacute or recovered HAV infection. ~Hepatitis B Surface Antibody NONREACTIVE Nonreactive [facility] Comment:Nonreactive: < 8.00 mIU/mL Hepatitis B Core Antibody Nonreactive Nonreactive [facility] Hepatitis C Antibody Nonreactive Nonreactive [facility] Comment:Antibodies to HCV no t detected; does not exclude early acuteHCV infection. Hepatitis B Surface Ag Negative Negative [facility] 06/06/2023 11:3 8 AM EDT 06/06/2023 2:12 PM EDT [facility] External Provider LAB BLO OD ORDERABLES Final Result Performing Organization Address [facility] Co de Phone Number [facility] [address] [place] [address] [phone] * Rheumatoid Factor (06/06/2023 11:38 AM EDT) Rheumatoid Factor <13.0 <15.0 IU/mL [facility] 06/06/2023 11:3 8 AM EDT 06/06/2023 2:12 PM EDT [facility] External Provider LAB BLO OD ORDERABLES Final Result Performing Organization Address City/[facility]/ZIP Co de Phone Number [facility] [address] [place] [address] [phone] * (ABNORMAL) C-reactive Protein (06/06/2023 11:38 AM EDT) C Reactive Protein 0.66(H) < or = 0.50 mg/dL [facility] 06/06/2023 11:3 8 AM EDT 06/06/2023 2:12 PM EDT [facility] External Provider LAB BLO OD ORDERABLES Final Result Performing Organization Address [facility] Co [facility] Number [facility] [address] [place] [phone] * Uric acid (06/06/2023 11:38 AM EDT) Uric Acid 4.3 2.4 - 5.7 mg/dL [facility] 06/06/2023 11:3 8 AM EDT 06/06/2023 2:12 PM EDT [facility] External Provider LAB BLO OD ORDERABLES Final Result Performing Organization Address [facility] Number [facility] [address] [place] [phone] * Sed Rate by Modified Danni (06/06/2023 11:38 AM EDT) Erythrocyte Sedimentation Rate 11 0 - 20 MM/HR [facility] Comment:Patients with polycy themia and many hemoglobin abnormalitiesmay have depressed sed rates whereas patients with anemiamay have elevated sed rates. 06/06/2023 11:3 8 AM EDT 06/06/2023 2:12 PM EDT [facility] External Provider LAB BLO OD ORDERABLES Final Result Performing Organization Address [facility] Co de Phone Number [facility] [address] [place] [address] [phone] * Colonoscopy (12/30/2022) Colonoscopy Normal Normal 12/30/2022 us Historical Provider HEALTH MAINTENANCE Edited Result - Final documented in this encounter Visit Diagnoses Not on filedocumented in this encounter Additional Health Concerns Assessment Noted Time PHQ-9 Depression Total Score: 10 03/04/ 023 11:29 AM EDT documented as of this encounter Care Teams Regional Environmental Manager Relationship Specialty Start Date End Date Marley Rich MD [address] [place] [address] PCP - General Family Medicine 11/25/21 documented as of this encounter
--- OUTSIDE RECORDS SUMMARY | 2025-09-17 19:14 | XMS_ITS | Encounter Summary ---
Author Organization [employer] Address [address] [place] [address] 7 [place] [address] Care Team Providers Care Natural History Collections Curator Name Role Phone Marley Rich MD Primary Care Provider [phone] Reason for Visit * Reason Onset Date Comments PT1 06/17/2025 Encounter Details Date Type Department Care Team ([facility] st Contact Info) Description 06/17/2025 Telephone [facility] CH[facility] MED & PEDS [address] [place] [address] Marley Rich MD [address] [place] [address] PT1 Social History Tobacco Use Types Packs/Day [...] Y/N: Yes Provider name or facility name: [facility] radiology Escort needed: Y/N: No Do you have a wheelchair: Y/N: No Visits: (2x months) documented in this encounter Plan of Treatment Upcoming Encounters Date Type Department Care Team (Late st Contact Info) Description 09/19/2025 2:00 PM EDT Office Visit [facility] [address] [place] [address] Elbert Martinez DDS [address] [place] [address] 10/28/2025 3:30 PM EST Office Visit [facility] MED & PEDS [address] [place] [address] Marley Rich MD [address] [place] [address] 12/31/2025 2:30 PM EST Clinical Support [facility] MED & PEDS [address] [place] [address] Aletha Vazquez, EAN [address] [place] [address] 02/21/2026 1:30 PM EDT Office Visit [facility]ULT D[facility] [address] [place] [address] Kamran Sherman documented as of this encounter Goals Goal [...] documented as of this encounter Care Teams Natural History Collections Curator Relationship Specialty Start Date End Date Marley Rich MD [address] [place] [address] PCP - General Family Medicine 11/25/21 documented as of this encounter
--- OUTSIDE RECORDS SUMMARY | 2025-09-17 19:14 | XMS_ITS | Encounter Summary ---
Author Organization [employer] Address [address] [place] [address] 7 [place] [address] Care Team Providers Care House Mother Name Role Phone Marley Rich MD Primary Care Provider [phone] Reason for Visit * Reason Onset Date Comments PT-1 08/17/2024 Encounter Details Date Type Department Care Team (Late st Contact Info) Description 08/17/2024 Telephone [facility] MEDICINE [address] [place] [address] Marley Rich MD [address] [place] [address] PT-1 Social History Tobacco Use Types Packs/Day [...] Y/N: Yes Provider name or facility name: [facility] Address: [address] [facility] [address] [place] [address] Escort needed: Y/N: No Do you have a wheelchair: Y/N: No If yes- Manual or electric: no Visits: 6 Patient calling requesting PT1 Home Address verified: Y/N: Yes Provider name or facility name: [facility] Address: [address] [place] [address] [address] [facility] [address] Escort needed: Y/N: Yes Do you have a wheelchair: Y/N: No If yes- Manual or electric: no Visits: 6 Patient calling requesting PT1 Home Address verified: Y/N: Yes Provider name or facility name: [facility] Address: [address] [facility] [address] [place] [address] Escort needed: Y/N: No Do you have a wheelchair: Y/N: No If yes- Manual or electric: no Visits: 6 Patient calling requesting PT1 Home Address verified: Y/N: Yes Provider name or facility name: [facility] Facility Address: [address] [place] [id number] Escort needed: Y/N: No Do you have a wheelchair: Y/N: No If yes- Manual or electric: no Visits: 6 documented in this encounter Plan of Treatment Upcoming Encounters Date Type Department Care Team (Late st Contact Info) Description 09/19/2025 2:00 PM EDT Office Visit [facility] ADULT DENTAL [address] [place] [address] Elbert Martinez DDS [address] [place] [address] 10/28/2025 3:30 PM EST Office Visit [facility] MED & PEDS [address] [place] [address] Marley Rich MD [address] [place], [place] [id number] 12/31/2025 2:30 PM EST Clinical Support [facility] [address] [place] [address] Aletha Vazquez, RN [address] [place], [place] [id number] 02/21/2026 1:30 PM EDT Office Visit [facility] [address] [place] [address] Kamran Sherman documented as of this encounter Goals Goal Patient Goal Type Associated Problems Recent Progress Patient-Stated? Author Blood Pressure < 150/90 Blood Pressure 162/94(2024 11:01 AM EDT) No Mary Higgins, Isabelle Immunization General No Mary Higgins PharmD Note: Receive all recommended vaccines: due for RSV documented as of this encounter Visit Diagnoses Not on filedocumented in this encounter Additional Health Concerns Assessment Noted Time PHQ-9 Depression Total Score: 2 08/06/20 24 10:25 AM EDT documented as of this encounter Care Teams House Mother Relationship Specialty Start Date End Date Marley Rich MD [address] [place] [address] PCP - General Family Medicine 11/25/21 documented as of this encounter
--- OUTSIDE RECORDS SUMMARY | 2025-09-17 19:14 | XMS_ITS | Encounter Summary ---
Author Organization [employer] Address [address] [place] [address] [address] [place] [address] Care Team Providers Care Patient Scheduling Manager Name Role Phone Marley Rich MD Primary Care Provider [phone] Reason for Visit * Reason Onset Date Comments pt1 07/30/2025 Encounter Details Date Type Department Care Team ([facility] st Contact Info) Description 07/30/2025 Telephone [facility] [address] [place] [address] Marley Rich MD [address] [place] [address] pt1 Social History Tobacco Use Types Packs/Day [...] EDT TC to pt via S ID# [id number]. Initial RISK CONSULTING TREASURY DIRECTOR appt scheduled for 08/28/25 @ 3:15pm. * Telephone Encounter - Justa Frausto - 07/30/2025 12:33 PM EDT Patient calling requesting PT1 Home Address verified: Y/N: Yes Provider name or facility name: [facility] [address] [facility] Escort needed: Y/N: No Do you have a wheelchair: Y/N: No If yes- Manual or electric: Visits: 1x a month documented in this encounter Plan of Treatment Upcoming Encounters Date Type Department Care Team ([facility] st Contact Info) Description 09/19/2025 2:00 PM EDT Office Visit [facility] ADULT DENTAL [address] [place] [address] Elbert Martinez DDS [address] [place] [address] 10/28/2025 3:30 PM EST Office Visit [facility] MED & PEDS [address] [place] [address] Marley Rich MD [address] [place], [place] 12/31/2025 2:30 PM EST Clinical Support [facility]ED[facility] [address] [place] [address] Aletha Vazquez, RN [address] [place] [address] 02/21/2026 1:30 PM EDT Office Visit [facility] ADULT DENTAL [address] [place] [address] Kamran Sherman documented as of this encounter [...] documented as of this encounter Care Teams Patient Scheduling Manager Relationship Specialty Start Date End Date Marley Rich MD [address] [place] [address] PCP - General Family Medicine 11/25/21 documented as of this encounter
--- OUTSIDE RECORDS SUMMARY | 2025-09-17 19:14 | XMS_ITS | Clinical Summary ---
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 022 Active SUMAtriptan (Imitrex) 100 MG tablet PLEASE SEE ATTACHED FOR DETAILED DIRECTIONS 023 Active loratadine (Claritin) 10 MG tablet Take 1 tablet (10 mg) by mouth Once per day. 90 tablet 1 024 Active gabapentin (Neurontin) 300 MG capsule Take 2 capsules (600 mg) by mouth 3 times daily. 180 capsule 11 025 2025 Active Spacer/Aero-Holdi ng Chambers (OptiChamber Patrizia) misc 1 each every 4 (four) hours if needed (asthma). 1 each 025 Active acetaminophen (Tylenol Extra Strength) 500 MG tabletIndications :Fibromyalgia Take 1-2 tablets (500-1,000 mg) by mouth every 8 (eight) hours if needed (pain or fever). 100 tablet 1 025 2025 Active Calcium Carb-Cholecalcife rol (Calcium + Vitamin [...] total dose of 7.5mg daily) 90 tablet 025 Active rosuvastatin (Crestor) 10 MG tabletIndications :Other hyperlipidemia Take 1 tablet (10 mg) by mouth at bedtime. (For cholesterol) 90 tablet 1 025 Active cyclobenzaprine (Flexeril) 10 MG tabletIndications :Acute bilateral low back pain with right-sided sciatica TAKE ONE TABLET THREE TIMES DAILY 90 tablet 025 Active cholecalciferol (Vitamin D-3) 25 MCG tabletIndications :History of vitamin D deficiency TAKE 1 TABLET (25 MCG) BY MOUTH ONCE PER DAY. 90 tablet 1 025 Active losartan (Cozaar) 100 MG tabletIndications :Essential hypertension TAKE ONE TABLET EVERY MORNING 90 tablet 1 025 Active pantoprazole (ProtoNix) 40 MG EC tabletIndications :Gastroesophageal reflux disease, unspecified whether esophagitis present TAKE 1 TABLET BY MOUTH BEFORE BREAKFAST. DO NOT BREAK, CRUSH, DISSOLVE OR CHEW. 90 tablet 1 025 Active naloxone (Narcan) 4 mg/0.1 mL nasal spray Administer 1 spray (4 mg) into affected nostril(s) if needed for opioid reversal. May repeat every 2-3 minutes if needed, alternating nostrils, until medical assistance becomes available. 2 each 2 025 2025 Active ammonium lactate (Amlactin) 12 % creamIndications: Xerosis of skin APPLY TOPICALLY TO AFFECTED AREA(s) TWICE DAILY 385 g 1 025 Active ammonium lactate (Amlactin) 12 % creamIndications: Xerosis of skin APPLY TOPICALLY TO AFFECTED AREA(s) TWICE DAILY 385 g 1 024 2024 Discontinued(R eorder (will not trigger notification to Pharmacy)) pantoprazole (ProtoNix) 40 MG EC tabletIndications :Gastroesophageal reflux disease, unspecified whether esophagitis present Take 1 tablet (40 mg) by mouth before breakfast. Do not crush, chew, or split. 90 tablet 1 025 2024 Discontinued(R eorder (will not trigger notification to Pharmacy)) losartan (Cozaar) 100 MG tabletIndications :Essential hypertension TAKE ONE TABLET EVERY MORNING 90 tablet 1 025 2024 Discontinued(R eorder (will not trigger notification to Pharmacy)) traMADol (Ultram) 50 MG tabletIndications :Lumbar back pain with radiculopathy affecting right lower extremity Take 1 tablet (50 mg) by mouth every 8 (eight) hours if needed for severe pain for up to 14 days. 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 here for cervical cancer screening. Will continue monitoring following ASCCP guidelines. Long-term current use of opiate analgesic 2024 Pyelonephritis 07/26/2025 Stomatitis 06/14/2025 Other insomnia 06/11/2025 Overview (07/26/2025): 06/12/25 [facility]: Referred by Rajwinder Cassidy MD, for [...] will recommend to referring provider. 06/12/25 [facility]: Referred by Rajwinder Cassidy MD, for [...] EDT): The 10-year ASCVD risk score (Neil DK, et al., 2019) is: 7.2% Values used [...] & Plan (01/26/2024 10:45 AM EST): Per nursery technician patient has fibromyalgia. I prescribed her Gabapentin [...] recommended reduction of 20-30% of maintenance calories; nurse case manager referral offered. Recommended to decrease soda and sugary beverage consumption. Recommended at least 20 g per meal of protein to assist with satiety. Recommended at least 150 min/week of moderate intensity exercise. Assessment & Plan (09/12/2023 12:04 PM EDT): Discussed calorie deficit, recommended reduction of 20-30% of maintenance calories; nurse case manager referral offered. Recommended to decrease soda and [...] pelvic floor injections - botox/PT trial at [facility] has completed pt recruitment Discussed that [...] to the integrative medicine group here at [facility] for access to these complementary therapies. Trigger point injections to the pelvic floor with either lidocaine/bupivicaine or botulinum toxin are other considerations. Botox injections for pelvic muscle is currently an off-label use and may not be covered by insurance. All questions and concerns were answered. Plan: - Referral to pelvic PT at [facility] given - Will try [facility] again Urge urinary incontinence 06/13/2015 Overview (10/29/2022): [...] Overview (02/07/2025): Lab Results Component Value Date [id number] 70.5 01/30/2025 - January 2025 - decrease [...] Encounters Date Type Department Care Team Description 09/17/2025 11:20 AM EDT Procedure Visit [facility] [address] [place] [address] Marley Rich MD Cervical cancer screening (Primary Dx); Chronic right-sided low back pain with right-sided sciatica; Encounter for vaccination 09/17/2025 Travel 09/04/2025 1:00 PM EDT Office Visit [facility] [address] [place] [address] Elbert Martinez DDS 09/04/2025 Refill [facility] [address] [place] [address] Marley Rich MD Xerosis of skin 08/28/2025 3:15 PM EDT Clinical Support [facility] [address] [place] [address] Aletha Vazquez, poultry hatchery man right-sided low back pain with right-sided sciatica (Primary Dx); Long-term current use of opiate analgesic 08/28/2025 Orders Only [facility] [address] [place] [address] Eriberto Sherman MD Essential hypertension (Primary Dx) 08/28/2025 Travel 08/23/2025 2:00 PM EDT Office Visit [facility] [address] [place] [address] Kamran Sherman Dental calculus (Primary Dx) 08/22/2025 Refill [facility] [address] [place] [address] Marley Rich MD Essential hypertension; Gastroesophageal reflux disease, unspecified whether esophagitis present 08/21/2025 Telephone [facility] [address] [place] [address] Marley Rich MD Referral 08/16/2025 Telephone [facility] [address] [place] [address] Aletha Vazquez RN 08/15/2025 Refill [facility] [address] [place] [address] Marley Rich MD History of vitamin D deficiency 08/14/2025 Refill [facility] [address] [place] [address] Marley Rich MD Lumbar back pain with radiculopathy affecting right lower extremity; History of vitamin D deficiency 08/12/2025 Refill [facility] [address] [place] [address] Marley Rich MD Acute bilateral low back pain with right-sided sciatica 08/07/2025 Refill [facility] [address] [place] [address] Marley Rich MD Other hyperlipidemia 08/01/2025 Travel 07/30/2025 Telephone [facility] [address] [place], [place] [phone] Marley Rich MD pt1 07/30/2025 Telephone [facility] [address] [place], [place] [phone] Marley Rich MD 07/30/2025 Refill [facility] [address] [place], [place] [phone] Marley Rich MD Lumbar back pain with radiculopathy affecting right lower extremity 07/26/2025 9:00 AM EDT Office Visit [facility] [address] [place], [place] [phone] Marley Rich MD Acute cystitis without hematuria (Primary Dx); Polyarthralgia; Lumbar back pain with radiculopathy affecting right lower extremity 07/26/2025 Travel 07/23/2025 Telephone [facility] [address] [place] [address] Marley Rich MD chart prep 07/23/2025 Results Follow-Up [facility] [address] [place] [address] Lumbar Spine w/o Contrast 07/19/2025 Travel 07/15/2025 Refill [facility] [address] [place], [place] [phone] Ashlee Huertas FNP Essential hypertension 07/13/2025 Orders Only GENERIC EXTERNAL DATA DEPARTMENT Provider, Generic External Data 06/27/2025 Results Follow-Up [facility] [address] [place] [address] Marley Rich MD Lipid Panel, Standard, CBC auto differential, Comprehensive Metabolic Panel, Additional followed-up results: 4 06/25/2025 Patient Outreach [facility] [address], [place] [phone] Marley Rich MD Care Coordination (CH[facility] outreach for SDOH PT-1 and food needs-referral completed /) 06/25/2025 Telephone [facility] [address] [place] [address] Marley Rich MD pt1 06/17/2025 Patient Outreach [facility] [address] [place] [address] Marley Rich MD Care Coordination ([facility] outreach for SDOH PT-1 and food needs-referral completed /) 06/17/2025 Telephone [facility] [address] [place] [address] Marley Rich MD PT1 06/17/2025 Telephone [facility] [address] [place], [place] [phone] Marley Rich MD Referral from Last 3 Months Immunizations Immunization Administration Dates Next Due Hep A, Adult 2021,12/18/2019 Influenza injectable quadriv alent IIV4 with preservative 12/06/2019,09/05/2018,09/05/2017 Influenza injectable quadriv alent preservative free 07/26/2023,08/09/2022,09/02/2021,2019 Influenza, High Dose Seasona l, Preservative Free 2025 Influenza, IIV3, injectable 08/06/2024,0 12/15/2016,09/29/2015,2012 Influenza, seasonal, injecta ble, preservative free 08/06/2024 MMR 07/17/2013 Moderna Covid-19 Vaccine 12+ 11/18/2021,03/19/20,02/16/2021 Pfizer Covid-19 Vaccine 12+ 09/17/2025 Pneumococcal Conjugate PCV 20 07/04/2023 RSV Adjuvant [...] Mass Index 36.47 09/17/2025 10:42 AM EDT Plan of Treatment Upcoming Encounters Date Type Department Care Team (Late st Contact Info) Description 09/19/2025 2:00 PM EDT Office Visit [facility] [address] [place] [address] Elbert Martinez DDS [address] [place] [address] 10/28/2025 3:30 PM EST Office Visit [facility] [address] [place] [address] Marley Rich MD [address] [place] [address] 12/31/2025 2:30 PM EST Clinical Support [facility] [address] [place] [address] Aletha Vazquez RN [address] [place] [address] 02/21/2026 1:30 PM EDT Office Visit [facility] [address] [place] [address] Kamran Sherman Health Maintenance Due Date Last Done Comments CT Colonography 1960 FIT DNA/Cologuard 1960 FIT 1960 FOBT 1960 Sigmoidoscopy 1960 Diabetes: Hemoglobin A1C 08/10/2025 024, 09/16/2023, 09/07/2022, Additional history exists Pap Smear 09/09/2025 09/09/2022, 08/28, 09/09/2022 Mammogram 11/03/2025 11/03/2023, 10/31/2021 Dental X-Ray: Full Mouth 12/21/2025 12/20/2022, 11/29 Dental Oral Exam 02/21/2026 08/23/2025, , 08/21/2024, Additional history exists Dental Prophylaxis 02/21/2026 08/23/2025, 0 02/21/2025, 08/21/2024, Additional history exists COVID-19 Vaccine ( season) 2026 09/17/2025, 09/19/2023, 01/26/2023, Additional history exists SDOH Screening 04/30/2026 04/30/2025 Alcohol/Substance Use Screening 06/14/2026 06/14/2025 Depression Screening 06/14/2026 06/14/2025, 06/14/20 Dental X-Ray: Bitewings 08/24/2026 08/23/20, 02/21/2025, 08/21/2024, Additional history exists Tobacco Screening 09/17/2026 09/17/2025 Cervical Cancer Screening 09/09/2027 HPV/Cotest 09/09/2027 09/09/2022 Lipid Panel 06/20/2030 06/20/2025, 03/0 03/2025, 08/10/2024, Additional history exists Colonoscopy 12/30/2032 12/30/2022 Colorectal Cancer Screening 12/30/2032 DTaP/Tdap/Td Vaccines (3 - Td or Tdap) 09/12/2033 09/12/2023, 07/17/2013 Zoster Vaccines Completed 04/08/2020, 12/18/2019 Hepatitis A Vaccines Aged Out 2021, 12/18/19 No longer eligible based on patient's age to complete this topic Hepatitis C Screening Completed 06/06/2023 Pneumococcal Vaccine: 50+ Years Completed 07/04/2023 RSV Patients and Patients Aged 60 years or older Completed 09/26/2023 Influenza Vaccine Completed 2025, , 08/06/2024, Additional history exists HIB Vaccines Aged Out No longer eligi [...] Procedure Name Priority Date/Time Associated Diagnosis Comments CASE PRESENTATION, DETAILED AND EXTENSIVE TREATMENT PLANNING Routine 09/04/2025 1:00 PM EDT 31 DO RESIN-BASED COMPOSITE - 2 SURF, POSTERIOR Routine 09/04/2025 1:00 PM EDT POCT JUAN-14 URINE DRUG SCREEN Routine 08/28/2025 3:24 PM EDT Chronic right-sided low back pain with right-sided sciatica PERIODIC ORAL EVALUATION - ESTABLISHED PATIENT Routine 08/23/2025 2:00 PM EDT CASE PRESENTATION, DETAILED AND EXTENSIVE TREATMENT PLANNING Routine 08/23/2025 2:00 PM EDT INTRAORAL - PERIAPICAL EACH ADDITIONAL RADIOGRAPHIC IMAGE Routine 08/23/2025 2:00 PM EDT INTRAORAL - PERIAPICAL FIRST RADIOGRAPHIC IMAGE Routine 08/23/2025 2:00 PM EDT BITEWINGS - 4 RADIOGRAPHIC IMAGES Routine 08/23/2025 2:00 PM EDT ORAL HYGIENE INSTRUCTIONS Routine 08/23/2025 2:00 PM EDT PROPHYLAXIS - ADULT Routine 08/23/2025 2 :00 PM EDT MR LUMBAR SPINE WO CONTRAST Routine 08/19/2025 12:45 PM EDT Lumbar back pain with radiculopathy affecting right lower extremity URINALYSIS, COMPLETE, WITH REFLEX TO CULTURE Routine 08/19/2025 8:45 AM EDT Acute cystitis without hematuria CALPROTECTIN, STOOL Routine 08/19/2025 8 :45 AM EDT Abnormal laboratory test CT LUMBAR SPINE WO CONTRAST Routine 07/15/2025 [...] Routine 06/20/2025 8:19 AM EDT Other hyperlipidemia HEMOGLOBIN A1C Routine 08/10/2024 8:24 AM EDT [...] Recently Relevant to Health Maintenance Results * POCT JUAN-14 Urine Drug Screen (08/28/2025 3:24 PM EDT) THC Negative Negative Cocaine Screen, Urine Negative Negative Opiate Screen, Urine Negative Negative Methamphetamine Screen Urine Negative Negative Amphetamine Screen, Urine Negative Negative Benzodiazepines Screen, Urine Negative Negative Barbiturate Screen, Urine Negative Negative Methadone Screen, Urine Negative Negative Buprenophine Screen, Urine Negative Negative TCA, Urine Negative Negative MDMA Urine Negative Negative ng/mL Oxycodone Screen, Urine Negative Negative Phencyclidine (PCP), Urine Negative Negative Propoxyphene, Urine Negative Negative Fentanyl, Urine Negative Negative Urine Urine specimen obtained by clean catch procedure / Unknown 08/28/2025 3:24 PM EDT Narrative Aletha Vazquez RN - 08/28/2025 3:24 PM EDT . Internal Pass Control Lot# [id number] Exp: 09-27-26 us Marley Rich MD POINT OF CARE TEST ENTER/EDIT ORDERABLES Final Result * MR Lumbar Spine w/o Contrast (08/19/2025 12:45 PM EDT) Anatomical Region Laterality Modality Spine, L-spine Magnetic Resonan ce 08/19/2025 12:4 5 PM EDT Narrative 08/19/2025 12:47 PM EDT [place] [address] Magnetic Resonance Report Signed Patient: Ruthie Johnston MR #: [id number] : 1960 Acct:[id number] Age/Sex: 65 / F ADM Date: 08/17/25 Loc: HO.MRI Attending Dr: Marley Rich MD Ordering Physician: Marley Rich MD Date of Service: 08/17/25 Procedure(s): MR lumbar spine wo con Accession Number(s): [id number] cc: Marley Rich MD Reason for Exam: Radiculopathy lumbar region CLINICAL HISTORY: Radiculopathy lumbar region MR lumbar spine without gadolinium Comparison: CT/SR - CT LUMBAR SPINE WO IV CON - 07/13/25 09:04 EDT Findings: Normal alignment. No acute fracture or pathologic bone lesion. Cauda equina and conus medullaris within normal limits. Disc desiccation is seen at all levels in the lumbar spine. Mild loss of disc height is noted at L1-L2 and L5-S1 in particular. At T12-L1 there is no significant annular bulge or focal disc herniation. The foramina are patent. At L1-L2 there is a mild annular bulge mildly deforming the dural sac. The foramina are patent. At L2-L3 there is a minimal annular bulge. The foramina are patent. At L3-L4 there is a minimal annular bulge. The neural foramina are patent. At L4-L5 there is a right subarticular disc protrusion. There is no neural foraminal narrowing At L5-S1 there is a minimal annular bulge with mild right neural foraminal narrowing. There is no evidence of nerve root impingement at this or any other level. Hemangiomata are noted at T12, L2 and L4. The paraspinal soft tissues are normal. The visualized abdominal and pelvic contents are within normal limits. IMPRESSION: 1. Hemangiomata at T12, L2 and L4. 2. Multilevel disc desiccation with disc space narrowing particularly at the L1-L2 and L5-S1 levels. 3. Mild to minimal annular bulges are seen at the L1-L2 through L3-L4 and at L5-S1. There is mild right neural foraminal narrowing at L5-S1. 4. Right subarticular disc protrusion at L4-L5. This document has been electronically signed by: Ernesto Pereira MD on 08/19/2025 12:45:33 Dictated By: Ernesto Pereira MD Signed By: <Electronically signed by Ernesto Pereira MD in OV> 08/19/25 1246 DD/ 1245 TD/TT: 08/19/25 1245 [employer] Nurse: Procedure Note Donotuseinterpreter, Image - 08/19/2025 [place] [address] Magnetic Resonance Report Signed Patient: Ruthie JohnstonMR #: [id number] : 1960Acct:[id number] Age/Sex: 65 / FADM Date: 08/17/25 Loc: HO.MRI Attending Dr: Marley Rich MD Ordering Physician: Marley Rich MD Date of Service: 08/17/25 Procedure(s): MR lumbar spine wo con Accession Number(s): [id number] cc: Marley Rich MD Reason for Exam: Radiculopathy lumbar region CLINICAL HISTORY: Radiculopathy lumbar region MR lumbar spine without gadolinium Comparison: CT/SR - CT LUMBAR SPINE WO IV CON - 07/13/25 09:04 EDT Findings: Normal alignment. No acute fracture or pathologic bone lesion. Cauda equina and conus medullaris within normal limits. Disc desiccation is seen at all levels in the lumbar spine. Mild loss of disc height is noted at L1-L2 and L5-S1 in particular. At T12-L1 there is no significant annular bulge or focal disc herniation. The foramina are patent. At L1-L2 there is a mild annular bulge mildly deforming the dural sac. The foramina are patent. At L2-L3 there is a minimal annular bulge. The foramina are patent. At L3-L4 there is a minimal annular bulge. The neural foramina are patent. At L4-L5 there is a right subarticular disc protrusion. There is no neural foraminal narrowing At L5-S1 there is a minimal annular bulge with mild right neural foraminal narrowing. There is no evidence of nerve root impingement at this or any other level. Hemangiomata are noted at T12, L2 and L4. The paraspinal soft tissues are normal. The visualized abdominal and pelvic contents are within normal limits. IMPRESSION: 1. Hemangiomata at T12, L2 and L4. 2. Multilevel disc desiccation with disc space narrowing particularly at the L1-L2 and L5-S1 levels. 3. Mild to minimal annular bulges are seen at the L1-L2 through L3-L4 and at L5-S1. There is mild right neural foraminal narrowing at L5-S1. 4. Right subarticular disc protrusion at L4-L5. This document has been electronically signed by: Ernesto Pereira MD on 08/19/2025 12:45:33 Dictated By: Ernesto Pereira MD Signed By: <Electronically signed by Ernesto Pereira MD in OV> 08/19/25 1246 DD/ 1245 TD/TT: 08/19/25 1245 [employer] Nurse: us Marley Rich MD IMG MRI PROCEDURES Final Resu lt * Urinalysis, Complete, with Reflex to Culture (08/19/2025 8:45 AM EDT) Only the most recent of2 resultswithin the time period is included. Color Urine Yellow [facility] Appearance Urine Clear [facility] PH 6.5 5.0 - 9.0 [facility] Glucose Urine UA Negative Negative mg/dL [facility] Urine Blood Negative Negative [facility] Specific [place] - Urine 1.015 1.005 - 1.025 [facility] Urine Protein Negative Neg-Trace mg/dL [facility] Urine Ketones Negative Negative mg/dL [facility] Nitrite Urine Negative Negative [facility] Leukocyte Esterase Urine Negative Negative [facility] RBC Urine 0-2 0 - 2 /HPF [facility] Urine WBC 0-5 0 - 5 /HPF [facility] Urine Squamous Epithelial Cell 0-2 0 - 2 /HPF [facility] Urine Bacteria None Seen None Seen [facility] Hyaline Casts, Urine 0-2 0 - 2 /LPF [facility] Urine 08/19/2025 8:45 AM EDT 08/19/2025 2:15 PM EDT Narrative [facility] - 08/19/2025 2:24 PM EDT [id number], Clean Catch us Marley Rich MD LAB URINE ORDERABLES Final Re sult Performing Organization Address [facility] Co de Phone Number [facility] [address] [place] [phone] * Calprotectin, Stool (08/19/2025 8:45 AM EDT) Only the most recent of2 resultswithin the time period is included. Calprotectin,Fecal 78 mcg/g [facility] Comment:Reference Range: <50 Normal 50-120 Borderline >120 ElevatedCalprotectin in Crohn's disease and ulcerative colitis canbe five to several thousand times above the referencepopulation (50 mcg/g or less). Levels are usually 50 mcg/gor less in healthy patients and with irritable bowelsyndrome. Repeat testing in 4-6 weeks is suggested forborderline values.THIS TEST WAS PERFORMED AT:[facility] [place] [id number] [facility] [id number] SUN MD,PHD,CHRISTINE Stool 08/19/2025 8:45 AM EDT 08/19/2025 2:23 PM EDT us Marley Rich MD LAB BODY FLUIDS AND STOOLS OR DERABLES Final Result Performing Organization Address [facility] de Phone Number [facility] [address] [place] [phone] * CT Lumbar Spine w/o Contrast (07/15/2025 11:00 PM EDT) Anatomical Region Laterality Modality Spine, L-spine Computed Tomogra phy 07/15/2025 11:0 0 PM EDT Narrative 07/15/2025 11:02 PM EDT [address] [address] [address] Scan Report Signed Patient: Ruthie Johnston MR #: [id number] : 1960 Acct:[id number] Age/Sex: 64 / F ADM Date: 07/13/25 Loc: HO.CT Attending Dr: Marley Rich MD Ordering Physician: Marley Rich MD Date of Service: 07/13/25 Procedure(s): CT lumbar spine wo IV con Accession Number(s): [id number] cc: Marley Rich MD Report Number: [id number]: Total DLP = 790.00 mGy-cm CLINICAL HISTORY: [...] in OV> 07/15/252300 DD/ 99 TD/TT: 07/15/252299 [employer] Nurse: Procedure Note Donotuseinterpreter, Image - 07/15/[address] [place] [address] [address] Scan Report Signed Patient: Ruthie Johnston #: [id number] : 1960Acct:[id number] Age/Sex: 64 / FADM Date: 07/13/25 Loc: HO.CT Attending Dr: Marley Rich MD Ordering Physician: Marley Rich MD Date of Service: 07/13/25 Procedure(s): CT lumbar spine wo IV con Accession Number(s): [id number] cc: Marley Rich MD Report Number: [id number]: Total DLP = 790.00 mGy-cm CLINICAL HISTORY: [...] in OV> 07/15/252300 DD/ 99 TD/TT: 07/15/252299 [employer] Nurse: us Marley Rich MD IMG CT PROCEDURES Final Resul t * (ABNORMAL) CBC auto differential (07/13/2025 10:49 AM EDT) Only the most recent of2 resultswithin the time period is included. White Blood Count 6.9 4.8 - 10.8 X10*3/uL [facility] Red Blood Count 4.70 4.20 - 5.50 X10*6/uL [facility] Hemoglobin 13.8 12.0 - 16.0 g/dl [facility] Hematocrit 40.5 37.0 - 47.0 % [facility] Mean Corpuscular Volume 86.2 80.0 - 98.0 fL [facility] Mean Corpuscular Hemoglobin 29.4 27.0 - 33.0 pg [facility] Mean Corpuscular HGB Conc 34.1 31.0 - 35.0 g/dl [facility] Red Cell Distribution Width 14.9 11.0 - 16.0 % [facility] Platelet Count 246 160 - 400 X10*3/uL [facility] Mean Platelet Volume 8.1(L) 9.4 - 12.3 fL [facility] Neutrophils Percent Auto 66.0 45 - 73 % [facility] Imm Gran Pct Auto 0.3 0.0 - 0.4 % [facility] Lymphocytes Percent Auto 24.0 20 - 40 % [facility] Monocytes Percent Auto 7.9 2 - 11 % [facility] Eosinophils Percent Auto 1.2 0 - 4 % [facility] Basophils Percent Auto 0.6 0 - 2 % [facility] NRBC Pct Auto 0.0 0.0 - 0.2 /100WBC [facility] Neutrophils Absolute Auto 4.5 2.0 - 8.3 x10*3/uL [facility] Imm Gran Abs Auto 0.02 0.00 - 0.03 X10*3/uL [facility] Lymphocytes Absolute Auto 1.7 1.2 - 4.9 X10*3/uL [facility] Monocytes Absolute Auto 0.5 0.1 - 1.2 X10*3/uL [facility] Eosinophils Absolute Auto 0.1 0.0 - 0.4 X10*3/uL [facility] Basophils Absolute Auto 0.0 0.0 - 0.2 X10*3/uL [facility] NRBC Abs Auto 0.000 0.0 - 0.012 X10*3/uL [facility] 07/13/2025 10:4 9 AM EDT 07/13/2025 10:53 AM EDT Generic External Data Provider LAB BLOOD ORDERAB LES Final Result Performing Organization Address [facility]/ZIP Co de Phone Number [facility] [address] [place] [address] [phone] * Magnesium (07/13/2025 10:49 AM EDT) Pathologist [facility] Magnesium 1.9 1.6 - 2.6 mg/dL [facility] 07/13/2025 10:4 9 AM EDT 07/13/2025 10:53 AM EDT Generic External Data Provider LAB BLOOD ORDERAB LES Final Result Performing Organization Address [facility] Co de Phone Number [facility] [address] [place] [phone] * Comprehensive Metabolic Panel (07/13/2025 10:49 AM EDT) Only the most recent of2 resultswithin the time period is included. Sodium 143 135 - 145 mmol/L [facility] Potassium 4.0 3.3 - 5.1 mmol/L [facility] Chloride 104 96 - 108 mmol/L [facility] Carbon Dioxide 27 22 - 29 mmol/L [facility] Anion Gap 16 12 - 20 [facility] Urea Nitrogen (BUN) 15 9 - 16 mg/dL [facility] Creatinine, Serum 0.79 0.5 - 1.4 mg/dL [facility] Creatinine Clr Calc Pharmacy 67.6 [facility] Comment:Provided height and weight: 160.02 cm,70.307 kg.eGFR (calculated from the MDRD study equation) and eCrCl(calculated from the Cockcroft-Gault equation) are based ondifferent parameters and may not yield comparable results.If eCrCl result is absurd, please check patient'sheight/weight. Estimated Glomerular Filt Rate >60 [facility] Comment:Chronic Kidney Disea se: Estimated GFR < 60 mL/min/[id number] Kidney Disease: Estimated GFR < 15 mL/min/1.73m2 Glucose 99 60 - 115 mg/dL [facility] Calcium 9.8 8.4 - 10.2 mg/dL [facility] Bilirubin, Total 0.4 0.0 - 1.0 mg/dL [facility] Aspartate Amino Transferase 21 5 - 31 U/L [facility] Alanine Aminotransferase 8 0 - 31 U/L [facility] Total Protein 7.8 6.5 - 8.0 g/dL [facility] Albumin Level 4.7 3.5 - 5.0 g/dL [facility] Alkaline Phosphatase 81 39 - 117 U/L [facility] 07/13/2025 10:4 9 AM EDT 07/13/2025 10:53 AM EDT us Generic External Data Provider LAB BLOOD ORDERAB LES Final Result [facility] [address] [place] [address] [phone] * Zinc (07/13/2025 9:44 AM EDT) Zinc 71 60 - 130 mcg/dL [facility] Comment:This test was develo ped and its analytical performancecharacteristics have been determined by [employer] [place], [place]. It hasnot been cleared or approved by the U.S. Food and DrugAdministration. This assay has been validated pursuantto the CLIA regulations and is used for clinicalpurposes.THIS TEST WAS PERFORMED AT:[id number] [place] [address]GVMQETNRAJAT COOMBS MD,PHD Blood Venous blood specimen / Unknown 07/13/2025 9:44 AM EDT 07/13/2025 9:44 AM EDT us Marley Rich MD LAB BLOOD ORDERABLES Final Re sult Performing Organization Address [facility] Co de Phone Number [facility] [address] [place] [phone] * Hepatic Function Panel (07/13/2025 9:44 AM EDT) Bilirubin, Total 0.4 0.0 - 1.0 mg/dL [facility] Bilirubin, Direct 0.2 0.0 - 0.5 mg/dL [facility] Aspartate Amino Transferase 23 5 - 31 U/L [facility] Alanine Aminotransferase 10 0 - 31 U/L [facility] Total Protein 7.7 6.5 - 8.0 g/dL [facility] Albumin Level 4.6 3.5 - 5.0 g/dL [facility] Alkaline Phosphatase 80 39 - 117 U/L [facility] Blood Venous blood specimen / Unknown 07/13/2025 9:44 AM EDT 07/13/2025 9:44 AM EDT us Ashlee SUNSHINE LAB BLOOD ORDERABLES Final Res ult Performing Organization Address [facility] Co de Phone Number [facility] [address] [place] [phone] * Culture, Urine, Routine (07/13/2025 12:00 AM EDT) Urine Urine specimen obtained by clean catch procedure / Unknown 07/13/2025 07/13/2025 Comment:UACC Narrative [facility] - 07/15/2025 8:06 AM EDT Escherichia [...] GENERAL ORDERABLES Final Result Performing Organization Address [facility] Co de Phone Number [facility] [address] [place] [phone] * Vitamin B12 (Cobalamin) and Folate Panel, Serum (06/20/2025 8:19 AM EDT) Vitamin B12 478 200 - 900 pg/mL [facility] Comment:NORMAL 200-900 PG/ML INDETERMINATE 160-199 PG/ML DEFICIENT < 160 PG/ML Folate 9.5 > or = 4.0 ng/mL [facility] Comment:Reference Values:> o r = 4.0 ng/mL< 4.0 ng/mL suggests folate deficiency Methotrexate, aminopterin and folinic acid(leucovorin) are chemotherapeutic agents whose molecularstructures are similar to folate; therefore, the Architectfolate assay cannot be used for patients using these drugs. Blood Venous blood specimen / Unknown 06/20/2025 8:19 AM EDT 06/20/2025 2:02 PM EDT us Marley Rich MD LAB BLOOD ORDERABLES Final Re sult Performing Organization Address [facility] Co de Phone Number [facility] [address] [place] [phone] * Iron And Total Iron Binding Capacity (06/20/2025 8:19 AM EDT) Pathologist [facility] Iron 90 30 - 160 mcg/dL [facility] Total Iron Binding Capacity 262 228 - 428 mcg/dL [facility] Percent Iron Saturation 34 15 - 50 % [facility] Unsaturated Iron Binding 172 ug/dL [facility] Blood Venous blood specimen / Unknown 06/20/2025 8:19 AM EDT 06/20/2025 2:02 PM EDT us Marley Rich MD LAB BLOOD ORDERABLES Final Re sult Performing Organization Address [facility]/ZIP Co de Phone Number [facility] [address] [place] [address] [phone] * (ABNORMAL) Ferritin (06/20/2025 8:19 AM EDT) [facility] Ferritin 254(H) 10 - 250 ng/mL [facility] Blood Venous blood specimen / Unknown 06/20/2025 8:19 AM EDT 06/20/2025 2:02 PM EDT us Marley Rich MD LAB BLOOD ORDERABLES Final Re sult Performing Organization Address City/[facility]/ZIP Co de Phone Number [facility] [address] [place] [address] [phone] * Lipid Panel, Standard (06/20/2025 8:19 AM EDT) Pathologist [facility] Triglycerides 59 <150 mg/dL [facility] Comment:Desirable Triglyceri de: less than 150 mg/dLBorderline High Triglyceride 150-199 mg/dLHigh Triglyceride: 200-499 mg/dLVery High Triglyceride: greater than or equal to 5OO mg/dL Cholesterol 111 <200 mg/dL [facility] Comment:Desirable Cholestero l: less than 200 mg/dLBorderline High Cholesterol: 200-239 mg/dLHigh Cholesterol: greater than 239 mg/dL LDL Cholesterol Calculated 45 <100 mg/dL [facility] Comment:Desirable LDL: less than 100 mg/dLNear Optimal/Above Optimal LDL: 110- 129 mg/dLBorderline High LDL: 130-159 mg/dLHigh LDL: 160-189 mg/dLVery High LDL: greater than or equal to 190 mg/dL HDL Cholesterol 55 >40 mg/dL [facility] Comment:Desirable HDL: great er than 40 mg/dL Note: This HDL assay may give artificially low results in patients with liver disease. Blood Venous blood specimen / Unknown 06/20/2025 8:19 AM EDT 06/20/2025 2:02 PM EDT Marley Rich MD LAB BLOOD ORDERABLES Final Re sult Performing Organization Address [facility] de Phone Number [facility] [address] [place] [phone] * Hemoglobin A1c (08/10/2024 8:24 AM EDT) Hemoglobin A1c 5.4 <6.0 % [facility] Comment:Hemoglobin A1C Refer ence Range Adults: 4.8 - 6.0 % Non diabetic: < 6.0 % Goal: < 7.0 %Additional Action Suggested: > 8.0 %Note: Hemoglobin A1c results are invalid for patients with abnormal amounts of HbF. Blood transfusions may impact the HbA1c concentration in the patient sample. Estimated Average Glucose 108 mg/dL [facility] Comment:eAG = Estimated ave rage glucose which is %A1C expressed asaverage glucose, using the formula of the W9F-GluewhcRuksqkl Glucose study (ADAG), Diabetes Care, Vol.31,#8,Jun. 2007 Blood Venous blood specimen / Unknown 08/10/2024 8:24 AM EDT 08/10/2024 2:52 PM EDT Marley Rich MD LAB BLOOD ORDERABLES Final Re sult Performing Organization Address [facility] Co de Phone Number [facility] [address] [place] [phone] * Mammography (11/03/2023) Pathologist [facility] Mammogram BIRADS 1 Normal, Abnormal, BIRADS 1 , BIRADS 2 Anatomical Region Laterality Modality Other Marley Rich MD HEALTH MAINTENANCE Final Resu lt * Hepatitis Panel, General (06/06/2023 11:38 AM EDT) [facility] Hepatitis A IgM Nonreactive Nonreactive [facility] Comment:IgM antibodies to CASTILLO V not detected; does not exclude earlyacute or recovered HAV infection. ~Hepatitis B Surface Antibody NONREACTIVE Nonreactive [facility] Comment:Nonreactive: < 8.00 mIU/mL Hepatitis B Core Antibody Nonreactive Nonreactive [facility] Hepatitis C Antibody Nonreactive Nonreactive [facility] Comment:Antibodies to HCV no t detected; does not exclude early acuteHCV infection. Hepatitis B Surface Ag Negative Negative [facility] 06/06/2023 11:3 8 AM EDT 06/06/2023 2:12 PM EDT [facility] External Provider LAB BLO OD ORDERABLES Final Result [facility] [address] [place] [phone] * Colonoscopy (12/30/2022) [facility] Colonoscopy Normal Normal 12/30/2022 Historical Provider HEALTH MAINTENANCE Edited Result - Final * THINPREP TIS PAP AND HPV mRNA E6/E7, CT/NG, TRICH (09/09/2022 12:00 AM EDT) [facility] Chlamydia trachomatis RNA, TMA, Urogenital NOT DETECTED NOT DETECTED [facility] Clinical Information: None given [facility] COMMENT SEE COMMENT [facility] Comment: The analytical performance characteristics of this assay, when used to test SurePath(TM) specimens have been determined by [employer]. The modifications have not been cleared or approved by the FDA. This assay has been validated pursuant to the CLIA regulations and is used for clinical purposes. For additional information, please refer to https://education.Abroad101/faq/IBP721 (This link is being provided for information/ [...] been evaluated with computer assisted technology. [facility] Ornamental Painter: SEE COMMENT [facility] Comment: ED, CT(ASCP) CT screening location: [place] [address] HPV nRNA E6/E7 Not Detected Not Detected [facility] Comment: Methodology: Glass Rolling Machine Operator-Mediated Amplification This assay detects E6/E7 viral messenger RNA (mRNA) from 14 high-risk HPV types (16,18,31,33,35,39,45,51,52,56,58,59,66,68). Cervical sources are required for HPV testing. If a vaginal source from a patient who has had a total hysterectomy with removal of cervix was submitted, please contact the testing laboratory for alternative testing options. For additional information, please refer to http://Vanilla Breeze.Abroad101/faq/RDH974k7 (This link if provided for information/ educational [...] of this assay have been determined by [employer]. The modifications have not been cleared or approved by the FDA. This assay has been validated pursuant to the CLIA regulations and is used for clinical purposes. For additional information, please refer to http://education.Abroad101/ faq/Trichomonastma (This link is being provided for information/ educational purposes only.) 09/09/2022 us Marley Rich MD LAB PATHOLOGY ORDERABLES Alethea l Result [facility] * Pap Smear (09/09/2022 12:00 AM EDT) Swab us Historical Provider MD LAB CYTOLOGY ORDERABLES F inal Result [facility] [address], [place] [address] from Last 3 Months or Most Recently Relevant to Health Maintenance Insurance [facility] ALF OPTIONS (O D-SNP) DANI DAVE [id number] D[facility]AL-[facility] MEDICAID STAND ADULT Care Teams Hand Cementer Relationship Specialty Start Date End Date Marley Rich MD [address] [place] [phone] PCP - General Family Medicine 11/25/21
--- OUTSIDE RECORDS SUMMARY | 2025-09-17 19:14 | XMS_ITS | Encounter Summary ---
Author Organization [employer] Address [address] [place] [address] 7 [place] [address] Care Team Providers Care Printing Bindery Assistant Name Role Phone Marley Rich MD Primary Care Provider [phone] Reason for Visit * Reason Comments Med Refill Encounter Details Date Type Department Care Team ([facility] st Contact Info) Description 01/19/2025 Refill [facility]ULT [facility] [address] [place] [address] Carl [place], DMD [address] [place] [address] Dental caries Social History Tobacco Use Types [...] Description 09/19/2025 2:00 PM EDT Office Visit [facility] ADULT DENTAL [address] [place] [address] Elbert Martinez DDS [address] [place] [address] 10/28/2025 3:30 PM EST Office Visit [facility] [address] [place] [address] Marley Rich MD [address] [place] [address] 12/31/2025 2:30 PM EST Clinical Support [facility] [address] [place] [address] Aletha Vazquez, EAN [address] [place] [address] 02/21/2026 1:30 PM EDT Office Visit [facility] ADULT DENTAL [address] [place] [address] Kamran Sherman documented as of this encounter [...] documented as of this encounter Care Teams Printing Bindery Assistant Relationship Specialty Start Date End Date Marley Rich MD [address] [place] [phone] PCP - General Family Medicine 11/25/21 documented as of this encounter
--- OUTSIDE RECORDS SUMMARY | 2025-09-17 19:14 | XMS_ITS | Encounter Summary ---
Author Organization [employer] Address [address] [place] [address] [address] [place] [address] Care Team Providers Care Lens Molding Equipment Operator Name Role Phone Marley Rich MD Primary Care Provider [phone] Encounter Details Date Type Department Care Team (Latest Contact Info) Description 09/17/2025 Travel Social History Tobacco Use Types Packs/Day Years [...] 09/19/2025 2:00 PM EDT Office Visit [facility] [address] [place] [address] Elbert Martinez DDS [address] [place] [address] 10/28/2025 3:30 PM EST Office Visit [facility] [address] [place] [address] Marley Rich MD [address] [place] [address] 12/31/2025 2:30 PM EST Clinical Support [facility] [address] [place] [address] Aletha Vazquez RN [address] [place] [address] 02/21/2026 1:30 PM EDT Office Visit [facility] [address] [place] [address] Kamran Sherman documented as of this encounter [...] documented as of this encounter Care Teams Lens Molding Equipment Operator Relationship Specialty Start Date End Date Marley Rich MD [address] [place] [address] PCP - General Family Medicine 11/25/21 documented as of this encounter
--- OUTSIDE RECORDS SUMMARY | 2025-09-17 19:14 | XMS_ITS | Encounter Summary ---
Author Organization [employer] Address [address] [place] [address] 7 [place] [address] Care Team Providers Care Grain I Farmworker Name Role Phone Marley Rich MD Primary Care Provider [phone] Reason for Visit * Reason Onset Date Comments [facility] 03/23/2024 Encounter Details Date Type Department Care Team ([facility] st Contact Info) Description 03/23/2024 Telephone [facility] MEDICINE [address] [place] [address] Marley Rich MD [address] [place] [address] [facility] Social History Tobacco Use Types Packs/Day [...] 09/19/2025 2:00 PM EDT Office Visit [facility] ADULT DENTAL [address] [place] [address] Elbert Martinez, PATIENCE [address] [place] [address] 10/28/2025 3:30 PM EST Office Visit [facility] [address] [place] [address] Marley Rich MD [address] [place] [address] 12/31/2025 2:30 PM EST Clinical Support [facility] [address] [place] [address] Aletha Vazquez, EAN [address] [place] [address] 02/21/2026 1:30 PM EDT Office Visit [facility] ADULT DENTAL [address] [place] [address] Kamran Sherman documented as of this encounter [...] as of this encounter Care Teams Grain I Farmworker Relationship Specialty Start Date End Date Marley Rich MD [address] [place] [address] PCP - General Family Medicine 11/25/21 documented as of this encounter
--- OUTSIDE RECORDS SUMMARY | 2025-09-17 19:14 | XMS_ITS | Encounter Summary ---
Author Organization [employer] Address [address] [place] [address] 7t [place] [address] Care Team Providers Care Insurance Instructor Name Role Phone Marley Rich MD Primary Care Provider [phone] Reason for Visit * Reason Comments Med Refill Encounter Details Date Type Department Care Team (Late st Contact Info) Description 03/23/2025 Refill [facility] [address] [place] [address] [phone] Kashif Layne MD [address] [place], [place] [phone] Social History Tobacco Use Types Packs/Day Years [...] Description 09/19/2025 2:00 PM EDT Office Visit [facility] ADULT DENTAL [address] [place] [address] Elbert Martinez DDS [address] [place] [address] 10/28/2025 3:30 PM EST Office Visit [facility] MED [facility] PEDS [address] [place] [address] Marley Rich MD [address] [place] [address] 12/31/2025 2:30 PM EST Clinical Support [facility] [address] [place] [address] Aletha Vazquez, EAN [address] [place] [address] 02/21/2026 1:30 PM EDT Office Visit [facility] ADULT DENTAL [address] [place] [address] Kamran Sherman documented as of this encounter [...] as of this encounter Care Teams Insurance Instructor Relationship Specialty Start Date End Date Marley Rich MD [address] [place] [phone] PCP - General Family Medicine 11/25/21 documented as of this encounter
--- OUTSIDE RECORDS SUMMARY | 2025-09-17 19:14 | XMS_ITS | Encounter Summary ---
Author Organization [employer] Address [address] [place] [address] [address] [place] [address] Care Team Providers Care Data Abstractor Name Role Phone Marley Rich MD Primary Care Provider [phone] Encounter Details Date Type Department Care Team (Late st Contact Info) Description 10/13/2023 Abstract [facility] MEDICINE [address] [place] [address] Mily Calderon Social History Tobacco Use Types [...] Description 09/19/2025 2:00 PM EDT Office Visit [facility] ADULT DENTAL [address] [place] [address] Elbert Martinez DDS [address] [place] [address] 10/28/2025 3:30 PM EST Office Visit [facility] MED [facility]ED[facility] [address] [place] [address] Marley Rich MD [address] [place] [address] 12/31/2025 2:30 PM EST Clinical Support [facility] [address] [place] [address] Aletha Vazquez, RN [address] [place] [address] 02/21/2026 1:30 PM EDT Office Visit [facility] ADULT DENTAL [address] [place] [address] Kamran Sherman documented as of this encounter Visit Diagnoses Not on filedocumented in this encounter Additional Health Concerns Assessment Noted Time PHQ-9 Depression Total Score: 10 023 11:29 AM EDT documented as of this encounter Care Teams Data Abstractor Relationship Specialty Start Date End Date Marley Rich MD [address] [place] [address] PCP - General Family Medicine 11/25/21 documented as of this encounter
--- OUTSIDE RECORDS SUMMARY | 2025-09-17 19:14 | XMS_ITS | Data Portability ---
Author Organization [place] - [facility], Allergy Address [address] [place] [phone] Assessment Encounter Date Assessment Date Assessment LastModified [...] Procedures home sleep testing (PROC) 024 024 Sleep Medicine Services, [facility]0 [place], [address], 4 11:12:14 Surgeries None recorded. Imaging None [...] Sensorineur al hearing loss of bilateral ears 386079923 Active 2023 QUINCY HERNANDEZ , BERHANE [address], [facility] [place], [address], [facility] - [facility] [place] 4 15:02:30 Bilateral tinnitus 8226698506160 Active 2023 QUINCY HERNANDEZ , BERHANE 100 [facility], [facility] [place], [address], [facility] - [facility] [place] 4 15:02:42 Sensorineur al hearing loss of bilateral ears 318429810 Active 2023 QUINCY HERNANDEZ , AUD 100 [facility], [facility] [place], [address], [facility] - [facility] [place] 4 15:02:54 Central perforation of right tympanic membrane 8014018440942 101 Active 2023 DANIELLE LOREDO MD 100 [facility],[address], [place], [address], [facility] - [facility] [place] 4 15:48:50 Snoring 47364200 Active 2023 DANIELLE LOREDO MD 100 [facility], [place], [address], [facility] - [facility] [place] 4 15:49:05 Problem Notes None recorded. Procedures Surgical History Date Name Laterality Status Provider Name and Address Organization Details Recorded Time 4 Comp Audio with Tymps - 29846 & 39027 completed BERHANE AKINS 100 [facility],[address], [address], [facility] - [facility] [place] 04/13/2024 15:02:06 procedure on urinary bladder completed Ray Galvan [place] - [facility] [place] 04/13/2024 15:16:05 hernia repair completed Ray Galvan [place] [facility] [place] 04/13/2024 15:16:30 Imaging Results None recorded. Procedure [...] Updated DateTime 04/13/2024 185.42 cm 26.4 kg/m2 39065.47 g Ray Galvan [place] - [facility] 04/13/2024 15:18:16 Social History None recorded. Functional Status Question Answer Note LastModified by Organizat ion Details LastModified Time Do you use any illicit or recreational drugs? No [email or web address] Information not available 04/13/2024 Do you or have you ever used any other forms of tobacco or nicotine? No [email or web address] Information not available 04/13/2024 What is your level of alcohol consumption? None [email or web address] Information not available 04/13/2024 Mental Status None recorded. Family History Nothing Reported. Medical History Condition Response Allergies/Hayfever N Heart Problems N Anxiety Y Tonsil Infections N Emphysema N Migraines Y Thyroid Problems N Glaucoma N Developmental Delay N Depression Y Nasal or Sinus Problems N Anemia N Anesthesia Complications N Heart Attack ([place]) N Other Skin Condition N Diabetes Y Rhinitis N Bleeding Disorder N Food Allergy N Hearing Loss Y Arthritis N Cancer N Stroke N Dementia N Asthma N Sleep Disorder N High Cholesterol Y Liver Disease N Headaches Y Fibromyalgia N Hypertension Y Speech Delay N Kidney Disease N Gynecological HistoryNo gynecological history recorded. Obstetrics History GPAL:G 0 P 0 0 0 0 Past Encounters Encounter ID Performer Location Encounter Start Date Encounter Closed Date Diagnosis/Indication Diagnosis SNOMED-CT Code Diagnosis ICD10 Code Diagnosis IMO Codes Diagnosis Note [id number] DANIELLE RON MD [facility] of [address] [address] 04/13/2024 14:14:08 04/13/2024 15:57:41 Sensorineural hearing loss of bilateral ears 467060983 H90.3 Audiometri c evaluation results: Right ear: Borderline normal to moderate SNHL with excellent speech discrimina tion. Left ear: Mild SNHL with excellent speech discrimina tion. Tympanomet ry: Right Ear:Type B with large volume Left Ear:Type A Recommenda tions include:Pa tient may want to consider amplificat ion pending medical clearance. Bilateral tinnitus [address] 102 H93.13 Central pe rforation of right tympanic membrane 4768310774 088314 H72.01 Snoring 09716794 R06.83 Health Concerns Section Related Observation LastModified by Organization Detai ls LastModified Time None Recorded Concern Status LastModified by Organization Details LastModified Time None Recorded Advance Directives Directive None Recorded Payers Insurance Date Sequence Insurance Name Policy Number Policy Milian Covered Member ID Milian Member ID Guarantor Name 04/13/2024 1 MEDICAID-[place]: [facility] Ruthie Powell [id number] Ruthie Powell Notes Date Note Type Note [...] but no true vertigo DANIELLE DOMINGUEZ MD [address] [place] [address], [phone], [facility] - [facility] 04/13/2024 15:50:27 OBGyn Episode No OBEpisode recorded.
--- OUTSIDE RECORDS SUMMARY | 2025-09-17 19:14 | XMS_ITS | Encounter Summary ---
Author Organization [employer] Address [address] [place] [address] [place] [address] Care Team Providers Care Glove Wrapper Name Role Phone Marley Rich MD Primary Care Provider [phone] Encounter Details Date Type Department Care Team (Late st Contact Info) Description 10/25/2022 Abstract [facility] [address] [place] [address] Provider, MD Jomar Social History Tobacco Use [...] [facility]ULT [facility] [address] [place] [address] Elbert Martinez DDS 230 [place] [address] 10/28/2025 3:30 PM EST Office Visit [facility] MED & PEDS 505 [place] [address] Marley Rich MD 505 [place], [place] [phone] 12/31/2025 2:30 PM EST Clinical Support [facility] MED & PEDS 505 [place] [address] Aletha Vazquez, EAN [address] [place] [address] 02/21/2026 1:30 PM EDT Office Visit [facility] ADULT DENTAL [address] [place] [address] Kamran Sherman documented as of this encounter Visit Diagnoses Not on filedocumented in this encounter Care Teams Glove Wrapper Relationship Specialty Start Date End Date Marley Rich MD [address] [place] [address] PCP - General Family Medicine 11/25/21 documented as of this encounter
--- OUTSIDE RECORDS SUMMARY | 2025-09-17 19:14 | XMS_ITS | Encounter Summary ---
Author Organization [employer] Address [address] [place] [address] 7 [place] [address] Care Team Providers Care Women'S Swim Coach Name Role Phone Marley Rich MD Primary Care Provider [phone] Reason for Visit * Reason Onset Date Comments Dr. Casillas continued pain 03/04/2025 Encounter Details Date Type Department Care Team ([facility] st Contact Info) Description 03/04/2025 Telephone [facility] ADULT DENTAL [address] [place] [address] Carl Casillas, DMD [address] [place], [place] [phone] Dr. Casillas continued pain Social History Tobacco [...] [facility] AD[facility] [address] [place] [address] Elbert Martinez DDS 230 [place] [address] 10/28/2025 3:30 PM EST Office Visit [facility] MED & PEDS [address] [place] [address] Marley Rich MD 505 [place], [place] [phone] 12/31/2025 2:30 PM EST Clinical Support [facility] MED & PEDS [address] [place] [address] Aletha Vazquez, RN [address] [place] [address] 02/21/2026 1:30 PM EDT Office Visit [facility] ADULT DENTAL [address] [place] [address] Kamran Sherman documented as of this encounter [...] documented as of this encounter Care Teams Women'S Swim Coach Relationship Specialty Start Date End Date Marley Rich MD [address] [place] [address] PCP - General Family Medicine 11/25/21 documented as of this encounter
--- OUTSIDE RECORDS SUMMARY | 2025-09-17 19:14 | XMS_ITS | Encounter Summary ---
Author Organization [employer] Address [address] [place] [address] 7 [place] [address] Care Team Providers Care Medical Records Coder Name Role Phone Marley Rich MD Primary Care Provider [phone] Encounter Details Date Type Department Care Team (Late st Contact Info) Description 07/23/2025 Results [facility] MED & PEDS [address] [place] [address] Marley Rich MD [address] [place] [address] CT Lumbar Spine w/o Contrast Social History [...] Visit [facility] ADULT DENTAL [address] [place] [address] Elbert Martinez DDS 230 [place] [address] 10/28/2025 3:30 PM EST Office Visit [facility] MED [facility] PEDS [address] [place] [address] Marley Rich MD 505 [place] [address] 12/31/2025 2:30 PM EST Clinical Support [facility] MED [facility] PEDS [address] [place] [address] Aletha Vazquez RN 505 [place] [address] 02/21/2026 1:30 PM EDT Office Visit [facility] ADULT DENTAL [address] [place] [address] Kamran Sherman documented as of this encounter [...] documented as of this encounter Care Teams Medical Records Coder Relationship Specialty Start Date End Date Marley Rich MD 230 [place] [address] PCP - General Family Medicine 11/25/21 documented as of this encounter
--- OUTSIDE RECORDS SUMMARY | 2025-09-17 19:14 | XMS_ITS | Clinical Summary ---
Author Organization [facility] Address [address] [facility] [address] [place] [address] Phone Care Team Providers Care Storm Window Installer Name Role Phone Veronique Jack MD Primary Care Provider [phone] Allergies No known active allergies Medications gabapentin [...] Upcoming Encounters Date Type Department Care Team ([facility] st Contact Info) Description 12/24/2025 9:00 AM EST Office Visit [facility] in [address] [address] Chauncey Kurtz, OD 50 [place] [address] [email or web address] 12/24/2025 9:15 AM EST Procedure visit [facility] in [address] [address] Health Maintenance Due Date Last Done Comments [...] 2010 INFLUENZA VACCINE (#1) 2025 COVID-19 VACCINE ( - 2024-2 6 season) 2025 OSTEOPOROSIS SCREENING INITI AL (ONE-TIME) 2025 LIPID PANEL 08/10/2029 08/10/2024, 09/16/2023 Adult Td,Tdap [...] topic Medical Devices Not on file [place] [address] [place] [address] [address] [address] [place] [address] [employer] [address] [place] [address] Care Teams Storm Window Installer Relationship Specialty Start Date End Date Veronique Jack MD [address] [place] [address] [email or web address] PCP - General Internal Medicine 07/04/20 Additional Source Comments The information contained in this document represents components of the legal health record. It is not the complete legal health record.[facility]
--- OUTSIDE RECORDS SUMMARY | 2025-09-17 19:14 | XMS_ITS | Encounter Summary ---
Author Organization [facility] Address [address] [address] Phone Care Team Providers Care Stem Shaper Name Role Phone Unknown, Unknown Primary Care Provider Veronique Jackson MD Primary Care Provider [phone] Reason for Referral * Physical Therapy (Within 1 month) - Closed Specialty Diagnoses / Procedures Referred By Contac t Referred To Contact Physical Therapy Diagnoses Traumatic injury of head, sequela Sergei Luis MD Phone: tel: fax: mailto:[email or web address] Page PT Phone: tel: mailto:[email or web address] Referral ID Status Reason Start Date Expiration Date Visits Re quested Visits Authorized [id number] Closed 01/28/2020 04/07/2020 9 9 Encounter Details Date Type Department Care Team (Latest Contact Info) Description 01/28/2020 Transcribe Orders [facility] [address] [place] [address] Sergei Luis MD [address] [place] [address], [place] [address] [email or web address] Traumatic injury of head, sequela (Primary Dx) [...] Upcoming Encounters Date Type Department Care Team ([facility] st Contact Info) Description 12/24/2025 9:00 AM EST Office Visit [facility] in [address] [address] Chauncey Kurtz OD 50 [place] [address] [email or web address] 12/24/2025 9:15 AM EST Procedure visit [facility] in [address] [address] Scheduled Referrals Name Type Priority Associated Diagnoses Order Schedule Ambulatory referral to N Physical Therapy Outpatient Referral Routine Traumatic injury of head, sequela Ordered: 01/28/2020 documented as of this encounter Visit Diagnoses Diagnosis Traumatic injury of head, sequela- Primary documented in this encounter Care Teams Stem Shaper Relationship Specialty Start Date End Date Unknown, Unknown, MD PCP - General 12/20/19 07/03/20 Veronique Jack MD [address] [place] [address] [email or web address] PCP - General Internal Medicine 07/04/20 documented as of this encounter Additional Source Comments The information contained in this document represents components of the legal health record. It is not the complete legal health record.[facility]
--- OUTSIDE RECORDS SUMMARY | 2025-09-17 19:14 | XMS_ITS | Encounter Summary ---
Author Organization [employer] Address [address] [place] [address] 7 [place] [address] Care Team Providers Care Career Services Assistant Name Role Phone Marley Rich MD Primary Care Provider [phone] Reason for Visit * Reason Onset Date Comments PT-1 08/22/2024 Encounter Details Date Type Department Care Team (Late st Contact Info) Description 08/22/2024 Telephone [facility] MEDICINE 230 [place] [address] Marley Rich MD 505 [place] [address] PT-1 Social History Tobacco Use Types Packs/Day [...] Y/N: Yes Provider name or facility name: [facility] Facility Address: [address] [place] [address] Escort needed: Y/N: No Do you have a wheelchair: Y/N: No If yes- Manual or electric: no Visits: 6 documented in this encounter Plan of Treatment Upcoming Encounters Date Type Department Care Team (Late st Contact Info) Description 09/19/2025 2:00 PM EDT Office Visit [facility] ADULT DENTAL 505 [place] [address] Elbert Martinez DDS 230 [place] [address] 10/28/2025 3:30 PM EST Office Visit [facility] MED & PEDS [address] [place] [address] Marley Rich MD 505 [place] [address] 12/31/2025 2:30 PM EST Clinical Support [facility] MED & PEDS [address] [place] [address] Aletha Vazquez, RN [address] [place] [address] 02/21/2026 1:30 PM EDT Office Visit [facility] ADULT DENTAL [address] [place] [address] Kamran Sherman documented as of this encounter [...] documented as of this encounter Care Teams Career Services Assistant Relationship Specialty Start Date End Date Marley Rich MD 230 [place] [address] PCP - General Family Medicine 11/25/21 documented as of this encounter
--- OUTSIDE RECORDS SUMMARY | 2025-09-17 19:14 | XMS_ITS | Encounter Summary ---
Author Organization [email or web address] Address [address] [place] [address] 7 [place] [address] Care Team Providers Care Arc And Gas Welder Name Role Phone Marley Rich MD Primary Care Provider [phone] Reason for Visit * Reason Onset Date Comments PT-1 03/29/2024 Encounter Details Date Type Department Care Team (Late st Contact Info) Description 03/29/2024 Telephone [facility] MEDICINE 230 [place] [address] Marley Rich MD 505 [place] [address] PT-1 Social History Tobacco Use Types Packs/Day [...] Y/N: Yes Provider name or facility name: [facility] Facility Address: [address] [place] [address] Escort needed: Y/N: No Do you have a wheelchair: Y/N: No If yes- Manual or electric: no Visits: 3 documented in this encounter Plan of Treatment Upcoming Encounters Date Type Department Care Team ([facility] st Contact Info) Description 09/19/2025 2:00 PM EDT Office Visit [facility] ADULT DENTAL [address] [place] [address] Elbert Martinez DDS 230 [place], [place] [phone] 10/28/2025 3:30 PM EST Office Visit [facility] MED & PEDS 505 [place] [address] Marley Rich MD 505 [place] [address] 12/31/2025 2:30 PM EST Clinical Support [facility] MED & PEDS [address] [place] [address] Aletha Vazquez, EAN 505 [place] [address] 02/21/2026 1:30 PM EDT Office Visit [facility] ADULT DENTAL 505 [place] [address] Kamran Sherman documented as of this encounter Goals Goal Patient Goal Type Associated Problems Recent Progress Patient-Stated? Author Blood Pressure < 150/90 Blood Pressure 162/94(2024 11:01 AM EDT) No Mary Higgins, Isabelle Immunization General No Mary Higgins, Isabelle Note: Receive all recommended vaccines: due for RSV documented as of this encounter Visit Diagnoses Not on filedocumented in this encounter Additional Health Concerns Assessment Noted Time PHQ-9 Depression Total Score: 11 024 10:07 AM EST documented as of this encounter Care Teams Arc And Gas Welder Relationship Specialty Start Date End Date Marley Rich MD [address] [place] [address] PCP - General Family Medicine 11/25/21 documented as of this encounter
--- OUTSIDE RECORDS SUMMARY | 2025-09-17 19:14 | XMS_ITS | Encounter Summary ---
Author Organization [employer] Address [address] [place] [address] 7t [place] [address] Care Team Providers Care Photovoltaic Panel Installer Name Role Phone Marley Rich MD Primary Care Provider [phone] Encounter Details Date Type Department Care Team ([facility] st Contact Info) Description 06/06/2024 Telephone [facility] MED & PEDS [address] [place] [address] Marley Rich MD 505 [place] [address] Social History Tobacco Use Types Packs/Day Years [...] Visit [facility] ADULT DENTAL 505 [place] [address] Elbert Martinez DDS 230 [place] [address] 10/28/2025 3:30 PM EST Office Visit [facility] MED [facility] PEDS [address] [place] [address] Marley Rich MD 505 [place] [address] 12/31/2025 2:30 PM EST Clinical Support [facility] MED & PEDS 505 [place] [address] Aletha Vazquez RN [address] [place] [address] 02/21/2026 1:30 PM EDT Office Visit [facility] ADULT DENTAL [address] [place] [address] Kamran Sherman documented as of this encounter [...] documented as of this encounter Care Teams Photovoltaic Panel Installer Relationship Specialty Start Date End Date Marley Rich MD [address] [place] [address] PCP - General Family Medicine 11/25/21 documented as of this encounter
--- OUTSIDE RECORDS SUMMARY | 2025-09-17 19:14 | XMS_ITS | Encounter Summary ---
Author Organization [employer] Address [address] [place] [address] 7t [place] [address] Care Team Providers Care Curtain Supervisor Name Role Phone Marley Rich MD Primary Care Provider [phone] Encounter Details Date Type Department Care Team ([facility] st Contact Info) Description 09/07/2023 Telephone [facility] MED[facility]INE 230 [place] [address] Marley Rich MD 505 [place] [address] Social History Tobacco Use Types Packs/Day Years [...] Description 09/19/2025 2:00 PM EDT Office Visit [facility] ADULT DENTAL 505 [place] [address] Elbert Martinez DDS 230 [place] [address] 10/28/2025 3:30 PM EST Office Visit [facility] MED & PEDS [address] [place] [address] Marley Rich MD 505 [place] [address] 12/31/2025 2:30 PM EST Clinical Support [facility] MED & PEDS [address] [place] [address] Aletha Vazquez, EAN 505 [place] [address] 02/21/2026 1:30 PM EDT Office Visit [facility] ADULT DENTAL 505 [place] [address] Kamran Sherman documented as of this encounter Visit Diagnoses Not on filedocumented in this encounter Additional Health Concerns Assessment Noted Time PHQ-9 Depression Total Score: 10 023 11:29 AM EDT documented as of this encounter Care Teams Curtain Supervisor Relationship Specialty Start Date End Date Marley Rich MD 230 [place] [address] PCP - General Family Medicine 11/25/21 documented as of this encounter
--- OUTSIDE RECORDS SUMMARY | 2025-09-17 19:14 | XMS_ITS | Encounter Summary ---
Author Organization [employer] Address [address] [place] [address] [place] [address] Care Team Providers Care Industrial Methods Consultant Name Role Phone Marley Rich MD Primary Care Provider [phone] Reason for Referral * Consultation (Routine) - Closed Specialty Diagnoses / Procedures Referred By Rhina spain Referred To Contact Ophthalmology Diagnoses Essential hypertension Eriberto Sherman MD [address] [place] [address] Phone: tel: fax: Referral ID Status Reason Start Date Expiration Date V isits Requested Visits Authorized [id number] Closed Specialty Services Required 08/28/2025 08/28/2026 1 1 Encounter Details Date Type Department Care Team (Late st Contact Info) Description 08/28/2025 Orders Only [facility] CHC MED & PEDS [address] [place] [address] Eriberto Sherman MD [address] [place] [address] Essential hypertension (Primary Dx) Social History Tobacco Use Types [...] PM EST documented as of this encounter Functional Status * Over the last 2 weeks, how often have you been bothered by any of the following problems? Question Answer Date of Assessment Author Feeling nervous, anxious, or on edge 3 08/28/2025 3:41 PM EDT Aletha Vazquez RN Not being able to stop or co ntrol worrying 2 08/28/2025 3:41 PM EDT Aletha Vazquez RN Worrying too much about diff erent things 3 08/28/2025 3:41 PM EDT Aletha Vazquez RN Trouble relaxing 3 08/28/2025 3:41 PM EDT M cMann, Aletha, RN Being so restless that it is hard to sit still 1 08/28/2025 3:41 PM EDT Aletha Vazquez RN Becoming easily annoyed or irritable 2 08/28/2025 3:41 PM EDT Aletha Vazquez RN Feeling afraid as if somethi ng awful might happen 2 08/28/2025 3:41 PM EDT Aletha Vazquez RN NOBLE-7 Total Score 16 08/28/2025 3:41 PM EDT Aletha Vazquez RN documented as of this encounter Plan of Treatment Upcoming Encounters Date Type Department Care Team (Late st Contact Info) Description 09/19/2025 2:00 PM EDT Office Visit [facility] ADULT DENTAL [address] [place] [address] Elbert Martinez DDS [address] [place] [address] 10/28/2025 3:30 PM EST Office Visit [facility] MED & PEDS [address] [place] [address] Marley Rich MD 505 [place] [address] 12/31/2025 2:30 PM EST Clinical Support [facility] MED & PEDS [address] [place] [address] Aletha Vazquez, EAN 505 [place] [address] 02/21/2026 1:30 PM EDT Office Visit [facility] ADULT DENTAL [address] [place] [address] Kamran Sherman Scheduled Referrals Name Type Priority Associated Diagnoses Orde r Schedule Referral to Ophthalmology Outpatient Referral Routine Essential hypertension Expected: 08/28/2025 (Approximate), Expires: 08/28/2026 documented as of this encounter Goals Goal Patient Goal Type Associated Problems Recent Progress Patient-Stated? Author Blood Pressure < 150/90 Blood Pressure 162/94(2024 11:01 AM EDT) No Mary Higgins, Isabelle Immunization General No Mary Higgins, PharmD Note: Receive all recommended vaccines: due for RSV documented as of this encounter Visit Diagnoses Diagnosis Essential hypertension- Primary Unspecified essential hypertension documented in this encounter Additional Health Concerns Assessment Noted Time PHQ-9 Depression Total Score: 0 06/14/20 25 10:14 AM EDT documented as of this encounter Care Teams Industrial Methods Consultant Relationship Specialty Start Date End Date Marley Rich MD [address] [place] [address] PCP - General Family Medicine 11/25/21 documented as of this encounter
--- OUTSIDE RECORDS SUMMARY | 2025-09-17 19:14 | XMS_ITS | Encounter Summary ---
Author Organization [employer] Address [address] [place] [address] 7 [place] [address] Care Team Providers Care Rn Clinical Resource Name Role Phone Marley Rich MD Primary Care Provider [phone] Reason for Visit * Reason Comments Med Refill Encounter Details Date Type Department Care Team ([facility] st Contact Info) Description 05/14/2025 Refill [facility] CHC ADULT DENTAL [address] [place] [address] Carl Casillas, DMD [address] [place] [address] Dental caries Social History Tobacco Use Types [facility] Description 09/19/2025 2:00 PM EDT Office Visit [facility] ADULT DENTAL [address] [place] [address] Elbert Martinez DDS [address] [place] [address] 10/28/2025 3:30 PM EST Office Visit [facility] MED & PEDS [address] [place] [address] Marley Rich MD [address] [place] [address] 12/31/2025 2:30 PM EST Clinical Support [facility] MED & PEDS [address] [place] [address] Aletha Vazquez, RN [address] [place] [address] 02/21/2026 1:30 PM EDT Office Visit [facility] ADULT DENTAL [address] [place] [address] Kamran Sherman documented as of this encounter [...] documented as of this encounter Care Teams Rn Clinical Resource Relationship Specialty Start Date End Date Marley Rich MD [address] [place] [address] PCP - General Family Medicine 11/25/21 documented as of this encounter
--- OUTSIDE RECORDS SUMMARY | 2025-09-17 19:14 | XMS_ITS | Encounter Summary ---
Author Organization [employer] Address [address] [place] [address] 7 [place] [address] Care Team Providers Care Counselor At Law Name Role Phone Marley Rich MD Primary Care Provider [phone] Reason for Visit * Reason Onset Date Comments PT1 01/02/2025 Encounter Details Date Type Department Care Team ([facility] st Contact Info) Description 01/02/2025 Telephone [facility] CHC MED & PEDS [address] [place] [address] Marley Rich MD [address] [place] [address] PT1 Social History Tobacco Use Types Packs/Day [...] or facility name: Dr Mclaughlin Facility Address: [address] [place] [address] [address] [place] [address] Escort needed: Y/N: Yes Do you have a wheelchair: Y/N: No If yes- Manual or electric: n/a Visits: 2 x a month documented in this encounter Plan of Treatment Upcoming Encounters Date Type Department Care Team (Late st Contact Info) Description 09/19/2025 2:00 PM EDT Office Visit [facility] ADULT DENTAL [address] [place] [address] Elbert Martinez DDS [address] [place] [address] 10/28/2025 3:30 PM EST Office Visit [facility] MED & PEDS [address] [place] [address] Marley Rich MD [address] [place] [address] 12/31/2025 2:30 PM EST Clinical Support [facility] MED & PEDS [address] [place] [address] Aletha Vazquez, EAN [address] [place] [address] 02/21/2026 1:30 PM EDT Office Visit [facility] ADULT DENTAL [address] [place] [address] Kamran Sherman documented as of this encounter [...] documented as of this encounter Care Teams Counselor At Law Relationship Specialty Start Date End Date Marley Rich MD [address] [place] [address] PCP - General Family Medicine 11/25/21 documented as of this encounter
--- OUTSIDE RECORDS SUMMARY | 2025-09-17 19:14 | XMS_ITS | Encounter Summary ---
Author Organization [employer] Address [address] [place] [address] 7 [place] [address] Care Team Providers Care Web Site Specialist Name Role Phone Marley Rich MD Primary Care Provider [phone] Reason for Visit * Reason Comments Med Refill Encounter Details Date Type Department Care Team ([facility] st Contact Info) Description 07/15/2025 Refill [facility] CHC MED & PEDS [address] [place] [address] Ashlee Huertas FNP [address] [place], [place] [phone] Essential hypertension Social History Tobacco Use Types [...] [facility] [address] [place] [address] Elbert Martinez DDS 230 [place] [address] 10/28/2025 3:30 PM EST Office Visit [facility] MED & PEDS [address] [place] [address] Marley Rich MD [address] [place] [address] 12/31/2025 2:30 PM EST Clinical Support [facility] MED & PEDS [address] [place] [address] Aletha Vazquez RN 505 [place] [address] 02/21/2026 1:30 PM EDT Office Visit [facility] ADULT DENTAL [address] [place] [address] Kamran Sherman documented as of this encounter [...] documented as of this encounter Care Teams Web Site Specialist Relationship Specialty Start Date End Date Marley Rich MD [address] [place] [address] PCP - General Family Medicine 11/25/21 documented as of this encounter
--- OUTSIDE RECORDS SUMMARY | 2025-09-17 19:14 | XMS_ITS | Encounter Summary ---
Author Organization [employer] Address [address] [place] [address] 7 [place] [address] Care Team Providers Care Cut Off Sawyer Shingle Mill Name Role Phone Marley Rich MD Primary Care Provider [phone] Reason for Visit * Reason Comments Med Refill Encounter Details Date Type Department Care Team ([facility] st Contact Info) Description 09/03/2024 Refill [facility] CHC MED & PEDS [address] [place] [address] Marley Rich MD 505 [place] [address] Essential hypertension Social History Tobacco Use Types [...] 09/19/2025 2:00 PM EDT Office Visit [facility] ADULT DENTAL [address] [place] [address] Elbert Martinez DDS [address] [place] [address] 10/28/2025 3:30 PM EST Office Visit [facility] MED & PEDS [address] [place] [address] Marley Rich MD 505 [place] [address] 12/31/2025 2:30 PM EST Clinical Support [facility] MED & PEDS [address] [place] [address] Aletha Vazquez, EAN [address] [place] [address] 02/21/2026 1:30 PM EDT Office Visit [facility] ADULT DENTAL [address] [place] [address] Kamran Sherman documented as of this encounter [...] documented as of this encounter Care Teams Cut Off Sawyer [employer]ingle Mill Relationship Specialty Start Date End Date Marley Rich MD [address] [place] [address] PCP - General Family Medicine 11/25/21 documented as of this encounter
--- OUTSIDE RECORDS SUMMARY | 2025-09-17 19:14 | XMS_ITS | Encounter Summary ---
Author Organization [employer] Address [address] [place] [address] 7 [place] [address] Care Team Providers Care Equipment Processer Storage Name Role Phone Marley Rich MD Primary Care Provider [phone] Reason for Visit * Reason Onset Date Comments PT1 05/20/2025 Encounter Details Date Type Department Care Team ([facility] st Contact Info) Description 05/20/2025 Telephone [facility] MEDICINE [address] [place] [address] Marley Rich MD [address] [place] [address] PT1 Social History Tobacco Use Types Packs/Day [...] Yes Provider name or facility name: [facility] - [address] [place] [address] Escort needed: Y/N: No Do you have a wheelchair: Y/N: No If yes- Manual or electric: N/A Visits: (2x weekly) documented in this encounter Plan of Treatment Upcoming Encounters Date Type Department Care Team (Late st Contact Info) Description 09/19/2025 2:00 PM EDT Office Visit [facility] ADULT DENTAL [address] [place], [place] [phone] Elbert Martinez DDS [address] [place] [address] 10/28/2025 3:30 PM EST Office Visit [facility] MED & PEDS [address] [place], [place] [phone] Marley Rich MD 505 [place] [address] 12/31/2025 2:30 PM EST Clinical Support [facility] MED & PEDS [address] [place] [address] Aletha Vazquez, RN [address] [place], [place] [phone] 02/21/2026 1:30 PM EDT Office Visit [facility] ADULT DENTAL [address] [place] [address] Kamran Sherman documented as of this encounter [...] documented as of this encounter Care Teams Equipment Processer Storage Relationship Specialty Start Date End Date Marley Rich MD [address] [place] [address] PCP - General Family Medicine 11/25/21 documented as of this encounter
--- OUTSIDE RECORDS SUMMARY | 2025-09-17 19:14 | XMS_ITS | Clinical Summary ---
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 5 01/18/20 26 Active Ventolin HFA 90 mcg/actuation inhaler Inhale 2 puffs by mouth every 4 (four) hours if needed. 5 Active ammonium lactate (AMLACTIN) 12 % cream APPLY TOPICALLY TO AFFECTED AREA(s) TWICE DAILY 4 Active calcium carbonate-vit D3-min 600 mg-10 mcg (400 unit) tablet Take 1 tablet by mouth 1 (one) time each day in the morning. 5 Active celecoxib (CeleBREX) 100 mg capsule Take 1 capsule (100 mg total) by mouth 2 times daily. Active chlorhexidine (PERIDEX) 0.12 % solution SWISH WITH 15 ML'S IN THE MORNING AND EVENING FOR 1 MINUTE, SPIT OUT DO NOT SWALLOW. DO NOT EAT OR DRINK FOR 30 MINUTES AFTER Active cranberry fruit concentrate 215 mg capsule Take 1 capsule by mouth 3 times daily. 7 Active cyclobenzaprine (FLEXERIL) 10 mg tablet Take 1 tablet (10 mg total) by mouth. Active diclofenac (VOLTAREN) 1 % topical gel APPLY 4 G TOPICALLY 4 (FOUR) TIMES A DAY. APPLY TO NECK Active divalproex (DEPAKOTE ER) 500 mg 24 hr tablet TOME 2 TABLETAS POR VIA ORAL DOS VECES AL LAYNE. Active doxepin (SINEquan) 10 mg capsule Take 1 capsule (10 mg total) by mouth at bedtime. 3 Active felodipine (PLENDIL) 10 mg 24 hr tablet TOME 1 TABLETA POR V A ORAL TODOS LOS D EN LA LOTTIE LENCHO 5 Active fluconazole (DIFLUCAN) 150 mg tablet TOME REESE TABLETA POR V A ORAL ONE TIME FOR 1 DOSE 5 Active gabapentin (NEURONTIN) 300 mg capsule TAKE TWO CAPSULES THREE TIMES DAILY Active dextromethorpha n-guaiFENesin (MUCINEX DM) 30-600 mg per 12 hr tablet Use 1 tab TID 5 Active OptiChamber [facility] inhaler use as directed 5 Active loratadine (CLARITIN) 10 mg tablet take 1 tablet (10 mg) by mouth once per day. Active losartan (COZAAR) 100 mg tablet Take 1 tablet (100 mg total) by mouth 1 (one) time each day in the morning. Active meloxicam (MOBIC) 7.5 mg tablet Take 1 tablet (7.5 mg total) by mouth 2 (two) times a day. 5 Active nitrofurantoin (MACRODANTIN) 50 mg capsule Take 1 capsule (50 mg total) by mouth daily. 7 Active polyethylene glycol (PEG) 17 gram/dose oral powder Take 17 g by mouth daily. 7 Active predniSONE (DELTASONE) 20 mg tablet take one tablet by mouth once daily for five days 5 Active prochlorperazin e (COMPAZINE) 10 mg tablet 1 tab PO TID PRN headache/nausea (in place of promethazine) 0 Active psyllium (METAMUCIL) powder Take 1 packet by mouth daily. 7 Active sodium fluoride-pot nitrate 1.1-5 % paste dental paste BRUSH DIENTES IN THE MORNING AND EVENING POR TWO MINUTOS. SPIT OUT, NO RINSE. No coma ni rasheeda por 30 minutos Active SUMAtriptan (IMITREX) 50 mg tablet Take 1 tablet (50 mg total) by mouth every 2 hours as needed. Active traMADoL (ULTRAM) 50 mg tablet Take 1 tablet (50 mg total) by mouth every 8 (eight) hours if needed. 5 Active triamcinolone (KENALOG) 0.1 % dental paste APPLY IN MOUTH TWICE DAILY 5 Active ciclopirox (PENLAC) 8 % solution Apply topically at bedtime. Apply over nail and surrounding skin. Apply daily over previous coat. After seven (7) days, may remove with alcohol and continue cycle. 6.6 mL 3 5 08/21/20 25 Encounters Date Type Department Care Team Description 08/26/2025 2:15 PM EDT Office Visit [facility] [place] [address] [phone] Aditya Mclaughlin DPM Tinea pedis of both feet (Primary Dx); Ingrown toenail; Dermatophytosis of nail; Pain in toe of right foot; Pain [...] Care Team (Late st Contact Info) Description 11/25/2025 2:45 PM EST Office Visit [facility] [address] [phone] Aditya Mclaughlin DPM [address] [phone] Health Maintenance Due Date Last Done Comments Breast Cancer Screening 1960 Colorectal Cancer Screening: Colonoscopy 1960 Depression Screening 11/28/2024 Hepatitis C Screening 01/02/2025 Medicare Annual Wellness Visit 01/02/2025 Osteoporosis Screening (Bone Density Screening) 01/02/2025 Social Influencers of Health Screening 01/02/2025 COVID-19 Vaccine ( season) 2025 09/19/2023, 01/26/2023, 05/05/2022, Additional history exists Influenza Vaccine (#1) 2025 , 07/26/2023, 08/09/2022, Additional history exists Falls Risk Assessment 2025 Cervical Cancer Screening: Pap Smear 09/09/2025 09/09/2022 Hypertension/CHF/CAD Annual BMP Blood Test 07/13/2026 07/13/2025, 06/20/2025 Cholesterol Screening (Lipid Panel) 06/20/2030 06/20/2025, 01/30/2025 DTaP,Tdap,and Td Vaccines (3 - Td [...] age to complete this topic Insurance MEDICAID [facility] MEDICARE Care Teams Gas Engine Mechanic Relationship Specialty Start Date End Date Marley Rich MD [address] [place] [address] PCP - General Family Medicine 01/02/25
--- OUTSIDE RECORDS SUMMARY | 2025-09-17 19:14 | XMS_ITS | Encounter Summary ---
Author Organization [employer] Address [address] [place] [address] 7 [place] [address] Care Team Providers Care Business Administrator Name Role Phone Marley Rich MD Primary Care Provider [phone] Reason for Visit * Reason Onset Date Comments Referral 08/21/2025 Encounter Details Date Type Department Care Team ([facility] st Contact Info) Description 08/21/2025 Telephone [facility] CHC MED & PEDS [address] [place] [address] Marley Rich MD [address] [place] [address] Referral Social History Tobacco Use Types Packs/Day Years [...] encounter Miscellaneous Notes * Telephone Encounter - Heidi Alberto RN - 08/26/2025 12:11 PM EDT TC placed to pt via [employer] stave block splitter (Nolan ID#[id number]) regarding referral request to [facility]. Pt is requesting referral to [facility] for routine care. Pt denies any eye concerns at this time and is requesting referral so they are able to be seen at [facility].Pt reports they were being seen in [place], but are looking to be seen at [facility] it is closer. Message forwarded to PCP for review. * Telephone Encounter - Luis Hoffman - 08/21/2025 3:35 PM EDT Tc from pt requesting a referral for [facility]. Any questions contact pt at [phone] documented in this encounter Plan of Treatment Upcoming Encounters Date Type Department Care Team (Late st Contact Info) Description 09/19/2025 2:00 PM EDT Office Visit [facility] ADULT DENTAL [address] [place] [address] Elbert Martinez DDS [address] [place] [address] 10/28/2025 3:30 PM EST Office Visit [facility] MED & PEDS [address] [place] [address] Marley Rich MD [address] [place] [address] 12/31/2025 2:30 PM EST Clinical Support [facility] MED & PEDS [address] [place] [address] Aletha Vazquez RN [address] [place] [address] 02/21/2026 1:30 PM EDT Office Visit [facility] ADULT DENTAL [address] [place] [address] Kamran Sherman documented as of this encounter Goals Goal Patient Goal Type Associated Problems Recent Progress Patient-Stated? Author Blood Pressure < 150/90 Blood Pressure 162/94(2024 11:01 AM EDT) No Mary Higgins PharmD Immunization General No Mary Higgins PharmD Note: Receive all recommended vaccines: due for RSV documented as of this encounter Visit Diagnoses Diagnosis Routine eye exam- Primary Examination of eyes and vision documented in this encounter Additional Health Concerns Assessment Noted Time PHQ-9 Depression Total Score: 0 06/14/20 25 10:14 AM EDT documented as of this encounter Care Teams Business Administrator Relationship Specialty Start Date End Date Marley Rich MD [address] [place] [address] PCP - General Family Medicine 11/25/21 documented as of this encounter
--- OUTSIDE RECORDS SUMMARY | 2025-09-17 19:14 | XMS_ITS | Encounter Summary ---
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 Name Role Phone Marley Rich MD Primary Care Provider [phone] Reason for Visit * Reason Onset Date Comments PT-1 03/07/2025 0 Encounter Details Date Type Department Care Team ([facility] st Contact Info) Description 03/07/2025 Telephone [facility] MEDICINE [address] [place] [address] Marley Rich MD [address] [place], [place] [phone] PT-1 (0) Social History Tobacco Use Types [...] Y/N: Yes Provider name or facility name: [facility] [place] [address] Escort needed: Y/N: No Do you have a wheelchair: Y/N: No If yes- Manual or electric: Visits: (1 x Monthly) Contact pt at [phone] documented in this encounter Plan of Treatment Upcoming Encounters Date Type Department Care Team (Late st Contact Info) Description 09/19/2025 2:00 PM EDT Office Visit [facility] ADULT DENTAL [address] [place] [address] Elbert Martinez DDS [address] [place] [address] 10/28/2025 3:30 PM EST Office Visit [facility] MED & PEDS [address] [place] [address] Marley Rich MD [address] [place], [place] [phone] 12/31/2025 2:30 PM EST Clinical Support [facility] MED & PEDS [address] [place] [address] Aletha Vazquez, RN [address] [place] [address] 02/21/2026 1:30 PM EDT Office Visit [facility] ADULT DENTAL [address] [place] [address] Kamran Sherman documented as of this encounter [...] documented as of this encounter Care Teams Mixed Animal Veterinarian Relationship Specialty Start Date End Date Marley Rich MD [address] [place] [address] PCP - General Family Medicine 11/25/21 documented as of this encounter
== END 2025-09-17 14:15 | disposition home or self-care (01) ==
LOC: HO.LNP 14:14
PROVIDERS: Visit Provider Family Medicine
DX: Z11.51 Encounter for screening for human papillomavirus (HPV) (principal); Z12.4 Encounter for screening for malignant neoplasm of cervix
CPT/HCPCS: 87626; 88175

== ENCOUNTER 2025-10-14 12:49 | Outpatient (AMB) | payer OTHER, SELFPAY ==
--- NOTE | 2025-10-14 13:06 | A.OFFVIS_ITS ---
Vital Signs 10/14/25 13:07 Height 5 ft 3 in Weight 204 lb BMI 36.1 Blood Pressure Location Lt brachial Position Sitting Respiration 16 Pulse 76 Pulse Source Pulse Oximeter Pulse Oximetry (%) 98 Oxygen Delivery Method Room Air Intake Visit Reasons: CHRONIC RIGHT SIDED LOW BACK PAIN Commercial Litigation Paralegal Required: Yes Commercial Litigation Paralegal Language: Deicer Tester Services: Commercial Litigation Paralegal Present Information Interpreted: non-clinical & clinical Accompanied by: Self / Same As Patient Allergies No Known Allergies Allergy (Verified 10/14/25 13:11) HPI Comments Details: The patient is a 65-year-old female presenting with chronic back pain. The back pain has been present for four years, with a history of worsening over time. The pain is described as pulsing, tripping, pounding, pinching, cramping, burning, sore, hurting, aching, heavy, tiring, and tightness in the back, radiating to the right leg. The patient reports that the pain is constant and worsens with movement, walking, and weather changes, particularly cold weather. The pain affects her sleep and daily activities, including cooking, bathing, and doing laundry. She has a supportive family member who assists with these activities. The patient has a history of arthritis, which has been present for more than ten years and is progressively worsening. She has experienced falls in the past, contributing to her condition. She has not undergone back surgery or injections, except for an injection in the left shoulder. The patient is prediabetic and has undergone physical therapy, which provided minimal relief. She uses a cane due to back pain and balance issues. - Onset: Pain has been present for over 10 years, worsening over time - Quality: Described as pulsing, tripping, pounding, pinching, cramping, burning, sore, hurting, aching, heavy, tiring, and tightness - Location: Primarily in the lower back, radiating to the right leg anteriorly and posteriorly - Exacerbating Factors: Movement, walking, weather changes, particularly cold weather - Relieving Factors: None specifically mentioned - Interference: Affects sleep and daily activities such as cooking, bathing, and doing laundry - Affect: Pain impacts sleep and daily activities, causing tiredness and ex haustion - Analgesia: Current pain level is 6 to 7, worse during midday; medications include meloxicam, tramadol, cyclobenzaprine, and gabapentin - Adverse Effects: No specific adverse effects mentioned - Activities of Daily Living: Pain interferes with cooking, bathing, and doing laundry; uses a cane for mobility - Aberrant Drug Related Behaviors: None reported [facility] Medical History (Updated 10/15/25 @ 14:09 by BITA Barillas) History of vitamin D deficiency High cholesterol GERD (gastroesophageal reflux disease) Anxiety Diabetes mellitus Arthritis, lumbar spine Chronic right-sided low back pain with right-sided sciatica Hypertension Review of Systems Const Details: - Musculoskeletal: Reports chronic back pain, pain in neck, right shoulder, knees, right leg, and overall back - Neurological: Reports balance issues, occasional right lower extremity weakness due to pain, denies bladder or bowel dysfunction or saddle anesthesia. All systems reviewed & are unremarkable except as noted in HPI and below Physical Exam Vital Signs: Last Vital Signs Pulse 76 10/14/25 13:07 Resp 16 10/14/25 13:07 Pulse Ox 98 10/14/25 13:07 Oxygen Delivery Method Room Air 10/14/25 13:07 BMI result Body Mass Index 36.1 General: Appears afebrile. Alert and oriented. Mood and affect appropriate. Follows and participates in conversation appropriately. Respiratory effort is unlabored. No cough. Able to transition from sit to stand unassisted. Uses cane with ambulation and transfers. Ambulates with bilaterally normal heel strike and toe off, reports right leg pain with walking. General: Yes no CVA tenderness Back/Spine/Pelvis Other: Limited lumbar ROM due to pain. Lumbar flexion forward and bending reproduces moderate to severe pain, lumbar extension reproduces mild to moderate pain. Demonstrates 5/5 left and 4/5 right strength of quadriceps bilaterally as well as flexion/dorsiflexion of bilateral feet against resistance. 2+ pedal pulses bilaterally. Straight leg rise with dorsiflexion positive on the right. +1 patellar and achilles reflexes bilaterally. Facet loading test positive bilaterally. Jabari sign, Dennis?s, Pelvic compression and Stinchfield tests are positive bilaterally. No groin pain with I/E hip rotations. Valsalva maneuver negative. Back: no CVA tenderness Cervical Spine: cervical ROM normal, cervical muscular tenderness, pain with cervical ROM, No Cervical spine scars present and No Cervical spine tenderness Thoracic/Lumbar Spine: thoracic and lumbar spine normal to inspection, No Thoracic/lumbar spine scar(s), Lasegue's sign positive on the right and diffuse, pain with thoraco-lumbar ROM, paraspinal muscle tenderness, thoraco-lumbar ROM limited, No thoracic spinal tenderness and lumbar spinal tenderness (L4-S1) Pelvis: buttock tenderness on the right Sacroiliac joints: bilaterally (R>L) tender to palpation Extrem General: Yes capillary refill normal, Yes no clubbing, cyanosis or edema and Yes no calf tenderness Results Reviewed Results Reviewed: MR lumbar spine without gadolinium 08/19/25 Comparison: CT/SR - CT LUMBAR SPINE WO IV CON - 07/13/25 09:04 EDT Findings: Normal alignment. No acute fracture or pathologic bone lesion. Cauda equina and conus medullaris within normal limits. Disc desiccation is seen at all levels in the lumbar spine. Mild loss of disc height is noted at L1-L2 and L5-S1 in particular. At T12-L1 there is no significant annular bulge or focal disc herniation. The foramina are patent. At L1-L2 there is a mild annular bulge mildly deforming the dural sac. The foramina are patent. At L2-L3 there is a minimal annular bulge. The foramina are patent. At L3-L4 there is a minimal annular bulge. The neural foramina are patent. At L4-L5 there is a right subarticular disc protrusion. There is no neural foraminal narrowing At L5-S1 there is a minimal annular bulge with mild right neural foraminal narrowing. There is no evidence of nerve root impingement at this or any other level. Hemangiomata are noted at T12, L2 and L4. The paraspinal soft tissues are normal. The visualized abdominal and pelvic contents are within normal limits. IMPRESSION: 1. Hemangiomata at T12, L2 and L4. 2. Multilevel disc desiccation with disc space narrowing particularly at the L1-L2 and L5-S1 levels. 3. Mild to minimal annular bulges are seen at the L1-L2 through L3-L4 and at L5-S1. There is mild right neural foraminal narrowing at L5-S1. 4. Right subarticular disc protrusion at L4-L5. Assessment & Plan Assessment & Plan (1) Lumbosacral spondylosis: Code(s): M47.817 - Spondylosis without myelopathy or radiculopathy, lumbosacral region Category: Medical (2) Lumbar degenerative disc disease: Code(s): M51.369 - Other intervertebral disc degeneration, lumbar region without mention of lumbar back pain or lower extremity pain Category: Medical (3) Chronic right-sided low back pain with right-sided sciatica: Code(s): M54.41 - Lumbago with sciatica, right side; G89.29 - Other chronic pain Category: Medical (4) Lumbar radiculopathy, right: Code(s): M54.16 - Radiculopathy, lumbar region Category: Medical Plan The plan includes administering a cortisone injection to manage the patient's right sided radicular low back pain. We also discussed interventional treatments, including Sprint PNS trial and RFA procedures with positive diagnostic lumbar medial branch blocks for axial low back pain which is not as bothersome as right leg pain at this time. Schedule Right L4-L5 TFESI with local and fluoroscopy. Expectations, risks and benefits were reviewed. Patient is aware she will be contacted to schedule this procedure. She was also advised to monitor blood sugar levels as the steroid injections may cause a temporary increase. All questions and concerns have been answered and patient agreed with the treatment plan. Follow up after injections and sooner as needed. Patient was informed and verbally consented to the use of an ambient scribe for clinic note documentation during this visit. Coding Level of Care Code New Pt Level 4 (80048) Diagnoses Lumbosacral spondylosis M47.817 Lumbar degenerative disc disease M51.369 Chronic right-sided low back pain with right-sided sciatica M54.41; G89.29 Lumbar radiculopathy, right M54.16
[2025-10-14 13:07] VITALS: PULSE 76; RESP 16; O2SAT 98; BMI 36.1
--- OUTSIDE RECORDS SUMMARY | 2025-10-15 01:33 | XMS_ITS | Data Portability ---
Author Organization [place] - [facility], Allergy Address [address] [address] Assessment Encounter Date Assessment Date Assessment LastModified [...] Procedures home sleep testing (PROC) 024 024 [id number] Sleep Medicine Services, [facility] [place], [address], 4 11:12:14 Surgeries None recorded. Imaging None [...] Sensorineur al hearing loss of bilateral ears 831537389 Active 2023 QUINCY HERNANDEZ , BERHANE [address], [facility] [place], [address], [facility] - [facility] 4 15:02:30 Bilateral tinnitus 8446632193558 Active 2023 QUINCY HERNANDEZ , BERHANE [address] [facility] [address], [facility] [place], [address], [facility] - [facility] 4 15:02:42 Sensorineur al hearing loss of bilateral ears 864534432 Active 2023 QUINCY HERNANDEZ , AUD [address] [facility] [address], [facility] [place], [address], [facility] - [facility] 4 15:02:54 Central perforation of right tympanic membrane 9143704949068 101 Active 2023 DANIELLE LOREDO MD 100 [facility], [place], [address], [facility] - [facility] 4 15:48:50 Snoring 40212095 Active 2023 DANIELLE LOREDO MD [address] [facility] [address], [place], [address], [facility] - [facility] 4 15:49:05 Problem Notes None recorded. Procedures Surgical History Date Name Laterality Status Provider Name and Address Organization Details Recorded Time 4 Comp Audio with Tymps - 98435 & 87122 completed BERHANE AKINS [address] [facility] [address], [address], [facility] - [facility] 04/13/2024 15:02:06 procedure on urinary bladder completed Ray Galvan [place] - [facility] 04/13/2024 15:16:05 hernia repair completed Ray Galvan [place] - [facility] 04/13/2024 15:16:30 Imaging Results None recorded. Procedure [...] Updated DateTime 04/13/2024 185.42 cm 26.4 kg/m2 45582.47 g Ray Galvan [place] - [facility] 04/13/2024 15:18:16 Social History None recorded. Functional Status Question Answer Note LastModified by Organizat ion Details LastModified Time Do you use any illicit or recreational drugs? No [email or web address] Information not available 04/13/2024 Do you or have you ever used any other forms of tobacco or nicotine? No Information not available 04/13/2024 What is your level of alcohol consumption? None [email or web address] Information not available 04/13/2024 Mental Status None recorded. Family History Nothing Reported. Medical History Condition Response Allergies/Hayfever N Heart Problems N Anxiety Y Tonsil Infections N Emphysema N Migraines Y Thyroid Problems N Developmental Delay N Depression Y Glaucoma N Nasal or Sinus Problems N Anemia N Anesthesia Complications N Heart Attack (DC) N Other Skin Condition N Diabetes Y [...] Note 721 DANIELLE RON MD [facility] [address] [address] 04/13/2024 14:14:08 04/13/2024 15:57:41 Sensorineural hearing loss of bilateral ears [id number] H90.3 Audiometri c evaluation results: Right ear: Borderline normal to moderate SNHL with excellent speech discrimina tion. Left ear: Mild SNHL with excellent speech discrimina tion. Tympanomet ry: Right Ear:Type B with large volume Left Ear:Type A Recommenda tions include:Pa tient may want to consider amplificat ion pending medical clearance. Bilateral tinnitus 82710 [address]2050 102 H93.13 Central pe rforation of right tympanic membrane 4305545333 984995 H72.01 Snoring 10544743 R06.83 Health Concerns Section Related Observation LastModified by Organization Detai ls LastModified Time None Recorded Concern Status LastModified by Organization Details LastModified Time None Recorded Advance Directives Directive None Recorded Payers Insurance Date Sequence Insurance Name Policy Number Policy Milian Covered Member ID Milian Member ID Guarantor Name 04/13/2024 1 [place] [facility] Ruthie Powell [id number] Ruthie Powell Notes Date Note Type Note [...] but no true vertigo DANIELLE DOMINGUEZ MD [address] [place] [address], [id number], [facility] - [facility] 04/13/2024 15:50:27 OBGyn Episode No OBEpisode recorded.
== END 2025-10-14 13:28 | disposition home or self-care (01) ==
PROVIDERS: PCP Family Medicine; Visit Provider Nurse Practitioner Family
DX: M47.817 Spondylosis without myelopathy or radiculopathy, lumbosacral region (principal); M51.369 Other intervertebral disc degeneration, lumbar region without mention of lumbar back pain or lower extremity pain; M54.41 Lumbago with sciatica, right side; G89.29 Other chronic pain; M54.16 Radiculopathy, lumbar region
CPT/HCPCS: 99204

== ENCOUNTER → 2025-10-14 12:49 | Outpatient (BNVA) | payer OTHER, SELFPAY | PROVIDERS: PCP Family Medicine; Visit Provider Nurse Practitioner Family | DX: M54.41 Lumbago with sciatica, right side (principal); G89.29 Other chronic pain; M54.16 Radiculopathy, lumbar region; M47.817 Spondylosis without myelopathy or radiculopathy, lumbosacral region; M51.369 Other intervertebral disc degeneration, lumbar region without mention of lumbar back pain or lower extremity pain | CPT/HCPCS: 99202 ==

== ENCOUNTER 2025-10-30 15:25 | Outpatient (REF) | payer OTHER, SELFPAY ==
--- OUTSIDE RECORDS SUMMARY | 2022-03-10 07:24 | XMS_ITS | Continuity of Care Document ---
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 [facility], [address], [place], [place], [address], [place] tel:[phone] [facility] No Information 6 [employer]. . OFFICE/OUTPA TIENT VISIT, [facility], [address], [place], [place], [address], [place] tel:[phone] [facility] NPP (chief complaint) Headaches due to old head injuryUnspec ified injury of head, sequela 6 No Information OFFICE/OUTPA TIENT VISIT, [facility], [address], [place], [place], [address], [place] tel:[phone] [facility] urinary symptoms (chief complaint) Vaginal odorDysuriaE ssential hypertension 6 No Information OFFICE/OUTPA TIENT VISIT, [facility], [address], [place], [place], [address], [place] tel:[phone] [facility] back pain (chief complaint) Chronic low back painOther chronic painChronic post-traumat ic headache, not intractable 5 No Information OFFICE/OUTPA TIENT VISIT, [facility], [address], [place], [place], [address], [place] tel:[phone] [facility] Dysuria (chief complaint) Acute cystitis without hematuriaScr eening 5 No Information OFFICE/OUTPA TIENT VISIT, [facility], [address], [place], [place], [address], [place] tel:[phone] [facility] concerns (chief complaint) Dietary surveillance and counselingLo w back painLumbar disc diseaseChron ic headachesPre diabetesLowe r abdominal pain Sep-2 5 No Information [facility], [address] [facility] [address], [place], [place], [address], [place] tel:[phone] [facility] No Information Sep-0 5 [employer]. . Consulting Provider: Jillian Lee, [address] [place] [address], [place], [address]. tel:[phone] OFFICE/OUTPA TIENT VISIT, [facility], [address] [facility] [address], [place], [place], [address], [place] tel:[phone] [facility] Follow Up of headache (chief complaint) CASTILLO (headache)Lo w back painAnxiety and depression Sep-0 5 No Information [facility], [address] [facility] [address], [place], [place], [address], [place] tel:[phone] [facility] No Information Jun- 5 No Information [facility], [address] [facility] [address], [place], [place], [address], [place] tel:[phone] [facility] Low back pain Jun- 5 No Information OFFICE/OUTPA TIENT VISIT, [facility], [address] [facility] [address], [place], [place], [address], [place] tel:[phone] [facility] Follow up on lab test(s) (chief complaint)st omach pain (chief complaint) GastritisLow back painAnxiety and depressionDe pressive disorder, not elsewhere classified Jun- 5 No Information OFFICE/OUTPA TIENT VISIT, [facility], [address] [facility] [address], [place], [place], [address], [place] tel:[phone] [facility] F/U ED (chief complaint) Low back pain 5 No Information OFFICE/OUTPA TIENT VISIT, EST [facility], [address] [facility] [address], [place], [place], [address], [place] tel:[phone] [facility] back pain (chief complaint) Low back pain 5 No Information [facility], [address] [facility] [address], [place], [place], [address], [place] tel:[phone] [facility] No Information 5 [employer]. . [facility], [address] [facility] [address], [place], [place], [address], [place] tel:[phone] [facility] routine exam (chief complaint)te aring (chief complaint) PresbyopiaBl epharitisCon genital hypertrophy of retinal pigment epithelium 5 No Information OFFICE/OUTPA TIENT VISIT, [facility], [address] [facility] [address], [place], [place], [address], [place] tel:[phone] [facility] routine follow up (chief complaint) Benign essential hypertension PrediabetesH istory of hysterectomy , supracervica l abdominal (subtotal)Mi croscopic hematuria 5 No Information OFFICE/OUTPA TIENT VISIT, [facility], [address] [facility] [address], [place], [place], [address], [place] tel:[phone] [facility] Back pain (chief complaint)He adache (chief complaint)Di zziness (chief complaint)ab normal lab result (chief complaint) Elevated partial thromboplast in time (PTT)Low back painHeadache 5 No Information OFFICE/OUTPA TIENT VISIT, [facility], [address] [address], [place], [place], [address], [place] tel:[phone] [facility] Back pain (chief complaint)He adache (chief complaint) Low back pain 5 No Information OFFICE/OUTPA TIENT VISIT, [facility], [address] [facility] [address], [place], [place], [address], [place] tel:[phone] [facility] Back pain (chief complaint) Low back painDizzines sBenign essential hypertension 5 No Information OFFICE/OUTPA TIENT VISIT, [facility], [address] [facility] [address], [place], [place], [address], [place] tel:[phone] [facility] chest pain radiating to Left arm (chief complaint)dy suria (chief complaint)CASTILLO (chief complaint) DysuriaRight shoulder painPersiste nt headaches 5 No Information [facility], [address] [facility] [address], [place], [place], [address], [place] tel:[phone] [facility] Abnormal mammogram 5 No Information OFFICE/OUTPA TIENT VISIT, [facility], [address] [facility] [address], [place], [place], [address], [place] tel:[phone] [facility] f/u labs. (chief complaint) Autoimmune diseasePosit zach LENCHO (antinuclear antibody)Pre diabetes 5 No Information [facility], [address] [facility] [address], [place], [place], [address], [place] tel:[phone] [facility] Joint painPositive LENCHO (antinuclear antibody) 4 No Information OFFICE/OUTPA TIENT VISIT, [facility], [address] [facility] [address], [place], [place], [address], [place] tel:[phone] [facility] f/u chest xray (chief complaint)pa in on her bones (chief complaint)Ch est discomfort (chief complaint)fo ot wound (chief complaint) Joint painDizzines sChest Tightness 4 No Information OFFICE/OUTPA TIENT VISIT, [facility], [address], [place], [place], [address], [place] tel:[phone] [facility] Cough (chief complaint) CoughURI, acute Oct- 0- 4 No Information [facility], [address], [place], [place], [address], [place] tel:[phone] [facility] Sleep apnea Oct- 8- 4 No Information OFFICE/OUTPA TIENT VISIT, [facility], [address], [place], [place], [address], [place] tel:[phone] [facility] sore throat (chief complaint) URI, acute 4 No Information OFFICE/OUTPA TIENT VISIT, [facility], [address], [place], [place], [address], [place] tel:[phone] [facility] Hypertension (follow up) (chief complaint) HeadacheHype rtension, Benign Sep-01 03- 4 No Information OFFICE/OUTPA TIENT VISIT, [facility], [address], [place], [place], [address], [place] tel:[phone] [facility] hypertension (follow up) (chief complaint) Hypertension , Benign Sep-0 - 4 No Information [facility], [address], [place], [place], [address], [place] tel:[phone] [facility] Unspecified abnormal mammogram Jun- 4 No Information OFFICE/OUTPA TIENT VISIT, [facility], [address], [place], [place], [address], [place] tel:[phone] [facility] hypertension (follow up) (chief complaint) Urine frequencyHyp ertension, Benign Jun-- 4 No Information [facility], [address], [place], [place], [address], [place] tel:[phone] [facility] Unspecified abnormal mammogram 4 No Information OFFICE/OUTPA TIENT VISIT, EST [facility], [address] [facility] [address], [place], [place], [address], [place] tel:[phone] [facility] follow up on lab/diagnost ic test (chief complaint)he adache (chief complaint)va ricose veins (chief complaint) Urge incontinence Varicose veinsHeadach eHypertensio n, Benign 4 No Information OFFICE/OUTPA TIENT VISIT, EST [facility], [address] [facility] [address], [place], [place], [address], [place] tel:[phone] [facility] walk-in- UTI sx (chief complaint) Urinary symptom or sign 4 No Information OFFICE/OUTPA TIENT VISIT, EST [facility], [address] [facility] [address], [place], [place], [address], [place] tel:[phone] [facility] f/u ED (chief complaint)he adache (chief complaint)fo llow up on lab/diagnost ic test (chief complaint)ur ine problems (chief complaint) Urinary incontinence Calcaneal spurVaginal itchingHeada yeimy 4 No Information OFFICE/OUTPA TIENT VISIT, EST [facility], [address] [facility] [address], [place], [place], [address], [place] tel:[phone] [facility] PAP test (chief complaint)BP check (chief complaint)fo ot pain (chief complaint) Screening for malignant neoplasms of the cervixHypert ension, BenignBilate ral foot painVaginiti s 4 No Information PREV VISIT, EST, AGE 40-64 [facility], [address] [facility] [address], [place], [place], [address], [place] tel:[phone] [facility] preventive exam (chief complaint) Routine general medical examination at a [facility] for screening colonoscopyE demaHeadache Hypertension , BenignRoutin e Medical Exam 4 No Information OFFICE/OUTPA TIENT VISIT, [facility], [address], [place], [place], [address], [place] tel:[phone] [facility] care (chief complaint)hy pertension (chief complaint) Hypertension , BenignMammog simeon, Screening - 4 No Information Family History Family Member Type Diagnosis Age At Onset Problem (finding) Family history of malignant neoplasm of breast in first degree relative Problem (finding) No family hist ory of Macular degeneration Problem (finding) Family history of Diabe vera mellitus Problem (finding) No family history of Gl aucoma Father Problem (finding) coronary arterioscleros is Mother Problem (finding) Cancer - stomach at 52 years Immunizations Vaccine Date Status Comments Flu Quad PF administered Source : New Immunization Record Hep A (adult) administered Source: New Im munization Record Moderna COVID-19 Vaccine (18 yrs +) administered Source: New Immuniza tion Record Moderna COVID-19 Vaccine (18 yrs +) administered Source: New Immuniza tion Record Flu Quad PF administered Source : New Immunization Record Zoster recombinant subunit, preservative free administered Source: New Immuniza tion Record Hep A (adult) administered Source: New Im munization Record Zoster recombinant subunit, preservative free administered Source: New Immuniza tion Record Flu Quad MDV (>/= 6 mo) 0.5ml administered Source: New Immuniza tion Record Influenza Quad MDV 0.5ml [id number] administered Source: New Immuniza tion Record Influenza, injectable, quadrivalent, split virus, 3 years or older Flulaval Quad administered Source: New Immuniza tion Record Influenza, injectable, trivalent, split virus, 4 years and older, Fluvirin administered Source: New Immuniza tion Record Influenza, seasonal, injectable, 3 yrs or older (5 yr+) Afluria administered Source: New Immuniza tion Record Tdap administered Source: Other P rovider MMR administered Source: Other P rovider Influenza, seasonal, injectable (3 yrs or older) administered Source: Othe r Provider Payers Payer name Insurance type Covered alliance party ID Authoriza tion(s) [facility] C3 [employer]CO [id number] [facility] [employer] [id number] [facility] [employer] ACO [id number] [facility] C3 ACO [id number] [facility] C3 ACO [id number] [facility] [id number] [facility] [id number] [facility] [id number] [facility] [id number] [facility] [id number] [id number] [id number] [facility] CI [id number] [facility] CI [id number] Social History Type Description Quantity Date Captured Comments Sex Female Smoking Status No Information Sexual Orientation Straight or heterosexual Chief Complaint And Reason For Visit No Information Reason For Referral Reason For Referral No Information Plan Of Treatment Date Type Action Status Goal Unhealthy drug u se screening. Due on due Goal Zoster vaccine (2nd) due Goal Zoster vaccine (1st) due Goal LDL Cholesterol (Direct). Due on due Goal Lipid panel. Due on 026 due Goal BPRS. Due on due Goal FOBT. Due on due Goal Pap/HPV testing. Due on due Goal Document SOGI In formation. Due on due Goal PAP. Due on due Goal DAST. Due on due Goal Diabetes Screening. Due on S due Goal IAP. Due on due Goal Mammogram. Due on due Goal Influenza vaccine. Due on Oc due Goal PHQ-9. Due on du e Goal APE. Due on due Goal Colonoscopy. Due on due Goal PAP. Due on due Goal Zoster vaccine. Due on due Goal Diabetes Screening. Due on S due Goal Document SOGI In formation. Due on due Goal PHQ-9. Due on du e Goal Lipid panel. Due on due Goal Pap/HPV testing. Due on due Goal FOBT. Due on due Goal DAST. Due on due Goal IAP. Due on due Goal LDL Cholesterol (Direct). Due on due Goal APE. Due on due Goal Influenza vaccine. Due on Oc due Goal Colonoscopy. Due on due Goal Mammogram. Due on due Goal BPRS. Due on due Goal Pap/HPV testing. Due on due Goal FOBT. Due on due Goal PAP. Due on due Goal Mammogram. Due on 2 due Goal DAST. Due on due Goal PHQ-9. Due on du e Goal Lipid panel. Due on 026 due Goal APE. Due on due Goal IAP. Due on due Goal LDL Cholesterol (Direct). Due on due Goal Diabetes Screening. Due on due Goal Zoster vaccine. Due on due Goal BPRS. Due on due Goal Document SOGI In formation. Due on due Goal Influenza vaccine. Due on due Goal Colonoscopy. Due on 024 due Goal Dietary manageme nt education, guidance, and counseling completed Goal Lipid panel. Due on 025 due Goal LDL Cholesterol (Direct). Due on due Goal Urinalysis due Goal Mammogram. Due on due Goal Document SOGI In formation. Due on due Goal Colonoscopy. Due on 024 due Goal Tdap due Goal Zoster vaccine. Due on due Goal IAP. Due on due Goal Influenza vaccine. Due on due Goal Hepatitis C Screening due Goal Diabetes Screening. Due on due Goal DAST. Due on due Goal BPRS. Due on due Goal FOBT. Due on due Goal ECG due Goal Pap/HPV testing. Due on due Goal APE. Due on due Goal PHQ-9. Due on du e Goal BPRS. Due on due Goal IAP. Due on due Goal Urinalysis due Goal Pap/HPV testing. Due on due Goal FOBT. Due on due Goal Mammogram. Due on due Goal LDL Cholesterol (Direct). Due on due Goal Zoster vaccine. Due on due Goal DAST. Due on due Goal APE. Due on due Goal Colonoscopy. Due on due Goal Influenza vaccine. Due on due Goal Diabetes Screening. Due on due Goal Tdap due Goal Hepatitis C Screening due Goal PHQ-9. Due on du e Goal Lipid panel. Due on due Goal Document SOGI In formation. Due on due Goal ECG due Goal Hepatitis C Screening due Goal Tdap due Goal FOBT. Due on due Goal Colonoscopy. Due on due Goal IAP. Due on due Goal Zoster vaccine. Due on due Goal ECG due Goal Influenza vaccine. Due on due Goal Document SOGI In formation. Due on due Goal Pap/HPV testing. Due on due Goal DAST. Due on due Goal Urinalysis due Goal Lipid panel. Due on due Goal Diabetes Screening. Due on due Goal APE. Due on due Goal PHQ-9. Due on du e Goal LDL Cholesterol (Direct). Due on due Goal Mammogram. Due on due Goal FOBT. Due on due Goal Colonoscopy. Due on due Goal IAP. Due on due Goal Tdap due Goal Lipid panel. Due on due Goal Pap/HPV testing. Due on due Goal APE. Due on due Goal Document SOGI In formation. Due on due Goal ECG due Goal Zoster vaccine. Due on due Goal Influenza vaccine. Due on due Goal PHQ-9. Due on du e Goal Diabetes Screening. Due on due Goal DAST. Due on due Goal Urinalysis due Goal Hepatitis C Screening due Goal Mammogram. Due on due Goal LDL Cholesterol (Direct). Due on due Goal Colonoscopy. Due on 024 due Goal Lipid panel. Due on 025 due Goal Diabetes Screening. Due on due Goal PHQ-9. Due on du e Goal Influenza vaccine. Due on due Goal Document SOGI In formation. Due on due Goal APE. Due on due Goal Pap/HPV testing. Due on due Goal Hepatitis C Screening due Goal FOBT. Due on due Goal Tdap due Goal DAST. Due on due Goal ECG due Goal Zoster vaccine. Due on due Goal Urinalysis due Goal IAP. Due on due Goal LDL Cholesterol (Direct). Due on due Goal Mammogram. Due on due Goal Hepatitis C Screening due Goal Influenza vaccine. Due on due Goal Pap/HPV testing. Due on due Goal DAST. Due on due Goal LDL Cholesterol (Direct). Due on due Goal ECG due Goal Mammogram. Due on due Goal Diabetes Screening. Due on O due Goal PHQ-9. Due on du e Goal Zoster vaccine. Due on due Goal Urinalysis due Goal Lipid panel. Due on due Goal Colonoscopy. Due on due Goal FOBT. Due on due Goal Tdap due Goal APE. Due on due Goal IAP. Due on due Goal Document SOGI In formation. Due on due Goal PHQ-9. Due on du e Goal Hepatitis C Screening due Goal Zoster vaccine. Due on due Goal Document SOGI In formation. Due on due Goal ECG due Goal LDL Cholesterol (Direct). Due on due Goal Diabetes Screening. Due on O due Goal Pap/HPV testing. Due on due Goal Lipid panel. Due on due Goal DAST. Due on due Goal Influenza vaccine. Due on due Goal IAP. Due on due Goal Tdap due Goal Colonoscopy. Due on due Goal Urinalysis due Goal FOBT. Due on due Goal APE. Due on due Goal Mammogram. Due on due Goal Mammogram. Due on due Goal Colonoscopy. Due on due Goal Lipid panel. Due on due Goal Pap/HPV testing. Due on due Goal Zoster vaccine. Due on due Goal APE. Due on due Goal Document SOGI In formation. Due on due Goal PHQ-9. Due on du e Goal Diabetes Screening. Due on due Goal DAST. Due on due Goal Influenza vaccine. Due on due Goal FOBT. Due on due Goal LDL Cholesterol (Direct). Due on due Goal IAP. Due on due Goal ECG due Goal Tdap due Goal Urinalysis due Goal Hepatitis C Screening due Goal PAP. Due on due Goal LDL Cholesterol (Direct). Due on due Goal Colonoscopy. Due on due Goal Document SOGI In formation. Due on due Goal DAST. Due on due Goal APE. Due on due Goal Lipid panel. Due on due Goal IAP. Due on due Goal Diabetes Screening. Due on due Goal Pap/HPV testing. Due on due Goal Zoster vaccine. Due on due Goal PHQ-9. Due on du e Goal FOBT. Due on due Goal Mammogram. Due on due Goal Influenza vaccine. Due on due Goal PAP. Due on due Goal Lipid panel. Due on due Goal FOBT. Due on due Goal Colonoscopy. Due on due Goal Document SOGI In formation. Due on due Goal Diabetes Screening. Due on due Goal DAST. Due on due Goal Zoster vaccine. Due on due Goal IAP. Due on due Goal LDL Cholesterol (Direct). Due on due Goal Mammogram. Due on due Goal Pap/HPV testing. Due on due Goal PHQ-9. Due on du e Goal Influenza vaccine. Due on due Goal APE. Due on due Goal DAST. Due on due Goal PHQ-9. Due on du e Goal APE. Due on due Goal Influenza vaccine. Due on due Goal PAP. Due on due Goal Pap/HPV testing. Due on due Goal Mammogram. Due on due Goal Zoster vaccine. Due on due Goal Document SOGI In formation. Due on due Goal Diabetes Screening. Due on due Goal FOBT. Due on due Goal IAP. Due on due Goal Colonoscopy. Due on due Goal Lipid panel. Due on due Goal LDL Cholesterol (Direct). Due on due Goal Mammogram. Due on due Goal Lipid panel. Due on due Goal PAP. Due on due Goal Pap/HPV testing. Due on due Goal IAP. Due on due Goal Diabetes Screening. Due on due Goal Colonoscopy. Due on due Goal Document SOGI In formation. Due on due Goal LDL Cholesterol (Direct). Due on due Goal Influenza vaccine. Due on Se due Goal FOBT. Due on due Goal APE. Due on due Goal Zoster vaccine. Due on due Goal DAST. Due on due Goal PHQ-9. Due on du e Goal IAP. Due on due Goal Influenza vaccine. Due on due Goal Lipid panel. Due on 025 due Goal Pap/HPV testing. Due on due Goal Diabetes Screening. Due on due Goal Zoster vaccine. Due on due Goal PHQ-9. Due on du e Goal PAP. Due on due Goal Document SOGI In formation. Due on due Goal APE. Due on due Goal Mammogram. Due on due Goal DAST. Due on due Goal Colonoscopy. Due on 024 due Goal LDL Cholesterol (Direct). Due on due Goal FOBT. Due on due Goal Influenza vaccine. Due on due Goal LDL Cholesterol (Direct). Due on due Goal Lipid panel. Due on 025 due Goal Document SOGI In formation. Due on due Goal Urinalysis due Goal Mammogram. Due on due Goal Diabetes Screening. Due on due Goal ECG due Goal Colonoscopy. Due on due Goal DAST. Due on due Goal Hepatitis C Screening due Goal Tdap due Goal Zoster vaccine. Due on due Goal PHQ-9. Due on du e Goal IAP. Due on due Goal Pap/HPV testing. Due on due Goal FOBT. Due on due Goal APE. Due on due Goal Mammogram. Due on due Goal FOBT. Due on due Goal ECG due Goal Diabetes Screening. Due on due Goal IAP. Due on due Goal DAST. Due on due Goal Hepatitis C Screening due Goal APE. Due on due Goal Zoster vaccine. Due on due Goal Document SOGI In formation. Due on due Goal Tdap due Goal Pap/HPV testing. Due on due Goal Colonoscopy. Due on due Goal LDL Cholesterol (Direct). Due on due Goal PAP. Due on due Goal Influenza vaccine. Due on due Goal Lipid panel. Due on due Goal Urinalysis due Goal PHQ-9. Due on du e Goal IAP. Due on due Goal LDL Cholesterol (Direct). Due on due Goal DAST. Due on due Goal APE. Due on due Goal Document SOGI In formation. Due on due Goal Influenza vaccine. Due on due Goal Colonoscopy. Due on 024 due Goal Diabetes Screening. Due on due Goal Lipid panel. Due on 025 due Goal FOBT. Due on due Goal Zoster vaccine. Due on due Goal Tdap due Goal Pap/HPV testing. Due on due Goal Hepatitis C Screening due Goal Mammogram. Due on due Goal Urinalysis due Goal PHQ-9. Due on du e Goal ECG due Goal Diabetes Screening. Due on due Goal Mammogram. Due on due Goal Influenza vaccine. Due on due Goal Zoster vaccine. Due on due Goal Urinalysis due Goal DAST. Due on due Goal Pap/HPV testing. Due on due Goal Document SOGI In formation. Due on due Goal ECG due Goal FOBT. Due on due Goal APE. Due on due Goal PHQ-9. Due on du e Goal IAP. Due on due Goal Hepatitis C Screening due Goal Tdap due Goal Lipid panel. Due on due Goal Colonoscopy. Due on due Goal FOBT. Due on due Goal ECG due Goal Zoster vaccine. Due on due Goal Tdap due Goal Influenza vaccine. Due on due Goal Mammogram. Due on due Goal Pap/HPV testing. Due on due Goal Diabetes Screening. Due on due Goal Document SOGI In formation. Due on due Goal Hepatitis C Screening due Goal IAP. Due on due Goal DAST. Due on due Goal Lipid panel. Due on due Goal APE. Due on due Goal PHQ-9. Due on du e Goal Colonoscopy. Due on due Goal Urinalysis due Goal Tdap due Goal Lipid panel. Due on due Goal Colonoscopy. Due on due Goal Document SOGI In formation. Due on due Goal Hepatitis C Screening due Goal DAST. Due on due Goal Mammogram. Due on due Goal ECG due Goal APE. Due on due Goal Pap/HPV testing. Due on due Goal IAP. Due on due Goal FOBT. Due on due Goal Diabetes Screening. Due on due Goal PHQ-9. Due on du e Goal Influenza vaccine. Due on due Goal Urinalysis due Goal ECG due Goal Urinalysis due Goal APE. Due on due Goal Hepatitis C Screening due Goal Lipid panel. Due on due Goal DAST. Due on due Goal Mammogram. Due on due Goal Pap/HPV testing. Due on due Goal FOBT. Due on due Goal PHQ-9. Due on du e Goal IAP. Due on due Goal Document SOGI In formation. Due on due Goal Tdap due Goal Influenza vaccine. Due on due Goal Colonoscopy. Due on due Goal Diabetes Screening. Due on due Goal DAST. Due on due Goal Document SOGI In formation. Due on due Goal ECG due Goal Influenza vaccine. Due on due Goal Colonoscopy. Due on due Goal IAP. Due on due Goal Mammogram. Due on due Goal Hepatitis C Screening due Goal APE. Due on due Goal Pap/HPV testing. Due on due Goal FOBT. Due on due Goal Lipid panel. Due on due Goal Diabetes Screening. Due on due Goal Urinalysis due Goal PHQ-9. Due on du e Goal Tdap due Goal Mammogram. Due on due Goal DAST. Due on due Goal Lipid panel. Due on due Goal Document SOGI In formation. Due on due Goal ECG due Goal Tdap due Goal Colonoscopy. Due on due Goal APE. Due on due Goal Urinalysis due Goal FOBT. Due on due Goal Influenza vaccine. Due on due Goal PHQ-9. Due on du e Goal Diabetes Screening. Due on due Goal IAP. Due on due Goal Hepatitis C Screening due Goal Pap/HPV testing. Due on due Goal Colonoscopy. Due on due Goal APE. Due on due Goal Urinalysis due Goal Mammogram. Due on due Goal ECG due Goal Tdap due Goal DAST. Due on due Goal Lipid panel. Due on due Goal Document SOGI In formation. Due on due Goal Pap/HPV testing. Due on due Goal Hepatitis C Screening due Goal IAP. Due on due Goal Diabetes Screening. Due on due Goal PHQ-9. Due on du e Goal FOBT. Due on due Goal Influenza vaccine. Due on due Goal Colonoscopy. Due on due Goal Document SOGI In formation. Due on due Goal DAST. Due on due Goal Influenza vaccine. Due on due Goal Lipid panel. Due on due Goal Pap/HPV testing. Due on due Goal PHQ-9. Due on du e Goal Mammogram. Due on due Goal Tdap due Goal FOBT. Due on due Goal Diabetes Screening. Due on due Goal APE. Due on due Goal Urinalysis due Goal IAP. Due on due Goal ECG due Goal Lipid panel. Due on due Goal ECG due Goal Mammogram. Due on due Goal Tdap due Goal Influenza vaccine. Due on due Goal DAST. Due on due Goal Diabetes Screening. Due on due Goal Pap/HPV testing. Due on due Goal Colonoscopy. Due on due Goal APE. Due on due Goal PHQ-9. Due on du e Goal IAP. Due on due Goal Document SOGI In formation. Due on due Goal Urinalysis due Goal Hepatitis C Scre ening. Due on due Goal Hepatitis C Scre ening. Due on due Goal Document SOGI In formation. Due on due Goal PAP. Due on due Goal Influenza vaccine. Due on due Goal Lipid panel. Due on due Goal Pap/HPV testing. Due on due Goal Tdap. Due on due Goal APE. Due on due Goal IAP. Due on due Goal DAST. Due on due Goal Colonoscopy. Due on due Goal PHQ-9. Due on du e Goal ECG due Goal Diabetes Screening. Due on due Goal Mammogram. Due on due Goal Urinalysis due Goal APE. Due on due Goal Urinalysis due Goal ECG due Goal Lipid panel. Due on due Goal Pap/HPV testing. Due on due Goal Tdap. Due on due Goal Colonoscopy. Due on due Goal LDL Cholesterol (Direct). Due on due Goal PHQ-9. Due on du e Goal Mammogram. Due on 0 due Goal DAST. Due on due Goal IAP. Due on due Goal Influenza vaccine. Due on due Goal Diabetes Screening. Due on due Goal Pap/HPV testing. Due on due Goal DAST. Due on due Goal IAP. Due on due Goal PHQ-9. Due on du e Goal Mammogram. Due on 0 due Goal Lipid panel. Due on due Goal Urinalysis due Goal LDL Cholesterol (Direct). Due on due Goal Influenza vaccine. Due on due Goal Colonoscopy. Due on due Goal Tdap. Due on due Goal Diabetes Screening. Due on due Goal ECG due Goal APE. Due on due Goal APE. Due on due Goal Mammogram. Due on 9 due Goal Diabetes Screening. Due on due Goal Colonoscopy. Due on due Goal LDL Cholesterol (Direct). Due on due Goal Lipid panel. Due on due Goal Influenza vaccine. Due on due Goal Pap/HPV testing. Due on due Goal ECG due Goal Tdap. Due on due Goal Urinalysis due Goal LDL Cholesterol (Direct). Due on due Goal Diabetes Screening. Due on due Goal Tdap. Due on due Goal Influenza vaccine. Due on Oc due Goal ECG due Goal APE. Due on due Goal Urinalysis due Goal Colonoscopy. Due on due Goal Lipid panel. Due on due Goal Mammogram. Due on due Goal Pap/HPV testing. Due on due Goal Lipid panel. Due on due Goal Colonoscopy. Due on due Goal Diabetes Screening. Due on due Goal Pap/HPV testing. Due on due Goal LDL Cholesterol (Direct). Due on due Goal Tdap. Due on due Goal Influenza vaccine. Due on due Goal Mammogram. Due on due Goal APE. Due on due Goal Urinalysis due Goal ECG due Goal LDL Cholesterol (Direct). Due on due Goal PAP. Due on due Goal Pap/HPV testing. Due on due Goal PAP. Due on due Goal LDL Cholesterol (Direct). Due on due Goal Pap/HPV testing. Due on due Goal PAP. Due on due Goal LDL Cholesterol (Direct). Due on due Goal Pap/HPV testing. Due on due Goal LDL Cholesterol (Direct). Due on due Goal Pap/HPV testing. Due on due Goal PAP. Due on due Goal PAP. Due on due Goal LDL Cholesterol (Direct). Due on due Goal Pap/HPV testing. Due on due Goal PAP. Due on due Goal Pap/HPV testing. Due on due Goal LDL Cholesterol (Direct). Due on due Goal Pap/HPV testing. Due on due Goal LDL Cholesterol (Direct). Due on due Goal PAP. Due on due Goal PAP. Due on due Goal LDL Cholesterol (Direct). Due on due Goal Pap/HPV testing. Due on due Goal PAP. Due on due Goal Pap/HPV testing. Due on due Goal LDL Cholesterol (Direct). Due on due Goal PAP. Due on due Goal Pap/HPV testing. Due on due Goal LDL Cholesterol (Direct). Due on due Goal LDL Cholesterol (Direct). Due on due Goal Pap/HPV testing. Due on due Goal PAP. Due on due Goal Pap/HPV testing. Due on due Goal PAP. Due on due Goal LDL Cholesterol (Direct). Due on due Goal LDL Cholesterol (Direct). Due on due Goal PAP. Due on due Goal Pap/HPV testing. Due on due Goal LDL Cholesterol (Direct). Due on due Goal PAP. Due on due Goal Pap/HPV testing. Due on due Goal APE. Due on due Goal PAP. Due on due Goal LDL Cholesterol (Direct). Due on due Goal Pap/HPV testing. Due on due Goal APE. Due on due Goal LDL Cholesterol (Direct). Due on due Goal PAP. Due on due Goal Pap/HPV testing. Due on due Goal PAP. Due on due Goal Pap/HPV testing. Due on due Goal LDL Cholesterol (Direct). Due on due Goal APE. Due on due Goal LDL Cholesterol (Direct). Due on due Goal APE. Due on due Goal PAP. Due on due Goal Pap/HPV testing. Due on due Goal APE. Due on due Goal Influenza vaccine. Due on due Goal PAP. Due on due Goal Pap/HPV testing. Due on due Goal PAP. Due on due Goal Pap/HPV testing. Due on due Goal APE. Due on due Goal Pap/HPV testing. Due on due Goal APE. Due on due Goal PAP. Due on due Goal PAP. Due on due Goal Pap/HPV testing. Due on due Goal APE. Due on due Goal PAP. Due on due Goal APE. Due on due Goal Mammogram. Due on due Goal Pap/HPV testing. Due on due Goal PAP. Due on due Goal APE. Due on due Goal Mammogram. Due on due Goal Pap/HPV testing. Due on due Goal Mammogram. Due on due Goal APE. Due on due Goal Pap/HPV testing. Due on due Goal PAP. Due on due Goal PAP. Due on due Goal Mammogram. Due on due Goal APE. Due on due Goal Pap/HPV testing. Due on due Goal Pap/HPV testing. Due on due Goal Mammogram. Due on due Goal APE. Due on due Goal PAP. Due on due Goal PAP. Due on due Goal Mammogram. Due on due Goal Pap/HPV testing. Due on due Goal APE. Due on due Goal Pap/HPV testing. Due on due Goal PAP. Due on due Goal Mammogram. Due on due Goal APE. Due on due Goal Mammogram. Due on due Goal APE. Due on due Goal Pap/HPV testing. Due on due Goal PAP. Due on due Goal Mammogram. Due on due Goal APE. Due on due Goal PAP. Due on due Goal Pap/HPV testing. Due on due Goal APE. Due on due Goal Mammogram. Due on due Goal Pap/HPV testing. Due on due Goal PAP. Due on due Goal PAP. Due on due Goal APE. Due on due Goal Pap/HPV testing. Due on due Goal Mammogram. Due on due Goal PAP. Due on due Goal Pap/HPV testing. Due on due Goal Mammogram. Due on due Goal APE. Due on due Goal APE. Due on due Goal PAP. Due on due Goal Influenza vaccine. Due on due Goal Pap/HPV testing. Due on due Goal Mammogram. Due on due Goal Dietary manageme nt education, guidance, and counseling completed Goal Influenza vaccine. Due on due Goal Colonoscopy. Due on due Goal Mammogram. Due on due Goal APE. Due on due Goal PAP. Due on due Goal PAP. Due on due Goal Colonoscopy. Due on due Goal Influenza vaccine. Due on due Goal Mammogram. Due on due Goal APE. Due on due Goal Mammogram. Due on due Goal APE. Due on due Goal Influenza vaccine. Due on due Goal Colonoscopy. Due on due Goal PAP. Due on due Goal APE. Due on due Goal Mammogram. Due on due Goal PAP. Due on due Goal Influenza vaccine. Due on due Goal Colonoscopy. Due on due Goal PAP. Due on due Goal Mammogram. Due on due Goal Colonoscopy. Due on due Goal APE. Due on due Goal Influenza vaccine. Due on due Goal PAP. Due on due Goal Influenza vaccine. Due on due Goal Colonoscopy. Due on due Goal APE. Due on due Goal Mammogram. Due on due Goal Colonoscopy. Due on due Goal Mammogram. Due on due Goal Influenza vaccine. Due on due Goal APE. Due on due Goal PAP. Due on due Goal PAP. Due on due Goal Mammogram. Due on due Goal Colonoscopy. Due on due Goal APE. Due on due Goal Influenza vaccine. Due on due Goal APE. Due on due Goal Mammogram. Due on due Goal PAP. Due on due Goal Colonoscopy. Due on due Goal Influenza vaccine. Due on due Goal APE. Due on due Goal PAP. Due on due Goal Mammogram. Due on due Goal Influenza vaccine. Due on due Goal Colonoscopy. Due on due Goal Colonoscopy. Due on due Goal PAP. Due on due Goal APE. Due on due Goal Influenza vaccine. Due on due Goal Mammogram. Due on due Goal APE. Due on due Goal Influenza vaccine. Due on due Goal Mammogram. Due on due Goal PAP. Due on due Goal Colonoscopy. Due on due Goal APE. Due on due Goal PAP. Due on due Goal Influenza vaccine. Due on due Goal Colonoscopy. Due on due Goal Mammogram. Due on due Goal APE. Due on due Goal PAP. Due on due Goal Colonoscopy. Due on due Goal Influenza vaccine. Due on due Goal Mammogram. Due on due Goal Influenza vaccine. Due on due Goal Colonoscopy. Due on due Goal APE. Due on due Goal PAP. Due on due Goal Colonoscopy. Due on 014 due Goal Influenza vaccine. Due on due Goal Mammogram. Due on due Goal APE. Due on due Goal PAP. Due on due Goal APE. Due on due Goal PAP. Due on due Goal Mammogram. Due on due Goal Colonoscopy. Due on due Goal Influenza vaccine. Due on due Goal Influenza vaccine. Due on due Goal Colonoscopy. Due on due Goal Mammogram. Due on due Goal APE. Due on due Goal PAP. Due on due Goal Mammogram. Due on due Goal Influenza vaccine. Due on due Goal Colonoscopy. Due on due Goal PAP. Due on due Goal APE. Due on due Goal Mammogram. Due on due Goal Colonoscopy. Due on due Goal PAP. Due on due Goal APE. Due on due Goal Influenza vaccine. Due on due Goal Colonoscopy. Due on due Goal Mammogram. Due on due Goal PAP. Due on due Goal Tdap. Due on due Goal Influenza vaccine. Due on due Referral Ordered: Referrals: Ophthalmology. Evaluate and treat Appointment date/timeframe: 01/21/2020 ordered Referral Ordered: US EXAM, BREAST, UNILATERAL OR BILATERAL Appointment date/timeframe: 07/10/2018 ordered Referral Ordered: Referrals: Behavioral Health - [facility]. Follow-up and Treat Appointment date/timeframe: 06/06/2017 ordered Referral Referred To: Dr Durham Ordered: Referrals: Uro/Baggageman. Dr Durham. Location: [facility]. Evaluate and treat ordered Referral Ordered: MAMMOGRAM DIAGNOSTIC, BILATERAL Bilateral ordered Referral Ordered: X-RAY EXAM OF HIPS BILAT MIN 2 VIEWS ordered Referral Ordered: Physical Therapy (related to Acute bilateral low back pain without sciatica) ordered Referral Referred To: Physical Therapy Ordered: Referrals: Physical Therapy. Evaluate and treat ordered Referral Ordered: CHEST X-RAY AP & LAT 2 VIEWS Bilateral ordered Referral Ordered: MRI BREAST UNILATERAL Right ordered Referral Ordered: US EXAM, BREAST, UNILATERAL OR BILATERAL Right ordered Referral Ordered: MAMMOGRAM DIAGNOSTIC, UNILATERL R ordered Referral Ordered: Referrals: Chiropractic Medicine. Evaluate and treat ordered Referral Ordered: Referrals: Orthopedics ordered Referral Ordered: MRI LUMBAR SPINE W/O & W/DYE ordered Referral Ordered: Referrals: Psychotherapy. Evaluate and treat ordered Referral Ordered: X-RAY EXAM OF LUMBAR SPINE, 2 OR 3 VIEWS ordered Referral Ordered: Referrals: Orthopedics. Evaluate and treat ordered Referral Ordered: Referrals: Physical Therapy. Evaluate and treat ordered Referral Ordered: MRI BRAIN W/O & W/DYE Appointment date/timeframe: 01/24/2015 ordered Referral Ordered: MAMMOGRAM DIAGNOSTIC, BILATERAL ordered Referral Ordered: Referrals: Rheumatology. Evaluate and treat Appointment date/timeframe: 01/03/2015 ordered Referral Ordered: CHEST X-RAY AP & LAT 2 VIEWS ordered Referral Ordered: Referrals: sleep specialist. Evaluate and treat ordered Referral Ordered: Referrals: Neurology. Evaluate and treat ordered Referral Ordered: MAMMOGRAM DIAGNOSTIC, UNILATERL L ordered Referral Ordered: US EXAM, BREAST, UNILATERAL OR BILATERAL Left ordered Referral Ordered: Referral: Vascular Surgery. Evaluate and treat. ordered Referral Ordered: Referral: Uro/Baggageman. Evaluate and treat. ordered Referral Ordered: Referral: Podiatry. Evaluate and treat. ordered Referral Ordered: X-RAY EXAM OF FOOT 2 VIEWS ordered Referral Ordered: COLONOSCOPY SCREENING ordered Referral Ordered: MAMMOGRAM SCREENING, BILATERAL Appointment date/timeframe: 04/02/2014 ordered Patient Education Upper Respiratory Infec tion: After You completed Future Order: Lab Order UA/M w/r flx Culture, Routine ([id number]), Sent on: Sent Future Order: Lab Order CULTURE, GROUP A STREP ([id number]), Sent on: Sent Future Order: Lab Order CULTURE, URINE ([id number]), Sent on: Sent Future Order: Lab Order BASIC ME TABOLIC PANEL ([id number]), Sent on: Sent Future Order: Lab Order LIPID PA JOSE ([id number]), Sent on: Sent Future Order: Lab Order HEMOGLOB IN A1C ([id number]), Sent on: Sent Future Order: Lab Order URINE CU LTURE, ROUTINE (395), Sent on: Sent Future Order: Lab Order HEMOGLOB IN A1C ([id number]), Sent on: Sent History Of Present Illness Encounter Date Complaint History Of Present Illness 1 Cryo Therapy 1 chronic conditions *See Chronic Conditions HPI 1 preventive exam The patient states she uses menopausal f or control. Negative for: breast lump(s).Postmenopausal. Menopausal symptoms positive for: vaginal dryness. Diet healthy.The patient states her exercise level is moderate and frequency is 10 mins walk daily. The patient does not use tobacco. She has not been exposed to passive smoke. She does not drink alcohol. Additional information: till h/a's taking med with Neurologist, had UTI in may much better, inside of vagina gets hot and pain, not same as burning. can't have sexual intercourse hurts too much. can't stnad it.takes bp freq. usually less than 130 and less than 90. none higher. . 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 no hematuria.no fever, nausea, vomitinglittle headache - alwaysno abdominal painlittle bilateral lower back painnormal vaginal discharge. little itching occasional - normal for her.Feels like prior UTI. Denies hx vaginal infectionhas had multiple UTI in past. denies kidney infection Vital signs, PMH, current medications, allergies reviewedROS as above 1 urinary symptoms 1 covid vax #2 Patient presents in NAD for COVID vaccine. Patient meets criteria of cohort currently sanctioned by [facility]. Contraindications and risk factors assessed. Patient's questions answered. 1 COVID test Pt presents for car side COV ID test via nasal swab per provider POC for positive exposure. 1 COVID Vaccine #1 Patient presents in NAD for COVID vaccin e. Patient meets criteria of cohort currently sanctioned by [facility]. Contraindications and risk factors assessed. Patient's questions answered. 1 BP, WGT, A1C Pt presents in NAD for BP ch nya per provider POC. Patient verbalizes compliance with blood pressure medication regimen as prescribed. Denies chest pain/palpitations, SOB, [place], dizziness and sudden vision changes. Pt denies hyperglycemia/hypoglycemia episodes. 1 Follow Up of chronic conditions 1 chronic conditions *See Chronic Conditions HPI 1 COVID test Pt presents to COVID testing tent for Mid-Turbinate Nasal Swab Collection per POC. 1 Anxiety (comments) also had similar ED visit back in [facility] but was not given ativan script for home. 1 Anxiety This is an initial visit. Re lated symptoms are unstable. The patient presents with anxious/fearful thoughts and excessive worry. Additional information: went to [facility] ER on 12/22 s/p COVID dx and was complaining of chest pain which was believed to be r/t anxiety. given lorazepam and feels better, wants a refill. 1 Follow Up of COVID Positive Dx 12/18LV with PCP 12/24, feeling overall betterf/y scheduled today, day 10 of dx, to see if she can get off of quarantinehusband and son's results were negative but needs to get retested - ? likely rapidTODAY: feels much better - no cough, flu-like symptomsstill has some residual chest pain (went to ED for this 12/22) and this gives her anxietyhad medicine for anxiety at the hospitalreports on allergy meds and when she stops she starts sneezing againhas been quarantined for 10 dayswants to know if she should get another test with family 1 covid pos pt was pos for covid on 11/29 1 stated is having cough, headache, and fever does not know how high fever is. feels like these Sx are a little better. pt does not work so wont need letter to work. pt went to [facility] on 12/22 will request ER notes--went to ER due to CP measured my oxygen levels. everything was normal. not short of breath and chest pain is a little better . a bit better. chest pain now anxiety and distress. a cold like sensation today not great. lives with and my son. they were already tested and waiting for results. I am not able to isolate myself. small apt. my has symptoms. he got a neg at 15 min test. now getting a more reliable test now. Son is feeling well. no symptoms. waiting. daughters and sons in laws grandchildren all neg. we have had enough food here. so we haven't gone out. my daughtr brought several meals.had urine symptoms but ua AT ER neg. told not to take abxwas given lorazepam 1 mg tablet #4 it helped the cP can I have more. 1 COVID Positive (comments) 60 yo female c/o rhinorrhea, fatigue, co ugh, body aches, little diarrhea x 2 episodes. Symptoms started 12/11. tactile fever initially. Had headache, sore throat. dry cough. Had COVID test done on 12/18 - COVID PCR positive. Feels a little better. No further fever, diarrhea, cough, sore throat. rhinorrhea resolved. Still having headache and feels weak. Feels anxious. States very little chest pain for anxiety. No shortness of breath.decreased appetite but it making her eat and drinkC/o some dysuria - started 2 days ago. no urinary frequency. no hematuria. little low back pain. States feels like UTI. has had many in past. no vaginal itching. no change in vaginal discharge. PMH, medications, allergies reviewedROS as aboveThis patient consented to participate in a telehealth visit. This patient was identified as meeting criteria for a televisit rather than an in person visit due to public health concerns around COVID-19. A complete assessment and plan is detailed in the note, all of which were conducted remotely using virtual visit technology. Patient identity was verbally confirmed with 2 identifiers at the start of the visit. Patient was located at home during the visit. Provider was located in an ambulatory exam room/outside the office at a secure location during the visit. 1 COVID Positive 1 COVID/FLU testing Pt presents to COVID testing tent for [place] [facility]-Turb[facility] Nasal Swab Collection, and rapid FLU per POC. 1 COVID Sx (comments) 60 yo female c/o rhinorrhea, fatigue, co ugh, body aches, little diarrhea x 2 episodes. Symptoms started 12/11. tactile fever initially+ headache - but always has headaches+ sore throatcough dryno chest pain or shortness of breatheating some, taking fluidsno appetiteno loss of taste or smellhasn't done COVID exam. also sick - did COVID test last week was negative. PMH, medications, allergies reviewedROS as aboveThis patient consented to participate in a telehealth visit. This patient was identified as meeting criteria for a televisit rather than an in person visit due to public health concerns around COVID-19. A complete assessment and plan is detailed in the note, all of which were conducted remotely using virtual visit technology. Patient identity was verbally confirmed with 2 identifiers at the start of the visit. Patient was located at home during the visit. Provider was located in an ambulatory exam room/outside the office at a secure location during the visit. 1 COVID Sx 1 bp check Pt presents in NAD for BP ch nya per provider POC. Patient verbalizes compliance with blood pressure medication regimen as prescribed. Denies chest pain/palpitations, SOB, CASTILLO, dizziness and sudden vision changes. Pt says she has difficulty walking on a regular basis b/c cold weather can trigger a migraine and she has chronic back pain. 0 chronic conditions *See Chronic Conditions HPI 0 chronic conditions *See Chronic Conditions HPI 0 F/U ER [place] reviewed ER visit notes pt reports 3 day s took losartan 100 /hctz 12.5full w/u included exam bp 125/[address] head CXR troponins and UA, all normal. 0 Hypertension (follow up) 0 pre DM no change 5.9% reviewed BMP labs done at our office 09/19 0 chronic conditions *See Chronic Conditions HPI 0 Immunization Patient presents in NAD for vaccines. Pt is due for FLU. Parent/patient report he/she is well today. Parent/patient deny problems eating eggs, allergy to gentamicin, neomycin, polymixin and gelatin, Guillain Shohola' Syndrome within 6 weeks of receiving a vaccine, receipt of live virus vaccine in the past 4 weeks, nerve or blood disorder, and acknowledgment of immune compromise. 0 letter pls review my chart and writ e me a letter that includes my medical historyaccidentsdiagnosistreatmentsmedicationsdiseaseshtndepre ssionback painheadachesdizzinessmention the names of the medications. neurologist will also be writing a letteralso place where I was getting the concussion therapy. different neurologist. 0 chronic conditions *See Chronic Conditions HPI 0 bp/ shingrix Pt presents to [facility] for bp check, education and vaccination (shingles) per PCP POC. PCP wanted pt to be seen in-office today. Discussed risk of COVID exposure and pt is not working outside the home or going to populated areas, and is wearing a mask whenever she leaves the home. Reports good hand hygiene. Pt reports headache on the back, top of her head that she has had intermittently since her work accident in 2019. Reports no past reaction when she got the 1st Shingrix dose other than pain at the injection site. Denies chest pain/pressure, SOB, vision changes, jaw/arm pain, extremity weakness, edema, n/v, diarrhea and constipation. Reports she exercises about 2x/week by going on a 15 minute walk. Reports she is opening to increasing amount of physical activity. Does not currently have bp machine or check bp at home. 0 Follow up on lab test(s) reviewed results all nl. interperter [facility] # [id number] 0 Headache Additional information: has meds with neurologist at [facility]. doing okay. 0 chronic conditions 1) Essential hypertension (onset 014; [place]. no machine. would get one if covered by her insurance. taking losartan 50 mg tab, two tabs per day. doens't miss) 0 Headache The severity of the problem is severe. The symptoms are constant. Locations affected include entire head. Aggravating factors include head position. Symptoms are not aggravated by exercise. Associated symptoms include dizziness. Pertinent negatives include nausea, visual aura, vertigo or vomiting. Additional information: constant positional head discomfort and dizzy notes with bending over or looking up. assoc court date regardign job injury. neurologist /dr Luis at [facility] tx'ed with meds. f/u. 0 BP check Pt appears in NAD for BP yeimy ck, per plan by [facility]. Per chart review, pt taking 50 mg losartan, last seen 12/06/2019. Pt reports taking. Pt. denies dizziness, swelling in extremities, palpitations, chest pain, SOB, changes in vision. Pt reports constant strong CASTILLO w/occasional nausea, and some GERD like sx. PCP is aware. Pt does not drink, smoke, monitors salt intake. Pt does not have BP machine at home. 0 vaccines Pt presents in NAD for vacci mary. Pt is due for Shingrix #1 and Hep A #1 vaccines. Pt reports she is well today. Pt denies significant SE w/ past immunizations. Pt denies knowledge of wheezing in the past 12 months, immune compromise, DM, heart, lung, liver, kidney disease. 0 preventive exam The patient states she uses menopausal f or control. Her menses is absent.Postmenopausal. Pertinent negatives include anxiety and depression. Diet healthy.The patient states her exercise level is moderate and frequency is 10 mins walk daily. The patient does not use tobacco. Tobacco cessation has been discussed. She has not been exposed to passive smoke. She does not drink alcohol. Additional information: UTD with dental exams. UTD on mammogram-06/2019.Pt does not work. Pt walks inside her house for 10 mins daily. Does not go outside due to cold weather.. 0 chronic conditions *See Chronic Conditions HPI 0 urinary symptoms The patient describes it as burning and incontinence (stress). It occurs constantly. Additional information: offered surgery at [facility] with urogyn. but pt refused.. 9 Urinary symptoms Onset: 2 days ago. There is no radiation . Additional information: history of UTIs and sexually active. 9 corn/callus foot pain. mostly wears snea kers all the time. no sandal.s 9 Follow up on lab test(s) Lab results reviewed and discussed with Pt. they were WNL great chol. low LDL at 84 and A1c 5.7. 9 head injury (comments) hx concussion. wants note for work that says out of work becuase of concussion or head injury. has neurologist Dr Sergei Luis at [facility] saw him before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 see ortho at [facility] 07/04/15 . says she cannot work with this pain.Reviewed x ray no fracture, mild disc space loss L4-L5 . 5 back pain Severity level is 8. The pro blem is fluctuating. It occurs intermittently. Location of pain is lower back. Pain is radiated to the right calf and right thigh.The patient describes the pain as an ache. 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 not on work comp insurance. Symptoms are aggravated by changing positions, standing and walking.The patient denies relieving factors. Additional information: she doing PT for 4 weeks, no help, taking naprosyn also, does think it is helping, finished flexeril. pt tearful today saying that she cannot work with this pain, asking for work off note for few days. also she asked his employer re: work comp. back pain (comments) employer told that the injury happend lo ng time ago, now they cannot do anything. tearing Patient states occasional te aring OU since 3 months ago. Patient states it happens spontaneously throughout the day. Pt has no other complaints. routine exam Patient's JAMA was last year. Patient presents with bifocals from last exam and is happy with the vision. However, she wants two pairs of glasses, one for distance and one for near because she feels that the bifocal gets in her way of daily activities. routine follow up Pt says she had surgery in [place] in apr for uterine prolapse ? supracervical hysterectomy , I have no full details of procedure, today is exactly 6 weeks, she saw specialist today for post op check.BP is on lower side , takes losartan 50 mg. requesting to check her urine to make sure no infection. denies dysuria. pt hba1c in sep 2014 was 6.0. 5 Back pain Back pain (comments) pt c/o low back pain, got worse after he r fall at work place. seen rheumatology, she was given gabapentin which is helping little bit,.lately back pain is worse. abnormal lab result Pt saw Dr Светлана durham at [facility] urogyn , she was scheduled for supracervical hysterectomy with sacro colpoplexy for uterine prolapse. as part of pre op lab test, she had PTT which is elevated to 41, normal up to 37. normal PT/INR. pt denies any bleeding issues. received letter from specialist if i have any concern in terms of bleeding risk for surgery, she has not heard from anesthesiologist. 5 Dizziness 5 Headache Back pain (comments) This patient has been followed by leopoldo otoole for her headache and was evaluated by pcp for back painShe is requesting an order for MRI. The pain is not new, it has just worsened with PT 5 Back pain Additional information: Pt h ere for continued back pain. It has worsened with physical therapy and so pt is here for further evualation. 5 Headache 5 Back pain Onset: 1 year ago. Severity level is 5. The problem is fluctuating. It occurs intermittently. Location of pain is lower back.There is no radiation of pain. Context: hard fall. Symptoms are aggravated by sitting and standing.The patient denies relieving factors. Additional information: started when she had fall at work place, it is getting worse lately. seen rheum for positive LENCHO, consult note in chart - left shoulder pain - PT, diffuse pain started gabapentin 300 mg TID, with medication feeling dizzy. 5 chest pain radiating to Left arm c/o pain in left shoulder area, radiates to left arm, works in [place], involves heavy lifting, vague pain in left side of chest , not related to exertion. 5 CASTILLO c/o pain in top of head righ t side, persistent since her trauma, CT negative, persistent headaches associated with dizziness, pt awaiting second opinion for neurology. 5 dysuria Onset: 4 days ago. Severity level is 5. Location is perineal. The patient describes it as burning. It occurs constantly. The problem is worse. Denies aggravating factors. Denies relieving factors. Additional information: drinking lots of water.. 5 f/u labs. reviewed labs all normal exc ept hba1c 6.0 went up from 5.7, also positive LENCHO, speckled, nucleolar pattern. remaining labs normal.she got appoint with rheum next month, due to work schedule she changed to january. 4 foot wound c/o mild abrasion on left fo ot. 4 f/u chest xray reviewed cxr and CT head negative. 4 pain on her bones c/o pain in joints of entire body, would like to get checked of her bones. 4 Chest discomfort The patient presents with a complaint of Chest discomfort. c/o pain in left side of chest and left shoulder. sometimes worse with activity. 4 Cough Onset: 12 days ago. The carlin ent describes the cough as productive (of yellow sputum) and sometimes has yellow/green phlegm. Associated symptoms include cough, nasal congestion, pleuritic pain, post-nasal drainage and sore throat. Pertinent negatives include chills, dyspnea, fatigue and fever. The patient does not have a history of asthma. Additional information: + myalgia and headacheAfter long spell of coughing she has pain in chest. sore throat Symptoms are not associated with exposure to strep, history of allergies, history of asthma and smoker. Symptoms are relieved by OTC analgesics. Associated symptoms include cough and fatigue. Pertinent negatives include chills/rigors, fever, headache or rhinitis. Hypertension (follow up) (comments) BP stable, takes atenolol 25 mg, losarta n.still c/o pain in top of head where she bumped into , CT head negative, pain everyday, all day along, denies nausea, sometimes vision changes. she is asking if she need EKG as [place] 2 [place], denies cp. sob. 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 Pt advised to apply warm compresses 5-10 minutes every night. Pt given Refresh Plus ATs to use as needed. RTC in 1 year for CEE or sooner, prn. Related to Dry eye Impression/Plan - Pt eduated on presence. Monitor. 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 Pt advised to continue appointments with neurologist and vision therapy for relief of symptoms. Pt given new spectacle Rx. RTC in 1 year for CEE or sooner prn. Related to Presbyopia of both eyes Impression/Plan - Rx written Rel ated to Hyperopia, bilateral Impression/Plan - Rx written. NV O/DVO Related to Presbyopia Impression/Plan - Sa mple of Refresh ATs given to patient. Patient instructed to use the artificial tears PRN. Educated the patient about lid scrubs with baby shampoo and warm compresses. RTC 1 year for annual eye exam. Related to Dry eye Impression/Plan - Noted. 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 RTC if no improvement in symptoms. Related to Blepharitis - Rx written Related to Presb yopia - Noted. Monitor. 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
--- OUTSIDE RECORDS SUMMARY | 2025-10-28 15:30 | XMS_ITS | Encounter Summary ---
Author Organization [employer] Address [address] [place] [address] 7 [place] [address] Care Team Providers Care Triple Valve Mechanic Name Role Phone Marley Rich MD Primary Care Provider [phone] Reason for Referral * Consultation (Routine) - Pending Review Specialty Diagnoses / Procedures Referred By Rhina spain Referred To Contact Neurology Diagnoses Head trauma, sequela Marley iRch MD [address] [place] [address] Phone: tel: fax: Referral ID Status Reason Start Date Expiration Date Visits Requested Visits Authorized [id number] Pending Review Specialty Services Required 10/28/2025 10/28/2026 1 1 Reason for Visit * Reason Comments Follow-up Encounter Details Date Type Department Care Team ([facility] st Contact Info) Description 10/28/2025 3:30 PM EST Office Visit [facility]ED[facility] [address] [place] [address] Marley Rich MD [address] [place] [address] Chronic right shoulder pain (Primary Dx); Head trauma, sequela Social History Tobacco Use Types Packs/Day Years [...] Sign Reading Time Taken Comments Blood Pressure 142/74 10/28/2025 3:18 PM EST Pulse 80 10/28/2025 3:18 PM EST Temperature 36.5 C (97.7 F) 10/28/2025 3:18 PM EST Respiratory Rate 18 10/28/2025 3:18 PM EST Oxygen Saturation 98% 10/28/2025 3:18 PM EST Inhaled Oxygen Concentration - - Weight 93.4 kg (206 lb) 10/28/2025 3:18 PM EST Height 160 cm (5' 3 ) 10/28/2025 3:18 PM EST Body Mass Index 36.49 10/28/2025 3:18 PM EST documented in this encounter Plan of Treatment Upcoming Encounters Date Type Department Care Team (Late st Contact Info) Description 11/14/2025 3:45 PM EST Procedure Visit [facility] [address] [place] [address] Marley Rich MD [address] [place] [address] 12/31/2025 2:30 PM EST Clinical Support [facility] [address] [place] [address] Aletha Vazquez RN [address] [place], [place] [id number] 02/21/2026 1:30 PM EDT Office Visit [facility] [address] [place] [address] Kamran Sherman Scheduled Referrals Name Type Priority Associated Diagnoses Orde r Schedule Referral to Neurology Outpatient Referral Routine Head trauma, sequela Expected: 10/28/2025 (Approximate), Expires: 10/28/2026 documented as of this encounter Goals Goal Patient Goal Type Associated Problems Recent Progress Patient-Stated? Author Blood Pressure < 150/90 Blood Pressure 142/74(2024 3:18 PM EST) No Mary Higgins PharmD Immunization General No Mary Higgins PharmD Note: Receive all recommended vaccines: due for RSV documented as of this encounter Procedures Procedure Name Priority Date/Time Associated Diagnosis Comments XR SHOULDER 2+ VIEWS RIGHT Routine 10/30/2025 3:37 PM EST Chronic right shoulder pain documented in this encounter Results * XR Shoulder 2+ Views Right (10/30/2025 3:37 PM EST) Anatomical Region Laterality Modality Upper Extremities, Shoulder Right Radi ographic Imaging 10/30/2025 3:37 PM EST Narrative 10/30/2025 3:50 PM EST [address] [address] XRay Report Signed Patient: Ruthie Johnston MR #: [id number] : 1960 Acct:[id number] Age/Sex: 65 / F ADM Date: 10/30/25 Loc: HO.XRAY Attending Dr: Marley Rich MD Ordering Physician: Marley Rich MD Date of Service: 10/30/25 Procedure(s): XR shoulder RT min 2V Accession Number(s): [id number] cc: Marley Rich MD Reason for Exam: 65 yo F with right shoulder pain persistent pain , send to [facility] EXAMINATION: XR SHOULDER, RIGHT CLINICAL INFORMATION: 65 yo F with right shoulder pain persistent pain , send to [facility] COMPARISON: None available. TECHNIQUE: AP external rotation, Grashey, scapular Y, and axillary views of the right shoulder. FINDINGS: Sclerosis along the articular surfaces of the acromioclavicular joint. No acute cortical disruption or malalignment. No gross lytic or blastic lesions. No metallic or radiopaque foreign body. No gross soft tissue calcifications. XR/XR shoulder RT min 2V IMPRESSION: Degenerative changes, acromioclavicular joint. Electronically signed by: Peter Sandra MD 10/30/2025 03:47 PM EST Dictated By: Peter Martin MD Signed By: <Electronically signed by Peter Smith MD in OV> 10/30/25 1547 DD/ 1537 TD/TT: 10/30/25 1544 Network Architect: Procedure Note Donotuseinterpreter, Image - 10/30/[address] [address] XRay Report Signed Patient: Ruthie JohnstonMR #: [id number] : 1960Acct:[id number] Age/Sex: 65 / FADM Date: 10/30/25 Loc: HOM[facility] Attending Dr: Marley Rich MD Ordering Physician: Marley Rich MD Date of Service: 10/30/25 Procedure(s): XR shoulder RT min 2V Accession Number(s): [id number] cc: Marley Rich MD Reason for Exam: 65 yo F with right shoulder pain persistent pain , sendto [facility] EXAMINATION: XR SHOULDER, RIGHT CLINICAL INFORMATION: 65 yo F with right shoulder pain persistent pain , send to [facility] COMPARISON: None available. TECHNIQUE: AP external rotation, Grashey, scapular Y, and axillary views of the right shoulder. FINDINGS: Sclerosis along the articular surfaces of the acromioclavicular joint. No acute cortical disruption or malalignment. No gross lytic or blastic lesions. No metallic or radiopaque foreign body. No gross soft tissue calcifications. XR/XR shoulder RT min 2V IMPRESSION: Degenerative changes, acromioclavicular joint. Electronically signed by: Peter Sandra MD 10/30/2025 03:47 PM [facility] Dictated By: Peter Martin MD Signed By: <Electronically signed by Peter Smith MDin OV> 10/30/25 1547 DD/ 1537 TD/TT: 10/30/25 1544 Network Architect: Marley Rich MD IMG XR PROCEDURES Final Resul t documented in this encounter Visit Diagnoses Diagnosis Chronic right shoulder pain- Primary Pain in joint, shoulder region Head trauma, sequela documented in this encounter Additional Health Concerns Assessment Noted Time PHQ-9 Depression Total Score: 0 06/14/20 25 10:14 AM EDT documented as of this encounter Care Teams Triple Valve Mechanic Relationship Specialty Start Date End Date Marley Rich MD [address] [place] [address] PCP - General Family Medicine 11/25/21 documented as of this encounter
--- NOTE | ~2025-10-30 | XR_ITS ---
EXAMINATION: XR SHOULDER, RIGHT CLINICAL INFORMATION: 65 yo F with right shoulder pain persistent pain , [facility] COMPARISON: None available. TECHNIQUE: AP external rotation, Grashey, scapular Y, and axillary views of the right shoulder. FINDINGS: Sclerosis along the articular surfaces of the acromioclavicular joint. No acute cortical disruption or malalignment. No gross lytic or blastic lesions. No metallic or radiopaque foreign body. No gross soft tissue calcifications. XR/XR shoulder RT min 2V IMPRESSION: Degenerative changes, acromioclavicular joint. Electronically signed by: Peter Sandra MD 10/30/2025 03:47 PM EST
--- OUTSIDE RECORDS SUMMARY | 2025-10-30 18:26 | XMS_ITS | Encounter Summary ---
Author Organization [employer] Address [address] [place] [address] [address] [place] [address] Care Team Providers Care Mathematics Improvement Teacher Name Role Phone Marley Rich MD Primary Care Provider [phone] Encounter Details Date Type Department Care Team (Latest Contact Info) Description 10/28/2025 Travel Social History Tobacco Use Types Packs/Day [...] Upcoming Encounters Date Type Department Care Team ([facility] st Contact Info) Description 11/14/2025 3:45 PM EST Procedure Visit [facility] [address] [place] [address] Marley Rich MD [address] [place] [address] 12/31/2025 2:30 PM EST Clinical Support [facility] [address] [place] [address] Aletha Vazquez, RN [address] [place] [address] 02/21/2026 1:30 PM EDT Office Visit [facility] [address] [place] [address] Kamran Sherman documented as of this encounter Goals Goal Patient Goal Type Associated Problems Recent Progress Patient-Stated? Author Blood Pressure < 150/90 Blood Pressure 142/74(2024 3:18 PM EST) No Mary Higgins PharmD Immunization General No Mary Higgnis PharmD Note: Receive all recommended vaccines: due for RSV documented as of this encounter Visit Diagnoses Not on filedocumented in this encounter Additional Health Concerns Assessment Noted Time PHQ-9 Depression Total Score: 0 06/14/20 25 10:14 AM EDT documented as of this encounter Care Teams Mathematics Improvement Teacher Relationship Specialty Start Date End Date Marley Rich MD [address] [place] [address] PCP - General Family Medicine 11/25/21 documented as of this encounter
--- OUTSIDE RECORDS SUMMARY | 2025-10-30 18:26 | XMS_ITS | Encounter Summary ---
Author Organization [employer] Address [address] [place] [address] 7 [place] [address] Care Team Providers Care Farm Appraiser Name Role Phone Marley Rich MD Primary Care Provider [phone] Reason for Visit * Reason Comments Med Refill Encounter Details Date Type Department Care Team ([facility] st Contact Info) Description 09/03/2024 Refill [facility] [address] [place] [address] Marley Rich MD [address] [place] [address] Essential hypertension Social History Tobacco Use Types [...] Description 11/14/2025 3:45 PM EST Procedure Visit [facility] [address] [place] [address] Marley Rich MD [address] [place] [address] 12/31/2025 2:30 PM EST Clinical Support [facility] [address] [place] [address] Aletha Vazquez RN [address] [place] [address] 02/21/2026 1:30 PM EDT Office Visit [facility] [address] [place] [address] Kamran Sherman documented as of this encounter [...] documented as of this encounter Care Teams Farm Appraiser Relationship Specialty Start Date End Date Marley Rich MD [address] [place] [address] PCP - General Family Medicine 11/25/21 documented as of this encounter
--- OUTSIDE RECORDS SUMMARY | 2025-10-30 18:26 | XMS_ITS | Encounter Summary ---
Author Organization [employer] Address [address] [place] [address] 7 [place] [address] Care Team Providers Care Technology Sales Representative Name Role Phone Marley Rich MD Primary Care Provider [phone] Reason for Visit * Reason Onset Date Comments PT1 05/20/2025 Encounter Details Date Type Department Care Team ([facility] st Contact Info) Description 05/20/2025 Telephone [facility] MEDICINE [address] [place] [address] Marley Rich MD [address] [place] [address] PT1 Social History Tobacco Use Types Packs/Day [...] Yes Provider name or facility name: [facility] [address] [place] [address] Escort needed: Y/N: No Do you have a wheelchair: Y/N: No If yes- Manual or electric: N/A Visits: (2x weekly) documented in this encounter Plan of Treatment Upcoming Encounters Date Type Department Care Team ([facility] st Contact Info) Description 11/14/2025 3:45 PM EST Procedure Visit [facility] MED & PEDS [address] [place] [address] Marley Rich MD [address] [place] [address] 12/31/2025 2:30 PM EST Clinical Support [facility] MED & PEDS [address] [place] [address] Aletha Vazquez RN [address] [place] [address] 02/21/2026 1:30 PM EDT Office Visit [facility] ADULT DENTAL [address] [place] [address] Kamran Sherman documented as of this encounter [...] documented as of this encounter Care Teams Technology Sales Representative Relationship Specialty Start Date End Date Marley Rich MD [address] [place] [address] PCP - General Family Medicine 11/25/21 documented as of this encounter
--- OUTSIDE RECORDS SUMMARY | 2025-10-30 18:26 | XMS_ITS | Encounter Summary ---
Author Organization [employer] Address [address] [place] [address] 7 [place] [address] Care Team Providers Care Model And Mold Maker Name Role Phone Marley Rich MD Primary Care Provider [phone] Reason for Visit * Reason Onset Date Comments pt1 07/30/2025 Encounter Details Date Type Department Care Team ([facility] st Contact Info) Description 07/30/2025 Telephone [facility] MED & PEDS 505 [place] [address] Marley Rich MD [address] [place] [address] pt1 Social History Tobacco Use Types Packs/Day [...] EDT TC to pt via S ID# [id number]. Initial [employer] EM[employer] REPRESENTATIVE appt scheduled for 08/28/25 @ 3:15pm. * Telephone Encounter - Justa Frausto - 07/30/2025 12:33 PM EDT Patient calling requesting PT1 Home Address verified: Y/N: Yes Provider name or facility name: [facility] [address] [facility] Escort needed: Y/N: No Do you have a wheelchair: Y/N: No If yes- Manual or electric: Visits: 1x a month documented in this encounter Plan of Treatment Upcoming Encounters Date Type Department Care Team ([facility] st Contact Info) Description 11/14/2025 3:45 PM EST Procedure Visit [facility] MED & PEDS [address] [place] [address] Marley Rich MD [address] [place] [address] 12/31/2025 2:30 PM EST Clinical Support [facility] MED & PEDS [address] [place] [address] Aletha Vazquez, EAN [address] [place] [address] 02/21/2026 1:30 PM EDT Office Visit [facility] ADULT DENTAL [address] [place] [address] Kamran [place] documented as of this encounter [...] documented as of this encounter Care Teams Model And Mold Maker Relationship Specialty Start Date End Date Marley Rich MD [address] [place] [address] PCP - General Family Medicine 11/25/21 documented as of this encounter
--- OUTSIDE RECORDS SUMMARY | 2025-10-30 18:26 | XMS_ITS | Encounter Summary ---
Author Organization [employer] Address [address] [place] [address] 7 [place] [address] Care Team Providers Care Wool Broker Name Role Phone Marley Rich MD Primary Care Provider [phone] Reason for Visit * Reason Onset Date Comments PT-1 08/22/2024 Encounter Details Date Type Department Care Team (Late st Contact Info) Description 08/22/2024 Telephone [facility] MEDICINE 230 [place] [address] Marley Rich MD [address] [place] [address] PT-1 Social History Tobacco Use Types Packs/Day [...] Y/N: Yes Provider name or facility name: [facility] Facility Address: [address] [place] [address] Escort needed: Y/N: No Do you have a wheelchair: Y/N: No If yes- Manual or electric: no Visits: 6 documented in this encounter Plan of Treatment Upcoming Encounters Date Type Department Care Team (Late st Contact Info) Description 11/14/2025 3:45 PM EST Procedure [facility] MED [facility]EDS [address] [place] [address] Marley Rich MD [address] [place] [address] 12/31/2025 2:30 PM EST Clinical Support [facility] MED & PEDS [address] [place] [address] Aletha Vazquez RN 505 [place] [address] 02/21/2026 1:30 PM EDT Office Visit [facility] ADULT DENTAL [address] [place] [address] Kamran [place] documented as of this encounter [...] documented as of this encounter Care Teams Wool Broker Relationship Specialty Start Date End Date Marley Rich MD [address] [place] [phone] PCP - General Family Medicine 11/25/21 documented as of this encounter
--- OUTSIDE RECORDS SUMMARY | 2025-10-30 18:26 | XMS_ITS | Encounter Summary ---
Author Organization [employer] Address [address] [place] [address] 7t [place] [address] Care Team Providers Care Outside Sales Account Representative Name Role Phone Marley Rich MD Primary Care Provider [phone] Encounter Details Date Type Department Care Team (Late st Contact Info) Description 10/13/2023 Abstract [facility] MEDICINE [address] [place] [address] Mily Calderon Social History Tobacco Use Types [...] Description 11/14/2025 3:45 PM EST Procedure Visit [facility] MED & PEDS 505 [place] [address] Marley Rich MD 505 [place] [address] 12/31/2025 2:30 PM EST Clinical Support [facility] MED & PEDS 505 [place] [address] Aletha Vazquez RN 505 [place] [address] 02/21/2026 1:30 PM EDT Office Visit [facility] ADULT DENTAL 505 [place] [address] Kamran [place] documented as of this encounter Visit Diagnoses Not on filedocumented in this encounter Additional Health Concerns Assessment Noted Time PHQ-9 Depression Total Score: 10 023 11:29 AM EDT documented as of this encounter Care Teams Outside Sales Account Representative Relationship Specialty Start Date End Date Marley Rich MD 230 [place] [address] PCP - General Family Medicine 11/25/21 documented as of this encounter
--- OUTSIDE RECORDS SUMMARY | 2025-10-30 18:26 | XMS_ITS | Encounter Summary ---
Author Organization [employer] Address [address] [place] [address] [place] [address] Care Team Providers Care Chief Counsel Name Role Phone Marley Rich MD Primary Care Provider [phone] Reason for Referral * Consultation (Routine) - Closed Specialty Diagnoses / Procedures Referred By Rhina psain Referred To Contact Ophthalmology Diagnoses Essential hypertension Eriberto [place] MD [address] [place] [address] Phone: tel: fax: Referral ID Status Reason Start Date Expiration Date V isits Requested Visits Authorized [id number] Closed Specialty Services Required 08/28/2025 08/28/2026 1 1 Encounter Details Date Type Department Care Team (Late st Contact Info) Description 08/28/2025 Orders Only [facility] CHC MED & PEDS [address] [place] [address] Eriberto [place] MD [address] [place] [address] Essential hypertension (Primary Dx) Social History Tobacco [...] EST Procedure Visit [facility] MED & PEDS [address] [place] [address] Marley Rich MD 505 [place] [address] 12/31/2025 2:30 PM EST Clinical Support [facility] MED & PEDS [address] [place] [address] Aletha Vazquez RN 505 [place] [address] 02/21/2026 1:30 PM EDT Office Visit [facility] ADULT DENTAL [address] [place] [address] Kamran [place] Scheduled Referrals Name Type Priority [...] as of this encounter Care Teams Chief Counsel Relationship Specialty Start Date End Date Marley Rich MD [address] [place] [address] PCP - General Family Medicine 11/25/21 documented as of this encounter
--- OUTSIDE RECORDS SUMMARY | 2025-10-30 18:26 | XMS_ITS | Encounter Summary ---
Author Organization [employer] Address [address] [place] [address] 7t [place] [address] Care Team Providers Care Ophthalmology Assistant Name Role Phone Marley Rich MD Primary Care Provider [phone] Encounter Details Date Type Department Care Team ([facility] st Contact Info) Description 09/07/2023 Telephone [facility] MEDICINE [address] [place] [address] Marley Rich MD 505 [place] [address] Social History Tobacco Use Types Packs/Day Years [...] Description 11/14/2025 3:45 PM EST Procedure Visit [facility] MED & PEDS 505 [place] [address] Marley Rich MD 505 [place] [address] 12/31/2025 2:30 PM EST Clinical Support [facility] MED & PEDS 505 [place] [address] Aletha Vazquez, EAN 505 [place] [address] 02/21/2026 1:30 PM EDT Office Visit [facility] ADULT DENTAL 505 [place] [address] Kamran [place] documented as of this encounter Visit Diagnoses Not on filedocumented in this encounter Additional Health Concerns Assessment Noted Time PHQ-9 Depression Total Score: 10 023 11:29 AM EDT documented as of this encounter Care Teams Ophthalmology Assistant Relationship Specialty Start Date End Date Marley Rich MD [address] [place] [phone] PCP - General Family Medicine 11/25/21 documented as of this encounter
--- OUTSIDE RECORDS SUMMARY | 2025-10-30 18:26 | XMS_ITS | Encounter Summary ---
Author Organization [employer] Address [address] [place] [address] 7 [place] [address] Care Team Providers Care Etched Circuit Processor Name Role Phone Marley Rich MD Primary Care Provider [phone] Reason for Visit * Reason Onset Date Comments PT1 06/17/2025 Encounter Details Date Type Department Care Team ([facility] st Contact Info) Description 06/17/2025 Telephone [facility] CHC MED & PEDS [address] [place] [address] Marley Rich MD 505 [place] [address] PT1 Social History Tobacco Use Types Packs/Day [...] Y/N: Yes Provider name or facility name: [facility] radiology Escort needed: Y/N: No Do you have a wheelchair: Y/N: No Visits: (2x months) documented in this encounter Plan of Treatment Upcoming Encounters Date Type Department Care Team ([facility] st Contact Info) Description 11/14/2025 3:45 PM EST Procedure Visit [facility] MED & PEDS [address] [place] [address] Marley Rich MD 505 [place] [address] 12/31/2025 2:30 PM EST Clinical Support [facility] MED & PEDS [address] [place] [address] Aletha Vazquez RN 505 [place] [address] 02/21/2026 1:30 PM EDT Office Visit [facility] CHC ADULT DENTAL [address] [place] [address] Kamran [place] documented as of this encounter [...] documented as of this encounter Care Teams Etched Circuit Processor Relationship Specialty Start Date End Date Marley Rich MD [address] [place] [address] PCP - General Family Medicine 11/25/21 documented as of this encounter
--- OUTSIDE RECORDS SUMMARY | 2025-10-30 18:26 | XMS_ITS | Encounter Summary ---
Author Organization [employer] Address [address] [place] [address] 7 [place] [address] Care Team Providers Care Juvenile Officer Name Role Phone Marley Rich MD Primary Care Provider [phone] Reason for Visit * Reason Comments Med Refill Encounter Details Date Type Department Care Team ([facility] st Contact Info) Description 07/15/2025 Refill [facility] CHC MED & PEDS [address] [place] [address] Ashlee Huertas FNP [address] [place], [place] [phone] Essential hypertension Social History Tobacco Use Types [...] 3:45 PM EST Procedure Visit [facility] MED & PEDS 505 [place] [address] Marley Rich MD [address] [place] [address] 12/31/2025 2:30 PM EST Clinical Support [facility] MED & PEDS 505 [place] [address] Aletha Vazquez RN 505 [place] [address] 02/21/2026 1:30 PM EDT Office Visit [facility] ADULT DENTAL 505 [place] [address] Kamran [place] documented as of this encounter [...] documented as of this encounter Care Teams Juvenile Officer Relationship Specialty Start Date End Date Marley Rich MD [address] [place] [address] PCP - General Family Medicine 11/25/21 documented as of this encounter
--- OUTSIDE RECORDS SUMMARY | 2025-10-30 18:26 | XMS_ITS | Encounter Summary ---
Author Organization [employer] Address [address] [place] [address] 7 [place] [address] Care Team Providers Care Supervisor Central Supply Name Role Phone Marely Rich MD Primary Care Provider [phone] Encounter Details Date Type Department Care Team ([facility] st Contact Info) Description 03/09/2023 Orders Only [facility] CHC MED & PEDS [address] [place] [address] Marley Rich MD [address] [place] [address] Social History Tobacco Use Types Packs/Day Years [...] Description 11/14/2025 3:45 PM EST Procedure Visit [facility] MED & PEDS [address] [place] [address] Marley Rich MD [address] [place] [address] 12/31/2025 2:30 PM EST Clinical Support [facility] MED & PEDS [address] [place] [address] Aletha Vazquez RN 505 [place] [address] 02/21/2026 1:30 PM EDT Office Visit [facility] ADULT DENTAL [address] [place] [address] Kamran [place] Pending Results Name Type Priority [...] (09/16/2023 8:30 AM EDT) Color Urine Yellow [facility] Appearance Urine Clear [facility] PH 6.5 5.0 - 9.0 [facility] Glucose Urine UA Negative Negative mg/dL [facility] Urine Blood Negative Negative [facility] Specific [place] - Urine 1.020 1.005 - 1.025 [facility] Urine Protein Negative Neg-Trace mg/dL [facility] Urine Ketones Negative Negative mg/dL [facility] Nitrite Urine Negative Negative [facility] Leukocyte Esterase Urine Negative Negative [facility] 09/16/2023 8:30 AM EDT 09/16/2023 2:34 PM EDT us Marley Rich MD LAB URINE ORDERABLES Final Re sult [facility] [address] [place] [phone] * HIV Ab/Ag ([place] DP) (09/16/2023 8:27 AM EDT) HIV AB/AG Nonreactive Nonreactive [facility] Comment:HIV-1 p24 Ag and/or HIV-1/HIV-2 Ab not detected.A test result that is nonreactive does not exclude thepossibility of exposure to or infection with HIV-1 and/orHIV-2. Nonreactive results in this assay for individualswith prior exposure to HIV-1 and/or HIV-2 may be due toantigen and antibody levels that are below the limit ofdetection of this assay.[employer] HIV Ag/Ab Combo assay result andsupplemental assay results should be interpreted inconjunction with the patient's clinical presentation,history and other laboratory results. If the results areinconsistent with clinical evidence, additional testing issuggested to confirm the result. 09/16/2023 8:27 AM EDT 09/16/2023 2:26 PM EDT us Marley Rich MD LAB BLOOD ORDERABLES Final Re sult [facility] [address] [place] [address] [phone] * (ABNORMAL) Comprehensive Metabolic Panel, Fasting (09/16/2023 8:27 AM EDT) Sodium 139 135 - 145 mmol/L [facility] Potassium 4.2 3.3 - 5.1 mmol/L [facility] Chloride 103 96 - 108 mmol/L [facility] Carbon Dioxide 26 22 - 29 mmol/L [facility] Anion Gap 14 12 - 20 [facility] Urea Nitrogen (BUN) 11 9 - 16 mg/dL [facility] Creatinine, Serum 0.74 0.5 - 1.4 mg/dL [facility] Estimated Glomerular Filt Rate >60 [facility] Comment:NOTE: For -Am erican individuals, multiply the result by 1.210.Chronic Kidney Disease: Estimated GFR < 60 mL/min/[id number] Kidney Disease: Estimated GFR < 15 mL/min/1.73m2 Glucose Fasting 78 60 - 99 mg/dL [facility] Calcium 10.2 8.4 - 10.2 mg/dL [facility] Bilirubin, Total 0.7 0.0 - 1.0 mg/dL [facility] Aspartate Amino Transferase 20 5 - 31 U/L [facility] Alanine Aminotransferase 11 0 - 31 U/L [facility] Total Protein 8.1(H) 6.5 - 8.0 g/dL [facility] Albumin Level 4.4 3.5 - 5.0 g/dL [facility] Alkaline Phosphatase 96 39 - 117 U/L [facility] 09/16/2023 8:27 AM EDT 09/16/2023 2:26 PM EDT Result [facility] Marley Rich MD LAB BLOOD ORDERABLES Final Re sult Performing Organization Address [facility] de Phone Number [facility] [address] [place] [address] [phone] * Cyclic Citrullinated Peptide (CCP) Antibody (IgG) (06/06/2023 11:38 AM EDT) Cyclic Citrullinated Peptide <16 UNITS [facility] Comment:Reference RangeNegat zach: <20Weak Positive: 20-39Moderate Positive: 40-59Strong Positive: >59THIS TEST WAS PERFORMED AT:[employer] [place] [id number] RODGERS MD 06/06/2023 11:3 8 AM EDT 06/06/2023 2:12 PM EDT Result [facility] External Provider LAB BLO OD ORDERABLES Final Result Performing Organization Address [facility] de Phone Number [facility] [address] [place] [phone] * Immunoglobulin G (06/06/2023 11:38 AM EDT) Immunoglobulin G 1486 600 - 1540 mg/dL [facility] Comment:THIS TEST WAS PERFOR MED AT:[employer] [address] [id number] RODGERS MD 06/06/2023 11:3 8 AM EDT 06/06/2023 2:12 PM EDT [facility] External Provider LAB BLO OD ORDERABLES Final Result Performing Organization Address [facility] Co de Phone Number [facility] [address] [place] [address] [phone] * Hepatitis Panel, General (06/06/2023 11:38 AM EDT) Pathologist [facility] Hepatitis A IgM Nonreactive Nonreactive [facility] Comment:IgM antibodies to CASTILLO V not detected; does not exclude earlyacute or recovered HAV infection. ~Hepatitis B Surface Antibody NONREACTIVE Nonreactive [facility] Comment:Nonreactive: < 8.00 mIU/mL Hepatitis B Core Antibody Nonreactive Nonreactive [facility] Hepatitis C Antibody Nonreactive Nonreactive [facility] Comment:Antibodies to HCV no t detected; does not exclude early acuteHCV infection. Hepatitis B Surface Ag Negative Negative [facility] 06/06/2023 11:3 8 AM EDT 06/06/2023 2:12 PM EDT [facility] External Provider LAB BLO OD ORDERABLES Final Result Performing Organization Address [facility] Co de Phone Number [facility] [address] [place] [address] [phone] * Rheumatoid Factor (06/06/2023 11:38 AM EDT) [facility] Rheumatoid Factor <13.0 <15.0 IU/mL [facility] 06/06/2023 11:3 8 AM EDT 06/06/2023 2:12 PM EDT [facility] External Provider LAB BLO OD ORDERABLES Final Result Performing Organization Address [facility] Co de Phone Number [facility] [address] [place] [phone] * (ABNORMAL) C-reactive Protein (06/06/2023 11:38 AM EDT) [facility] C Reactive Protein 0.66(H) < or = 0.50 mg/dL [facility] 06/06/2023 11:3 8 AM EDT 06/06/2023 2:12 PM EDT [facility] External Provider LAB BLO OD ORDERABLES Final Result Performing Organization Address [facility] Co de Phone Number [facility] [address] [place] [phone] * Uric acid (06/06/2023 11:38 AM EDT) Uric Acid 4.3 2.4 - 5.7 mg/dL [facility] 06/06/2023 11:3 8 AM EDT 06/06/2023 2:12 PM EDT [facility] External Provider LAB BLO OD ORDERABLES Final Result Performing Organization Address [facility] Co de Phone Number [facility] [address] [place] [phone] * Sed Rate by Modified Nimeshergren (06/06/2023 11:38 AM EDT) Erythrocyte Sedimentation Rate 11 0 - 20 MM/HR [facility] Comment:Patients with polycy themia and many hemoglobin abnormalitiesmay have depressed sed rates whereas patients with anemiamay have elevated sed rates. 06/06/2023 11:3 8 AM EDT 06/06/2023 2:12 PM EDT [facility] External Provider LAB BLO OD ORDERABLES Final Result Performing Organization Address [facility] Co de Phone Number [facility] [address] [place] [phone] * Hm Colonoscopy (12/30/2022) Colonoscopy Normal Normal 12/30/2022 us Historical Provider HEALTH MAINTENANCE Edited Result - Final documented in this encounter Visit Diagnoses Not on filedocumented in this encounter Additional Health Concerns Assessment Noted Time PHQ-9 Depression Total Score: 10 023 11:29 AM EDT documented as of this encounter Care Teams Supervisor Central Supply Relationship Specialty Start Date End Date Marley Rich MD [address] [place] [address] PCP - General Family Medicine 11/25/21 documented as of this encounter
--- OUTSIDE RECORDS SUMMARY | 2025-10-30 18:26 | XMS_ITS | Clinical Summary ---
Author Organization [facility] Address [address] [facility] [address] [place] [phone] Phone Care Team Providers Care Shipping Point Inspector Name Role Phone Veronique Jack MD Primary Care Provider [phone] Allergies No known active allergies Medications gabapentin [...] Upcoming Encounters Date Type Department Care Team ([facility] st Contact Info) Description 12/24/2025 9:00 AM EST Office Visit [facility] in [address] [address] Chauncey Kurtz, OD [address] [place] [address] 12/24/2025 9:15 AM EST Procedure visit [facility] in [address] [address] Health Maintenance Due Date Last Done Comments [...] topic Medical Devices Not on [place] [address] [place] [address] [employer] [place] [address] [address] [place] [address] [place] [employer] [address] [place] [address] Care Teams Shipping Point Inspector Relationship Specialty Start Date End Date Veronique Jack MD [address] [place] [phone] [email or web address] PCP - General Internal Medicine 07/04/20 Additional Source Comments The information contained in this document represents components of the legal health record. It is not the complete legal health record.[facility]
--- OUTSIDE RECORDS SUMMARY | 2025-10-30 18:26 | XMS_ITS | Encounter Summary ---
Author Organization [facility] Address [address] [address] Phone Care Team Providers Care Benefit Specialist Name Role Phone Unknown, Unknown Primary Care Provider Veronique Jackson MD Primary Care Provider [phone] Reason for Referral * Physical Therapy (Within 1 month) - Closed Specialty Diagnoses / Procedures Referred By Contac t Referred To Contact Physical Therapy Diagnoses Traumatic injury of head, sequela Sergei Luis MD Phone: tel: fax: mailto:[email or web address] Page PT Phone: tel: mailto:[email or web address] Referral ID Status Reason Start Date Expiration Date Visits Re quested Visits Authorized [id number] Closed 01/28/2020 04/07/2020 9 9 Encounter Details Date Type Department Care Team (Latest Contact Info) Description 01/28/2020 Transcribe Orders [facility] [place] [facility] [address] [place] [id number] Sergei Luis MD [address] [place] [address], [place] [address] [email or web address] Traumatic injury of head, sequela (Primary Dx) [...] Upcoming Encounters Date Type Department Care Team ([facility] st Contact Info) Description 12/24/2025 9:00 AM EST Office Visit [facility] in [address] [address] Chauncey Kurtz OD [address] [place] [address] [email or web address] 12/24/2025 9:15 AM EST Procedure visit [facility] in [address] [address] Scheduled Referrals Name Type Priority Associated Diagnoses Order Schedule Ambulatory referral to N Physical Therapy Outpatient Referral Routine Traumatic injury of head, sequela Ordered: 01/28/2020 documented as of this encounter Visit Diagnoses Diagnosis Traumatic injury of head, sequela- Primary documented in this encounter Care Teams Benefit Specialist Relationship Specialty Start Date End Date Unknown, Unknown, MD PCP - General 12/20/19 07/03/20 Veronique Jack MD [address] [place] [id number] [email or web address] PCP - General Internal Medicine 07/04/20 documented as of this encounter Additional Source Comments The information contained in this document represents components of the legal health record. It is not the complete legal health record.[facility]
--- OUTSIDE RECORDS SUMMARY | 2025-10-30 18:26 | XMS_ITS | Clinical Summary ---
Author Organization [employer] Address [address] [place] [address] 7 [place] [address] Care Team Providers Care Lead Software Developer Name Role Phone Marley Rich MD Primary Care Provider [phone] Allergies Active Allergy Reactions Criticality Noted Date [...] mouth 3 times daily. 180 capsule 11 10/28/20 25 3:19 PM EST 025 2025 Active Spacer/Aero-Holdi ng Chambers (OptiChamber Patrizia) misc 1 each every 4 (four) hours if needed (asthma). 1 each 025 Active acetaminophen (Tylenol Extra Strength) 500 MG tabletIndications :Fibromyalgia Take 1-2 tablets (500-1,000 mg) by mouth every 8 (eight) hours if needed (pain or fever). 100 tablet 1 025 2025 Active Ventolin HFA 108 (90 Base) MCG/ACT [...] A DAY. APPLY TO NECK 300 g 1 025 Active meloxicam (Mobic) 15 MG tabletIndications :Acute bilateral low back pain with right-sided sciatica Take 1 tablet (15 mg) by mouth Once per day. 30 tablet 11 025 2025 Active triamcinolone (Kenalog) 0.1 % [...] dose of 7.5mg daily) 90 tablet 1 10/15/20 25 12:56 PM EST 025 Active rosuvastatin (Crestor) 10 MG tabletIndications :Other hyperlipidemia Take 1 tablet (10 mg) by mouth at bedtime. (For cholesterol) 90 tablet 1 025 Active cholecalciferol (Vitamin D-3) 25 MCG tabletIndications :History of vitamin D deficiency TAKE 1 TABLET (25 MCG) BY MOUTH ONCE PER DAY. 90 tablet 1 025 Active pantoprazole (ProtoNix) 40 MG EC tabletIndications :Gastroesophageal reflux disease, unspecified whether esophagitis present TAKE 1 TABLET BY MOUTH BEFORE BREAKFAST. DO NOT BREAK, CRUSH, DISSOLVE OR CHEW. 90 tablet 1 Active naloxone (Narcan) 4 mg/0.1 mL nasal spray Administer 1 spray (4 mg) into affected nostril(s) if needed for opioid reversal. May repeat every 2-3 minutes if needed, alternating nostrils, until medical assistance becomes available. 2 each 2 025 2025 Active ammonium lactate (Amlactin) 12 % creamIndications: Xerosis of skin APPLY TOPICALLY TO AFFECTED AREA(s) TWICE DAILY 385 g 1 Active Calcium Carb-Cholecalcife rol (Calcium + Vitamin D3) 600-10 MG-MCG tabletIndications :Vitamin D deficiency Take 1 tablet by mouth 2 times daily. TAKE 1 TABLET BY MOUTH BID 180 tablet 3 Active cyclobenzaprine (Flexeril) 10 MG tabletIndications :Acute bilateral low back pain with right-sided sciatica TAKE ONE TABLET BY MOUTH THREE TIMES DAILY 90 tablet 1 10/15/20 25 12:56 PM EST Active telmisartan (Micardis) 40 MG tablet Take 1 tablet (40 mg) by mouth at bedtime. 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 here for cervical cancer screening. Will continue monitoring following ASCCP guidelines. Long-term current use of opiate analgesic 2024 Pyelonephritis 07/26/2025 Stomatitis 06/14/2025 Other insomnia 06/11/2025 Overview (07/26/2025): [facility] by Rajwinder Cassidy MD, for [...] will recommend to referring provider. 06/12/25 [facility] Clinic[facility]: Referred by Rajwinder Cassidy MD, for [...] & Plan (01/26/2024 10:45 AM EST): Per case fitter patient has fibromyalgia. I prescribed her Gabapentin [...] recommended reduction of 20-30% of maintenance calories; casino enforcement agent referral offered. Recommended to decrease soda and sugary beverage consumption. Recommended at least 20 g per meal of protein to assist with satiety. Recommended at least 150 min/week of moderate intensity exercise. Assessment & Plan (09/12/2023 12:04 PM EDT): Discussed calorie deficit, recommended reduction of 20-30% of maintenance calories; casino enforcement agent referral offered. Recommended to decrease soda and sugary beverage consumption. Recommended at least 20 g per meal of protein to assist with satiety. Recommended at least 150 min/week of moderate intensity exercise. -Labs: Albumin, CBC, Met. Panel, Lipid Panel, TSH/FT4, Urinalysis, Vit.D Head trauma, sequela 04/21/2018 Overview (10/29/2022): Last [...] pelvic floor injections - botox/PT trial at [facility] has completed pt recruitment Discussed that [...] to the integrative medicine group here at [facility] for access to these complementary therapies. Trigger point injections to the pelvic floor with either lidocaine/bupivicaine or botulinum toxin are other considerations. Botox injections for pelvic muscle is currently an off-label use and may not be covered by insurance. All questions and concerns were answered. Plan: - Referral to pelvic PT at [facility] given - Will try [facility] again [...] Overview (02/07/2025): Lab Results Component Value Date [id number] 70.5 01/30/2025 - January 2025 - decrease [...] Encounters Date Type Department Care Team Description 10/28/2025 3:30 PM EST Office Visit [facility] [address] [place] [address] Marley Rich MD Chronic right shoulder pain (Primary Dx); Head trauma, sequela 10/28/2025 Travel 10/12/2025 Refill [facility] [address] [place] [address] Marley Rich MD Acute bilateral low back pain with right-sided sciatica 10/03/2025 Results Follow-Up [facility] [address] [place] [address] Marley Rich MD Pap Smear, HPV High Risk with Reflex to Subtypes 10/01/2025 Telephone [facility] [address], [place] [phone] Iesha Lizama LPN Call Back Request 09/19/2025 2:00 PM EDT Office Visit [facility] [address] [place] [address] Fili Rich DDS 09/19/2025 Telephone [facility] [address] [place] [address] Marley Rich MD Prior Authorization 09/18/2025 Refill [facility] [address] [place] [address] Marley Rich MD Vitamin D deficiency 09/17/2025 11:20 AM EDT Procedure Visit [facility] [address] [place] [address] Marley Rich MD Cervical cancer screening (Primary Dx); Chronic right-sided low back pain with right-sided sciatica; Encounter for vaccination 09/17/2025 Travel 09/04/2025 1:00 PM EDT Office Visit [facility] [address] [place] [address] Elbert Martinez DDS 09/04/2025 Refill [facility] [address] [place] [address] Marley Rich MD Xerosis of skin 08/28/2025 3:15 PM EDT Clinical Support [facility] [address] [place] [address] Aletha Vazquez RN Chronic right-sided low back pain with right-sided sciatica (Primary Dx); Long-term current use of opiate analgesic 08/28/2025 Orders Only [facility] [address] [place] [address] Eriberto Sherman MD Essential hypertension (Primary Dx) 08/28/2025 Travel 08/23/2025 2:00 PM EDT Office Visit [facility] [address] [place] [address] Kamran Sherman Dental calculus (Primary Dx) 08/22/2025 Refill [facility] [address] [place] [address] Marley Rich MD Essential hypertension; Gastroesophageal reflux disease, unspecified whether esophagitis present 08/21/2025 Telephone [facility] [address] [place] [address] Marley Rich MD Referral 08/16/2025 Telephone [facility] [address] [place] [address] Aletha Vazquez RN 08/15/2025 Refill [facility] [address] [place] [address] Marley Rich MD History of vitamin D deficiency 08/14/2025 Refill [facility] [address] [place] [address] Marley Rich MD Lumbar back pain with radiculopathy affecting right lower extremity; History of vitamin D deficiency 08/12/2025 Refill [facility] [address] [place] [address] Marley Rich MD Acute bilateral low back pain with right-sided sciatica 08/07/2025 Refill [facility] [address] [place] [address] Marley Rich MD Other hyperlipidemia 08/01/2025 Travel from Last 3 Months Immunizations Immunization Administration Dates Next Due Hep A, Adult 2021,12/18/2019 Influenza injectable quadriv alent IIV4 with preservative 12/06/2019,09/05/2018,09/05/2017 Influenza injectable quadriv alent preservative free 07/26/2023,08/09/2022,09/02/2021,2019 Influenza, High Dose Seasona l, Preservative Free 2025 Influenza, IIV3, injectable 08/06/2024,0 12/15/2016,09/29/2015,2012 Influenza, seasonal, injecta ble, preservative free 08/06/2024 MMR 07/17/2013 Moderna Covid-19 Vaccine 12+ 11/18/2021,03/19/20 21,02/16/2021 Pfizer Covid-19 Vaccine 12+ 09/17/2025 Pneumococcal Conjugate [...] your housing situation today? I have randy valentina 04/30/[address] you li [...] Mass Index 36.49 10/28/2025 3:18 PM EST Plan of Treatment Upcoming Encounters Date Type Department Care Team (Late st Contact Info) Description 11/14/2025 3:45 PM EST Procedure Visit [facility] [address] [place] [address] Marley Rich MD [address] [place] [address] 12/31/2025 2:30 PM EST Clinical Support [facility] [address] [place] [address] Aletha Vazquez RN [address] [place] [address] 02/21/2026 1:30 PM EDT Office Visit [facility] [address] [place] [address] Kamran Sherman Health Maintenance Due Date Last Done Comments CT Colonography 1960 FIT DNA/Cologuard 1960 FIT 1960 FOBT 1960 Sigmoidoscopy 1960 Diabetes: Hemoglobin A1C 08/10/2025 024, 09/16/2023, 09/07/2022, Additional history exists Mammogram 11/03/2025 11/03/2023, 10/31/2021 Dental X-Ray: Full [...] 02/21/2025, 08/21/2024, Additional history exists Tobacco Screening 10/28/2026 10/28/2025 Cervical Cancer Screening 09/17/2028 HPV/Cotest 09/17/2028 09/17/2025, 09/09/2022 Pap Smear 09/17/2028 09/17/2025, 08/28, 09/09/2022, Additional history exists Lipid Panel 06/20/2030 06/20/2025, 03/2025, 08/10/2024, Additional history exists Colonoscopy 12/30/2032 [...] 150/90 Blood Pressure 142/74(2024 3:18 PM EST) Mary Brock PharmD Immunization General No Mary Higgins PharmD Note: Receive all recommended vaccines: due for RSV Procedures Procedure Name Priority Date/Time Associated Diagnosis Comments XR SHOULDER 2+ VIEWS RIGHT Routine 10/30/2025 3:37 PM EST Chronic right shoulder pain 19 MO RESIN-BASED COMPOSITE - 2 SURF, POSTERIOR Routine 09/19/2025 2:00 PM EDT CASE PRESENTATION, DETAILED AND EXTENSIVE TREATMENT PLANNING Routine 09/19/2025 2:00 PM EDT HPV DNA, LOW/HIGH RISK Routine 09/17/2025 10:50 AM EDT Cervical cancer screening PAP SMEAR Routine 09/17/2025 12:00 AM EDT Cervical cancer screening CASE PRESENTATION, DETAILED AND EXTENSIVE TREATMENT PLANNING [...] 8 :45 AM EDT Abnormal laboratory test LIPID PANEL, STANDARD Routine 06/20/2025 8:19 AM EDT Other hyperlipidemia HEMOGLOBIN A1C Routine 08/10/2024 8:24 AM EDT Prediabetes HM MAMMOGRAPHY Routine 11/03/2023 HEPATITIS PANEL, GENERAL Routine 06/06/2023 11:38 AM EDT HM COLONOSCOPY Routine 12/30/2022 INTRAORAL - COMPLETE SERIES OF RADIOGRAPHIC IMAGES Routine 12/20/2022 9:00 AM EST from Last 3 Months or Most Recently Relevant to Health Maintenance Results * XR Shoulder 2+ Views Right (10/30/2025 3:37 PM EST) Anatomical Region Laterality Modality Upper Extremities, Shoulder Right Radi ographic Imaging 10/30/2025 3:37 PM EST Narrative 10/30/2025 3:50 PM EST [address] [address] XRay Report Signed Patient: Ruthie Johnston MR #: [id number] : 1960 Acct:[id number] Age/Sex: 65 / F ADM Date: 10/30/25 Loc: LETI Attending Dr: Marley Rich MD Ordering Physician: Marley Rich MD Date of Service: 10/30/25 Procedure(s): XR shoulder RT min 2V Accession Number(s): [id number] cc: Marley Rich MD Reason for Exam: 65 yo F with right shoulder pain persistent pain , send to [facility] EXAMINATION: XR SHOULDER, RIGHT CLINICAL INFORMATION: 65 yo F with right shoulder pain persistent pain , send to [facility] COMPARISON: None available. TECHNIQUE: AP external rotation, [...] 10/30/25 1547 DD/ 1537 TD/TT: 10/30/25 1544 Administrative Assistant Office Manager: Procedure Note Donotuseinterpreter, Image - 10/30/2025 [place] [address] XRay Report Signed Patient: Ruthie JohnstonMR #: [id number] : 1960Acct:[id number] Age/Sex: 65 / FADM Date: 10/30/25 Loc: LETI Attending Dr: Marley Rich MD Ordering Physician: Marley Rich MD Date of Service: 10/30/25 Procedure(s): XR shoulder RT min 2V Accession Number(s): [id number] cc: Marley Rcih MD Reason for Exam: 65 yo F with right shoulder pain persistent pain , [facility] EXAMINATION: XR SHOULDER, RIGHT CLINICAL INFORMATION: 65 yo F with right shoulder pain persistent pain , send to [facility] COMPARISON: None available. TECHNIQUE: AP external rotation, [...] Peter Sandra MD 10/30/2025 03:47 PM EST RP Dictated By: Peter Martin MD Signed By: <Electronically signed by Peter Smith MDin OV> 10/30/25 1547 DD/ 1537 TD/TT: 10/30/25 1544 Administrative Assistant Office Manager: us Marley Rich MD IMG XR PROCEDURES Final Resul t * HPV High Risk with Reflex to Subtypes (09/17/2025 10:50 AM EDT) HPV High Risk Negative Negative [facility] HPV Genotype 16 Negative Negative [facility] HPV Genotype 18 Negative Negative [facility] Comment:HPV testing performe d at [facility] (CLIA#[id number]), [address] [place] [address].Testing for HPV was performed using the Sophie NANCY 6800system. The presence of HPV in the female genital tract isassociated with a number of diseases, including cervicalcarcinoma. The HPV DNA high risk pool tests for HPV 31, 33,35, 39, 45, 51, 52, 56, 58, 59, 66 and 68. The testing forHPV 16 and 18 genotypes has also been performed. A positiveresult indicates detection of nucleic acid sequences fromone or more subtypes, whereas a negative result indicatessuch sequences were not detected. Pap Vial 09/17/2025 10:5 0 AM EDT 09/17/2025 2:17 PM EDT us Marley Rich MD LAB BLOOD ORDERABLES Final Re sult [facility] [address] [place] [address] [phone] * Pap Smear (09/17/2025 12:00 AM EDT) Swab Cervical swab / Unknown 09/17/2025 09/18/2025 6:15 AM EDT Narrative [facility] - 09/25/2025 3:26 PM EDT ----- ------- Name: Ruthie Johnston Age/Sex: 65/F : 1960 Unit#: [id number] Attend Dr: Marley Rich MD Re09/17/25 Status: DEP REF Location: HO.LNP Disch: ----- ------- SPEC : [id number] RECD: 09/18/25 STATUS: JOSIAH REDaryl NUM: [id number] JENNIFER: 09/17/25-[address]: Marley Rich MD ENTERED: 09/18/25 SP TYPE: Pap Smr OT DR: ORDERED: Pap Smear, PAP path review Interpretation General Category: Epithelial cell abnormality. Adequacy: Endocervical component present. Interpretation: Atypical squamous cells of undetermined significance HPV High Risk: Negative HPV Genotyping 16: Negative HPV Genotyping 18: Negative Clinical Information LMP: Post-menopausal Previous PAP test: Other surgery: Other history: Material Received ThinPrep-Cervical ----- ------- Signed (signature on file) Katalina Madison 09/25/25 1526 ----- ------- END OF REPORT Marley Rich MD LAB CYTOLOGY ORDERABLES Final Result [facility] [address] [place] [address] [phone] * POCT JUAN-14 Urine Drug Screen (08/28/2025 [...] procedure / Unknown 08/28/2025 3:24 PM EDT Aletha Mars RN - 08/28/2025 3:24 PM EDT . Internal Pass Control Lot# [id number] Exp: 09-27-26 Marley Rich MD POINT OF CARE TEST ENTER/EDIT ORDERABLES Final Result * MR Lumbar Spine w/o Contrast (08/19/2025 12:45 PM EDT) Anatomical Region Laterality Modality Spine, L-spine Magnetic Resonan ce 08/19/2025 12:4 5 PM EDT Narrative 08/19/2025 12:47 PM EDT [place] [address] Magnetic Resonance Report Signed Patient: Ruthie Johnston MR #: [id number] : 1960 Acct:[id number] Age/Sex: 65 / F ADM Date: 08/17/25 Loc: HO.MRI Attending Dr: Marley Rich MD Ordering Physician: Marley Rich MD Date of Service: 08/17/25 Procedure(s): MR lumbar spine wo con Accession Number(s): [id number] cc: Marley Rich MD Reason for Exam: [...] OV> 08/19/25 1246 DD/ 1245 TD/TT: 08/19/25 124 Administrative Assistant Office Manager: Procedure Note Donotuseinterpreter, Image - 08/19/2025 [place] [address] Magnetic Resonance Report Signed Patient: Ruthie Johnston #: [id number] : 1960Acct:[id number] Age/Sex: 65 / FADM Date: 08/17/25 Loc: HO.MRI Attending Dr: Marley Rich MD Ordering Physician: Marley Rich MD Date of Service: 08/17/25 Procedure(s): MR lumbar spine wo con Accession Number(s): [id number] cc: Marley Rich MD Reason for Exam: [...] 08/19/25 1246 DD/ 1245 TD/TT: 08/19/25 1245 Administrative Assistant Office Manager: us Marley Rich MD IMG MRI PROCEDURES Final Resu lt * Urinalysis, Complete, with Reflex to Culture (08/19/2025 8:45 AM EDT) Color Urine Yellow [facility] Appearance Urine Clear [facility] PH 6.5 5.0 - 9.0 [facility] Glucose Urine UA Negative Negative mg/dL [facility] Urine Blood Negative Negative [facility] Specific [place]chard - Urine 1.015 1.005 - 1.025 [facility] Urine Protein Negative Neg-Trace mg/dL [facility] Urine Ketones Negative Negative mg/dL [facility] Nitrite Urine Negative Negative [facility] Leukocyte Esterase Urine Negative Negative [facility] RBC Urine 0-2 0 - 2 /HPF [facility] Urine WBC 0-5 0 - 5 /HPF [facility] Urine Squamous Epithelial Cell 0-2 0 - 2 /HPF [facility] Urine Bacteria None Seen None Seen [facility] Hyaline Casts, Urine 0-2 0 - 2 /LPF [facility] Urine 08/19/2025 8:45 AM EDT 08/19/2025 2:15 PM EDT Narrative [facility] - 08/19/2025 2:24 PM EDT [id number], Clean Catch us Marley Rich MD LAB URINE ORDERABLES Final Re sult Performing Organization Address [facility]/ZIP Co de Phone Number [facility] [address] [place] [phone] * Calprotectin, Stool (08/19/2025 8:45 AM EDT) Calprotectin,Fecal 78 mcg/g [facility] Comment:Reference Range: <50 Normal 50-120 Borderline >120 ElevatedCalprotectin in Crohn's disease and ulcerative colitis canbe five to several thousand times above the referencepopulation (50 mcg/g or less). Levels are usually 50 mcg/gor less in healthy patients and with irritable bowelsyndrome. Repeat testing in 4-6 weeks is suggested forborderline values.THIS TEST WAS PERFORMED AT:MAPPING/[facility] [id number] [id number] SUN MD,PHD,CHRISTINE Stool 08/19/2025 8:45 AM EDT 08/19/2025 2:23 PM EDT us Marley Rich MD LAB BODY FLUIDS AND STOOLS OR DERABLES Final Result Performing Organization Address [facility]/ZIP Co de Phone Number [facility] [address] [place] [phone] * Lipid Panel, Standard (06/20/2025 8:19 AM EDT) Triglycerides 59 <150 mg/dL [facility] Comment:Desirable Triglyceri de: less than 150 mg/dLBorderline High Triglyceride 150-199 mg/dLHigh Triglyceride: 200-499 mg/dLVery High Triglyceride: greater than or equal to 5OO mg/dL Cholesterol 111 <200 mg/dL [facility] Comment:Desirable Cholestero l: less than 200 mg/dLBorderline High Cholesterol: 200-239 mg/dLHigh Cholesterol: greater than 239 mg/dL LDL Cholesterol Calculated 45 <100 mg/dL [facility] Comment:Desirable LDL: less than 100 mg/dLNear Optimal/Above Optimal LDL: 110- 129 mg/dLBorderline High LDL: 130-159 mg/dLHigh LDL: 160-189 mg/dLVery High LDL: greater than or equal to 190 mg/dL HDL Cholesterol 55 >40 mg/dL [facility] Comment:Desirable HDL: great er than 40 mg/dL Note: This HDL assay may give artificially low results in patients with liver disease. Blood Venous blood specimen / Unknown 06/20/2025 8:19 AM EDT 06/20/2025 2:02 PM EDT us Marley Rich MD LAB BLOOD ORDERABLES Final Re sult [facility] [address] [place] [address] [phone] * Hemoglobin A1c (08/10/2024 8:24 AM EDT) Hemoglobin A1c 5.4 <6.0 % [facility] Comment:Hemoglobin A1C Refer ence Range Adults: 4.8 - 6.0 % Non diabetic: < 6.0 % Goal: < 7.0 %Additional Action Suggested: > 8.0 %Note: Hemoglobin A1c results are invalid for patients with abnormal amounts of HbF. Blood transfusions may impact the HbA1c concentration in the patient sample. Estimated Average Glucose 108 mg/dL [facility] Comment:eAG = Estimated ave rage glucose which is %A1C expressed asaverage glucose, using the formula of the R4S-RaxgggdKgnshdu Glucose study (ADAG), Diabetes Care, Vol.31,#8,Jun. 2007 Blood Venous blood specimen / Unknown 08/10/2024 8:24 AM EDT 08/10/2024 2:52 PM EDT Marley Rich MD LAB BLOOD ORDERABLES Final Re sult Performing Organization Address City/[facility]/ZIP Co de Phone Number [facility] [address] [place] [address] [phone] * Mammography (11/03/2023) Pathologist [facility] Mammogram BIRADS 1 Normal, Abnormal, BIRADS 1 , BIRADS 2 Anatomical Region Laterality Modality Other Result [facility] Marley Rich MD HEALTH MAINTENANCE Final Resu lt * Hepatitis Panel, General (06/06/2023 11:38 AM EDT) Pathologist [facility] Hepatitis A IgM Nonreactive Nonreactive [facility] Comment:IgM antibodies to CASTILLO V not detected; does not exclude earlyacute or recovered HAV infection. ~Hepatitis B Surface Antibody NONREACTIVE Nonreactive [facility] Comment:Nonreactive: < 8.00 mIU/mL Hepatitis B Core Antibody Nonreactive Nonreactive [facility] Hepatitis C Antibody Nonreactive Nonreactive [facility] Comment:Antibodies to HCV no t detected; does not exclude early acuteHCV infection. Hepatitis B Surface Ag Negative Negative [facility] 06/06/2023 11:3 8 AM EDT 06/06/2023 2:12 PM EDT [facility] External Provider LAB BLO OD ORDERABLES Final Result Performing Organization Address [facility]/ZIP Co de Phone Number [facility] [address] [place] [phone] * Colonoscopy (12/30/2022) Pathologist [facility] Colonoscopy Normal Normal 12/30/2022 us Historical Provider HEALTH MAINTENANCE Edited Result - Final from Last 3 Months or Most Recently Relevant to Health Maintenance Insurance [facility] [employer]TERM OPT[employer] (HMO D-SNP) DANI DAVE [id number] [facility] Care Teams Lead Software Developer Relationship Specialty Start Date End Date Marley Rich MD [address] [place] [address] PCP - General Family Medicine 11/25/21
--- OUTSIDE RECORDS SUMMARY | 2025-10-30 18:26 | XMS_ITS | Encounter Summary ---
Author Organization [employer] Address [address] [place] [address] 7 [place] [address] Care Team Providers Care Customer Technical Services Manager Name Role Phone Marley Rich MD Primary Care Provider [phone] Reason for Visit * Reason Comments Med Refill Encounter Details Date Type Department Care Team ([facility] st Contact Info) Description 05/14/2025 Refill [facility] ADULT D[facility]AL [address] [place] [address] Carl Casillas, DMD 505 [place] [address] Dental caries Social History Tobacco Use Types [...] Description 11/14/2025 3:45 PM EST Procedure Visit [facility] [address] [place] [address] Marley Rich MD 505 [place] [address] 12/31/2025 2:30 PM EST Clinical Support [facility] [address] [place] [address] Aletha Vazquez RN 505 [place] [address] 02/21/2026 1:30 PM EDT Office Visit [facility] [address] [place] [address] Kamran Sherman documented as of this encounter [...] documented as of this encounter Care Teams Customer Technical Services Manager Relationship Specialty Start Date End Date Marley Rich MD [address] [place] [address] PCP - General Family Medicine 11/25/21 documented as of this encounter
--- OUTSIDE RECORDS SUMMARY | 2025-10-30 18:26 | XMS_ITS | Encounter Summary ---
Author Organization [employer] Address [address] [place] [address] [place] [address] Care Team Providers Care Lesson Instructor Name Role Phone Marley Rich MD Primary Care Provider [phone] Encounter Details Date Type Department Care Team (Late st Contact Info) Description 10/25/2022 Abstract [facility] MED[facility] [address] [place] [address] Provider, MD Jomar Social History Tobacco Use [...] 3:45 PM EST Procedure Visit [facility] 505 [place] [address] Marley Rich MD 505 [place] [address] 12/31/2025 2:30 PM EST Clinical Support [facility] 505 [place] [address] Aletha Vazquez, EAN 505 [place] [address] 02/21/2026 1:30 PM EDT Office Visit [facility] ADULT [facility]ENT[facility] [address] [place] [address] Kamran Sherman documented as of this encounter Visit Diagnoses Not on filedocumented in this encounter Care Teams Lesson Instructor Relationship Specialty Start Date End Date Marley Rich MD [address] [place] [address] PCP - General Family Medicine 11/25/21 documented as of this encounter
--- OUTSIDE RECORDS SUMMARY | 2025-10-30 18:27 | XMS_ITS | Encounter Summary ---
Author Organization [employer] Address [address] [place] [address] 7 [place] [address] Care Team Providers Care Segmental Paver Installer Name Role Phone Marley Rich MD Primary Care Provider [phone] Reason for Visit * Reason Onset Date Comments PT1 01/02/2025 Encounter Details Date Type Department Care Team ([facility] st Contact Info) Description 01/02/2025 Telephone [facility] CHC MED & PEDS 505 [place] [address] Marley Rich MD 505 [place] [address] PT1 Social History Tobacco Use Types Packs/Day [...] or facility name: Dr Mclaughlin Facility Address: [address] [place] [address] [address]nd [address] [place] [address] Escort needed: Y/N: Yes Do you have a wheelchair: Y/N: No If yes- Manual or electric: n/a Visits: 2 x a month documented in this encounter Plan of Treatment Upcoming Encounters Date Type Department Care Team ([facility] st Contact Info) Description 11/14/2025 3:45 PM EST Procedure Visit [facility] 505 [place] [address] Marley Rich MD 505 [place] [address] 12/31/2025 2:30 PM EST Clinical Support [facility] 505 [place] [address] Aletha Vazquez RN 505 [place] [address] 02/21/2026 1:30 PM EDT Office Visit [facility] CHC ADULT DENTAL [address] [place] [address] Kamran Sherman documented as of this encounter [...] documented as of this encounter Care Teams Segmental Paver Installer Relationship Specialty Start Date End Date Marley Rich MD [address] [place] [address] PCP - General Family Medicine 11/25/21 documented as of this encounter
--- OUTSIDE RECORDS SUMMARY | 2025-10-30 18:27 | XMS_ITS | Encounter Summary ---
Author Organization [employer] Address [address] [place] [address] 7 [place] [address] Care Team Providers Care Family Assistant Name Role Phone Marley Rich MD Primary Care Provider [phone] Reason for Visit * Reason Onset Date Comments [facility] 03/23/2024 Encounter Details Date Type Department Care Team ([facility] st Contact Info) Description 03/23/2024 Telephone [facility] MEDICINE [address] [place] [address] Marley Rich MD 505 [place] [address] [facility] Social History Tobacco Use Types Packs/Day [...] Upcoming Encounters Date Type Department Care Team ([facility] st Contact Info) Description 11/14/2025 3:45 PM EST Procedure Visit [facility] 505 [place] [address] Marley Rich MD 505 [place] [address] 12/31/2025 2:30 PM EST Clinical Support [facility] [address] [place] [address] Aletha Vazquez, EAN [address] [place] [address] 02/21/2026 1:30 PM EDT Office Visit [facility] ADULT DENTAL [address] [place] [address] Kamran Sherman documented as of this encounter [...] documented as of this encounter Care Teams Family Assistant Relationship Specialty Start Date End Date Marley Rich MD 230 [place] [address] PCP - General Family Medicine 11/25/21 documented as of this encounter
--- OUTSIDE RECORDS SUMMARY | 2025-10-30 18:27 | XMS_ITS | Encounter Summary ---
Author Organization [employer] Address [address] [place] [address] 7 [place] [address] Care Team Providers Care Assisted Living Coordinator Name Role Phone Marley Rich MD Primary Care Provider [phone] Reason for Visit * Reason Onset Date Comments PT-1 03/29/2024 Encounter Details Date Type Department Care Team (Late st Contact Info) Description 03/29/2024 Telephone [facility] MEDICINE 230 [place] [address] Marley Rich MD 505 [place] [address] PT-1 Social History Tobacco Use Types Packs/Day [...] Y/N: Yes Provider name or facility name: [facility] Facility Address: [address] [place] [address] Escort needed: Y/N: No Do you have a wheelchair: Y/N: No If yes- Manual or electric: no Visits: 3 documented in this encounter Plan of Treatment Upcoming Encounters Date Type Department Care Team ([facility] st Contact Info) Description 11/14/2025 3:45 PM EST Procedure Visit [facility] CHC MED & PEDS 505 [place] [address] Marley Rich MD 505 [place] [address] 12/31/2025 2:30 PM EST Clinical Support [facility] [address] [place] [address] Aletha Vazquez, EAN 505 [place] [address] 02/21/2026 1:30 PM EDT Office Visit [facility] ADULT DENTAL [address] [place] [address] Kamran Sherman documented as of this encounter [...] documented as of this encounter Care Teams Assisted Living Coordinator Relationship Specialty Start Date End Date Marley Rich MD [address] [place] [address] PCP - General Family Medicine 11/25/21 documented as of this encounter
--- OUTSIDE RECORDS SUMMARY | 2025-10-30 18:27 | XMS_ITS | Encounter Summary ---
Author Organization [employer] Address [address] [place] [address] 7t [place] [address] Care Team Providers Care Diesel Truck Crane Operator Name Role Phone Marley Rich MD Primary Care Provider [phone] Reason for Visit * Reason Comments Med Refill Encounter Details Date Type Department Care Team (Late st Contact Info) Description 03/23/2025 Refill [facility] [address] [place] [phone] Kashif Layne MD 230 [place], [place] [phone] Social History Tobacco Use Types Packs/Day Years [...] [facility] 505 [place] [address] Marley Rich MD 505 [place] [address] 12/31/2025 2:30 PM EST Clinical Support [facility] 505 [place] [address] Aletha Vazquez, EAN 505 [place] [address] 02/21/2026 1:30 PM EDT Office Visit [facility] ADULT DENTAL 505 [place] [address] Kamran Sherman documented as of this encounter [...] documented as of this encounter Care Teams Diesel Truck Crane Operator Relationship Specialty Start Date End Date Marley Rich MD 230 [place] [address] PCP - General Family Medicine 11/25/21 documented as of this encounter
--- OUTSIDE RECORDS SUMMARY | 2025-10-30 18:27 | XMS_ITS | Encounter Summary ---
Author Organization [employer] Address [address] [place] [address] 7 [place] [address] Care Team Providers Care Mud Mixer Operator Name Role Phone Marley Rich MD Primary Care Provider [phone] Reason for Visit * Reason Onset Date Comments PT-1 03/07/2025 0 Encounter Details Date Type Department Care Team ([facility] st Contact Info) Description 03/07/[address] [facility] MEDICINE 230 [place] [address] Marley Rich MD 505 [place], [place] [phone] PT-1 (0) Social History Tobacco Use Types [...] Miscellaneous Notes * Telephone Encounter - [facility] - 03/07/2025 2:36 PM EDT Patient calling requesting PT1 Home Address verified: Y/N: Yes Provider name or facility name: [facility] [place] [address] Escort needed: Y/N: No Do you have a wheelchair: Y/N: No If yes- Manual or electric: Visits: (1 x Monthly) Contact pt at [phone] documented in this encounter Plan of Treatment Upcoming Encounters Date Type Department Care Team ([facility] st Contact Info) Description 11/14/2025 3:45 PM EST Procedure Visit [facility] 505 [place] [address] Marley Rich MD 505 [place] [address] 12/31/2025 2:30 PM EST Clinical Support [facility] 505 [place] [address] Aletha Vazquez RN 505 [place] [address] 02/21/2026 1:30 PM EDT Office Visit [facility] CHC ADULT DENTAL [address] [place] [address] Kamran Sherman documented as of this encounter [...] documented as of this encounter Care Teams Mud Mixer Operator Relationship Specialty Start Date End Date Marley Rich MD [address] [place] [address] PCP - General Family Medicine 11/25/21 documented as of this encounter
--- OUTSIDE RECORDS SUMMARY | 2025-10-30 18:27 | XMS_ITS | Data Portability ---
Author Organization [place] [facility], Allergy Address [address] [address] Assessment Encounter Date Assessment Date Assessment LastModified [...] Procedures home sleep testing (PROC) 024 024 [email or web address] [facility], [facility] [place], [address], 4 11:12:14 Surgeries None recorded. Imaging None [...] Sensorineur al hearing loss of bilateral ears 251332269 Active 2023 QUINCY HERNANDEZ , BERHANE [address] [place], [place], [address], [facility] [place] 4 15:02:30 Bilateral tinnitus 7953561035759 Active 2023 QUINCY HERNANDEZ , BERHANE 100 [facility] [place], [place], [address], [facility] - [facility] [place] 4 15:02:42 Sensorineur al hearing loss of bilateral ears 678049213 Active 2023 QUINCY HERNANDEZ , AUD 100 [facility] [place], [place], [address], [facility] - [facility] [place] 4 15:02:54 Central perforation of right tympanic membrane 6848383016162 101 Active 2023 DANIELLE LOREDO MD 100 [facility], [place], [address], [facility] - [facility] [place] 4 15:48:50 Snoring 13218080 Active 2023 DANIELLE LOREDO MD 100 [facility] [place], [place], [address], [facility] - [facility] [place] 4 15:49:05 Problem Notes None recorded. Procedures Surgical History Date Name Laterality Status Provider Name and Address Organization Details Recorded Time 4 Comp Audio with Tymps - 88141 & 23088 completed BERHANE AKINS 100 [facility] [place],[address], [address], [facility] - [facility] [place] 04/13/2024 15:02:06 procedure on urinary bladder completed Ray Galvan [place] [facility] [place] 04/13/2024 15:16:05 hernia repair completed Rya Galvan [place] [facility] [place] 04/13/2024 15:16:30 Imaging Results None recorded. Procedure [...] Updated DateTime 04/13/2024 185.42 cm 26.4 kg/m2 42631.47 g Ray Galvan [place] [facility] 04/13/2024 15:18:16 Social History None recorded. Functional Status Question Answer Note LastModified by Organizat ion Details LastModified Time Do you use any illicit or recreational drugs? No [email or web address] Information not available 04/13/2024 Do you or have you ever used any other forms of tobacco or nicotine? No [email or web address] Information not available 04/13/2024 What is your level of alcohol consumption? None [email or web address] Information not available 04/13/2024 Mental Status None recorded. Family History Nothing Reported. Medical History Condition Response Allergies/Hayfever N Heart Problems N Anxiety Y Tonsil Infections N Emphysema N Migraines Y Thyroid Problems N Developmental Delay N Depression Y Glaucoma N Nasal or Sinus Problems N Anemia N Anesthesia Complications N Heart Attack (VT) N Other Skin Condition N Diabetes Y [...] Note 721 DANIELLE RON MD [facility] of [address] [address] 04/13/2024 14:14:08 04/13/2024 15:57:41 Sensorineural hearing loss of bilateral ears 344843652 H90.3 Audiometri c evaluation results: Right ear: Borderline normal to moderate SNHL with excellent speech discrimina tion. Left ear: Mild SNHL with excellent speech discrimina tion. Tympanomet ry: Right Ear:Type B with large volume Left Ear:Type A Recommenda tions include:Pa tient may want to consider amplificat ion pending medical clearance. Bilateral tinnitus [address] 102 H93.13 Central pe rforation of right tympanic membrane 7290165057 603867 H72.01 Snoring 15630414 R06.83 Health Concerns Section Related Observation LastModified by Organization Detai ls LastModified Time None Recorded Concern Status LastModified by Organization Details LastModified Time None Recorded Advance Directives Directive None Recorded Payers Insurance Date Sequence Insurance Name Policy Number Policy Milian Covered Member ID Milian Member ID Guarantor Name 04/13/2024 1 [place] [facility] Ruthie Powell [id number] Ruthie Powell Notes Date Note Type Note [...] but no true vertigo DANIELLE DOMINGUEZ MD [address] [place] [address], [phone], [facility] - [facility] 04/13/2024 15:50:27 OBGyn Episode No OBEpisode recorded.
--- OUTSIDE RECORDS SUMMARY | 2025-10-30 18:27 | XMS_ITS | Encounter Summary ---
Author Organization [employer] Address [address] [place] [address] 7 [place] [address] Care Team Providers Care Grinder Hardboard Name Role Phone Marley Rich MD Primary Care Provider [phone] Reason for Visit * Reason Onset Date Comments Dr. Casillas continued pain 03/04/2025 Encounter Details Date Type Department Care Team ([facility] st Contact Info) Description 03/04/2025 Telephone [facility] ADULT DENTAL [address] [place] [address] Carl Casillas, DMD [address] [place], [place] [phone] Dr. Casillas continued pain Social History Tobacco [...] 11/14/2025 3:45 PM EST Procedure Visit [facility] 505 [place] [address] Marley Rich MD 505 [place] [address] 12/31/2025 2:30 PM EST Clinical Support [facility] 505 [place] [address] Aletha Vazquez RN 505 [place] [address] 02/21/2026 1:30 PM EDT Office Visit [facility] CH[facility] ADULT DENTAL [address] [place] [address] Kamran Sherman documented as of this encounter [...] documented as of this encounter Care Teams Grinder Hardboard Relationship Specialty Start Date End Date Marley Rich MD [address] [place] [address] PCP - General Family Medicine 11/25/21 documented as of this encounter
--- OUTSIDE RECORDS SUMMARY | 2025-10-30 18:27 | XMS_ITS | Encounter Summary ---
Author Organization [employer] Address [address] [place] [address] 7t [place] [address] Care Team Providers Care Seed Yeast Operator Name Role Phone Marley Rich MD Primary Care Provider [phone] Encounter Details Date Type Department Care Team ([facility] st Contact Info) Description 06/06/2024 Telephone [facility] CHC MED & PEDS [address] [place] [address] Marley Rich MD 505 [place] [address] Social History Tobacco Use Types Packs/Day Years [...] 3:45 PM EST Procedure Visit [facility] MED & PEDS 505 [place] [address] Marley Rich MD 505 [place] [address] 12/31/2025 2:30 PM EST Clinical Support [facility] MED & PEDS 505 [place] [address] Aletha Vazquez RN 505 [place] [address] 02/21/2026 1:30 PM EDT Office Visit [facility] ADULT DENTAL 505 [place] [address] Kamran Sherman documented as of this encounter [...] documented as of this encounter Care Teams Seed Yeast Operator Relationship Specialty Start Date End Date Marley Rich MD [address] [place] [address] PCP - General Family Medicine 11/25/21 documented as of this encounter
--- OUTSIDE RECORDS SUMMARY | 2025-10-30 18:27 | XMS_ITS | Encounter Summary ---
Author Organization [employer] Address [address] [place] [address] 7 [place] [address] Care Team Providers Care Structural Engineering Drafting Officer Name Role Phone Marley Rich MD Primary Care Provider [phone] Reason for Visit * Reason Comments Med Refill Encounter Details Date Type Department Care Team ([facility] st Contact Info) Description 01/19/2025 Refill [facility] CH[facility] ADULT DENTAL 505 [place] [address] Carl Casillas, DMD 505 [place] [address] Dental caries Social History Tobacco Use Types [...] 3:45 PM EST Procedure Visit [facility] MED & PEDS [address] [place] [address] Marley Rich MD 505 [place] [address] 12/31/2025 2:30 PM EST Clinical Support [facility] MED & PEDS 505 [place] [address] Aletha Vazquez RN 505 [place] [address] 02/21/2026 1:30 PM EDT Office Visit [facility] ADULT DENTAL 505 [place] [address] Kamran Sherman documented as of this encounter [...] documented as of this encounter Care Teams Structural Engineering Drafting Officer Relationship Specialty Start Date End Date Marley Rich MD 230 [place] [address] PCP - General Family Medicine 11/25/21 documented as of this encounter
--- OUTSIDE RECORDS SUMMARY | 2025-10-30 18:27 | XMS_ITS | Encounter Summary ---
Author Organization [employer] Address [address] [place] [address] 7 [place] [address] Care Team Providers Care Motel Clerk Name Role Phone Marley Rich MD Primary Care Provider [phone] Reason for Visit * Reason Onset Date Comments PT-1 08/17/2024 Encounter Details Date Type Department Care Team (Late st Contact Info) Description 08/17/2024 Telephone [facility] MEDICINE 230 [place] [address] Marley Rich MD 505 [place] [address] PT-1 Social History Tobacco Use Types Packs/Day [...] Y/N: Yes Provider name or facility name: [facility] Facility Address: 100 [facility] [address] [place] [address] Escort needed: Y/N: No Do you have a wheelchair: Y/N: No If yes- Manual or electric: no Visits: 6 Patient calling requesting PT1 Home Address verified: Y/N: Yes Provider name or facility name: [facility] Facility Address: [address] [place] [address] S[address] [facility] [address] Escort needed: Y/N: Yes Do you have a wheelchair: Y/N: No If yes- Manual or electric: no Visits: 6 Patient calling requesting PT1 Home Address verified: Y/N: Yes Provider name or facility name: [facility] Facility Address: [address] [facility] [address] [place] [address] Escort needed: Y/N: No Do you have a wheelchair: Y/N: No If yes- Manual or electric: no Visits: 6 Patient calling requesting PT1 Home Address verified: Y/N: Yes Provider name or facility name: [facility] Facility Address: [address] [place] [address] Escort needed: Y/N: No Do you have a wheelchair: Y/N: No If yes- Manual or electric: no Visits: 6 documented in this encounter Plan of Treatment Upcoming Encounters Date Type Department Care Team (Late st Contact Info) Description 11/14/2025 3:45 PM EST Procedure Visit [facility] 505 [place] [address] Marley Rich MD 505 [place] [address] 12/31/2025 2:30 PM EST Clinical Support [facility] 505 [place], [place] [phone] Aletha Vazquez RN 505 [place], [place] [phone] 02/21/2026 1:30 PM EDT Office Visit [facility] ADULT DENTAL 505 [place] [address] Kamran Sherman documented as of this encounter [...] documented as of this encounter Care Teams Motel Clerk Relationship Specialty Start Date End Date Marley Rich MD 230 [place] [address] PCP - General Family Medicine 11/25/21 documented as of this encounter
== END 2025-10-30 15:26 | disposition home or self-care (01) ==
LOC: HO.XRAY 15:25
PROVIDERS: PCP Family Medicine; Visit Provider Family Medicine
DX: M25.511 Pain in right shoulder (principal); G89.29 Other chronic pain
CPT/HCPCS: 73030

== ENCOUNTER → 2025-10-30 15:28 | Outpatient (BNV) | payer OTHER, SELFPAY | PROVIDERS: PCP Family Medicine; Visit Provider Radiology Diagnostic Radiology | DX: M19.011 Primary osteoarthritis, right shoulder (principal) | CPT/HCPCS: 73030 ==

== ENCOUNTER 2025-11-26 12:44 | Emergency (ER) | payer OTHER, SELFPAY ==
--- OUTSIDE RECORDS SUMMARY | 2025-11-25 14:45 | XMS_ITS | Encounter Summary ---
Author Organization [facility] Address [id number] [place] [phone] Care Team Providers Care Senior Internet Sales Consultant Name Role Phone Marley Rich MD Primary Care Provider [phone] Reason for Visit * Reason Comments Nail Problem Tinea pedis Encounter Details Date Type Department Care Team ([facility] st Contact Info) Description 11/25/2025 2:45 PM EST Office Visit Orthopedic Surgery - [place] [address] [phone] Aditya Mclaughlin DPM [address] [phone] Ingrown toenail (Primary Dx); Dermatophytosis of nail; Pain in toe of right foot; Pain in toe of left foot; Difficulty walking; Tinea pedis of both feet Social History Tobacco Use Types Packs/Day Years Used Date Smoking Tobacco: Never Assessed Comments Unknown Sex and Gender Information Value Date Recorded Sex Assigned at Not on file Legal Sex Female 11:13 AM EST Gender Identity Not on file Sexual Orientation Not on file documented as of this encounter Progress Notes * Aditya Mclaughlin DPM - 11/25/2025 2:45 PM EST Last PCP visit:Referring MD 07/26/2025 Hilario CONTEH Patient visit continued complaint of pain and discomfort ingrown nails of all of her toenails specifically big toes both great feet she does note that she has thought about nail procedures and would like further discussion of her treatment options continues to have worsening numbness burning tingling fibromyalgia as well as being prediabetic and notes her nails are long and painful thickened paindiscomfort is a 7 out of 10 depression scale lithography contact worker utilized ID number [id number] ROS: GENERAL: Pt denies nausea, fever, vomiting, chills, or shortness of breath. Pt in NAD. CARDIOLOGY: pt denies chest pain, palpitations LUNGS: pt denies shortness of breath MUSCULOSKELETAL: See HPI, otherwise no joint pain or swelling, back pain, or muscle pain. SKIN: see HPI, otherwise no lesions, rash or itching NEURO: No persistent headache, weakness or numbness The remainder of the review of systems is noncontributory PAST MEDICAL HISTORY: There is no problem list on file for this patient. Past medical history hypertension GERD urinary incontinence fibromyalgia prediabetic SOCIAL HISTORY: Social History Tobacco Use Smoking status: Not on file Smokeless tobacco: Not on file Substance Use Topics Alcohol use: Not on file ACTIVE MEDICATIONS: Outpatient Medications Marked as Taking for the 11/25/25 encounter (Office Visit) with Aditya Mclaughlin DPM Medication Sig Dispense Refill acetaminophen (TYLENOL) 500 mg tablet Take 1-2 tablets (500-1,000 mg total) by mouth every 8 hours as needed. ammonium lactate (AMLACTIN) 12 % cream APPLY TOPICALLY TO AFFECTED AREA(s) TWICE DAILY blood pressure test kit (BLOOD PRESSURE MONITOR [facility]) Check blood pressure on arm as directed 1-2 TIMES DAILY calcium carbonate-vit D3-min 600 mg-10 mcg (400 unit) tablet Take 1 tablet by mouth 1 (one) time each day in the morning. celecoxib (CeleBREX) 100 mg capsule Take 1 capsule (100 mg total) by mouth 2 times daily. chlorhexidine (PERIDEX) 0.12 % solution SWISH WITH 15 ML'S IN THE MORNING AND EVENING FOR 1 MINUTE,SPIT OUT DO NOT SWALLOW. DO NOT EAT OR DRINK FOR 30 MINUTES AFTER cranberry fruit concentrate 215 mg capsule Take 1 capsule by mouth 3 times daily. cyclobenzaprine (FLEXERIL) 10 mg tablet Take 1 tablet (10 mg total) by mouth. dextromethorphan-guaiFENesin (MUCINEX DM) 30-600 mg per 12 hr tablet Use 1 tab TID diclofenac (VOLTAREN) 1 % topical gel APPLY 4 G TOPICALLY 4 (FOUR) TIMES A DAY. APPLY TO NECK divalproex (DEPAKOTE ER) 500 mg 24 hr tablet TOME 2 TABLETAS POR VIA ORAL DOS VECES AL LAYNE. doxepin (SINEquan) 10 mg capsule Take 1 capsule (10 mg total) by mouth at bedtime. felodipine (PLENDIL) 10 mg 24 hr tablet TOME 1 TABLETA POR V A ORAL TODOS LOS D EN LA MA LENCHO fluconazole (DIFLUCAN) 150 mg tablet TOME REESE TABLETA POR V A ORAL ONE TIME FOR 1 DOSE gabapentin (NEURONTIN) 300 mg capsule TAKE TWO CAPSULES THREE TIMES DAILY loratadine (CLARITIN) 10 mg tablet take 1 tablet (10 mg) by mouth once per day. losartan (COZAAR) 100 mg tablet Take 1 tablet (100 mg total) by mouth 1 (one) time each day in the morning. meloxicam (MOBIC) 7.5 mg tablet Take 1 tablet (7.5 mg total) by mouth 2 (two) times a day. nitrofurantoin (MACRODANTIN) 50 mg capsule Take 1 capsule (50 mg total) by mouth daily. [employer] Patrizia [facility] inhaler use as directed polyethylene glycol (PEG) 17 gram/dose oral powder Take 17 g by mouth daily. predniSONE (DELTASONE) 20 mg tablet take one tablet by mouth once daily for five days prochlorperazine (COMPAZINE) 10 mg tablet 1 tab PO TID PRN headache/nausea (in place of promethazine) psyllium (METAMUCIL) powder Take 1 packet by mouth daily. sodium fluoride-pot nitrate 1.1-5 % paste dental paste BRUSH DIENTES IN THE MORNING AND EVENING PORTWO MINUTOS. SPIT OUT, NO RINSE. No coma ni rasheeda por 30 minutos SUMAtriptan (IMITREX) 50 mg tablet Take 1 tablet (50 mg total) by mouth every 2 hours as needed. traMADoL (ULTRAM) 50 mg tablet Take 1 tablet (50 mg total) by mouth every 8 (eight) hours if needed. triamcinolone (KENALOG) 0.1 % dental paste APPLY IN MOUTH TWICE DAILY Ventolin HFA 90 mcg/actuation inhaler Inhale 2 puffs by mouth every 4 (four) hours if needed. ALLERGIES: Allergies Allergen Reactions Latex PHYSICAL EXAM: There were no vitals taken for this visit. PODIATRIC EXAMINATION: GENERAL: Patient appears well nourished, with NAD. VASCULAR: Dorsalis pedis pulses are 2/4 bilaterally and Posterior tibial pulses are 2/4 bilaterally. Capillary filling time within normal limits the digits. No pallor on elevation or rubor on dependency. No varicosities. Denies rest pain or claudication pain. NEUROLOGICAL: Sharp/dull sensation intact, protective sensation intact 10/10 with 5.07 semmes tanvi bilaterally, vibratory sensation with tuning fork intact to the tibial tuberosity. ORTHOPEDIC: Good muscle strength 5/5 of all flexors and extensors. Dorsi flexion of ankle ,10 degrees, plantar flexion WNL. No muscle atrophy. DERMATOLOGICAL:.Abnormal curvature both great toenails Toenails: Left Toenail(s) 1-5: subungual debris, discoloration, hypertrophic, elongation, mycotic appearance, onychomycosis, pain and thickening. Right Toenail(s) 1-5: subungual debris, discoloration, hypertrophic, elongation, mycotic appearance, onychomycosis, pain and thickening. Annular scaling bilateral feet moccasin distribution Skin thinning texture shiny appearance diffuse hyperpigmentation bilaterally pedal hair decreased BIOMECHANICS: Ankle ROM WNL, STJ ROM wnl, MTJ ROM wnl, 1st MPJ ROM wnl. IMAGING: IMPRESSION: 1. Ingrown toenail 2. Dermatophytosis of nail PLAN: Pt was seen and examined, history reviewed. Continue clotrimazole prescribed reviewed oral antifungal medications Revisited surgical options with patient revisit discussed and reviewed minor surgical procedures Minor surgical procedure of nail removal with matrixectomy was discussed and reviewed versus nail removal discussed with patient risks of nail procedure including scar tissue formation reoccurrence loss of more nail deformity cosmetic changes that are undesirable Patient-specific risk factors were discussed and reviewed specifically fibromyalgia chronic regional pain syndrome patient is at risk for any minor trauma or surgical procedure to have developed symptoms of sympathetic hypersensitivity Recovery expectations for minor surgical procedure were discussed and reviewed with healing of local wound care of 4 weeks Patient thinks to be like to think about her surgical options Ingrown nail portion removed Follow-up in 1 to 2 months Debridement of mycotic toenails 6-10: Verbal informed consent was obtained from the patient. Greater than 6 nails were aseptically debrided in thickness and length with nail nippers Aditya Mclaughlin DPM documented in this encounter Plan of Treatment Upcoming Encounters Date Type Department Care Team (Late st Contact Info) Description 02/24/2026 2:00 PM EDT Office Visit Orthopedic Surgery - [place] [address] [phone] Aditya Mclaughlin, DPM [address] [phone] documented as of this encounter Visit Diagnoses Diagnosis Ingrown toenail- Primary Ingrowing nail Dermatophytosis of nail Pain in toe of right foot Pain in soft tissues of limb Pain in toe of left foot Pain in soft tissues of limb Difficulty walking Difficulty in walking Tinea pedis of both feet documented in this encounter Care Teams Senior Internet Sales Consultant Relationship Specialty Start Date End Date Marley Rich MD [address] [place] [id number] PCP - General Family Medicine 01/02/25 documented as of this encounter
--- NOTE | ~2025-11-26 | XR_ITS ---
EXAMINATION: XR CHEST 2 VIEWS HISTORY: cp/sob COMPARISON: There are no prior studies available for comparison. FINDINGS: PA and lateral views of the chest are submitted. The lungs are expanded and clear. There is no pleural effusion, pneumothorax, or pulmonary vascular congestion. The heart is normal in size. There is mild degenerative disc disease of the spine. XR/XR chest 2V IMPRESSION: Clear lungs. Electronically signed by: Ryan Arenas MD 11/26/2025 02:40 PM CHAN
--- OUTSIDE RECORDS SUMMARY | 2025-11-26 11:00 | XMS_ITS | Encounter Summary ---
Author Organization [employer] Address [address] [place] [address] [address] [place] [address] Care Team Providers Care Adjunct Latin Professor Name Role Phone Marley Rich MD Primary Care Provider [phone] Encounter Details Date Type Department Care Team (Late st Contact Info) Description 11/26/2025 11:00 AM EST Office Visit [facility] [address] [place] [phone] Kashif Layne MD [address] [place], [place] [phone] Chest pain, unspecified type (Primary Dx); Essential hypertension Social History Tobacco Use Types [...] Sign Reading Time Taken Comments Blood Pressure 133/84 11/26/2025 11:13 AM EST Pulse 84 11/26/2025 11:13 AM EST Temperature 36.2 C (97.1 F) 11/26/2025 11:12 AM EST Respiratory Rate 16 11/26/2025 11:13 AM EST Oxygen Saturation 95% 11/26/2025 11:12 AM EST Inhaled Oxygen Concentration - - Weight - - Height - - Body Mass Index - - documented in this encounter Plan of Treatment Upcoming Encounters Date Type Department Care Team (Late st Contact Info) Description 12/03/2025 1:00 PM EST Clinical Support [facility] MED & PEDS [address] [place] [address] 12/31/2025 2:30 PM EST Clinical Support [facility] MED & PEDS [address] [place] [address] Aletha Vazquez, EAN [address] [place] [address] 02/21/2026 1:30 PM EDT Office Visit [facility] ADULT DENTAL [address] [place] [address] Beauzile, Kamran documented as of this encounter Goals Goal Patient Goal Type Associated Problems Recent Progress Patient-Stated? Author Blood Pressure < 150/90 Blood Pressure 133/84(2024 11:13 AM EST) No Mary Higgins PharmD Immunization General No Mary Higgins PharmD Note: Receive all recommended vaccines: due for RSV documented as of this encounter Procedures Procedure Name Priority Date/Time Associated Diagnosis Comments ECG 12-LEAD Routine 11/26/2025 Chest pain, unspecified type documented in this encounter Results * ECG 12 lead (11/26/2025) Kashif Layne MD ECG ORDERABLES Final Result documented in this encounter Visit Diagnoses Diagnosis Chest pain, unspecified type- Primary Essential hypertension Unspecified essential hypertension documented in this encounter Additional Health Concerns Assessment Noted Time PHQ-9 Depression Total Score: 0 06/14/20 25 10:14 AM EDT documented as of this encounter Care Teams Adjunct Latin Professor Relationship Specialty Start Date End Date Marley Rich MD [address] [place] [address] PCP - General Family Medicine 11/25/21 documented as of this encounter
--- NOTE | 2025-11-26 12:52 | ECG_ITS ---
Test Reason : CP Blood Pressure : */* mmHG Vent. Rate : 79 BPM Atrial Rate : 79 BPM P-R Int : 108 ms QRS Dur : 84 ms QT Int : 366 ms P-R-T Axes : * -27 103 degrees QTcB Int : 419 ms Sinus rhythm with short RI Possible Anterolateral infarct , age undetermined ; could be related to body habitus and lead placement Abnormal ECG No previous ECGs available Referred By: Brittney Mtz Electronically Signed By: SAMI ALBARRAN
[2025-11-26 13:49] VITALS: BP 143/66; PULSE 69; RESP 18; TEMP 36.5; O2SAT 97; BMI 35.9
--- NOTE | 2025-11-26 13:53 | ED.CHESTPAIN ---
HPI - Chest Pain General Chief Complaint: Chest Pain Stated Complaint: CP Time Seen by Provider: 11/26/25 17:44 History of Present Illness ED Provider: kem HPI narrative: 65 F with HTN c/o mild chest discomfort BP today at home 180s/110s maximally. No chest pain radiation. MD complaint: chest pain Related Data Home Medications ?Medication ?Instructions ?Recorded ?Confirmed ammonium lactate 12 % topical cream appl topical BID 10/14/25 calcium 600 mg (as 1 tab PO BID 10/14/25 carbonate)-vitamin D3 10 mcg (400 unit) tablet cholecalciferol (vitamin D3) 25 25 mcg PO DAILY 10/14/25 mcg (1,000 unit) tablet cyclobenzaprine 10 mg tablet 10 mg PO TID 10/14/25 divalproex 500 mg tablet,extended 1,000 mg PO BID 10/14/25 release 24 hr felodipine 5 mg tablet,extended 5 mg PO DAILY 10/14/25 release 24 hr gabapentin 300 mg capsule 600 mg PO TID 10/14/25 losartan 100 mg tablet 100 mg PO QAM 10/14/25 meloxicam 15 mg tablet 15 mg PO DAILY 10/14/25 naloxone 4 mg/actuation nasal spray intranasal 10/14/25 pantoprazole 40 mg tablet,delayed 40 mg PO QAM 10/14/25 release rosuvastatin 10 mg tablet 10 mg PO BEDTIME cholesterol 10/14/25 sumatriptan succinate 100 mg tablet mg PO 10/14/25 tramadol 50 mg tablet 50 mg PO Q8H PRN pain 10/14/25 Previous Rx's ?Medication ?Instructions ?Recorded cefpodoxime 200 mg tablet 200 mg PO BID 10 days #20 tabs 07/13/25 Allergies Allergy/AdvReac Type Severity Reaction Status Date / Time No Known Allergies Allergy Verified 11/26/25 13:52 [facility] Past Medical History Medical History (Updated 11/28/25 @ 00:00 by Background Daemon) History of vitamin D deficiency High cholesterol GERD (gastroesophageal reflux disease) Anxiety Diabetes mellitus Arthritis, 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 Head: Atraumatic Eyes: Anicteric, Normal conjunctiva. ENT: Moist mucosa, no pallor. Neck: Supple. Respiratory: Breathing comfortably, No distress.Clear to auscultation bilaterally, symmetric chest expansion, No wheeze, rales, ronchi. Cardiovascular: Regular rate and rhythm. No murmurs or rub. Well perfused periphery, warm extremities. No edema. Abdominal: Soft, no objective distension. No palpable masses or obvious organomegaly. No focal tenderness, no guarding, no rebound tenderness or other peritoneal findings. : No flank tenderness. Neuro: Alert. Gross movement of all extremities intact. Vital signs: See flowsheet Vital Signs: Vital Signs: Last Vital Signs Temp 97.1 F 11/26/25 17:51 Pulse 72 11/26/25 17:51 Resp 16 11/26/25 17:51 BP 148/72 H 11/26/25 17:51 Pulse Ox 99 11/26/25 17:51 O2 Del Method Room Air 11/26/25 17:51 BMI result Body Mass Index 35.9 Course Course Course Narrative: This is a Rapid Medical Exam performed in triage by Brittney Mtz PA-C. Full HPI, ROS and PE to be performed by primary ED provider. 65 year old female with a past medical history HTN presenting to the ED sent from urgent care c/o chest pain, shortness of breath, elevated BP readings at home. States Urgent Care got normal blood pressure reading & EKG. Admits to taking her BP medication today PE: NAD, nontoxic appearing, ambulating with steady gait Plan: EKG, labs, CXR, viral testing Medical Decision Making Medical Decision Making MDM Narrative: Medical Decision Makin-year-old female mainly presenting concern for blood pressure measurements that were mildly to moderately elevated at home. She reported some mild central sharp chest pain that was atypical. Preliminary Favored Differential Diagnosis: Asymptomatic hypertension, musculoskeletal pain, costochondritis, unlikely ACS dissection PE given the clinical history and exam among additional considered etiologies Testing Interpreted Independently: ?ECG: Sinus rhythm rate 79 QTC 419 no acute ischemic changes normal intervals and axis Radiology or Lab testing Results Reviewed: ?See below for details Consults: ?See below for details Independent Historians/External Chart Reviews: ?See below for details Social Determinants of Health Impacting MDM/Planning: ?See below for details Lab Data 11/26/25 14:15 11/26/25 14:15 Labs: Lab Results 11/26/25 Range/Units 14:15 WBC 11.5 H (4.8-10.8) X10*3/uL RBC 5.14 (4.20-5.50) X10*6/uL Hgb 15.3 (12.0-16.0) g/dl Hct 45.1 (37.0-47.0) % MCV 87.7 (80.0-98.0) fL MCH 29.8 (27.0-33.0) pg MCHC 33.9 (31.0-35.0) g/dl RDW 15.5 (11.0-16.0) % Plt Count 331 D (160-400) X10*3/uL MPV 8.1 L (9.4-12.3) fL Immature Gran % (Auto) 0.3 (0.0-0.4) % Neut % (Auto) 76.0 H (45-73) % Lymph % (Auto) 15.9 L (20-40) % Karnes % (Auto) 7.2 (2-11) % Eos % (Auto) 0.1 (0-4) % Baso % (Auto) 0.5 (0-2) % Lymph # (Auto) 1.8 (1.2-4.9) X10*3/uL Karnes # (Auto) 0.8 (0.1-1.2) X10*3/uL Eos # (Auto) 0.0 (0.0-0.4) X10*3/uL Baso # (Auto) 0.1 (0.0-0.2) X10*3/uL Abs Immat Gran (auto) 0.04 H (0.00-0.03) X10*3/uL Absolute Neuts (auto) 8.8 H (2.0-8.3) x10*3/uL Absolute Nucleated RBC 0.000 (0.0-0.012) X10*3/uL Nucleated RBC % (auto) 0.0 (0.0-0.2) /100WBC Sodium 141 (135-145) mmol/L Potassium 3.9 (3.3-5.1) mmol/L Chloride 106 (96-108) mmol/L Carbon Dioxide 25 (22-29) mmol/L Anion Gap 14 (12-20) BUN 17 H (9-16) mg/dL Creatinine 0.78 (0.5-1.4) mg/dL Estim Creat Clear Calc 77.4 Estimated GFR > 60 Random Glucose 101 (60-115) mg/dL Calcium 9.9 (8.4-10.2) mg/dL Magnesium 2.2 (1.6-2.6) mg/dL Total Bilirubin 0.5 (0.0-1.0) mg/dL Direct Bilirubin 0.2 (0.0-0.5) mg/dL AST 22 (5-31) U/L ALT 11 (0-31) U/L Alkaline Phosphatase 87 (39-117) U/L Troponin I High Sens < 2.7 (<3.5-17.0) ng/L Total Protein 8.2 H (6.5-8.0) g/dL Albumin 5.0 (3.5-5.0) g/dL Influenza Type A (PCR) NEGATIVE (Negative) Influenza Type B (PCR) NEGATIVE (Negative) RSV RNA Qual (PCR) NEGATIVE (Negative) SARS-CoV-2 RNA (RT-PCR) NEGATIVE (Negative) Discharge Plan Discharge Clinical Impression: Atypical chest pain Patient Disposition: Home, Self-Care Instructions: Chest Pain (ED) Additional Instructions: You were evaluated in the emergency department for atypical constant chest pain going on at least 2 days. Your blood pressure was slightly elevated add you had reassuring lab work EKG chest x-ray. We discussed that you may need further testing or referral to Cardiology from your primary doctor's to call them tomorrow. Prescriptions: No Action cefpodoxime 200 mg tablet 200 mg PO BID 10 Days Qty: 20 0RF Rx Instructions: must administer with a meal/food cyclobenzaprine 10 mg tablet 10 mg PO TID sumatriptan succinate 100 mg tablet PO meloxicam 15 mg tablet 15 mg PO DAILY felodipine 5 mg tablet extended release 24 hr 5 mg PO DAILY tramadol 50 mg tablet 50 mg PO Q8H PRN (Reason: pain) pantoprazole 40 mg tablet,delayed release (DR/EC) 40 mg PO QAM divalproex 500 mg tablet extended release 24 hr 1,000 mg PO BID gabapentin 300 mg capsule 600 mg PO TID ammonium lactate 12 % cream topical BID losartan 100 mg tablet 100 mg PO QAM rosuvastatin 10 mg tablet 10 mg PO BEDTIME cholecalciferol (vitamin D3) 25 mcg (1,000 unit) tablet 25 mcg PO DAILY calcium carbonate-vitamin D3 600 mg-10 mcg (400 unit) tablet 1 tab PO BID naloxone 4 mg/actuation spray,non-aerosol intranasal Discharge Date/Time: 11/26/25 19:00 Print Language: Chilean
[2025-11-26 14:26] LABS: MANUAL DIFF FLAG NO
[2025-11-26 14:28] LABS: Hematocrit 45.1 % (37.0-47.0); Hemoglobin 15.3 g/dl (12.0-16.0); Imm Gran Abs Auto 0.04 X10*3/uL (0.00-0.03); Imm Gran Pct Auto 0.3 % (0.0-0.4); Lymphocytes Absolute Auto 1.8 X10*3/uL (1.2-4.9); Mean Corpuscular HGB Conc 33.9 g/dl (31.0-35.0); Mean Corpuscular Hemoglobin 29.8 pg (27.0-33.0); Mean Corpuscular Volume 87.7 fL (80.0-98.0); NRBC Abs Auto 0.000 X10*3/uL (0.0-0.012); NRBC Pct Auto 0.0 /100WBC (0.0-0.2); Platelet Count 331 X10*3/uL (160-400); Red Blood Count 5.14 X10*6/uL (4.20-5.50); White Blood Count 11.5 X10*3/uL (4.8-10.8)
[2025-11-26 14:56] LABS: Troponin-I High Sensitivity < 2.7 ng/L (<3.5-17.0)
[2025-11-26 14:57] LABS: Alanine Aminotransferase 11 U/L (0-31); Albumin Level 5.0 g/dL (3.5-5.0); Alkaline Phosphatase 87 U/L (39-117); Anion Gap 14 (12-20); Aspartate Amino Transferase 22 U/L (5-31); Blood Urea Nitrogen 17 mg/dL (9-16); Calcium 9.9 mg/dL (8.4-10.2); Carbon Dioxide 25 mmol/L (22-29); Chloride 106 mmol/L (96-108); Creatinine Clr Calc Pharmacy 77.4; Estimated Glomerular Filt Rate > 60; Magnesium 2.2 mg/dL (1.6-2.6); Potassium 3.9 mmol/L (3.3-5.1); Sodium 141 mmol/L (135-145); Total Protein 8.2 g/dL (6.5-8.0)
[2025-11-26 15:07] LABS: Resp Syncy Virus RNA Qual PCR NEGATIVE (Negative); SARS COV2 PCR INHOUSE NEGATIVE (Negative)
[2025-11-26 17:51] VITALS: BP 148/72; PULSE 72; RESP 16; TEMP 36.2; O2SAT 99
--- OUTSIDE RECORDS SUMMARY | 2025-11-26 19:16 | XMS_ITS | Encounter Summary ---
Author Organization [employer] Address [address] [place] [address] 7[address] [place] [address] Care Team Providers Care Motor Installer Name Role Phone Marley Rich MD Primary Care Provider [phone] Reason for Visit * Reason Onset Date Comments ED expect 11/26/2025 Encounter Details Date Type Department Care Team ([facility] st Contact Info) Description 11/26/[address] [facility] [address] [place] [address] Marley Rich MD [address] [place] [address] ED expect Social History Tobacco Use Types Packs/Day Years [...] encounter Miscellaneous Notes * Telephone Encounter - Eufemia Pantoja RN - 11/26/2025 12:51 PM EST Verbal report given to Krystin MCKOY at [facility] ED, to expect patient by private car. documented in this encounter Plan of Treatment Upcoming Encounters Date Type Department Care Team (Late st Contact Info) Description 12/03/2025 1:00 PM EST Clinical Support [facility] [address] [place] [address] 12/31/2025 2:30 PM EST Clinical Support [facility] [address] [place] [address] Aletha Vazquez, EAN [address] [place] [address] 02/21/2026 1:30 PM EDT Office Visit [facility] [address] [place] [address] Kamran Sherman documented as of this encounter [...] documented as of this encounter Care Teams Motor Installer Relationship Specialty Start Date End Date Marley Rich MD [address] [place] [address] PCP - General Family Medicine 11/25/21 documented as of this encounter
--- OUTSIDE RECORDS SUMMARY | 2025-11-26 19:16 | XMS_ITS | Encounter Summary ---
Author Organization [employer] Address [address] [place] [address] 7 [place] [address] Care Team Providers Care Developer Evangelist Name Role Phone Marley Rich MD Primary Care Provider [phone] Encounter Details Date Type Department Care Team ([facility] st Contact Info) Description 03/09/2023 Orders Only [facility] & PEDS [address] [place] [address] Marley Rich MD [address] [place] [address] Social History Tobacco Use Types Packs/Day Years [...] Description 12/03/2025 1:00 PM EST Clinical Support [facility] MED & PEDS [address] [place] [address] 12/31/2025 2:30 PM EST Clinical Support [facility] [address] [place] [address] Aletha Vazquez, RN [address] [facility] [place] [address] 02/21/2026 1:30 PM EDT Office Visit [facility] ADULT DENTAL [address] [place] [address] Kamran Sherman Pending Results Name Type Priority [...] (09/16/2023 8:30 AM EDT) Color Urine Yellow [facility] Appearance Urine Clear [facility] PH 6.5 5.0 - 9.0 [facility] Glucose Urine UA Negative Negative mg/dL [facility] Urine Blood Negative Negative [facility] Specific [place] - Urine 1.020 1.005 - 1.025 [facility] Urine Protein Negative Neg-Trace mg/dL [facility] Urine Ketones Negative Negative mg/dL [facility] Nitrite Urine Negative Negative [facility] Leukocyte Esterase Urine Negative Negative [facility] 09/16/2023 8:30 AM EDT 09/16/2023 2:34 PM EDT us Marley Rich MD LAB URINE ORDERABLES Final Re sult [facility] [address] [place] [phone] * HIV Ab/Ag ([facility]) (09/16/2023 8:27 AM EDT) HIV AB/AG Nonreactive Nonreactive [facility] Comment:HIV-1 p24 Ag and/or HIV-1/HIV-2 Ab not detected.A test result that is nonreactive does not exclude thepossibility of exposure to or infection with HIV-1 and/orHIV-2. Nonreactive results in this assay for individualswith prior exposure to HIV-1 and/or HIV-2 may be due toantigen and antibody levels that are below the limit ofdetection of this assay.The [employer] HIV Ag/Ab Combo assay result andsupplemental assay results should be interpreted inconjunction with the patient's clinical presentation,history and other laboratory results. If the results areinconsistent with clinical evidence, additional testing issuggested to confirm the result. 09/16/2023 8:27 AM EDT 09/16/2023 2:26 PM EDT us Marley Rich MD LAB BLOOD ORDERABLES Final Re sult [facility] [address] [place] [address] [phone] * (ABNORMAL) Comprehensive Metabolic Panel, Fasting (09/16/2023 8:27 AM EDT) Sodium 139 135 - 145 mmol/L [facility] Potassium 4.2 3.3 - 5.1 mmol/L [facility] Chloride 103 96 - 108 mmol/L [facility] Carbon Dioxide 26 22 - 29 mmol/L [facility] Anion Gap 14 12 - 20 [facility] Urea Nitrogen (BUN) 11 9 - 16 mg/dL [facility] Creatinine, Serum 0.74 0.5 - 1.4 mg/dL [facility] Estimated Glomerular Filt Rate >60 [facility] Comment:NOTE: For -Am erican individuals, multiply the result by 1.210.Chronic Kidney Disease: Estimated GFR < 60 mL/min/1.49n6Fszmag Kidney Disease: Estimated GFR < 15 mL/min/1.73m2 Glucose Fasting 78 60 - 99 mg/dL [facility] Calcium 10.2 8.4 - 10.2 mg/dL [facility] Bilirubin, Total 0.7 0.0 - 1.0 mg/dL [facility] Aspartate Amino Transferase 20 5 - 31 U/L [facility] Alanine Aminotransferase 11 0 - 31 U/L [facility] Total Protein 8.1(H) 6.5 - 8.0 g/dL [facility] Albumin Level 4.4 3.5 - 5.0 g/dL [facility] Alkaline Phosphatase 96 39 - 117 U/L [facility] 09/16/2023 8:27 AM EDT 09/16/2023 2:26 PM EDT Marley Rich MD LAB BLOOD ORDERABLES Final Re sult Performing Organization Address [facility] Co de Phone Number [facility] [address] [place] [phone] [phone] * Cyclic Citrullinated Peptide (CCP) Antibody (IgG) (06/06/2023 11:38 AM EDT) Cyclic Citrullinated Peptide <16 UNITS [facility] Comment:Reference RangeNegat zach: <20Weak Positive: 20-39Moderate Positive: 40-59Strong Positive: >59THIS TEST WAS PERFORMED AT:[facility] [address] [id number] RODGERS MD 06/06/2023 11:3 8 AM EDT 06/06/2023 2:12 PM EDT [facility] External Provider LAB BLO OD ORDERABLES Final Result Performing Organization Address [facility] de Phone Number [facility] [address] [place] [phone] * Immunoglobulin G (06/06/2023 11:38 AM EDT) Immunoglobulin G 1486 600 - 1540 mg/dL [facility] Comment:THIS TEST WAS PERFOR MED AT:[facility] [address] [place] [id number] RODGERS MD 06/06/2023 11:3 8 AM EDT 06/06/2023 2:12 PM EDT [facility] External Provider LAB BLO OD ORDERABLES Final Result Performing Organization Address [facility] Co de Phone Number [facility] [address] [place] [address] [phone] * Hepatitis Panel, General (06/06/2023 11:38 AM EDT) Hepatitis A IgM Nonreactive Nonreactive [facility] Comment:IgM antibodies to CASTILLO V not detected; does not exclude earlyacute or recovered HAV infection. ~Hepatitis B Surface Antibody NONREACTIVE Nonreactive [facility] Comment:Nonreactive: < 8.00 mIU/mL Hepatitis B Core Antibody Nonreactive Nonreactive [facility] Hepatitis C Antibody Nonreactive Nonreactive [facility] Comment:Antibodies to HCV no t detected; does not exclude early acuteHCV infection. Hepatitis B Surface Ag Negative Negative [facility] 06/06/2023 11:3 8 AM EDT 06/06/2023 2:12 PM EDT [facility] External Provider LAB BLO OD ORDERABLES Final Result Performing Organization Address City/[facility]/ZIP Co de Phone Number [facility] [address] [place] [phone] * Rheumatoid Factor (06/06/2023 11:38 AM EDT) Pathologist [facility] Rheumatoid Factor <13.0 <15.0 IU/mL [facility] 06/06/2023 11:3 8 AM EDT 06/06/2023 2:12 PM EDT [facility] External Provider LAB BLO OD ORDERABLES Final Result [facility] [address] [place] [phone] * (ABNORMAL) C-reactive Protein (06/06/2023 11:38 AM EDT) C Reactive Protein 0.66(H) < or = 0.50 mg/dL [facility] 06/06/2023 11:3 8 AM EDT 06/06/2023 2:12 PM EDT [facility] External Provider LAB BLO OD ORDERABLES Final Result Performing Organization Address [facility] Co de Phone Number [facility] [address] [place] [phone] * Uric acid (06/06/2023 11:38 AM EDT) Uric Acid 4.3 2.4 - 5.7 mg/dL [facility] 06/06/2023 11:3 8 AM EDT 06/06/2023 2:12 PM EDT [facility] External Provider LAB BLO OD ORDERABLES Final Result Performing Organization Address [facility] de Phone Number [facility] [address] [place] [phone] * Sed Rate by Modified Danni (06/06/2023 11:38 AM EDT) Erythrocyte Sedimentation Rate 11 0 - 20 MM/HR [facility] Comment:Patients with polycy themia and many hemoglobin abnormalitiesmay have depressed sed rates whereas patients with anemiamay have elevated sed rates. 06/06/2023 11:3 8 AM EDT 06/06/2023 2:12 PM EDT [facility] External Provider LAB BLO OD ORDERABLES Final Result Performing Organization Address [facility] Co de Phone Number [facility] [address] [place] [phone] * Hm Colonoscopy (12/30/2022) Colonoscopy Normal Normal 12/30/2022 Historical Provider HEALTH MAINTENANCE Edited Result - Final documented in this encounter Visit Diagnoses Not on filedocumented in this encounter Additional Health Concerns Assessment Noted Time PHQ-9 Depression Total Score: 10 04/07/ 023 11:29 AM EDT documented as of this encounter Care Teams Developer Evangelist Relationship Specialty Start Date End Date Marley Rich MD [address] [place] [address] PCP - General Family Medicine 11/25/21 documented as of this encounter
--- OUTSIDE RECORDS SUMMARY | 2025-11-26 19:16 | XMS_ITS | Encounter Summary ---
Author Organization [employer] Address [address] [place] [address] [address] [place] [address] Care Team Providers Care Fashion Stylist Name Role Phone Marley Rich MD Primary Care Provider [phone] Reason for Visit * Reason Comments Med Refill Encounter Details Date Type Department Care Team ([facility] st Contact Info) Description 07/15/2025 Refill [facility] [address] [place] [address] Ashlee Huertas FNP [address] [place], [place] [phone] Essential hypertension Social History Tobacco Use Types [...] Description 12/03/2025 1:00 PM EST Clinical Support [facility] [address] [place] [address] 12/31/2025 2:30 PM EST Clinical Support [facility] [address] [place] [address] Aletha Vazquez RN [address] [place] [address] 02/21/2026 1:30 PM EDT Office Visit [facility]ULT [facility] [address] [place] [address] Kamran Sherman documented as of this encounter [...] documented as of this encounter Care Teams Fashion Stylist Relationship Specialty Start Date End Date Marley Rich MD [address] [place] [address] PCP - General Family Medicine 11/25/21 documented as of this encounter
--- OUTSIDE RECORDS SUMMARY | 2025-11-26 19:17 | XMS_ITS | Encounter Summary ---
Author Organization [employer] Address [address] [place] [address] 7t [place] [address] Care Team Providers Care Clinical Practice Consultant Name Role Phone Marley Rich MD Primary Care Provider [phone] Encounter Details Date Type Department Care Team (Late st Contact Info) Description 11/26/2025 Orders Only GENERIC EXTERNAL DATA DEPARTMENT Provider, Generic External Data Social History Tobacco Use Types Packs/Day Years [...] Description 12/03/2025 1:00 PM EST Clinical Support [facility] [address] [place] [address] 12/31/2025 2:30 PM EST Clinical Support [facility] [address] [place] [address] Aletha Vazquez RN 505 [place] [address] 02/21/2026 1:30 PM EDT Office Visit [facility] [address] [place] [address] Kamran Sherman documented as of this encounter Goals Goal Patient Goal Type Associated Problems Recent Progress Patient-Stated? Author Blood Pressure < 150/90 Blood Pressure 133/84(2024 11:13 AM EST) No Mary Higgins PharmD Immunization General No Mary Higgins PharmD Note: Receive all recommended vaccines: due for RSV documented as of this encounter Procedures Procedure Name Priority Date/Time Associated Diagnosis Comments XR CHEST 2 VIEWS Routine 11/26/2025 2:25 PM EST HIGH SENSITIVITY TROPONIN I Routine 11/26/2025 2:15 PM EST SARS COV2/INFLUENZA A/B AND RSV RNA QL NAAT Routine 11/26/2025 2:15 PM EST CBC WITH AUTO DIFFERENTIAL Routine 11/26/2025 2:15 PM EST MAGNESIUM Routine 11/26/2025 2:15 PM EST HEPATIC FUNCTION PANEL Routine 11/26/2025 2:15 PM EST BASIC METABOLIC PANEL Routine 11/26/2025 2:15 PM EST documented in this encounter Results * XR Chest 2 Views (11/26/2025 2:25 PM EST) Anatomical Region Laterality Modality Chest Radiographic Amisha ging 11/26/2025 2:25 PM EST Narrative 11/26/2025 2:42 PM EST [address] [address] XRay Report Signed Patient: Ruthie Johnston MR #: [id number] : 1960 Acct:[id number] Age/Sex: 65 / F ADM Date: 11/26/25 Loc: HO.ED Attending Dr: Ordering Physician: Brittney Mtz Date of Service: 11/26/25 Procedure(s): XR chest 2V Accession Number(s): [id number] cc: Brittney Mtz; Marley Rich MD Reason for Exam: cp/sob EXAMINATION: XR CHEST 2 VIEWS HISTORY: cp/sob COMPARISON: There are no prior studies available for comparison. FINDINGS: PA and lateral views of the chest are submitted. The lungs are expanded and clear. There is no pleural effusion, pneumothorax, or pulmonary vascular congestion. The heart is normal in size. There is mild degenerative disc disease of the spine. XR/XR chest 2V IMPRESSION: Clear lungs. Electronically signed by: Ryan Arenas MD 11/26/2025 02:40 PM EST Dictated By: Ryan Arenas MD Signed By: <Electronically signed by Ryan Arenas MD in OV> 11/26/25 1440 DD/ 1425 TD/TT: 11/26/25 1435 Real Estate Branch Manager: Procedure Note Donotuseinterpreter, Image - 11/26/[address] [address] XRay Report Signed Patient: Ruthie JohnstonMR #: [id number] : 1960Acct:[id number] Age/Sex: 65 / FADM Date: 11/26/25 Loc: HO.ED Attending Dr: Ordering Physician: Brittney Mtz Date of Service: 11/26/25 Procedure(s): XR chest 2V Accession Number(s): [id number] cc: Brittney Mtz; Marley Rich MD Reason for Exam: cp/sob EXAMINATION: XR CHEST 2 VIEWS HISTORY: cp/sob COMPARISON: There are no prior studies available for comparison. FINDINGS: PA and lateral views of the chest are submitted. The lungs are expanded and clear. There is no pleural effusion, pneumothorax, or pulmonary vascular congestion. The heart is normal in size. There is mild degenerative disc disease of the spine. XR/XR chest 2V IMPRESSION: Clear lungs. Electronically signed by: Ryan Arenas MD 11/26/2025 02:40 PM EST Dictated By: Ryan Arenas MD Signed By: <Electronically signed by Ryan Arenas MD in OV> 11/26/25 1440 DD/ 1425 TD/TT: 11/26/25 1435 Real Estate Branch Manager: [facility] External Provider IMG XR PROCEDURES Final Result * SARS-CoV-2 RNA, Influenza A/B, and RSV RNA, Ql NAAT (11/26/2025 2:15 PM EST) Influenza A PCR NEGATIVE Negative [facility] Influenza B PCR NEGATIVE Negative [facility] Resp Syncy Virus RNA Qual PCR NEGATIVE Negative [facility] SARS COV2 PCR NEGATIVE Negative [facility] Comment:All test results mus t be correlated with clinical findings.Negative results do not preclude SARS-CoV2, influenza Avirus, influenza B virus and/or RSV infectionand should not be used as the sole basis for treatment orother patient management decisions. Negative results must becombined with clinical observations, patient history, andepidemiological information.This test has not been evaluated for monitoring treatment ofinfection.This test has been authorized by the FDA under an EmergencyUse Authorization (EUA) for use by authorized laboratories.Testing performed on the anydooR GeneXpert utilizingreal-time RT-PCR.All SARS CoV2 and positive influenza A/B results arereported to [facility]. 11/26/2025 2:15 PM EST 11/26/2025 2:24 PM EST Generic External Data Provider LAB MICROBIOLOGY - GENERAL ORDERABLES Final Result Performing Organization Address [facility]/ZIP Co de Phone Number [facility] [address] [place] [phone] * Magnesium (11/26/2025 2:15 PM EST) Pathologist [facility] Magnesium 2.2 1.6 - 2.6 mg/dL [facility] 11/26/2025 2:15 PM EST 11/26/2025 2:24 PM EST Generic External Data Provider LAB BLOOD ORDERAB LES Final Result Performing Organization Address [facility] Co de Phone Number [facility] [address] [place] [phone] * (ABNORMAL) Basic Metabolic Panel (11/26/2025 2:15 PM EST) Sodium 141 135 - 145 mmol/L [facility] Potassium 3.9 3.3 - 5.1 mmol/L [facility] Chloride 106 96 - 108 mmol/L [facility] Carbon Dioxide 25 22 - 29 mmol/L [facility] Anion Gap 14 12 - 20 [facility] Urea Nitrogen (BUN) 17(H) 9 - 16 mg/dL [facility] Creatinine, Serum 0.78 0.5 - 1.4 mg/dL [facility] Creatinine Clr Calc Pharmacy 77.4 [facility] Comment:Provided height and weight: 160.02 cm,92 kg.eGFR (calculated from the MDRD study equation) and eCrCl(calculated from the Cockcroft-Gault equation) are based ondifferent parameters and may not yield comparable results.If eCrCl result is absurd, please check patient'sheight/weight. Estimated Glomerular Filt Rate >60 [facility] Comment:Chronic Kidney Disea se: Estimated GFR < 60 mL/min/1.70h9Tnrkpt Kidney Disease: Estimated GFR < 15 mL/min/1.73m2 Glucose 101 60 - 115 mg/dL [facility] Calcium 9.9 8.4 - 10.2 mg/dL [facility] 11/26/2025 2:15 PM EST 11/26/2025 2:24 PM EST us Generic External Data Provider LAB BLOOD ORDERAB LES Final Result [facility] [address] [place] [phone] * (ABNORMAL) Hepatic Function Panel (11/26/2025 2:15 PM EST) Bilirubin, Total 0.5 0.0 - 1.0 mg/dL [facility] Bilirubin, Direct 0.2 0.0 - 0.5 mg/dL [facility] Aspartate Amino Transferase 22 5 - 31 U/L [facility] Alanine Aminotransferase 11 0 - 31 U/L [facility] Total Protein 8.2(H) 6.5 - 8.0 g/dL [facility] Albumin Level 5.0 3.5 - 5.0 g/dL [facility] Alkaline Phosphatase 87 39 - 117 U/L [facility] 11/26/2025 2:15 PM EST 11/26/2025 2:24 PM EST us Generic External Data Provider LAB BLOOD ORDERAB LES Final Result Performing Organization Address [facility]/ZIP Co de Phone Number [facility] [address] [place] [address] [phone] * High Sensitivity Troponin I (11/26/2025 2:15 PM EST) [facility] TROPONIN I HIGH SENSITIVITY <2.7 <3.5 - 17.0 ng/L [facility] Comment:The Goncalves high sens itivity Troponin-I results should beused in conjunction with other diagnostic information suchas ECG, clinical observations and information, and patientsymptoms to aid in the diagnosis of MS. 11/26/2025 2:15 PM EST 11/26/2025 2:24 PM EST Generic External Data Provider LAB BLOOD ORDERAB LES Final Result Performing Organization Address [facility] Co de Phone Number [facility] [address] [place] [address] [phone] * (ABNORMAL) CBC auto differential (11/26/2025 2:15 PM EST) [facility] White Blood Count 11.5(H) 4.8 - 10.8 X10*3/uL [facility] Red Blood Count 5.14 4.20 - 5.50 X10*6/uL [facility] Hemoglobin 15.3 12.0 - 16.0 g/dl [facility] Hematocrit 45.1 37.0 - 47.0 % [facility] Mean Corpuscular Volume 87.7 80.0 - 98.0 fL [facility] Mean Corpuscular Hemoglobin 29.8 27.0 - 33.0 pg [facility] Mean Corpuscular HGB Conc 33.9 31.0 - 35.0 g/dl [facility] Red Cell Distribution Width 15.5 11.0 - 16.0 % [facility] Platelet Count 331 160 - 400 X10*3/uL [facility] Mean Platelet Volume 8.1(L) 9.4 - 12.3 fL [facility] Neutrophils Percent Auto 76.0(H) 45 - 73 % [facility] Imm Gran Pct Auto 0.3 0.0 - 0.4 % [facility] Lymphocytes Percent Auto 15.9(L) 20 - 40 % [facility] Monocytes Percent Auto 7.2 2 - 11 % [facility] Eosinophils Percent Auto 0.1 0 - 4 % [facility] Basophils Percent Auto 0.5 0 - 2 % [facility] NRBC Pct Auto 0.0 0.0 - 0.2 /100WBC [facility] Neutrophils Absolute Auto 8.8(H) 2.0 - 8.3 x10*3/uL [facility] Imm Gran Abs Auto 0.04(H) 0.00 - 0.03 X10*3/uL [facility] Lymphocytes Absolute Auto 1.8 1.2 - 4.9 X10*3/uL [facility] Monocytes Absolute Auto 0.8 0.1 - 1.2 X10*3/uL [facility] Eosinophils Absolute Auto 0.0 0.0 - 0.4 X10*3/uL [facility] Basophils Absolute Auto 0.1 0.0 - 0.2 X10*3/uL [facility] NRBC Abs Auto 0.000 0.0 - 0.012 X10*3/uL [facility] 11/26/2025 2:15 PM EST 11/26/2025 2:24 PM EST us Generic External Data Provider LAB BLOOD ORDERAB LES Final Result [facility] [address] [place] [address] [phone] documented in this encounter Visit Diagnoses Not on filedocumented in this encounter Additional Health Concerns Assessment Noted Time PHQ-9 Depression Total Score: 0 06/14/20 25 10:14 AM EDT documented as of this encounter Care Teams Clinical Practice Consultant Relationship Specialty Start Date End Date Marley Rich MD [address] [place] [phone] PCP - General Family Medicine 11/25/21 documented as of this encounter
--- OUTSIDE RECORDS SUMMARY | 2025-11-26 19:17 | XMS_ITS | Encounter Summary ---
Author Organization [employer] Address [address] [place] [address] 7 [place] [address] Care Team Providers Care Corset Maker Name Role Phone Marley Rich MD Primary Care Provider [phone] Reason for Visit * Reason Onset Date Comments PT-1 08/17/2024 Encounter Details Date Type Department Care Team (Late st Contact Info) Description 08/17/2024 Telephone [facility] MEDICINE [address] [place] [address] Marley Rich MD [address] [place] [address] PT-1 Social History Tobacco Use Types Packs/Day [...] Y/N: Yes Provider name or facility name: [facility] Facility Address: [address] [facility] [address] [place] [address] Escort needed: Y/N: No Do you have a wheelchair: Y/N: No If yes- Manual or electric: no Visits: 6 Patient calling requesting PT1 Home Address verified: Y/N: Yes Provider name or facility name: [facility] Facility Address: [address] [place] [address] S2606 [facility] [address] Escort needed: Y/N: Yes Do you have a wheelchair: Y/N: No If yes- Manual or electric: no Visits: 6 Patient calling requesting PT1 Home Address verified: Y/N: Yes Provider name or facility name: [facility] Facility Address: [address] [facility] [address] [place] [address] Escort needed: Y/N: No Do you have a wheelchair: Y/N: No If yes- Manual or electric: no Visits: 6 Patient calling requesting PT1 Home Address verified: Y/N: Yes Provider name or facility name: [facility] Facility Address: [address] [place] [address] Escort needed: Y/N: No Do you have a wheelchair: Y/N: No If yes- Manual or electric: no Visits: 6 documented in this encounter Plan of Treatment Upcoming Encounters Date Type Department Care Team (Late st Contact Info) Description 12/03/2025 1:00 PM EST Clinical Support [facility] [address] [place] [address] 12/31/2025 2:30 PM EST Clinical Support [facility] [address] [place] [address] Aletha Vazquez RN 505 [place] [address] 02/21/2026 1:30 PM EDT Office Visit [facility] [address] [place] [address] Kamran Sherman documented as of this encounter [...] documented as of this encounter Care Teams Corset Maker Relationship Specialty Start Date End Date Marley Rich MD [address] [place] [phone] PCP - General Family Medicine 11/25/21 documented as of this encounter
--- OUTSIDE RECORDS SUMMARY | 2025-11-26 19:17 | XMS_ITS | Encounter Summary ---
Author Organization [email or web address] Address [address] [place] [address] 7 [place] [address] Care Team Providers Care Industrial Hygiene Technician Name Role Phone Marley Rich MD Primary Care Provider [phone] Reason for Visit * Reason Onset Date Comments PT1 06/17/2025 Encounter Details Date Type Department Care Team ([facility] st Contact Info) Description 06/17/2025 Telephone [facility] [address] [place] [address] Marley Rich MD 505 [place] [address] PT1 Social History Tobacco Use Types Packs/Day [...] Y/N: Yes Provider name or facility name: [facility] radiology Escort needed: Y/N: No Do you have a wheelchair: Y/N: No Visits: (2x months) documented in this encounter Plan of Treatment Upcoming Encounters Date Type Department Care Team (Late st Contact Info) Description 12/03/2025 1:00 PM EST Clinical Support [facility] [address] [place] [address] 12/31/2025 2:30 PM EST Clinical Support [facility] [address] [place] [address] Aletha Vazquez, EAN [address] [place] [address] 02/21/2026 1:30 PM EDT Office Visit [facility]ULT [facility] [address] [place] [address] Kamran Sherman documented as of this encounter [...] as of this encounter Care Teams Industrial Hygiene Technician Relationship Specialty Start Date End Date Marley Rich MD [address] [place] [address] PCP - General Family Medicine 11/25/21 documented as of this encounter
--- OUTSIDE RECORDS SUMMARY | 2025-11-26 19:17 | XMS_ITS | Encounter Summary ---
Author Organization [employer] Address [address] [place] [address] 7 [place] [address] Care Team Providers Care Drama Teacher Name Role Phone Marley Rich MD Primary Care Provider [phone] Reason for Visit * Reason Onset Date Comments PT-1 08/22/2024 Encounter Details Date Type Department Care Team (Late st Contact Info) Description 08/22/2024 Telephone [facility] MEDICINE [address] [place] [address] Marley Rich MD [address] [place] [address] PT-1 Social History Tobacco Use Types Packs/Day [...] Y/N: Yes Provider name or facility name: [facility] Facility Address: [address] [place] [address] Escort needed: Y/N: No Do you have a wheelchair: Y/N: No If yes- Manual or electric: no Visits: 6 documented in this encounter Plan of Treatment Upcoming Encounters Date Type Department Care Team (Late st Contact Info) Description 12/03/2025 1:00 PM EST Clinical Support [facility]ED[facility] [address] [place] [address] 12/31/2025 2:30 PM EST Clinical Support [facility] [address] [place] [address] Aletha Vazquez RN [address] [place] [address] 02/21/2026 1:30 PM EDT Office Visit [facility] ADULT DENTAL [address] [place] [address] Kamran Sherman documented as of this encounter [...] documented as of this encounter Care Teams Drama Teacher Relationship Specialty Start Date End Date Marley Rich MD [address] [place] [address] PCP - General Family Medicine 11/25/21 documented as of this encounter
--- OUTSIDE RECORDS SUMMARY | 2025-11-26 19:17 | XMS_ITS | Encounter Summary ---
Author Organization [employer] Address [address] [place] [address] 7 [place] [address] Care Team Providers Care Flight Surveyor Name Role Phone Marley Rich MD Primary Care Provider [phone] Reason for Visit * Reason Comments Med Refill Encounter Details Date Type Department Care Team ([facility] st Contact Info) Description 01/19/2025 Refill [facility] AD[facility] [address] [place] [address] Carl Casillas, DMD [address] [place] [address] Dental caries Social History Tobacco Use Types [...] Description 12/03/2025 1:00 PM EST Clinical Support [facility] [address] [place] [address] 12/31/2025 2:30 PM EST Clinical Support [facility] [address] [place] [address] Aletha Vazquez RN [address] [place] [address] 02/21/2026 1:30 PM EDT Office Visit [facility] AD[facility] [address] [place] [address] Kamran Sherman documented as of this encounter Goals Goal Patient Goal Type Associated Problems Recent Progress Patient-Stated? Author Blood Pressure < 150/90 Blood Pressure 133/84(2024 11:13 AM EST) No Mary Higgnis PharmD Immunization General No Mary Higgins PharmD Note: Receive all recommended vaccines: due for RSV documented as of this encounter Visit Diagnoses Diagnosis Dental caries Unspecified dental caries documented in this encounter Additional Health Concerns Assessment Noted Time PHQ-9 Depression Total Score: 2 08/06/20 24 10:25 AM EDT documented as of this encounter Care Teams Flight Surveyor Relationship Specialty Start Date End Date Marley Rich MD [address] [place] [address] PCP - General Family Medicine 11/25/21 documented as of this encounter
--- OUTSIDE RECORDS SUMMARY | 2025-11-26 19:17 | XMS_ITS | Encounter Summary ---
Author Organization [employer] Address [address] [place] [address] 7 [place] [address] Care Team Providers Care Fly Fishing Guide Name Role Phone Marley Rich MD Primary Care Provider [phone] Reason for Visit * Reason Comments Med Refill Encounter Details Date Type Department Care Team ([facility] st Contact Info) Description 05/14/2025 Refill [facility] ADULT DENTAL [address] [place] [address] Carl Casillas, DMD [address] [place] [address] Dental caries Social History Tobacco Use Types [...] Description 12/03/2025 1:00 PM EST Clinical Support [facility] MED & PEDS [address] [place] [address] 12/31/2025 2:30 PM EST Clinical Support [facility] MED [facility]ED[facility] [address] [place] [address] Aletha Vazquez RN [address] [place] [address] 02/21/2026 1:30 PM EDT Office Visit [facility] ADULT DENTAL [address] [place] [address] Kamran Sherman documented as of this encounter [...] documented as of this encounter Care Teams Fly Fishing Guide Relationship Specialty Start Date End Date Marley Rich MD [address] [place] [address] PCP - General Family Medicine 11/25/21 documented as of this encounter
--- OUTSIDE RECORDS SUMMARY | 2025-11-26 19:17 | XMS_ITS | Encounter Summary ---
Author Organization [employer] Address [address] [place] [address] 7 [place] [address] Care Team Providers Care Food And Drug Research Scientist Name Role Phone Marley Rich MD Primary Care Provider [phone] Reason for Visit * Reason Onset Date Comments PT-1 03/07/2025 0 Encounter Details Date Type Department Care Team ([facility] st Contact Info) Description 03/07/2025 Telephone [facility] MEDICINE [address] [place] [address] Marley Rich MD [address] [place], [place] [phone] PT-1 (0) Social History Tobacco Use Types [...] Y/N: Yes Provider name or facility name: [facility] [place] [address] Escort needed: Y/N: No Do you have a wheelchair: Y/N: No If yes- Manual or electric: Visits: (1 x Monthly) Contact pt at [phone] documented in this encounter Plan of Treatment Upcoming Encounters Date Type Department Care Team (Late st Contact Info) Description 12/03/2025 1:00 PM EST Clinical Support [facility] MED & PEDS [address] [place] [address] 12/31/2025 2:30 PM EST Clinical Support [facility] MED & PEDS [address] [place] [address] Aletha Vazquez, EAN [address] [place] [address] 02/21/2026 1:30 PM EDT Office Visit [facility] ADULT DENTAL [address] [place] [address] Kamran Sherman documented as of this encounter [...] documented as of this encounter Care Teams Food And Drug Research Scientist Relationship Specialty Start Date End Date Marley Rich MD [address] [place] [address] PCP - General Family Medicine 11/25/21 documented as of this encounter
--- OUTSIDE RECORDS SUMMARY | 2025-11-26 19:17 | XMS_ITS | Encounter Summary ---
Author Organization [employer] Address [address] [place] [address] [address] [place] [address] Care Team Providers Care Sewage Plant Attendant Name Role Phone Marley Rich MD Primary Care Provider [phone] Reason for Visit * Reason Comments Med Refill Encounter Details Date Type Department Care Team (Late st Contact Info) Description 03/23/2025 Refill [facility] [address] [place] [phone] Kashif Layne MD [address] [place], [place] [phone] Social History Tobacco Use Types Packs/Day Years [...] Description 12/03/2025 1:00 PM EST Clinical Support [facility] MED & PEDS [address] [place] [address] 12/31/2025 2:30 PM EST Clinical Support [facility] MED & PEDS [address] [place] [address] Aletha Vazquez, EAN [address] [place] [address] 02/21/2026 1:30 PM EDT Office Visit [facility] ADULT DENTAL [address] [place] [address] Kamran Sherman documented as of this encounter [...] documented as of this encounter Care Teams Sewage Plant Attendant Relationship Specialty Start Date End Date Marley Rich MD [address] [place] [address] PCP - General Family Medicine 11/25/21 documented as of this encounter
--- OUTSIDE RECORDS SUMMARY | 2025-11-26 19:17 | XMS_ITS | Encounter Summary ---
Author Organization [employer] Address [address] [place] [address] 7 [place] [address] Care Team Providers Care Plastics Bench Mechanic Name Role Phone Marley Rich MD Primary Care Provider [phone] Reason for Visit * Reason Onset Date Comments Dr. Casillas continued pain 03/04/2025 Encounter Details Date Type Department Care Team ([facility] st Contact Info) Description 03/04/2025 Telephone [facility] [address] [place] [address] Carl Casillas, DMD [address] [place], [place] [id number] Dr. Casillas continued pain Social History Tobacco [...] Description 12/03/2025 1:00 PM EST Clinical Support [facility] [address] [place] [address] 12/31/2025 2:30 PM EST Clinical Support [facility] [address] [place] [address] Aletha Vazquez, RN [address] [place] [address] 02/21/2026 1:30 PM EDT Office Visit [facility] ADULT [facility] [address] [place] [address] Kamran Sherman documented as of this encounter [...] documented as of this encounter Care Teams Plastics Bench Mechanic Relationship Specialty Start Date End Date Marley Rich MD [address] [place] [address] PCP - General Family Medicine 11/25/21 documented as of this encounter
--- OUTSIDE RECORDS SUMMARY | 2025-11-26 19:17 | XMS_ITS | Encounter Summary ---
Author Organization [employer] Address [address] [place] [address] 7[address] [place] [address] Care Team Providers Care Cyber Security Analyst Name Role Phone Marley Rich MD Primary Care Provider [phone] Reason for Visit * Reason Onset Date Comments Nurse Triage 11/26/2025 Encounter Details Date Type Department Care Team ([facility] st Contact Info) Description 11/26/2025 Telephone [facility] [address] [place] [address] Marley Rich MD [address] [place] [address] Nurse Triage Social History Tobacco Use Types Packs/Day Years [...] Encounter - Eufemia Pantoja RN - 11/26/2025 11:13 AM EST Assessment: Patient presents to [facility] c/o Elevated blood pressure, Headaches, blurry vision and Mid sternal CP that started yesterday. Patient reported her B/P has been 142/112. Symptoms have been present for days. Symptoms are constant. VS as follows (if applicable): Temp 97.1 by forehead thermometer HR 92 regular rate and rhythm Resp 16 none BP 123/71 left Arm; Device: Automatic Cuff Size: large O2 sat 95 % on room air Pain level: 5, Location: Mid-sternal chest pressure Clear to auscultation bilaterally, Location: throughout Allergies[1] Current Medications[2] Patient Active Problem List Diagnosis Date Noted Chronic right-sided low back pain with right-sided sciatica 09/17/2025 Cervical cancer screening 09/17/2025 Long-term current use of opiate analgesic 08/28/2025 Pyelonephritis 07/26/2025 Stomatitis 06/14/2025 Other insomnia 06/11/2025 Other hyperlipidemia 02/07/2025 RLQ abdominal pain 08/06/2024 Snoring 04/13/2024 Sensorineural hearing loss (SNHL) of both ears 04/13/2024 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 04/13/2024 Routine physical examination 01/26/2024 Fibromyalgia 01/26/2024 Abnormal tympanic membrane 11/12/2023 Tinnitus of both ears 09/12/2023 Varicose veins of both legs with edema 06/06/2023 Polyarthralgia 06/06/2023 Ear pain, bilateral 12/02/2022 Prediabetes 10/29/2022 Chronic abdominal pain 10/29/2022 Urinary tract infection 10/11/2022 Essential hypertension 10/11/2022 Chronic post-traumatic headache 10/11/2022 Obesity 11/25/2021 Head trauma, sequela 04/21/2018 H/O abdominal supracervical subtotal hysterectomy 06/09/2016 High-tone pelvic floor dysfunction 12/04/2015 Urge urinary incontinence 06/13/2015 In Office Testing EKG obtained Plan of care: Report to Dr. Layne Provider evaluation: Yes Patient in Nurse triage room waiting for evaluation. Eufemia Pantoja RN [1] Allergies Allergen Reactions Latex [2] Current Outpatient Medications Medication Sig Dispense Refill acetaminophen (Tylenol Extra Strength) 500 MG tablet Take 1-2 tablets (500-1,000 mg) by mouth every8 (eight) hours if needed (pain or fever). 100 tablet 1 ammonium lactate (Amlactin) 12 % cream APPLY TOPICALLY TO AFFECTED AREA(s) TWICE DAILY 385 g 1 Blood Pressure [place] [facility] [place] on arm as directed 1-2 TIMES DAILY Calcium Carb-Cholecalciferol (Calcium + Vitamin D3) 600-10 MG-MCG tablet Take 1 tablet by mouth 2 times daily. TAKE 1 TABLET BY MOUTH BID 180 tablet 3 cholecalciferol (Vitamin D-3) 25 MCG tablet TAKE 1 TABLET (25 MCG) BY MOUTH ONCE PER DAY. 90 tablet1 cyclobenzaprine (Flexeril) 10 MG tablet TAKE ONE TABLET BY MOUTH THREE TIMES DAILY 90 tablet 1 Diclofenac Sodium 1 % gel APPLY 4 G TOPICALLY 4 (FOUR) TIMES A DAY. APPLY TO NECK 300 g 1 divalproex (Depakote ER) 500 MG 24 hr tablet TOME DOS TABLETAS POR VIA ORAL A DIARIO (TAKE 2 TABLETS BY MOUTH DAILY). felodipine ER (Plendil) 2.5 MG 24 hr tablet Take 1 tablet (2.5 mg) by mouth Once per day. Do not crush, chew, or split. (Take with the 5mg dose for total dose of 7.5mg daily) 90 tablet 1 felodipine ER (Plendil) 5 MG 24 hr tablet Take 1 tablet (5 mg) by mouth Once per day. Take with 2.5mg dose for total daily dose of 7.5mg. Do not crush, chew, or split. 90 tablet 1 gabapentin (Neurontin) 300 MG capsule Take 2 capsules (600 mg) by mouth 3 times daily. 180 capsule 11 loratadine (Claritin) 10 MG tablet Take 1 tablet (10 mg) by mouth Once per day. 90 tablet 1 meloxicam (Mobic) 15 MG tablet Take 1 tablet (15 mg) by mouth Once per day. 30 tablet 11 naloxone (Narcan) 4 mg/0.1 mL nasal spray Administer 1 spray (4 mg) into affected nostril(s) if needed for opioid reversal. May repeat every 2-3 minutes if needed, alternating nostrils, until medicalassistance becomes available. 2 each 2 pantoprazole (ProtoNix) 40 MG EC tablet TAKE 1 TABLET BY MOUTH BEFORE BREAKFAST. DO NOT BREAK, CRUSH, DISSOLVE OR CHEW. 90 tablet 1 rosuvastatin (Crestor) 10 MG tablet Take 1 tablet (10 mg) by mouth at bedtime. (For cholesterol) 90tablet 1 Sod Fluoride-Potassium Nitrate (Sodium Fluoride 5000 Sensitive) 1.1-5 % gel BRUSH TEETH FOR 2 MINUTES, MORNING AND NIGHT. SPIT, DO NOT RINSE. DO NOT EAT OR DRINK ANYTHING FOR 30 MINUTES FOLLOWING [id number] g 3 Spacer/Aero-Holding Chambers (OptiChamber Patrizia) misc 1 each every 4 (four) hours if needed (asthma). 1 each 0 SUMAtriptan (Imitrex) 100 MG tablet PLEASE SEE ATTACHED FOR DETAILED DIRECTIONS telmisartan (Micardis) 80 MG tablet Take 1 tablet (80 mg) by mouth Once per day. 30 tablet 11 triamcinolone (Kenalog) 0.1 % oral paste Use in the mouth or throat 2 times daily. 10 g 0 Ventolin HFA 108 (90 Base) MCG/ACT inhaler INHALE 2 PUFFS EVERY 4 (FOUR) HOURS IF NEEDED FOR WHEEZING OR SHORTNESS OF BREATH. 1 g 1 No current facility-administered medications for this visit. documented in this encounter Plan of Treatment Upcoming Encounters Date Type Department Care Team (Late st Contact Info) Description 12/03/2025 1:00 PM EST Clinical Support [facility] [address] [place] [address] 12/31/2025 2:30 PM EST Clinical Support [facility] [address] [place] [address] Aletha Vazquez RN [address] [place] [address] 02/21/2026 1:30 PM EDT Office Visit [facility] [address] [place] [address] Kamran Sherman documented as of this encounter Goals Goal Patient Goal Type Associated Problems Recent Progress Patient-Stated? Author Blood Pressure < 150/90 Blood Pressure 133/84(2024 11:13 AM EST) No Mary Higgins, Isabelle Immunization General No Mary Higgins PharmD Note: Receive all recommended vaccines: due for RSV documented as of this encounter Visit Diagnoses Not on filedocumented in this encounter Additional Health Concerns Assessment Noted Time PHQ-9 Depression Total Score: 0 06/14/20 25 10:14 AM EDT documented as of this encounter Care Teams Cyber Security Analyst Relationship Specialty Start Date End Date Marley Rich MD [address] [place] [phone] PCP - General Family Medicine 11/25/21 documented as of this encounter
--- OUTSIDE RECORDS SUMMARY | 2025-11-26 19:17 | XMS_ITS | Encounter Summary ---
Author Organization [employer] Address [address] [place] [address] 7 [place] [address] Care Team Providers Care Batt Machine Operator Name Role Phone Marley Rich MD Primary Care Provider [phone] Reason for Visit * Reason Onset Date Comments PT-1 03/29/2024 Encounter Details Date Type Department Care Team (Late st Contact Info) Description 03/29/2024 Telephone [facility] [address] [place] [address] Marley Rich MD [address] [place] [address] PT-1 Social History Tobacco Use Types Packs/Day [...] Y/N: Yes Provider name or facility name: [facility] Facility Address: [address] [place] [address] Escort needed: Y/N: No Do you have a wheelchair: Y/N: No If yes- Manual or electric: no Visits: 3 documented in this encounter Plan of Treatment Upcoming Encounters Date Type Department Care Team ([facility] st Contact Info) Description 12/03/2025 1:00 PM EST Clinical Support [facility] [address] [place] [address] 12/31/2025 2:30 PM EST Clinical Support [facility] [address] [place] [address] Aletha Vazquez, RN [address] [place] [address] 02/21/2026 1:30 PM EDT Office Visit [facility] AD[facility] [address] [place] [address] Kamran Sherman documented as of this encounter [...] Noted Time PHQ-9 Depression Total Score: 11 / 024 10:07 AM EST documented as of this encounter Care Teams Batt Machine Operator Relationship Specialty Start Date End Date Marley Rich MD [address] [place] [id number] PCP - General Family Medicine 11/25/21 documented as of this encounter
--- OUTSIDE RECORDS SUMMARY | 2025-11-26 19:17 | XMS_ITS | Clinical Summary ---
Author Organization [employer] Address [address] [place] [address] 7 [place] [address] Care Team Providers Care Trademark Attorney Name Role Phone Marley Rich MD Primary Care Provider [phone] Allergies Active Allergy Reactions Criticality Noted Date Comments Latex 08/23/2025 Medications Blood [facility] Check blood pressure on arm as directed 1-2 TIMES DAILY 09/28/20 22 Active divalproex (Depakote ER) 500 MG 24 hr tablet TOME DOS TABLETAS POR VIA ORAL A DIARIO (TAKE 2 TABLETS BY MOUTH DAILY). 08/19/20 22 Active SUMAtriptan (Imitrex) 100 MG tablet PLEASE SEE ATTACHED FOR DETAILED DIRECTIONS 09/14/20 23 Active loratadine (Claritin) 10 MG tablet Take 1 tablet (10 mg) by mouth Once per day. 90 tablet 1 08/06/20 24 Active gabapentin (Neurontin) 300 MG capsule Take 2 capsules (600 mg) by mouth 3 times daily. 180 capsule 11 5 3:19 PM EST 12/06/19 25 026 Active Spacer/Aero-Holdin g Chambers (OptiChamber Patrizia) misc 1 each every 4 (four) hours if needed (asthma). 1 each 12/26/19 25 Active acetaminophen (Tylenol Extra Strength) 500 MG tabletIndications: Fibromyalgia Take 1-2 tablets (500-1,000 mg) by mouth every 8 (eight) hours if needed (pain or fever). 100 tablet 1 01/18/20 25 026 Active Ventolin HFA 108 (90 Base) MCG/ACT inhalerIndications :Upper respiratory disease INHALE 2 PUFFS EVERY 4 (FOUR) HOURS IF NEEDED FOR WHEEZING OR SHORTNESS OF BREATH. 1 g 1 02/23/20 25 Active Sod Fluoride-Potassium Nitrate (Sodium Fluoride 5000 Sensitive) 1.1-5 % gelIndications:Den lucio caries BRUSH TEETH FOR 2 MINUTES, MORNING AND NIGHT. SPIT, DO NOT RINSE. DO NOT EAT OR DRINK ANYTHING FOR 30 MINUTES FOLLOWING USE 112 g 3 05/14/20 25 Active Diclofenac Sodium 1 % gel APPLY 4 G TOPICALLY 4 (FOUR) TIMES A DAY. APPLY TO NECK 300 g 1 06/07/20 25 Active meloxicam (Mobic) 15 MG tabletIndications: Acute bilateral low back pain with right-sided sciatica Take 1 tablet (15 mg) by mouth Once per day. 30 tablet 11 5 12:09 PM EST 06/14/20 25 026 Active triamcinolone (Kenalog) 0.1 % oral paste Use in the mouth or throat 2 times daily. 10 g 06/14/20 25 Active felodipine ER (Plendil) 5 MG 24 hr tabletIndications: Essential hypertension Take 1 tablet (5 mg) by mouth Once per day. Take with 2.5mg dose for total daily dose of 7.5mg. Do not crush, chew, or split. 90 tablet 1 06/14/20 25 Active felodipine ER (Plendil) 2.5 MG 24 hr tabletIndications: Essential hypertension Take 1 tablet (2.5 mg) by mouth Once per day. Do not crush, chew, or split. (Take with the 5mg dose for total dose of 7.5mg daily) 90 tablet 1 5 12:56 PM EST 06/14/20 25 Active rosuvastatin (Crestor) 10 MG tabletIndications: Other hyperlipidemia Take 1 tablet (10 mg) by mouth at bedtime. (For cholesterol) 90 tablet 1 5 12:09 PM EST 08/07/20 25 Active cholecalciferol (Vitamin D-3) 25 MCG tabletIndications: History of vitamin D deficiency TAKE 1 TABLET (25 MCG) BY MOUTH ONCE PER DAY. 90 tablet 1 5 11:14 AM EST 08/16/20 25 Active pantoprazole (ProtoNix) 40 MG EC tabletIndications: Gastroesophageal reflux disease, unspecified whether esophagitis present TAKE 1 TABLET BY MOUTH BEFORE BREAKFAST. DO NOT BREAK, CRUSH, DISSOLVE OR CHEW. 90 tablet 1 08/23/20 25 Active naloxone (Narcan) 4 mg/0.1 mL nasal spray Administer 1 spray (4 mg) into affected nostril(s) if needed for opioid reversal. May repeat every 2-3 minutes if needed, alternating nostrils, until medical assistance becomes available. 2 each 2 09/02/20 25 026 Active ammonium lactate (Amlactin) 12 % creamIndications:X erosis of skin APPLY TOPICALLY TO AFFECTED AREA(s) TWICE DAILY 385 g 1 09/05/20 25 Active Calcium Carb-Cholecalcifer ol (Calcium + Vitamin D3) 600-10 MG-MCG tabletIndications: Vitamin D deficiency Take 1 tablet by mouth 2 times daily. TAKE 1 TABLET BY MOUTH BID 180 tablet 3 09/18/20 25 Active cyclobenzaprine (Flexeril) 10 MG tabletIndications: Acute bilateral low back pain with right-sided sciatica TAKE ONE TABLET BY MOUTH THREE TIMES DAILY 90 tablet 1 5 11:14 AM EST 10/14/20 25 Active telmisartan (Micardis) 80 MG tablet Take 1 tablet (80 mg) by mouth Once per day. 30 tablet 11 5 4:36 PM EST 11/14/20 25 026 Active losartan (Cozaar) 100 MG tabletIndications: Essential hypertension TAKE ONE TABLET EVERY MORNING 90 tablet 1 08/23/20 25 025 Discontin ued(Thera py completed ) telmisartan (Micardis) 40 MG tablet Take 1 tablet (40 mg) by mouth at bedtime. 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 here for cervical cancer screening. Will continue monitoring following ASCCP guidelines. Long-term current use of opiate analgesic 2024 Pyelonephritis 07/26/2025 Stomatitis 06/14/2025 Other insomnia 06/11/2025 Overview (07/26/2025): 06/12/25 Sleep Clinic[facility]: Referred by Rajwinder Cassidy MD, for [...] will recommend to referring provider. 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 I prescribed her Gabapentin [...] recommended reduction of 20-30% of maintenance calories; varnishing unit tool setter referral offered. Recommended to decrease soda and sugary beverage consumption. Recommended at least 20 g per meal of protein to assist with satiety. Recommended at least 150 min/week of moderate intensity exercise. Assessment & Plan (09/12/2023 12:04 PM EDT): Discussed calorie deficit, recommended reduction of 20-30% of maintenance calories; varnishing unit tool setter referral offered. Recommended to decrease soda and sugary beverage consumption. Recommended at least 20 g per meal of protein to assist with satiety. Recommended at least 150 min/week of moderate intensity exercise. -Labs: Albumin, CBC, Met. Panel, Lipid Panel, TSH/FT4, Urinalysis, Vit.D 25 Head trauma, sequela 04/21/2018 Overview (10/29/2022): Last [...] pelvic floor injections - botox/PT trial at [facility] has completed pt recruitment Discussed that [...] to the integrative medicine group [place] at [facility] for access to these complementary therapies. Trigger point injections to the pelvic floor with either lidocaine/bupivicaine or botulinum toxin are other considerations. Botox injections for pelvic muscle is currently an off-label use and may not be covered by insurance. All questions and concerns were answered. Plan: - Referral to pelvic PT at [place] given - Will try [facility] group again Urge urinary incontinence 06/13/2015 Overview [...] Overview (02/07/2025): Lab Results Component Value Date [id number] 70.5 01/30/2025 - January 2025 - decrease [...] Encounters Date Type Department Care Team Description 11/26/2025 11:00 AM EST Office Visit [facility] [address] [place] [phone] Kashif Layne MD Chest pain, unspecified type (Primary Dx); Essential hypertension 11/26/2025 Orders Only GENERIC EXTERNAL DATA DEPARTMENT Provider, Generic External Data 11/26/2025 Telephone [facility] [address] [place], [place] [phone] Marley Rich MD ED expect 11/26/2025 Telephone [facility] [address] [place] [address] Marley Rich MD Nurse Triage 11/26/2025 Travel 11/26/2025 Telephone [facility] [address] [place] [address] Marley Rich MD Nurse Triage 11/26/2025 Telephone [facility] [address] [place] [address] Marley Rich MD 11/14/2025 3:45 PM EST Procedure Visit [facility] [address], [place] [phone] Marley Rich MD Class 2 severe obesity with serious comorbidity and body mass index (BMI) of 36.0 to 36.9 in adult, unspecified obesity type (Primary Dx); Chronic right shoulder pain 11/14/2025 Travel 10/28/2025 3:30 PM EST Office Visit [facility] [address] [place] [address] Marley Rich MD Chronic right shoulder pain (Primary Dx); Head trauma, sequela 10/28/2025 Travel 10/12/2025 Refill [facility] [address] [place] [address] Marley Rich MD Acute bilateral low back pain with right-sided sciatica 10/03/2025 Results Follow-Up [facility] [address] [place] [address] Marley Rich MD Pap Smear, HPV High Risk with Reflex to Subtypes 10/01/2025 Telephone [facility] [address] [place] [address] Iesha Lizama LPN Call Back Request 09/19/2025 2:00 PM EDT Office Visit [facility] [address] [place] [address] Fili Rich DDS 09/19/2025 Telephone [facility] [address] [place] [address] Marley Rich MD Prior Authorization 09/18/2025 Refill [facility] [address] [place] [address] Marley Rich MD Vitamin D deficiency 09/17/2025 11:20 AM EDT Procedure Visit [facility] [address] [place] [address] Marley Rich MD Cervical cancer screening (Primary Dx); Chronic right-sided low back pain with right-sided sciatica; Encounter for vaccination 09/17/2025 Travel 09/04/2025 1:00 PM EDT Office Visit [facility] [address] [place] [address] Elbert Martinez DDS 09/04/2025 Refill [facility] [address] [place] [address] Marley Rich MD Xerosis of skin 08/28/2025 3:15 PM EDT Clinical Support [facility] [address] [place] [address] Aletha Vazquez, senior mobile application developer right-sided low back pain with right-sided sciatica (Primary Dx); Long-term current use of opiate analgesic 08/28/2025 Orders Only [facility] [address] [place] [address] Eriberto Sherman MD Essential hypertension (Primary Dx) 08/28/2025 Travel from Last 3 Months Immunizations Immunization [...] EST Inhaled Oxygen Concentration - - Weight 92.7 kg (204 lb 6.4 oz) 11/14/2025 3:33 P M EST Height 160 cm (5' 3 ) 11/14/2025 3:33 PM EST Body Mass Index 36.21 11/14/2025 3:33 PM EST Plan of Treatment Upcoming Encounters Date Type Department Care Team (Late st Contact Info) Description 12/03/2025 1:00 PM EST Clinical Support [facility] [address] [place] [address] 12/31/2025 2:30 PM EST Clinical Support [facility] [address] [place] [address] Aletha Vazquez, RN [address] [place] [address] 02/21/2026 1:30 PM EDT Office Visit [facility] [address] [place] [address] Kamran Sherman Health Maintenance Due Date Last [...] 02/21/2025, 08/21/2024, Additional history exists Tobacco Screening 11/26/2026 11/26/2025 Cervical Cancer Screening 09/17/2028 HPV/Cotest 09/17/2028 09/17/2025, 09/09/2022 Pap Smear 09/17/2028 09/17/2025, 08/28, 09/09/2022, Additional history exists Lipid Panel 06/20/2030 06/20/2025, 03/0 03/2025, 08/10/2024, [...] 2 VIEWS Routine 11/26/2025 2:25 PM EST MAGNESIUM Routine 11/26/2025 2:15 PM EST BASIC METABOLIC PANEL Routine 11/26/2025 2:15 PM EST HEPATIC FUNCTION PANEL Routine 11/26/2025 2:15 PM EST HIGH SENSITIVITY TROPONIN I Routine 11/26/2025 2:15 PM EST CBC WITH AUTO DIFFERENTIAL Routine 11/26/2025 2:15 PM EST SARS COV2/INFLUENZA A/B AND RSV RNA QL NAAT Routine 11/26/2025 2:15 PM EST ECG 12-LEAD Routine 11/26/2025 Chest pain, unspecified type XR SHOULDER 2+ VIEWS RIGHT Routine 10/30/2025 [...] right-sided low back pain with right-sided sciatica PROPHYLAXIS - ADULT Routine 08/23/2025 2 :00 PM EDT BITEWINGS - 4 RADIOGRAPHIC IMAGES Routine 08/23/2025 2:00 PM EDT PERIODIC ORAL EVALUATION - ESTABLISHED PATIENT Routine 08/23/2025 2:00 PM EDT LIPID PANEL, STANDARD Routine 06/20/2025 8:19 AM EDT Other hyperlipidemia HEMOGLOBIN A1C Routine 08/10/2024 8:24 AM EDT Prediabetes HM MAMMOGRAPHY Routine 11/03/2023 HEPATITIS PANEL, GENERAL Routine 06/06/2023 11:38 AM EDT HM COLONOSCOPY Routine 12/30/2022 INTRAORAL - COMPLETE SERIES OF RADIOGRAPHIC IMAGES Routine 12/20/2022 9:00 AM EST from Last 3 Months or Most Recently Relevant to Health Maintenance Results * XR Chest 2 Views (11/26/2025 2:25 PM EST) Anatomical Region Laterality Modality Chest Radiographic Amisha ging 11/26/2025 2:25 PM EST Narrative 11/26/2025 2:42 PM EST [address] [address] XRay Report Signed Patient: Ruthie Johnston MR #: [id number] : 1960 Acct:[id number] Age/Sex: 65 / F ADM Date: 11/26/25 Loc: HO.ED Attending Dr: Ordering Physician: Brittney Mtz Date of Service: 11/26/25 Procedure(s): XR chest 2V Accession Number(s): [id number] cc: Brittney Mtz; Marley Rich MD Reason [...] 11/26/25 1440 DD/ 1425 TD/TT: 11/26/25 1435 Assistant Paralegal: Procedure Note Donotuseinterpreter, Image - 11/26/2025 [place] [address] XRay Report Signed Patient: Ruthie JohnstonMR #: [id number] : 1960Acct:[id number] Age/Sex: 65 / FADM Date: 11/26/25 Loc: HO.ED Attending Dr: Ordering Physician: Brittney Mtz Date of Service: 11/26/25 Procedure(s): XR chest 2V Accession Number(s): [id number] cc: Brittney Mtz; Marley Rich MD Reason [...] 11/26/25 1440 DD/ 1425 TD/TT: 11/26/25 1435 Assistant Paralegal: [facility] External Provider IMG XR PROCEDURES Final Result * High Sensitivity Troponin I (11/26/2025 2:15 PM EST) Pathologist [facility] TROPONIN I HIGH SENSITIVITY <2.7 <3.5 - 17.0 ng/L [facility] Comment:The Goncalves high sens itivity Troponin-I results should beused in conjunction with other diagnostic information suchas ECG, clinical observations and information, and patientsymptoms to aid in the diagnosis of [place]. 11/26/2025 2:15 PM EST 11/26/2025 2:24 PM EST Generic External Data Provider LAB BLOOD ORDERAB LES Final Result [facility] [address] [place] [phone] * SARS-CoV-2 RNA, Influenza A/B, and RSV RNA, Ql NAAT (11/26/2025 2:15 PM EST) Pathologist [facility] Influenza A PCR NEGATIVE Negative [facility] Influenza B PCR NEGATIVE Negative [facility] Resp Syncy Virus RNA Qual PCR NEGATIVE Negative [facility] SARS COV2 PCR NEGATIVE Negative [facility] Comment:All test results mus t [...] use by authorized laboratories.Testing performed on the Lomography GeneXpert utilizingreal-time RT-PCR.All SARS CoV2 and positive influenza A/B results arereported to [facility]. 11/26/2025 2:15 PM EST 11/26/2025 2:24 PM EST us Generic External Data Provider LAB MICROBIOLOGY - GENERAL ORDERABLES Final Result [facility] [address] [place] [address] [phone] * (ABNORMAL) CBC auto differential (11/26/2025 2:15 PM EST) White Blood Count 11.5(H) 4.8 - 10.8 X10*3/uL [facility] Red Blood Count 5.14 4.20 - 5.50 X10*6/uL [facility] Hemoglobin 15.3 12.0 - 16.0 g/dl [facility] Hematocrit 45.1 37.0 - 47.0 % [facility] Mean Corpuscular Volume 87.7 80.0 - 98.0 fL [facility] Mean Corpuscular Hemoglobin 29.8 27.0 - 33.0 pg [facility] Mean Corpuscular HGB Conc 33.9 31.0 - 35.0 g/dl [facility] Red Cell Distribution Width 15.5 11.0 - 16.0 % [facility] Platelet Count 331 160 - 400 X10*3/uL [facility] Mean Platelet Volume 8.1(L) 9.4 - 12.3 fL [facility] Neutrophils Percent Auto 76.0(H) 45 - 73 % [facility] Imm Gran Pct Auto 0.3 0.0 - 0.4 % [facility] Lymphocytes Percent Auto 15.9(L) 20 - 40 % [facility] Monocytes Percent Auto 7.2 2 - 11 % [facility] Eosinophils Percent Auto 0.1 0 - 4 % [facility] Basophils Percent Auto 0.5 0 - 2 % [facility] NRBC Pct Auto 0.0 0.0 - 0.2 /100WBC [facility] Neutrophils Absolute Auto 8.8(H) 2.0 - 8.3 x10*3/uL [facility] Imm Gran Abs Auto 0.04(H) 0.00 - 0.03 X10*3/uL [facility] Lymphocytes Absolute Auto 1.8 1.2 - 4.9 X10*3/uL [facility] Monocytes Absolute Auto 0.8 0.1 - 1.2 X10*3/uL [facility] Eosinophils Absolute Auto 0.0 0.0 - 0.4 X10*3/uL [facility] Basophils Absolute Auto 0.1 0.0 - 0.2 X10*3/uL [facility] NRBC Abs Auto 0.000 0.0 - 0.012 X10*3/uL [facility] 11/26/2025 2:15 PM EST 11/26/2025 2:24 PM EST us Generic External Data Provider LAB BLOOD ORDERAB LES Final Result Performing Organization Address [facility]/ZIP Co de Phone Number [facility] [address] [place] [phone] * Magnesium (11/26/2025 2:15 PM EST) Magnesium 2.2 1.6 - 2.6 mg/dL [facility] 11/26/2025 2:15 PM EST 11/26/2025 2:24 PM EST Generic External Data Provider LAB BLOOD ORDERAB LES Final Result Performing Organization Address [facility] Co de Phone Number [facility] [address] [place] [phone] * (ABNORMAL) Hepatic Function Panel (11/26/2025 2:15 PM EST) Bilirubin, Total 0.5 0.0 - 1.0 mg/dL [facility] Bilirubin, Direct 0.2 0.0 - 0.5 mg/dL [facility] Aspartate Amino Transferase 22 5 - 31 U/L [facility] Alanine Aminotransferase 11 0 - 31 U/L [facility] Total Protein 8.2(H) 6.5 - 8.0 g/dL [facility] Albumin Level 5.0 3.5 - 5.0 g/dL [facility] Alkaline Phosphatase 87 39 - 117 U/L [facility] 11/26/2025 2:15 PM EST 11/26/2025 2:24 PM EST us Generic External Data Provider LAB BLOOD ORDERAB LES Final Result Performing Organization Address City/State/[facility] Co de Phone Number [facility] [address] [place] [phone] * (ABNORMAL) Basic Metabolic Panel (11/26/2025 2:15 PM EST) Pathologist [facility] Sodium 141 135 - 145 mmol/L [facility] Potassium 3.9 3.3 - 5.1 mmol/L [facility] Chloride 106 96 - 108 mmol/L [facility] Carbon Dioxide 25 22 - 29 mmol/L [facility] Anion Gap 14 12 - 20 [facility] Urea Nitrogen (BUN) 17(H) 9 - 16 mg/dL [facility] Creatinine, Serum 0.78 0.5 - 1.4 mg/dL [facility] Creatinine Clr Calc Pharmacy 77.4 [facility] Comment:Provided height and weight: 160.02 cm,92 kg.eGFR (calculated from the MDRD study equation) and eCrCl(calculated from the Cockcroft-Gault equation) are based ondifferent parameters and may not yield comparable results.If eCrCl result is absurd, please check patient'sheight/weight. Estimated Glomerular Filt Rate >60 [facility] Comment:Chronic Kidney Disea se: Estimated GFR < 60 mL/min/1.99q7Mrwoaf Kidney Disease: Estimated GFR < 15 mL/min/1.73m2 Glucose 101 60 - 115 mg/dL [facility] Calcium 9.9 8.4 - 10.2 mg/dL [facility] 11/26/2025 2:15 PM EST 11/26/2025 2:24 PM EST us Generic External Data Provider LAB BLOOD ORDERAB LES Final Result [facility] [address] [place] [phone] * ECG 12 lead (11/26/2025) us Kashif Layne MD ECG ORDERABLES Final Result * XR Shoulder 2+ Views Right (10/30/2025 3:37 PM EST) Anatomical Region Laterality Modality Upper Extremities, Shoulder Right Radi ographic Imaging 10/30/2025 3:37 PM EST Narrative 10/30/2025 3:50 PM EST [address] [address] XRay Report Signed Patient: Ruthie Johnston MR #: [id number] : 1960 Acct:[id number] Age/Sex: 65 / F ADM Date: 10/30/25 Loc: LETI Attending Dr: Marley Rich MD Ordering Physician: Marley Rich MD Date of Service: 10/30/25 Procedure(s): XR shoulder RT min 2V Accession Number(s): [id number] cc: Marley Rich MD Reason for Exam: 65 yo F with right shoulder pain persistent pain , send to [facility] EXAMINATION: XR SHOULDER, RIGHT CLINICAL INFORMATION: 65 yo F with right shoulder pain persistent pain , send to [facility] COMPARISON: None available. TECHNIQUE: AP external rotation, [...] 10/30/25 1547 DD/ 1537 TD/TT: 10/30/25 1544 Assistant Paralegal: Procedure Note Donotuseinterpreter, Image - 10/30/2025 [place] [address] XRay Report Signed Patient: Ruthie JohnstonMR #: [id number] : 1960Acct:[id number] Age/Sex: 65 / FADM Date: 10/30/25 Loc: HO.XRAY Attending Dr: Marley Rich MD Ordering Physician: Marley Rich MD Date of Service: 10/30/25 Procedure(s): XR shoulder RT min 2V Accession Number(s): [id number] cc: Marley Rich MD Reason for Exam: 65 yo F with right shoulder pain persistent pain , [facility] [place]AMINATION: XR SHOULDER, RIGHT CLINICAL INFORMATION: 65 yo F with right shoulder pain persistent pain , send to [facility] COMPARISON: None available. TECHNIQUE: AP external rotation, [...] 10/30/25 1547 DD/ 1537 TD/TT: 10/30/25 1544 Assistant Paralegal: us Marley Rich MD IMG XR PROCEDURES Final Resul t * HPV High Risk with Reflex to Subtypes (09/17/2025 10:50 AM EDT) HPV High Risk Negative Negative [facility] HPV Genotype 16 Negative Negative [facility] HPV Genotype 18 Negative Negative [facility] Comment:HPV testing performe d at [facility] (CLIA#[id number]), [address] [place] [address].Testing for HPV was performed using the Sophie [...] MD LAB BLOOD ORDERABLES Final Re sult [facility] [address] [place] [address] [phone] * Pap Smear (09/17/2025 12:00 AM EDT) Swab Cervical swab / Unknown 09/17/2025 09/18/2025 6:15 AM EDT Narrative [facility] - 09/25/2025 3:26 PM EDT ----- ------- Name: Ruthie Johnston Age/Sex: 65/F : 1960 Unit#: [id number] Attend Dr: Marley Rich MD Re09/17/25 Status: [facility] REF Location: [facility] Disch: ----- ------- SPEC : [id number] RECD: 09/18/25 STATUS: JOSIAH BATISTA NUM: [id number] JENNIFER: 09/17/250000 SUBM DR: Marley Rich MD ENTERED: 09/18/25 SP TYPE: Pap Smr OTHR DR: ORDERED: Pap Smear, PAP path review Interpretation General Category: Epithelial cell abnormality. Adequacy: Endocervical component present. Interpretation: Atypical squamous cells of undetermined significance HPV High Risk: Negative HPV Genotyping 16: Negative HPV Genotyping 18: Negative Clinical Information LMP: Post-menopausal Previous PAP test: Other surgery: Other history: Material Received ThinPrep-Cervical ----- ------- Signed (signature on file) Katalina Muniz 09/25/25 1526 ----- ------- END OF REPORT us Marley Rich MD LAB CYTOLOGY ORDERABLES Final Result [facility] [address] [place] [phone] * POCT JUAN-14 Urine Drug Screen (08/28/2025 [...] PM EDT . Internal Pass Control Lot# [id number] Exp: 09-27-26 us Marley Rich MD POINT OF CARE TEST ENTER/EDIT ORDERABLES Final Result * Lipid Panel, Standard (06/20/2025 8:19 AM EDT) Triglycerides 59 <150 mg/dL [facility] Comment:Desirable Triglyceri de: less than 150 mg/dLBorderline High Triglyceride 150-199 mg/dLHigh Triglyceride: 200-499 mg/dLVery High Triglyceride: greater than or equal to 5OO mg/dL Cholesterol 111 <200 mg/dL [facility] Comment:Desirable Cholestero l: less than 200 mg/dLBorderline High Cholesterol: 200-239 mg/dLHigh Cholesterol: greater than 239 mg/dL LDL Cholesterol Calculated 45 <100 mg/dL [facility] Comment:Desirable LDL: less than 100 mg/dLNear Optimal/Above Optimal LDL: 110- 129 mg/dLBorderline High LDL: 130-159 mg/dLHigh LDL: 160-189 mg/dLVery High LDL: greater than or equal to 190 mg/dL HDL Cholesterol 55 >40 mg/dL [facility] Comment:Desirable HDL: great er than 40 mg/dL Note: This HDL assay may give artificially low results in patients with liver disease. Blood Venous blood specimen / Unknown 06/20/2025 8:19 AM EDT 06/20/2025 2:02 PM EDT us Marley Rich MD LAB BLOOD ORDERABLES Final Re sult [facility] [address] [place] [phone] * Hemoglobin A1c (08/10/2024 8:24 AM EDT) Hemoglobin A1c 5.4 <6.0 % [facility] Comment:Hemoglobin A1C Refer ence Range Adults: 4.8 - 6.0 % Non diabetic: < 6.0 % Goal: < 7.0 %Additional Action Suggested: > 8.0 %Note: Hemoglobin A1c results are invalid for patients with abnormal amounts of HbF. Blood transfusions may impact the HbA1c concentration in the patient sample. Estimated Average Glucose 108 mg/dL [facility] Comment:eAG = Estimated ave rage glucose which is %A1C expressed asaverage glucose, using the formula of the P9E-UdctbshPffkued Glucose study (ADAG), Diabetes Care, Vol.31,#8,Jun. 2007 Blood Venous blood specimen / Unknown 08/10/2024 8:24 AM EDT 08/10/2024 2:52 PM EDT Marley Rich MD LAB BLOOD ORDERABLES Final Re sult Performing Organization Address [facility] Co de Phone Number [facility] [address] [place] [phone] * Mammography (11/03/2023) Mammogram BIRADS 1 Normal, Abnormal, BIRADS 1 , BIRADS 2 Anatomical Region Laterality Modality Other Marley Rich MD HEALTH MAINTENANCE Final Resu lt * Hepatitis Panel, General (06/06/2023 11:38 AM EDT) Pathologist [facility] Hepatitis A IgM Nonreactive Nonreactive [facility] Comment:IgM antibodies to CASTILLO V not detected; does not exclude earlyacute or recovered HAV infection. ~Hepatitis B Surface Antibody NONREACTIVE Nonreactive [facility] Comment:Nonreactive: < 8.00 mIU/mL Hepatitis B Core Antibody Nonreactive Nonreactive [facility] Hepatitis C Antibody Nonreactive Nonreactive [facility] Comment:Antibodies to HCV no t detected; does not exclude early acuteHCV infection. Hepatitis B Surface Ag Negative Negative [facility] 06/06/2023 11:3 8 AM EDT 06/06/2023 2:12 PM EDT [facility] External Provider LAB BLO OD ORDERABLES Final Result Performing Organization Address [facility] Co de Phone Number [facility] [address] [place] [phone] * Colonoscopy (12/30/2022) Colonoscopy Normal Normal 12/30/2022 Historical Riley [facility] HEALTH MAINTENANCE Edited Result - Final from Last 3 Months or Most Recently Relevant to Health Maintenance Insurance [facility] OPTIONS (HMO D-SNP) [facility] Care Teams Trademark Attorney Relationship Specialty Start Date End Date Marley Rich MD [address] [place] [phone] PCP - General Family Medicine 11/25/21
--- OUTSIDE RECORDS SUMMARY | 2025-11-26 19:17 | XMS_ITS | Encounter Summary ---
Author Organization [employer] Address [address] [place] [address] 7 [place] [address] Care Team Providers Care Stack Clerk Name Role Phone Marley Rich MD Primary Care Provider [phone] Reason for Visit * Reason Onset Date Comments Nurse Triage 11/26/2025 Encounter Details Date Type Department Care Team ([facility] st Contact Info) Description 11/26/2025 Telephone [facility] CHC MED & PEDS [address] [place] [address] Marley Rich MD [address] [place] [address] Nurse Triage Social History Tobacco Use Types [...] encounter Miscellaneous Notes * Telephone Encounter - Katerin Smith RN - 11/26/2025 10:14 AM EST Telephone call placed to pt. No answer, left v/m. Will retask for second attempt * Telephone Encounter - Justa Frausto - 11/26/2025 10:02 AM EST Symptom: High Blood Pressure - Caller Reports Outcome: Transfer to a nurse or provider NOW! Reason: Chest pain documented in this encounter Plan of Treatment Upcoming Encounters Date Type Department Care Team ([facility] st Contact Info) Description 12/03/2025 1:00 PM EST Clinical Support [facility] MED & PEDS 505 [facility] [place] [address] 12/31/2025 2:30 PM EST Clinical Support [facility] MED & PEDS [address] [facility] [place] [address] Aletha Vazquez RN 505 [place] [address] 02/21/2026 1:30 PM EDT Office Visit [facility] CHC ADULT DENTAL [address] [place] [address] Kamran Sherman documented as of this encounter [...] documented as of this encounter Care Teams Stack Clerk Relationship Specialty Start Date End Date Marley Rich MD [address] [place] [address] PCP - General Family Medicine 11/25/21 documented as of this encounter
--- OUTSIDE RECORDS SUMMARY | 2025-11-26 19:17 | XMS_ITS | Encounter Summary ---
Author Organization [employer] Address [address] [place] [address] 7 [place] [address] Care Team Providers Care Truss Puller Helper Name Role Phone Marley Rich MD Primary Care Provider [phone] Reason for Visit * Reason Onset Date Comments [facility] 03/23/2024 Encounter Details Date Type Department Care Team ([facility] st Contact Info) Description 03/23/2024 Telephone [facility] MEDICINE [address] [place] [address] Marley Rich MD [address] [place] [address] [facility] Social History Tobacco Use Types Packs/Day [...] Upcoming Encounters Date Type Department Care Team ([facility] st Contact Info) Description 12/03/2025 1:00 PM EST Clinical Support [facility] MED & PEDS [address] [place] [address] 12/31/2025 2:30 PM EST Clinical Support [facility] MED & PEDS [address] [place] [address] Aletha Vazquez, RN [address] [place] [address] 02/21/2026 1:30 PM EDT Office Visit [facility] CHC ADULT DENTAL [address] [place] [address] Kamran Sherman documented as of this encounter [...] documented as of this encounter Care Teams Truss Puller Helper Relationship Specialty Start Date End Date Marley Rich MD [address] [place] [address] PCP - General Family Medicine 11/25/21 documented as of this encounter
--- OUTSIDE RECORDS SUMMARY | 2025-11-26 19:17 | XMS_ITS | Data Portability ---
Author Organization [place] [facility], Allergy Address [address] [address] Assessment Encounter Date Assessment Date Assessment LastModified [...] 024 024 Sleep Medicine Services, [facility] [place], [address], 4 11:12:14 Surgeries None recorded. Imaging None [...] Sensorineur al hearing loss of bilateral ears 569253854 Active 2023 QUINCY HERNANDEZ , BERHANE [address] [place],[address], [facility] [place], [address], [facility] [place] 4 15:02:30 Bilateral tinnitus 5971201128107 Active 2023 QUINCY HERNANDEZ , BERHANE 100 [facility] [place], [facility] [place], [address], [facility] - [facility] [place] 4 15:02:42 Sensorineur al hearing loss of bilateral ears 078142019 Active 2023 QUINCY HERNANDEZ , AUD 100 [facility] [place] [facility] [place], [facility] [place], [address], [facility] - [facility] [place] 4 15:02:54 Central perforation of right tympanic membrane 4317682475234 101 Active 2023 DANIELLE LOREDO MD 100 [facility],[address], [place], [address], [facility] - [facility] [place] 4 15:48:50 Snoring 88010152 Active 2023 DANIELLE LOREDO MD 100 [facility] [place] [facility] [place], [place], [address], [facility] - [facility] [place] 4 15:49:05 Problem Notes None recorded. Procedures Surgical History Date Name Laterality Status Provider Name and Address Organization Details Recorded Time 4 Comp Audio with Tymps - 12175 & 61938 completed BERHANE AKINS 100 [facility] [place] [facility] [place],[address], [address], [facility] - [facility] [place] 04/13/2024 15:02:06 procedure on urinary bladder completed Ray Galvan [place] [facility] [place] 04/13/2024 15:16:05 hernia repair completed Ray Galvan [place] [facility] [place] 04/13/2024 15:16:30 Imaging Results None recorded. Procedure [...] Updated DateTime 04/13/2024 185.42 cm 26.4 kg/m2 60449.47 g aRy Galvan [place] - [facility] 04/13/2024 15:18:16 Social History None recorded. Functional Status Question Answer Note LastModified by Organizat ion Details LastModified Time Do you use any illicit or recreational drugs? No [email or web address] Information not available 04/13/2024 Do you or have you ever used any other forms of tobacco or nicotine? No [email or web address] Information not available 04/13/2024 What is your level of alcohol consumption? None [email or web address] Information not available 04/13/2024 Mental Status None recorded. Family History Nothing Reported. Medical History Condition Response Tonsil Infections N Emphysema N Glaucoma N Depression Y Nasal or Sinus Problems N Anesthesia Complications N Arthritis N Hearing Loss Y Cancer N Stroke N High Cholesterol Y Liver Disease N Headaches Y Fibromyalgia N Speech Delay N Kidney Disease N Allergies/Hayfever N Heart Problems N Anxiety Y Migraines Y Thyroid Problems N Developmental Delay N Anemia N Heart Attack ([place]) N Other Skin Condition N Diabetes Y Rhinitis N Bleeding Disorder N Food Allergy N Dementia N Asthma N Sleep Disorder N Hypertension Y Gynecological HistoryNo gynecological history recorded. Obstetrics History GPAL:G 0 P 0 0 0 0 Past Encounters Encounter ID Performer Location Encounter Start Date Encounter Closed Date Diagnosis/Indication Diagnosis SNOMED-CT Code Diagnosis ICD10 Code Diagnosis IMO Codes Diagnosis Note [id number] DANIELLE RON MD [facility] of [address] [address] 04/13/2024 14:14:08 04/13/2024 15:57:41 Sensorineural hearing loss of bilateral ears 120007246 H90.3 Audiometri c evaluation results: Right ear: Borderline normal to moderate SNHL with excellent speech discrimina tion. Left ear: Mild SNHL with excellent speech discrimina tion. Tympanomet ry: Right Ear:Type B with large volume Left Ear:Type A Recommenda tions include:Pa tient may want to consider amplificat ion pending medical clearance. Bilateral tinnitus [address]846 102 H93.13 Central pe rforation of right tympanic membrane 4360699989 403548 H72.01 Snoring 44144160 R06.83 Health Concerns Section Related Observation LastModified by Organization Detai ls LastModified Time None Recorded Concern Status LastModified by Organization Details LastModified Time None Recorded Advance Directives Directive None Recorded Payers Insurance Date Sequence Insurance Name Policy Number Policy Milian Covered Member ID Milian Member ID Guarantor Name 04/13/2024 1 [place] [facility] Ruthie Powell [id number] Ruthie Powell Notes Date Note Type Note [...] but no true vertigo DANIELLE DOMINGUEZ MD [address] [place] [address], [phone], [facility] - [facility] 04/13/2024 15:50:27 OBGyn Episode No OBEpisode recorded.
--- OUTSIDE RECORDS SUMMARY | 2025-11-26 19:17 | XMS_ITS | Encounter Summary ---
Author Organization [employer] Address [address] [place] [address] 7t [place] [address] Care Team Providers Care Pear Picker Name Role Phone Marley Rich MD Primary Care Provider [phone] Encounter Details Date Type Department Care Team (Late st Contact Info) Description 10/13/2023 Abstract [facility] MEDICINE [address] [place] [address] Mily Calderon Social History Tobacco Use Types [...] 12/03/2025 1:00 PM EST Clinical Support [facility] MED & PEDS [address] [place] [address] 12/31/2025 2:30 PM EST Clinical Support [facility] MED & PEDS [address] [place] [address] Aletha Vazquez RN 505 [place] [address] 02/21/2026 1:30 PM EDT Office Visit [facility] ADULT DENTAL [address] [place] [address] Kamran Sherman documented as of this encounter Visit Diagnoses Not on filedocumented in this encounter Additional Health Concerns Assessment Noted Time PHQ-9 Depression Total Score: 10 023 11:29 AM EDT documented as of this encounter Care Teams Pear Picker Relationship Specialty Start Date End Date Marley Rich MD [address] [place] [address] PCP - General Family Medicine 11/25/21 documented as of this encounter
--- OUTSIDE RECORDS SUMMARY | 2025-11-26 19:17 | XMS_ITS | Clinical Summary ---
Author Organization [facility] Address [address] [facility] [address] [place] [address] Phone Care Team Providers Care Mud Mixer Name Role Phone Veronique Jack MD Primary Care Provider [phone] Allergies No known active allergies Medications gabapentin [...] ([facility] st Contact Info) Description 12/24/2025 9:00 AM EST Office Visit [facility] in [address] [address] Chauncey Kurtz, OD [address] [place] [address] [email or web address] 12/24/2025 9:15 AM EST Procedure visit [facility] in [address] [address] Health Maintenance Due Date Last Done Comments [...] topic Medical Devices Not on [place] [address] [place] [address] DIRECT [place] [address] [address] [place] [address] [employer] [address] [place] [address] Care Teams Mud Mixer Relationship Specialty Start Date End Date Veronique Jack MD [address] [place] [phone] [email or web address] PCP - General Internal Medicine 07/04/20 Additional Source Comments The information contained in this document represents components of the legal health record. It is not the complete legal health record.[facility]
--- OUTSIDE RECORDS SUMMARY | 2025-11-26 19:17 | XMS_ITS | Encounter Summary ---
Author Organization [employer] Address [address] [facility] 7t [place] [address] Care Team Providers Care Mold Clamper Name Role Phone Marley Rich MD Primary Care Provider Encounter Details Date Type Department Care Team (Latest Contact Info) Description 11/26/2025 Travel Social History Tobacco Use Types Packs/Day [...] housing situation today? I have randyafshin montgomery 04/30/[address] you [...] 1:00 PM EST Clinical Support [facility] MED & PEDS [address] [place] [address] 12/31/2025 2:30 PM EST Clinical Support [facility] MED & PEDS [address] [place] [address] Aletha Vazquez RN 505 [place] [address] 02/21/2026 1:30 PM EDT Office Visit [facility] ADULT DENTAL [address] [place] [address] Kamran Sherman documented as of this encounter [...] documented as of this encounter Care Teams Mold Clamper Relationship Specialty Start Date End Date Marley Rich MD [address] [place] [address] PCP - General Family Medicine 11/25/21 documented as of this encounter
--- OUTSIDE RECORDS SUMMARY | 2025-11-26 19:17 | XMS_ITS | Encounter Summary ---
Author Organization [facility] Address [address] [place] [address] [place] [address] Phone Care Team Providers Care Audit Control Clerk Name Role Phone Unknown, Unknown Primary Care Provider Veronique Jackson MD Primary Care Provider [phone] Reason for Referral * Physical Therapy (Within 1 month) - Closed Specialty Diagnoses / Procedures Referred By Contac t Referred To Contact Physical Therapy Diagnoses Traumatic injury of head, sequela Sergei Luis MD Phone: tel: fax: mailto:[email or web address] Phone: tel: mailto:[email or web address] Referral ID Status Reason Start Date Expiration Date Visits Re quested Visits Authorized [id number] Closed 01/28/2020 04/07/2020 9 9 Encounter Details Date Type Department Care Team (Latest Contact Info) Description 01/28/2020 Transcribe Orders [facility] [address] [place] [address] Sergei Luis MD [address] [place] [address], [place] [address] [email or web address] Traumatic injury of head, sequela (Primary Dx) [...] Upcoming Encounters Date Type Department Care Team ([facility] st Contact Info) Description 12/24/2025 9:00 AM EST Office Visit [facility] in [address] [address] Chauncey Kurtz OD 50 [place] [address] [email or web address] 12/24/2025 9:15 AM EST Procedure visit [facility] in [address] [address] Scheduled Referrals Name Type Priority Associated Diagnoses Order Schedule Ambulatory referral to N Physical Therapy Outpatient Referral Routine Traumatic injury of head, sequela Ordered: 01/28/2020 documented as of this encounter Visit Diagnoses Diagnosis Traumatic injury of head, sequela- Primary documented in this encounter Care Teams Audit Control Clerk Relationship Specialty Start Date End Date Unknown, Unknown, MD PCP - General 12/20/19 07/03/20 Veronique Jack MD [address] [place] [address] [email or web address] PCP - General Internal Medicine 07/04/20 documented as of this encounter Additional Source Comments The information contained in this document represents components of the legal health record. It is not the complete legal health record.[facility]
--- OUTSIDE RECORDS SUMMARY | 2025-11-26 19:17 | XMS_ITS | Encounter Summary ---
Author Organization [employer] Address [address] [place] [address] 7 [place] [address] Care Team Providers Care Bowling Alley Manager Name Role Phone Marley Rich MD Primary Care Provider [phone] Reason for Visit * Reason Onset Date Comments PT1 01/02/2025 Encounter Details Date Type Department Care Team ([facility] st Contact Info) Description 01/02/2025 Telephone [facility] CHC MED & PEDS [address] [place] [address] Marley Rich MD [address] [place] [address] PT1 Social History Tobacco Use Types Packs/Day [...] or facility name: Dr Mclaughlin Facility Address: [address] [place] [address] 2nd Floor [address] [place] [address] Escort needed: Y/N: Yes Do you have a wheelchair: Y/N: No If yes- Manual or electric: n/a Visits: 2 x a month documented in this encounter Plan of Treatment Upcoming Encounters Date Type Department Care Team (Late st Contact Info) Description 12/03/2025 1:00 PM EST Clinical Support [facility] MED & PEDS [address] [place] [address] 12/31/2025 2:30 PM EST Clinical Support [facility] MED & PEDS [address] [place] [address] lAetha Vazquez, EAN [address] [place] [address] 02/21/2026 1:30 PM EDT Office Visit [facility] ADULT DENTAL [address] [place] [address] Kamran Sherman documented as of this encounter [...] documented as of this encounter Care Teams Bowling Alley Manager Relationship Specialty Start Date End Date Marley Rich MD [address] [place] [address] PCP - General Family Medicine 11/25/21 documented as of this encounter
--- OUTSIDE RECORDS SUMMARY | 2025-11-26 19:17 | XMS_ITS | Clinical Summary ---
Author Organization [facility] Address [address] [place] [address] Phone Care Team Providers Care Oil Distributor Name Role Phone Marley Rich MD Primary Care Provider [phone] Allergies Active Allergy Reactions Criticality Noted Date Comments Latex 08/23/2025 Medications blood pressure test kit (BLOOD PRESSURE MONITOR MISC) Check blood pressure on arm as directed [...] TODOS LOS D EN LA MA LENCHO 5 Active fluconazole (DIFLUCAN) 150 mg tablet TOME REESE TABLETA POR V A ORAL ONE TIME FOR 1 DOSE 5 Active gabapentin (NEURONTIN) 300 mg capsule TAKE TWO CAPSULES THREE TIMES DAILY Active dextromethorphan -guaiFENesin (MUCINEX DM) 30-600 mg per 12 hr tablet Use 1 tab TID 5 Active OptiChamber Patrizia [facility] inhaler use as directed 5 [...] once daily for five days 5 Active prochlorperazine (COMPAZINE) 10 mg tablet 1 tab PO TID PRN headache/nause a (in place of promethazine) 0 Active psyllium [...] mouth every 8 (eight) hours if needed. Active triamcinolone (KENALOG) 0.1 % dental paste APPLY IN MOUTH TWICE DAILY Active Encounters Date Type Department Care Team Description 11/25/2025 2:45 PM EST Office Visit Orthopedic Surgery [facility] [address] [phone] Aditya Mclaughlin DPM Ingrown toenail (Primary Dx); Dermatophytosis of nail; Pain in toe of right foot; Pain in toe of left foot; Difficulty walking; Tinea pedis of both feet from Last 3 Months Social History Tobacco [...] 2:00 PM EDT Office Visit Orthopedic Surgery [facility] [address] [phone] Aditya Mclaughlin DPM [address] [phone] Health Maintenance Due Date Last Done Comments Breast Cancer Screening 1960 Colorectal Cancer Screening: Colonoscopy 1960 Depression Screening 11/28/2024 Hepatitis C Screening 01/02/2025 Medicare Annual Wellness Visit 01/02/2025 Osteoporosis Screening (Bone Density Screening) 01/02/2025 Social Influencers of Health Screening 01/02/2025 Falls Risk Assessment 2025 COVID-19 Vaccine ( season) 2026 09/17/2025, 09/19/2023, 01/26/2023, Additional history exists Hypertension/CHF/CAD Annual BMP Blood Test 07/13/2026 07/13/2025, 06/20/2025 Cervical Cancer Screening: Pap Smear 09/17/2028 09/17/2025, 09/09/2022 Cholesterol Screening (Lipid Panel) 06/20/2030 06/20/2025, 01/30/2025 [...] 07/04/2023 RSV Immunization Adult Patients Completed 09/26/2023 Influenza Vaccine Completed 2025, , 07/26/2023, Additional history exists HIB Vaccines Aged Out [...] complete this topic Insurance MEDICAID - [place] MEDICARE [facility] Member Subscriber Plan / Payer (Ef fective 2025-Present) Name:Johnny Canada Lucie Ruthie Relation to Subscriber:Self Name:Ruthie Mcknight Payer ID:[id number] Group ID:[id number] Type:Not on file Address: [address] [place] [address] Care Teams Oil Distributor Relationship Specialty Start Date End Date Marley Rich MD [address] [place] [address] PCP - General Family Medicine 01/02/25
--- OUTSIDE RECORDS SUMMARY | 2025-11-26 19:17 | XMS_ITS | Encounter Summary ---
Author Organization [facility] Address [address] [place] [address] [place] [address] Care Team Providers Care Bridal Sales Consultant Name Role Phone Marley Rich MD Primary Care Provider [phone] Reason for Referral * Consultation (Routine) - Closed Specialty Diagnoses / Procedures Referred By Rhina spain Referred To Contact Ophthalmology Diagnoses Essential hypertension Eriberto Sherman MD [address] [place] [address] Phone: tel: fax: Referral ID Status Reason Start Date Expiration Date V isits Requested Visits Authorized [id number] Closed Specialty Services Required 08/28/2025 08/28/2026 1 1 Encounter Details Date Type Department Care Team (Late st Contact Info) Description 08/28/2025 Orders Only [facility] CHC MED & PEDS [address] [place] [address] Eriberto Sherman MD [address] [place] [address] Essential hypertension (Primary Dx) Social History Tobacco [...] 1:00 PM EST Clinical Support [facility] MED & PEDS [address] [place] [address] 12/31/2025 2:30 PM EST Clinical Support [facility] MED & PEDS [address] [place] [address] Aletha Vazquez, EAN [address] [place] [address] 02/21/2026 1:30 PM EDT Office Visit [facility] ADULT DENTAL 505 [facility] [place] [address] Kamran Sherman Scheduled Referrals Name Type Priority [...] documented as of this encounter Care Teams Bridal Sales Consultant Relationship Specialty Start Date End Date Marley Rich MD [address] [place] [address] PCP - General Family Medicine 11/25/21 documented as of this encounter
--- OUTSIDE RECORDS SUMMARY | 2025-11-26 19:17 | XMS_ITS | Encounter Summary ---
Author Organization [employer] Address [address] [place] [address] 7t [place] [address] Care Team Providers Care Branding Machine Tender Name Role Phone Marley Rich MD Primary Care Provider [phone] Encounter Details Date Type Department Care Team ([facility] st Contact Info) Description 06/06/2024 Telephone [facility] CHC MED & PEDS [address] [place] [address] Marley Rich MD [address] [place] [address] Social History Tobacco Use Types Packs/Day Years [...] [facility] MED & PEDS [address] [place] [address] 12/31/2025 2:30 PM EST Clinical Support [facility] MED & PEDS [address] [place] [address] Aletha Vazquez RN [address] [place] [address] 02/21/2026 1:30 PM EDT Office Visit [facility] ADULT DENTAL [address] [place] [address] Kamran Sherman documented as of this encounter [...] documented as of this encounter Care Teams Branding Machine Tender Relationship Specialty Start Date End Date Marley Rich MD [address] [place] [address] PCP - General Family Medicine 11/25/21 documented as of this encounter
--- OUTSIDE RECORDS SUMMARY | 2025-11-26 19:17 | XMS_ITS | Encounter Summary ---
Author Organization [employer] Address [address] [place] [address] 7t [place] [address] Care Team Providers Care Television Cable Installer Name Role Phone Marley Rich MD Primary Care Provider [phone] Encounter Details Date Type Department Care Team ([facility] st Contact Info) Description 09/07/2023 Telephone [facility] MEDICINE [address] [place] [address] Marley Rich MD [address] [place] [address] Social History Tobacco Use Types Packs/Day Years [...] 1:00 PM EST Clinical Support [facility] MED & PEDS [address] [place] [address] 12/31/2025 2:30 PM EST Clinical Support [facility] MED & PEDS [address] [place] [address] Aletha Vazquez, EAN [address] [place] [address] 02/21/2026 1:30 PM EDT Office Visit [facility] ADULT DENTAL [address] [place] [address] Kamran Sherman documented as of this encounter Visit Diagnoses Not on filedocumented in this encounter Additional Health Concerns Assessment Noted Time PHQ-9 Depression Total Score: 10 023 11:29 AM EDT documented as of this encounter Care Teams Television Cable Installer Relationship Specialty Start Date End Date Marley Rich MD [address] [place] [address] PCP - General Family Medicine 11/25/21 documented as of this encounter
--- OUTSIDE RECORDS SUMMARY | 2025-11-26 19:17 | XMS_ITS | Encounter Summary ---
Author Organization [employer] Address [address] [place] [address] 7 [place] [address] Care Team Providers Care Quality Control Engineer Name Role Phone Marley Rich MD Primary Care Provider [phone] Reason for Visit * Reason Comments Med Refill Encounter Details Date Type Department Care Team ([facility] st Contact Info) Description 09/03/2024 Refill [facility] CHC MED & PEDS [address] [place] [address] Marley Rich MD [address] [place] [address] Essential hypertension Social History Tobacco Use Types [...] 12/03/2025 1:00 PM EST Clinical Support [facility] MED & PEDS 505 [place] [address] 12/31/2025 2:30 PM EST Clinical Support [facility] MED & PEDS [address] [place] [address] Aletha Vazquez RN [address] [place] [address] 02/21/2026 1:30 PM EDT Office Visit [facility] ADULT DENTAL [address] [place] [address] Kamran Sherman documented as of this encounter [...] documented as of this encounter Care Teams Quality Control Engineer Relationship Specialty Start Date End Date Marley Rich MD [address] [place] [address] PCP - General Family Medicine 11/25/21 documented as of this encounter
--- OUTSIDE RECORDS SUMMARY | 2025-11-26 19:17 | XMS_ITS | Encounter Summary ---
Author Organization [employer] Address [address] [place] [address] 7t [place] [address] Care Team Providers Care Citrus Picker Name Role Phone Marley Rich MD Primary Care Provider [phone] Encounter Details Date Type Department Care Team ([facility] st Contact Info) Description 11/26/2025 Telephone [facility] CHC MED & PEDS [address] [place] [address] Marley Rich MD [address] [place] [address] Social History Tobacco Use Types Packs/Day Years [...] encounter Miscellaneous Notes * Telephone Encounter - Luly Sotomayor RN - 11/26/2025 10:00 AM EST called pt back to triage, spoke to pt through [employer] Washroom Attendant. pt states 2 days duration of highBP, chest pressure, headache, and intermittent blurred vision. pt states took her BP this morning and it was a little lower at 147/112 and does not know what it was yesterday. pt reports also mild sob, and fatigue. advised with chest pressure, other symptoms, and higher BP the recommendation is to seek ER evaluation and follow up here after the holiday. pt wants to know if anything is open in [facility] today and again advised nothing available and that the recommendation is to go to the ER for evaluation. pt understands and agrees with plan. advised not to drive herself and to call 911 if needed. Protocol Used: Chest Pain (Adult) Protocol-Based Disposition: Go to ED Now Positive Triage Questions: * chest pain/pressure * Difficulty breathing * All higher-acuity triage questions were negative. Care Advice Discussed: * Reassurance and Education - Fleeting Chest Pains * Reasons To Call Back - Difficulty breathing or unusual sweating occurs - Fever over 100.4 F (38.0 C) - You become worse documented in this encounter Plan of Treatment Upcoming Encounters Date Type Department Care Team (Late st Contact Info) Description 12/03/2025 1:00 PM EST Clinical Support [facility] MED & PEDS [address] [place] [address] 12/31/2025 2:30 PM EST Clinical Support [facility] MED & PEDS [address] [place] [address] Aletha Vazquez, EAN [address] [place] [address] 02/21/2026 1:30 PM EDT Office Visit [facility] ADULT DENTAL 505 [place] [address] Kamran Sherman documented as of this encounter [...] documented as of this encounter Care Teams Citrus Picker Relationship Specialty Start Date End Date Marley Rich MD [address] [place] [address] PCP - General Family Medicine 11/25/21 documented as of this encounter
--- OUTSIDE RECORDS SUMMARY | 2025-11-26 19:17 | XMS_ITS | Encounter Summary ---
Author Organization [employer] Address [address] [place] [address] 7 [place] [address] Care Team Providers Care Braille Duplicating Machine Operator Name Role Phone Marley Rich MD Primary Care Provider [phone] Encounter Details Date Type Department Care Team (Late st Contact Info) Description 10/25/2022 Abstract [facility] MEDICINE [address] [place] [address] Provider, MD Jomar Social History Tobacco Use [...] [facility] MED & PEDS [address] [place] [address] 12/31/2025 2:30 PM EST Clinical [facility] MED & PEDS [address] [place] [address] Aletha Vazquez, EAN [address] [place] [address] 02/21/2026 1:30 PM EDT Office [facility] ADULT DENTAL [address] [place] [address] Kamran Sherman documented as of this encounter Visit Diagnoses Not on filedocumented in this encounter Care Teams Braille Duplicating Machine Operator Relationship Specialty Start Date End Date Marley Rich MD [address] [place] [address] PCP - General Family Medicine 11/25/21 documented as of this encounter
--- OUTSIDE RECORDS SUMMARY | 2025-11-26 19:17 | XMS_ITS | Encounter Summary ---
Author Organization [employer] Address [address] [place] [address] 7 [place] [address] Care Team Providers Care Licensed Practical Nurse Clinic Nurse Name Role Phone Marley Rich MD Primary Care Provider [phone] Reason for Visit * Reason Onset Date Comments PT1 05/20/2025 Encounter Details Date Type Department Care Team ([facility] st Contact Info) Description 05/20/2025 Telephone [facility] MEDICINE [address] [place] [address] Marley Rich MD [address] [place] [address] PT1 Social History Tobacco Use Types Packs/Day [...] name or facility name: [facility] - [address] [place] [address] Escort needed: Y/N: No Do you have a wheelchair: Y/N: No If yes- Manual or electric: N/A Visits: (2x weekly) documented in this encounter Plan of Treatment Upcoming Encounters Date Type Department Care Team ([facility] st Contact Info) Description 12/03/2025 1:00 PM EST Clinical Support [facility] MED & PEDS [address] [place] [address] 12/31/2025 2:30 PM EST Clinical Support [facility] MED & PEDS [address] [place] [address] Aletha Vazquez, RN 505 [place] [address] 02/21/2026 1:30 PM EDT Office Visit [facility] ADULT DENTAL [address] [place] [address] Kamran Sherman documented as of this encounter [...] documented as of this encounter Care Teams Licensed Practical Nurse Clinic Nurse Relationship Specialty Start Date End Date Marley Rich MD [address] [place] [phone] PCP - General Family Medicine 11/25/21 documented as of this encounter
== END 2025-11-26 19:00 | disposition home or self-care (01) ==
PROVIDERS: Physician Assistant; Emergency Provider Emergency Medicine; PCP Family Medicine
DX: R07.89 Other chest pain (principal); R06.02 Shortness of breath; E11.9 Type 2 diabetes mellitus without complications; I10 Essential (primary) hypertension; E78.5 Hyperlipidemia, unspecified; Z79.02 Long term (current) use of antithrombotics/antiplatelets; Z79.899 Other long term (current) drug therapy; Z03.818 Encounter for observation for suspected exposure to other biological agents ruled out
CPT/HCPCS: 36415; 71046; 80048; 80076; 83735; 84484; 85025; 87637; 93005; 99283; 99284

== ENCOUNTER → 2025-11-26 12:52 | Outpatient (BNV) | payer OTHER, SELFPAY | PROVIDERS: Emergency Provider Emergency Medicine; PCP Family Medicine; Visit Provider Internal Medicine | DX: R94.31 Abnormal electrocardiogram [ECG] [EKG] (principal); R07.9 Chest pain, unspecified | CPT/HCPCS: 93010 ==

== ENCOUNTER → 2025-11-26 14:00 | Outpatient (BNV) | payer OTHER, SELFPAY | PROVIDERS: PCP Family Medicine; Visit Provider Radiology Diagnostic Radiology | DX: R07.9 Chest pain, unspecified (principal); R06.02 Shortness of breath | CPT/HCPCS: 71046 ==

== ENCOUNTER 2025-11-27 08:13 | Outpatient (REF) | payer OTHER, SELFPAY ==
--- OUTSIDE RECORDS SUMMARY | 2025-11-25 14:45 | XMS_ITS | Encounter Summary ---
Author Organization [facility] Address [id number] [place] [phone] Care Team Providers Care Forepart Rasper Name Role Phone Marley Rich MD Primary Care Provider [phone] Reason for Visit * Reason Comments Nail Problem Tinea pedis Encounter Details Date Type Department Care Team ([facility] st Contact Info) Description 11/25/2025 2:45 PM EST Office Visit Orthopedic Surgery - [place] [address] [phone] Aditya Mclaughlin DPM [address] [phone] Ingrown toenail (Primary Dx); Dermatophytosis [...] a 7 out of 10 depression scale freelance interpreter/translator utilized ID number [id number] ROS: GENERAL: Pt denies nausea, fever, vomiting, [...] blood pressure test kit (BLOOD PRESSURE MONITOR [facility]) Check blood pressure on arm as directed [...] capsule (50 mg total) by mouth daily. [employer]ber Patrizia [facility] inhaler use as directed polyethylene glycol (PEG) [...] PM EDT Office Visit Orthopedic Surgery - [place] [address] [phone] Aditya Mclaughlin, DPM [address] [phone] documented as of this encounter Visit Diagnoses Diagnosis Ingrown toenail- Primary Ingrowing nail Dermatophytosis of nail Pain in toe of right foot Pain in soft tissues of limb Pain in toe of left foot Pain in soft tissues of limb Difficulty walking Difficulty in walking Tinea pedis of both feet documented in this encounter Care Teams Forepart Rasper Relationship Specialty Start Date End Date Marley Rich MD [address] [place] [phone] PCP - General Family Medicine 01/02/25 documented as of this encounter
--- OUTSIDE RECORDS SUMMARY | 2025-11-26 11:00 | XMS_ITS | Encounter Summary ---
Author Organization [employer] Address [address] [place] [address] [address] [place] [address] Care Team Providers Care Supervisor Extrusion Name Role Phone Marley Rich MD Primary Care Provider [phone] Encounter Details Date Type Department Care Team (Late st Contact Info) Description 11/26/2025 11:00 AM EST Office Visit [facility] [address] [place] [phone] Kashif Layne MD [address] [place], [place] [phone] Chest pain, unspecified type (Primary Dx); Essential [...] Description 12/03/2025 1:00 PM EST Clinical Support [facility] MED & PEDS [address] [place] [address] 12/31/2025 2:30 PM EST Clinical Support [facility] MED [facility] PEDS [address] [place] [address] Aletha Vazquez, EAN [address] [place] [address] 02/21/2026 1:30 PM EDT Office Visit [facility] ADULT DENTAL [address] [place] [address] Beauzile, Kamran documented as of this encounter [...] type documented in this encounter Results * (ABNORMAL) ECG 12 lead (11/26/2025) Kashif Layne MD ECG ORDERABLES Final Result documented in this encounter Visit Diagnoses Diagnosis Chest pain, unspecified type- Primary Essential hypertension Unspecified essential hypertension documented in this encounter Additional Health Concerns Assessment Noted Time PHQ-9 Depression Total Score: 0 06/14/20 25 10:14 AM EDT documented as of this encounter Care Teams Supervisor Extrusion Relationship Specialty Start Date End Date Marley Rich MD [address] [place] [address] PCP - General Family Medicine 11/25/21 documented as of this encounter
--- OUTSIDE RECORDS SUMMARY | 2025-11-27 08:17 | XMS_ITS | Encounter Summary ---
Author Organization [employer] Address [address] [place] [address] 7 [place] [address] Care Team Providers Care Benefits Specialist Name Role Phone Marley Rich MD Primary Care Provider [phone] Encounter Details Date Type Department Care Team ([facility] st Contact Info) Description 03/09/2023 Orders Only [facility] CHC MED & PEDS [address] [place] [address] Marley Rich MD [address] [place] [address] Social History Tobacco Use Types Packs/Day Years [...] Support [facility] MED & PEDS [address] [place] [address] 12/31/2025 2:30 PM EST Clinical Support [facility] MED & PEDS [address] [place] [address] Aletha Vazquez, RN [address] [facility] [place] [address] 02/21/2026 1:30 PM EDT Office Visit [facility] ADULT DENTAL [address] [place] [address] Kamran Sherman Pending Results Name Type Priority [...] (09/16/2023 8:30 AM EDT) Color Urine Yellow [facility] Appearance Urine Clear [facility] PH 6.5 5.0 - 9.0 [facility] Glucose Urine UA Negative Negative mg/dL [facility] Urine Blood Negative Negative [facility] Specific Mcdonough - Urine 1.020 1.005 - 1.025 [facility] Urine Protein Negative Neg-Trace mg/dL [facility] Urine Ketones Negative Negative mg/dL [facility] Nitrite Urine Negative Negative [facility] Leukocyte Esterase Urine Negative Negative [facility] 09/16/2023 8:30 AM EDT 09/16/2023 2:34 PM EDT us Marley Rich MD LAB URINE ORDERABLES Final Re sult [facility] [address] [place] [phone] * HIV Ab/Ag ([facility]) (09/16/2023 8:27 AM EDT) HIV AB/AG Nonreactive Nonreactive [facility] Comment:HIV-1 p24 Ag and/or HIV-1/HIV-2 Ab not detected.A test result that is nonreactive does not exclude thepossibility of exposure to or infection with HIV-1 and/orHIV-2. Nonreactive results in this assay for individualswith prior exposure to HIV-1 and/or HIV-2 may be due toantigen and antibody levels that are below the limit ofdetection of this assay.[employer] HIV Ag/Ab Combo assay result andsupplemental assay results should be interpreted inconjunction with the patient's clinical presentation,history and other laboratory results. If the results areinconsistent with clinical evidence, additional testing issuggested to confirm the result. 09/16/2023 8:27 AM EDT 09/16/2023 2:26 PM EDT us Marley Rich MD LAB BLOOD ORDERABLES Final Re sult [facility] [address] [place] [address] [phone] * (ABNORMAL) Comprehensive Metabolic Panel, Fasting (09/16/2023 8:27 AM EDT) Sodium 139 135 - 145 mmol/L [facility] Potassium 4.2 3.3 - 5.1 mmol/L [facility] Chloride 103 96 - 108 mmol/L [facility] Carbon Dioxide 26 22 - 29 mmol/L [facility] Anion Gap 14 12 - 20 [facility] Urea Nitrogen (BUN) 11 9 - 16 mg/dL [facility] Creatinine, Serum 0.74 0.5 - 1.4 mg/dL [facility] Estimated Glomerular Filt Rate >60 [facility] Comment:NOTE: For -Am erican individuals, multiply the result by 1.210.Chronic Kidney Disease: Estimated GFR < 60 mL/min/1.08f5Cbzioa Kidney Disease: Estimated GFR < 15 mL/min/1.73m2 Glucose Fasting 78 60 - 99 mg/dL [facility] Calcium 10.2 8.4 - 10.2 mg/dL [facility] Bilirubin, Total 0.7 0.0 - 1.0 mg/dL [facility] Aspartate Amino Transferase 20 5 - 31 U/L [facility] Alanine Aminotransferase 11 0 - 31 U/L [facility] Total Protein 8.1(H) 6.5 - 8.0 g/dL [facility] Albumin Level 4.4 3.5 - 5.0 g/dL [facility] Alkaline Phosphatase 96 39 - 117 U/L [facility] 09/16/2023 8:27 AM EDT 09/16/2023 2:26 PM EDT Marley Rich MD LAB BLOOD ORDERABLES Final Re sult Performing Organization Address [facility] Co de Phone Number [facility] [address] [place] [address] [phone] * Cyclic Citrullinated Peptide (CCP) Antibody (IgG) (06/06/2023 11:38 AM EDT) Cyclic Citrullinated Peptide <16 UNITS [facility] Comment:Reference RangeNegat zach: <20Weak Positive: 20-39Moderate Positive: 40-59Strong Positive: >59THIS TEST WAS PERFORMED AT:[facility] [address] [id number] RODGERS MD 06/06/2023 11:3 8 AM EDT 06/06/2023 2:12 PM EDT [facility] External Provider LAB BLO OD ORDERABLES Final Result Performing Organization Address [facility] de Phone Number [facility] [address] [place] [address] [phone] * Immunoglobulin G (06/06/2023 11:38 AM EDT) Immunoglobulin G 1486 600 - 1540 mg/dL [facility] Comment:THIS TEST WAS PERFOR MED AT:[facility] [id number] [place] [id number] RODGERS MD 06/06/2023 11:3 8 AM EDT 06/06/2023 2:12 PM EDT [facility] External Provider LAB BLO OD ORDERABLES Final Result Performing Organization Address [facility] Co de Phone Number [facility] [address] [place] [address] [phone] * Hepatitis Panel, General (06/06/2023 11:38 AM EDT) Hepatitis A IgM Nonreactive Nonreactive [facility] Comment:IgM antibodies to CASTILLO V not detected; does not exclude earlyacute or recovered HAV infection. ~Hepatitis B Surface Antibody NONREACTIVE Nonreactive [facility] Comment:Nonreactive: < 8.00 mIU/mL Hepatitis B Core Antibody Nonreactive Nonreactive [facility] Hepatitis C Antibody Nonreactive Nonreactive [facility] Comment:Antibodies to HCV no t detected; does not exclude early acuteHCV infection. Hepatitis B Surface Ag Negative Negative [facility] 06/06/2023 11:3 8 AM EDT 06/06/2023 2:12 PM EDT [facility] External Provider LAB BLO OD ORDERABLES Final Result Performing Organization Address City/[facility]/ZIP Co de Phone Number [facility] [address] [place] [phone] * Rheumatoid Factor (06/06/2023 11:38 AM EDT) Pathologist [facility] Rheumatoid Factor <13.0 <15.0 IU/mL [facility] 06/06/2023 11:3 8 AM EDT 06/06/2023 2:12 PM EDT [facility] External Provider LAB BLO OD ORDERABLES Final Result [facility] [address] [place] [phone] * (ABNORMAL) C-reactive Protein (06/06/2023 11:38 AM EDT) C Reactive Protein 0.66(H) < or = 0.50 mg/dL [facility] 06/06/2023 11:3 8 AM EDT 06/06/2023 2:12 PM EDT [facility] External Provider LAB BLO OD ORDERABLES Final Result Performing Organization Address [facility] Co de Phone Number [facility] [address] [place] [phone] * Uric acid (06/06/2023 11:38 AM EDT) Uric Acid 4.3 2.4 - 5.7 mg/dL [facility] 06/06/2023 11:3 8 AM EDT 06/06/2023 2:12 PM EDT [facility] External Provider LAB BLO OD ORDERABLES Final Result Performing Organization Address [facility] de Phone Number [facility] [address] [place] [phone] * Sed Rate by Modified Danni (06/06/2023 11:38 AM EDT) Erythrocyte Sedimentation Rate 11 0 - 20 MM/HR [facility] Comment:Patients with polycy themia and many hemoglobin abnormalitiesmay have depressed sed rates whereas patients with anemiamay have elevated sed rates. 06/06/2023 11:3 8 AM EDT 06/06/2023 2:12 PM EDT [facility] External Provider LAB BLO OD ORDERABLES Final Result Performing Organization Address [facility] Co de Phone Number [facility] [address] [place] [phone] * Hm Colonoscopy (12/30/2022) Colonoscopy Normal Normal 12/30/2022 Historical Provider HEALTH MAINTENANCE Edited Result - Final documented in this encounter Visit Diagnoses Not on filedocumented in this encounter Additional Health Concerns Assessment Noted Time PHQ-9 Depression Total Score: 10 04/07/ 023 11:29 AM EDT documented as of this encounter Care Teams Benefits Specialist Relationship Specialty Start Date End Date Marley Rich MD [address] [place] [address] PCP - General Family Medicine 11/25/21 documented as of this encounter
--- OUTSIDE RECORDS SUMMARY | 2025-11-27 08:17 | XMS_ITS | Encounter Summary ---
Author Organization [employer] Address [address] [place] [address] 7t [place] [address] Care Team Providers Care Safety And Health Consultant Name Role Phone Marley Rich MD Primary Care Provider [phone] Encounter Details Date Type Department Care Team [...] 1:00 PM EST Clinical Support [facility] [address] [place] [address] 12/31/2025 2:30 PM EST Clinical Support [facility] [address] [place] [address] Aletha Vazquez RN 505 [place] [address] 02/21/2026 1:30 PM EDT Office Visit [facility] [address] [place] [address] Kamran Sherman documented as of this encounter [...] PM EST Narrative 11/26/2025 2:42 PM EST [address] [address] XRay Report Signed Patient: Ruthie Johnston MR #: [id number] : 1960 Acct:[id number] Age/Sex: 65 / F ADM Date: 11/26/25 Loc: HO.ED Attending Dr: Ordering Physician: Brittney Mtz Date of Service: 11/26/25 Procedure(s): XR chest 2V Accession Number(s): [id number] cc: Brittney Mtz; Marley Rich MD Reason [...] 11/26/25 1440 DD/ 1425 TD/TT: 11/26/25 1435 Cumulative Effects Analyst: Procedure Note Donotuseinterpreter, Image - 11/26/[address] [address] XRay Report Signed Patient: Ruthie JohnstonMR #: [id number] : 1960Acct:[id number] Age/Sex: 65 / FADM Date: 11/26/25 Loc: HO.ED Attending Dr: Ordering Physician: Brittney Mtz Date of Service: 11/26/25 Procedure(s): XR chest 2V Accession Number(s): [id number] cc: Brittney Mtz; Marley Rich MD Reason [...] 11/26/25 1440 DD/ 1425 TD/TT: 11/26/25 1435 Cumulative Effects Analyst: [facility] External Provider IMG XR PROCEDURES Final Result * SARS-CoV-2 RNA, Influenza A/B, and RSV RNA, Ql NAAT (11/26/2025 2:15 PM EST) Influenza A PCR NEGATIVE Negative [facility] Influenza B PCR NEGATIVE Negative [facility] Resp Syncy Virus RNA Qual PCR NEGATIVE Negative [facility] SARS COV2 PCR NEGATIVE Negative [facility] Comment:All test results mus t [...] use by authorized laboratories.Testing performed on the [employer] GeneXpert utilizingreal-time RT-PCR.All SARS CoV2 and positive influenza A/B results arereported to [facility]. 11/26/2025 2:15 PM EST 11/26/2025 2:24 PM EST Generic External Data Provider LAB MICROBIOLOGY - GENERAL ORDERABLES Final Result Performing Organization Address [facility]/ZIP Co de Phone Number [facility] [address] [place] [phone] * Magnesium (11/26/2025 2:15 PM EST) Pathologist [facility] Magnesium 2.2 1.6 - 2.6 mg/dL [facility] 11/26/2025 2:15 PM EST 11/26/2025 2:24 PM EST Generic External Data Provider LAB BLOOD ORDERAB LES Final Result Performing Organization Address [facility] Co de Phone Number [facility] [address] [place] [phone] * (ABNORMAL) Basic Metabolic Panel (11/26/2025 2:15 PM EST) Sodium 141 135 - 145 mmol/L [facility] Potassium 3.9 3.3 - 5.1 mmol/L [facility] Chloride 106 96 - 108 mmol/L [facility] Carbon Dioxide 25 22 - 29 mmol/L [facility] Anion Gap 14 12 - 20 [facility] Urea Nitrogen (BUN) 17(H) 9 - 16 mg/dL [facility] Creatinine, Serum 0.78 0.5 - 1.4 mg/dL [facility] Creatinine Clr Calc Pharmacy 77.4 [facility] Comment:Provided height and weight: 160.02 cm,92 kg.eGFR (calculated from the MDRD study equation) and eCrCl(calculated from the Cockcroft-Gault equation) are based ondifferent parameters and may not yield comparable results.If eCrCl result is absurd, please check patient'sheight/weight. Estimated Glomerular Filt Rate >60 [facility] Comment:Chronic Kidney Disea se: Estimated GFR < 60 mL/min/1.28p4Tvgzdh Kidney Disease: Estimated GFR < 15 mL/min/1.73m2 Glucose 101 60 - 115 mg/dL [facility] Calcium 9.9 8.4 - 10.2 mg/dL [facility] 11/26/2025 2:15 PM EST 11/26/2025 2:24 PM EST us Generic External Data Provider LAB BLOOD ORDERAB LES Final Result [facility] [address] [place] [phone] * (ABNORMAL) Hepatic Function Panel (11/26/2025 2:15 PM EST) Bilirubin, Total 0.5 0.0 - 1.0 mg/dL [facility] Bilirubin, Direct 0.2 0.0 - 0.5 mg/dL [facility] Aspartate Amino Transferase 22 5 - 31 U/L [facility] Alanine Aminotransferase 11 0 - 31 U/L [facility] Total Protein 8.2(H) 6.5 - 8.0 g/dL [facility] Albumin Level 5.0 3.5 - 5.0 g/dL [facility] Alkaline Phosphatase 87 39 - 117 U/L [facility] 11/26/2025 2:15 PM EST 11/26/2025 2:24 PM EST us Generic External Data Provider LAB BLOOD ORDERAB LES Final Result Performing Organization Address [facility]/ZIP Co de Phone Number [facility] [address] [place] [phone] * High Sensitivity Troponin I (11/26/2025 2:15 PM EST) [facility] TROPONIN I HIGH SENSITIVITY <2.7 <3.5 - 17.0 ng/L [facility] Comment:The Goncalves high sens itivity Troponin-I results should beused in conjunction with other diagnostic information suchas ECG, clinical observations and information, and patientsymptoms to aid in the diagnosis of [place]. 11/26/2025 2:15 PM EST 11/26/2025 2:24 PM EST Generic External Data Provider LAB BLOOD ORDERAB LES Final Result Performing Organization Address [facility] Co de Phone Number [facility] [address] [place] [phone] [phone] * (ABNORMAL) CBC auto differential (11/26/2025 2:15 PM EST) [facility] White Blood Count 11.5(H) 4.8 - 10.8 X10*3/uL [facility] Red Blood Count 5.14 4.20 - 5.50 X10*6/uL [facility] Hemoglobin 15.3 12.0 - 16.0 g/dl [facility] Hematocrit 45.1 37.0 - 47.0 % [facility] Mean Corpuscular Volume 87.7 80.0 - 98.0 fL [facility] Mean Corpuscular Hemoglobin 29.8 27.0 - 33.0 pg [facility] Mean Corpuscular HGB Conc 33.9 31.0 - 35.0 g/dl [facility] Red Cell Distribution Width 15.5 11.0 - 16.0 % [facility] Platelet Count 331 160 - 400 X10*3/uL [facility] Mean Platelet Volume 8.1(L) 9.4 - 12.3 fL [facility] Neutrophils Percent Auto 76.0(H) 45 - 73 % [facility] Imm Gran Pct Auto 0.3 0.0 - 0.4 % [facility] Lymphocytes Percent Auto 15.9(L) 20 - 40 % [facility] Monocytes Percent Auto 7.2 2 - 11 % [facility] Eosinophils Percent Auto 0.1 0 - 4 % [facility] Basophils Percent Auto 0.5 0 - 2 % [facility] NRBC Pct Auto 0.0 0.0 - 0.2 /100WBC [facility] Neutrophils Absolute Auto 8.8(H) 2.0 - 8.3 x10*3/uL [facility] Imm Gran Abs Auto 0.04(H) 0.00 - 0.03 X10*3/uL [facility] Lymphocytes Absolute Auto 1.8 1.2 - 4.9 X10*3/uL [facility] Monocytes Absolute Auto 0.8 0.1 - 1.2 X10*3/uL [facility] Eosinophils Absolute Auto 0.0 0.0 - 0.4 X10*3/uL [facility] Basophils Absolute Auto 0.1 0.0 - 0.2 X10*3/uL [facility] NRBC Abs Auto 0.000 0.0 - 0.012 X10*3/uL [facility] 11/26/2025 2:15 PM EST 11/26/2025 2:24 PM EST us Generic External Data Provider LAB BLOOD ORDERAB LES Final Result [facility] [address] [place] [phone] documented in this encounter Visit Diagnoses Not on filedocumented in this encounter Additional Health Concerns Assessment Noted Time PHQ-9 Depression Total Score: 0 06/14/20 25 10:14 AM EDT documented as of this encounter Care Teams Safety And Health Consultant Relationship Specialty Start Date End Date Marley Rich MD [address] [place] [phone] PCP - General Family Medicine 11/25/21 documented as of this encounter
--- OUTSIDE RECORDS SUMMARY | 2025-11-27 08:17 | XMS_ITS | Encounter Summary ---
Author Organization [employer] Address [address] [place] [address] 7 [place] [address] Care Team Providers Care Deputy Assessor Name Role Phone Marley Rich MD Primary Care Provider [phone] Reason for Visit * Reason Comments Med Refill Encounter Details Date Type Department Care Team ([facility] st Contact Info) Description 07/15/2025 Refill [facility] [address] [place] [address] Ahslee Huertas FNP [address] [place], [place] [phone] Essential hypertension Social History Tobacco Use Types [...] 1:00 PM EST Clinical Support [facility] [address] [place] [address] 12/31/2025 2:30 PM EST Clinical Support [facility] [address] [place] [address] Aletha Vazquez RN 505 [place] [address] 02/21/2026 1:30 PM EDT Office Visit [facility] [address] [place] [address] Kamran Sherman documented as of this encounter [...] documented as of this encounter Care Teams Deputy Assessor Relationship Specialty Start Date End Date Marley Rich MD [address] [place] [address] PCP - General Family Medicine 11/25/21 documented as of this encounter
--- OUTSIDE RECORDS SUMMARY | 2025-11-27 08:17 | XMS_ITS | Encounter Summary ---
Author Organization [employer] Address [address] [place] [address] 7t [place] [address] Care Team Providers Care Environmental Change Analyst Name Role Phone Marley Rich MD Primary Care Provider [phone] Encounter Details Date Type Department Care Team [...] 1:00 PM EST Clinical Support [facility] [address] [place] [address] 12/31/2025 2:30 PM EST Clinical Support [facility] [address] [place] [address] Aletha Vazquez RN [address] [place] [address] 02/21/2026 1:30 PM EDT Office Visit [facility] [address] [place] [address] Kamran Sherman documented as of this encounter [...] documented as of this encounter Care Teams Environmental Change Analyst Relationship Specialty Start Date End Date Marley Rich MD [address] [place] [address] PCP - General Family Medicine 11/25/21 documented as of this encounter
--- OUTSIDE RECORDS SUMMARY | 2025-11-27 08:17 | XMS_ITS | Encounter Summary ---
Author Organization [employer] Address [address] [place] [address] 7t [place] [address] Care Team Providers Care Guest Services Attendant Name Role Phone Marley Rich MD Primary Care Provider [phone] Reason for Visit * Reason Onset Date Comments ED expect 11/26/2025 Encounter Details Date Type Department Care Team ([facility] st Contact Info) Description 11/26/2025 Telephone [facility] [address] [place] [address] Marley Rich MD 505 [place] [address] ED expect Social History Tobacco Use Types [...] Verbal report given to Krystin MCKOY at [facility] ED, to expect patient by private car. documented in this encounter Plan of Treatment Upcoming Encounters Date Type Department Care Team (Late st Contact Info) Description 12/03/2025 1:00 PM EST Clinical Support [facility] [address] [place] [address] 12/31/2025 2:30 PM EST Clinical Support [facility] [address] [place] [address] Aletha Vazquez, EAN [address] [place] [address] 02/21/2026 1:30 PM EDT Office Visit [facility] [address] [place] [address] Kamran Sherman documented as of this encounter [...] documented as of this encounter Care Teams Guest Services Attendant Relationship Specialty Start Date End Date Marley Rich MD [address] [place] [address] PCP - General Family Medicine 11/25/21 documented as of this encounter
--- OUTSIDE RECORDS SUMMARY | 2025-11-27 08:18 | XMS_ITS | Encounter Summary ---
Author Organization [employer] Address [address] [place] [address] 7t [place] [address] Care Team Providers Care Parish Nurse Name Role Phone Marley Rich MD Primary Care Provider [phone] Encounter Details Date Type Department Care Team ([facility] st Contact Info) Description 11/26/2025 Telephone [facility] [address] [place] [address] Marley Rich MD [address] [place] [address] Social History Tobacco Use Types Packs/Day Years [...] back to triage, spoke to pt through [facility]. pt states 2 days duration of highBP, [...] to know if anything is open in [facility] today and again advised nothing available [...] 12/03/2025 1:00 PM EST Clinical Support [facility] [address] [place] [address] 12/31/2025 2:30 PM EST Clinical Support [facility] [address] [place] [address] Aletha Vazquez, EAN [address] [place] [address] 02/21/2026 1:30 PM EDT Office Visit [facility] [address] [place] [address] Kamran Sherman documented as of this encounter [...] documented as of this encounter Care Teams Parish Nurse Relationship Specialty Start Date End Date Marley Rich MD [address] [place] [address] PCP - General Family Medicine 11/25/21 documented as of this encounter
--- OUTSIDE RECORDS SUMMARY | 2025-11-27 08:18 | XMS_ITS | Encounter Summary ---
Author Organization [employer] Address [address] [place] [address] 7 [place] [address] Care Team Providers Care Director Of Operations Name Role Phone Marley Rich MD Primary Care Provider [phone] Reason for Visit * Reason Onset Date Comments Nurse Triage 11/26/2025 Encounter Details Date Type Department Care Team ([facility] st Contact Info) Description 11/26/2025 Telephone [facility] [address] [place] [address] Marley Rich MD [address] [place] [address] Nurse Triage Social History Tobacco Use Types [...] encounter Miscellaneous Notes * Telephone Encounter - aKterin Smith RN - 11/26/2025 10:14 AM EST [...] Upcoming Encounters Date Type Department Care Team ([facility] st Contact Info) Description 12/03/2025 1:00 PM EST Clinical Support [facility] 505 [facility] [place] [address] 12/31/2025 2:30 PM EST Clinical Support [facility] 505 [facility] [place] [address] Aletha Vazquez RN 505 [place] [address] 02/21/2026 1:30 PM EDT Office Visit [facility] ADULT [facility] [address] [place] [address] Kamran Sherman documented as of this encounter [...] as of this encounter Care Teams Director Of Operations Relationship Specialty Start Date End Date Marley Rich MD [address] [place] [address] PCP - General Family Medicine 11/25/21 documented as of this encounter
--- OUTSIDE RECORDS SUMMARY | 2025-11-27 08:18 | XMS_ITS | Encounter Summary ---
Author Organization [employer] Address [address] [place] [address] 7t [place] [address] Care Team Providers Care Private Tutors And Teachers Name Role Phone Marley Rich MD Primary Care Provider [phone] Reason for Visit * Reason Onset Date Comments Nurse Triage 11/26/2025 Encounter Details Date Type Department Care Team ([facility] st Contact Info) Description 11/26/2025 Telephone [facility] [address] [place] [address] Marley iRch MD [address] [place] [address] Nurse Triage Social History Tobacco Use Types [...] DAILY 385 g 1 Blood Pressure Monitor [facility] Check blood pressure on arm as directed [...] OR DRINK ANYTHING FOR 30 MINUTES FOLLOWING YRF007 g 3 Spacer/Aero-Holding Chambers (OptiChamber Patrizia) misc [...] 1:00 PM EST Clinical Support [facility] [address] [place] [address] 12/31/2025 2:30 PM EST Clinical Support [facility] [address] [place] [address] Aletha Vazquez RN 505 [place] [address] 02/21/2026 1:30 PM EDT Office Visit [facility] [address] [place] [address] Kamran Sherman documented as of this encounter [...] documented as of this encounter Care Teams Private Tutors And Teachers Relationship Specialty Start Date End Date Marley Rich MD [address] [place] [address] PCP - General Family Medicine 11/25/21 documented as of this encounter
--- OUTSIDE RECORDS SUMMARY | 2025-11-27 08:18 | XMS_ITS | Clinical Summary ---
Author Organization [facility] Address [address] [place] [address] Phone Care Team Providers Care Grain Handler Name Role Phone Marley Rich MD Primary Care Provider [phone] Allergies Active Allergy Reactions Criticality Noted Date [...] 1 tab TID 5 Active OptiChamber Patrizia [facility] inhaler use as directed 5 Active loratadine [...] 2:45 PM EST Office Visit [facility] [address] [phone] Aditya Mclaughlin DPM Ingrown toenail (Primary Dx); [...] 2:00 PM EDT Office Visit [facility] [address] [phone] Aditya Mclaughlin DPM [address] [phone] Health Maintenance Due Date Last Done Comments [...] this topic Insurance MEDICAID - [place] MEDICARE [facility] Member Subscriber Plan / Payer (Ef fective 2025-Present) Name:Johnny [place] Lucie Ruthie Relation to Subscriber:Self Name:Ruthie Mcknight Payer ID:[id number] Group ID:[id number] Type:Not on file Address: [address] [place] [phone] Care Teams Grain Handler Relationship Specialty Start Date End Date Marley Rich MD [address] [place] [address] PCP - General Family Medicine 01/02/25
--- OUTSIDE RECORDS SUMMARY | 2025-11-27 08:18 | XMS_ITS | Encounter Summary ---
Author Organization [employer] Address [address] [place] [address] 7 [place] [address] Care Team Providers Care Soft Boarder Name Role Phone Marley Rich MD Primary Care Provider [phone] Reason for Visit * Reason Onset Date Comments PT1 06/17/2025 Encounter Details Date Type Department Care Team ([facility] st Contact Info) Description 06/17/2025 Telephone [facility] [address] [place] [address] Marley Rich MD [address] [place] [address] PT1 Social History Tobacco Use Types Packs/Day [...] Y/N: Yes Provider name or facility name: [facility] radiology Escort needed: Y/N: No Do you have a wheelchair: Y/N: No Visits: (2x months) documented in this encounter Plan of Treatment Upcoming Encounters Date Type Department Care Team (Late st Contact Info) Description 12/03/2025 1:00 PM EST Clinical Support [facility] [address] [place] [address] 12/31/2025 2:30 PM EST Clinical Support [facility] [address] [place] [address] Aletha Vazquez, EAN [address] [place] [address] 02/21/2026 1:30 PM EDT Office Visit [facility] [address] [place] [address] Kamran Sherman documented as of this encounter [...] documented as of this encounter Care Teams Soft Boarder Relationship Specialty Start Date End Date Marley Rich MD [address] [place] [address] PCP - General Family Medicine 11/25/21 documented as of this encounter
--- OUTSIDE RECORDS SUMMARY | 2025-11-27 08:18 | XMS_ITS | Encounter Summary ---
Author Organization [email or web address] Address [address] [place] [address] 7 [place] [address] Care Team Providers Care Psychology Instructor Name Role Phone Marley Rihc MD Primary Care Provider [phone] Reason for Visit * Reason Comments Med Refill Encounter Details Date Type Department Care Team ([facility] st Contact Info) Description 09/03/2024 Refill [facility] [address] [place] [address] Marley Rich MD [address] [place] [address] Essential hypertension Social History Tobacco Use Types [...] 12/03/2025 1:00 PM EST Clinical Support [facility] [address] [place] [address] 12/31/2025 2:30 PM EST Clinical Support [facility] [address] [place] [address] Aletha Vazquez RN 505 [place] [address] 02/21/2026 1:30 PM EDT Office Visit [facility] [address] [place] [address] Kamran Sherman documented as of this encounter [...] documented as of this encounter Care Teams Psychology Instructor Relationship Specialty Start Date End Date Marley Rich MD [address] [place] [address] PCP - General Family Medicine 11/25/21 documented as of this encounter
--- OUTSIDE RECORDS SUMMARY | 2025-11-27 08:18 | XMS_ITS | Clinical Summary ---
Author Organization [employer] Address [address] [place] [address] 7 [place] [address] Care Team Providers Care Solar Energy Systems Engineer Name Role Phone Marley Rich MD Primary Care Provider [phone] Allergies Active Allergy Reactions Criticality Noted Date Comments Latex 08/23/2025 Medications Blood [facility] Check blood pressure on arm as [...] 4:36 PM EST 11/14/20 25 026 Active telmisartan (Micardis) 40 MG tablet Take [...] Other insomnia 06/11/2025 Overview (07/26/2025): 06/12/25 [facility]: Referred by Rajwinder Cassidy MD, [...] will recommend to referring provider. 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 I prescribed her Gabapentin [...] recommended reduction of 20-30% of maintenance calories; postage machine operator referral offered. Recommended to decrease soda and sugary beverage consumption. Recommended at least 20 g per meal of protein to assist with satiety. Recommended at least 150 min/week of moderate intensity exercise. Assessment & Plan (09/12/2023 12:04 PM EDT): Discussed calorie deficit, recommended reduction of 20-30% of maintenance calories; postage machine operator referral offered. Recommended to decrease soda and sugary beverage consumption. Recommended at least 20 g per meal of protein to assist with satiety. Recommended at least 150 min/week of moderate intensity exercise. -Labs: Albumin, CBC, Met. Panel, Lipid Panel, TSH/FT4, Urinalysis, Vit.D ,25 Head trauma, sequela 04/21/2018 Overview (10/29/2022): Last [...] pelvic floor injections - botox/PT trial at [facility] has completed pt recruitment Discussed that this [...] to the integrative medicine group here at [facility] for access to these complementary therapies. Trigger point injections to the pelvic floor with either lidocaine/bupivicaine or botulinum toxin are other considerations. Botox injections for pelvic muscle is currently an off-label use and may not be covered by insurance. All questions and concerns were answered. Plan: - Referral to pelvic PT at [place] given - Will try Santos hudson again [...] Overview (02/07/2025): Lab Results Component Value Date [id number] 70.5 01/30/2025 - January 2025 - decrease [...] Description 11/26/2025 11:00 AM EST Office Visit [facility] [address] [place] [phone] Kashif Layne MD Chest pain, unspecified type (Primary Dx); Essential hypertension 11/26/2025 Orders Only GENERIC EXTERNAL DATA DEPARTMENT Provider, Generic External Data 11/26/2025 Telephone [facility] [address] [place] [phone] Marley Rich MD ED expect 11/26/2025 Telephone [facility] [address] [place] [phone] Marley Rich MD Nurse Triage 11/26/2025 Travel 11/26/2025 Telephone [facility] [address] [place] [address] Marley Rich MD Nurse Triage 11/26/2025 Telephone [facility] [address] [place] [address] Marley Rich MD 11/14/2025 3:45 PM EST Procedure Visit [facility] [address] [place] [address] Marley Rich MD Class 2 severe obesity with serious comorbidity and body mass index (BMI) of 36.0 to 36.9 in adult, unspecified obesity type (Primary Dx); Chronic right shoulder pain 11/14/2025 Travel 10/28/2025 3:30 PM EST Office Visit [facility] [address] [place] [address] Marley Rich MD Chronic right shoulder pain (Primary Dx); Head trauma, sequela 10/28/2025 Travel 10/12/2025 Refill [facility] [address] [place] [address] Marley Rich MD Acute bilateral low back pain with right-sided sciatica 10/03/2025 Results Follow-Up [facility] [address] [place] [address] Marley Rich MD Pap Smear, HPV High Risk with Reflex to Subtypes 10/01/2025 Telephone [facility] [address] [place] [address] [phone] Iesha Lizama LPN Call Back Request 09/19/2025 2:00 PM EDT Office Visit [facility] [address] [place] [address] Fili Rich DDS 09/19/2025 Telephone [facility] [address], [place] [phone] Marley Rich MD Prior Authorization 09/18/2025 Refill [facility] [address] [place] [address] Marley Rich MD Vitamin D deficiency 09/17/2025 11:20 AM EDT Procedure Visit [facility] [address] [place] [address] Marley Rich MD Cervical cancer screening (Primary Dx); Chronic right-sided low back pain with right-sided sciatica; Encounter for vaccination 09/17/2025 Travel 09/04/2025 1:00 PM EDT Office Visit [facility] [address] [place] [address] Elbert Martinez DDS 09/04/2025 Refill [facility] [address] [place] [address] Marley Rich MD Xerosis of skin 08/28/2025 3:15 PM EDT Clinical Support [facility] [address] [place] [address] Aletha Vazquez RN Chronic right-sided low back pain with right-sided sciatica (Primary Dx); Long-term current use of opiate analgesic 08/28/2025 Orders Only [facility] [address] [place] [address] Eriberto Sherman MD Essential hypertension (Primary Dx) [...] [facility] [address] [place] [address] 12/31/2025 2:30 PM EST Clinical Support [facility] [address] [place] [address] Aletha Vazquez, RN [address] [place] [address] 02/21/2026 1:30 PM EDT Office Visit [facility] [address] [place] [address] Kamran Sherman Health Maintenance Due Date Last [...] 06/14/2026 06/14/2025, 06/14/20 Dental X-Ray: Bitewings 08/24/2026 08/23/20 25, 02/21/2025, 08/21/2024, Additional history exists Tobacco Screening 11/26/2026 11/26/2025 Cervical Cancer Screening 09/17/2028 HPV/Cotest 09/17/2028 09/17/2025, 09/09/2022 Pap Smear 09/17/2028 09/17/2025, 08/28, 09/09/2022, Additional history exists Lipid Panel 06/20/2030 06/20/2025, 030 03/2025, 08/10/2024, Additional history exists Colonoscopy 12/30/2032 [...] PANEL, GENERAL Routine 06/06/2023 11:38 AM EDT COLONOSCOPY Routine 12/30/2022 INTRAORAL - COMPLETE SERIES OF RADIOGRAPHIC IMAGES Routine 12/20/2022 9:00 AM EST from Last 3 Months or Most Recently Relevant to Health Maintenance Results * XR Chest 2 Views (11/26/2025 2:25 PM EST) Anatomical Region Laterality Modality Chest Radiographic Amisha ging 11/26/2025 2:25 PM EST Narrative 11/26/2025 2:42 PM EST [address] [address] XRay Report Signed Patient: Ruthie Johnston MR #: [id number] : 1960 Acct:[id number] Age/Sex: 65 / F ADM Date: 11/26/25 Loc: HO.ED Attending Dr: Ordering Physician: Brittney Mtz Date of Service: 11/26/25 Procedure(s): XR chest 2V Accession Number(s): [id number] cc: Brittney Mtz; Marley Rich MD Reason [...] 11/26/25 1440 DD/ 1425 TD/TT: 11/26/25 1435 Aluminum Fabrication Supervisor: Procedure Note Donotuseinterpreter, Image - 11/26/[address] [address] XRay Report Signed Patient: Ruthie JohnstonMR #: [id number] : 1960Acct:[id number] Age/Sex: 65 / FADM Date: 11/26/25 Loc: .ED Attending Dr: Ordering Physician: Brittney Mtz Date of Service: 11/26/25 Procedure(s): XR chest 2V Accession Number(s): [id number] cc: Brittney Mtz; Marley Rich MD Reason [...] 11/26/25 1440 DD/ 1425 TD/TT: 11/26/25 1435 Aluminum Fabrication Supervisor: [facility] External Provider IMG XR PROCEDURES Final Result * High Sensitivity Troponin I (11/26/2025 2:15 PM EST) Pathologist [facility] TROPONIN I HIGH SENSITIVITY <2.7 <3.5 - 17.0 ng/L [facility] Comment:The Goncalves high sens itivity Troponin-I results should beused in conjunction with other diagnostic information suchas ECG, clinical observations and information, and patientsymptoms to aid in the diagnosis of HI. 11/26/2025 2:15 PM EST 11/26/2025 2:24 PM EST Generic External Data Provider LAB BLOOD ORDERAB LES Final Result [facility] [address] [place] [phone] * SARS-CoV-2 RNA, Influenza A/B, and RSV RNA, Ql NAAT (11/26/2025 2:15 PM EST) Pathologist [facility] Influenza A PCR NEGATIVE Negative [facility] Influenza B PCR NEGATIVE Negative [facility] Resp Syncy Virus RNA Qual PCR NEGATIVE Negative [facility] SARS COV2 PCR NEGATIVE Negative [facility] Comment:All test results mus t [...] use by authorized laboratories.Testing performed on the Cepheid GeneXpert utilizingreal-time RT-PCR.All SARS CoV2 and positive influenza A/B results arereported to [facility]. 11/26/2025 2:1 5 PM EST 11/26/2025 2:24 PM EST us Generic External Data Provider LAB MICROBIOLOGY - GENERAL ORDERABLES Final Result [facility] [address] [place] [address] [phone] * (ABNORMAL) CBC auto differential (11/26/2025 2:15 PM EST) White Blood Count 11.5(H) 4.8 - 10.8 X10*3/uL [facility] Red Blood Count 5.14 4.20 - 5.50 X10*6/uL [facility] Hemoglobin 15.3 12.0 - 16.0 g/dl [facility] Hematocrit 45.1 37.0 - 47.0 % [facility] Mean Corpuscular Volume 87.7 80.0 - 98.0 fL [facility] Mean Corpuscular Hemoglobin 29.8 27.0 - 33.0 pg [facility] Mean Corpuscular HGB Conc 33.9 31.0 - 35.0 g/dl [facility] Red Cell Distribution Width 15.5 11.0 - 16.0 % [facility] Platelet Count 331 160 - 400 X10*3/uL [facility] Mean Platelet Volume 8.1(L) 9.4 - 12.3 fL [facility] Neutrophils Percent Auto 76.0(H) 45 - 73 % [facility] Imm Gran Pct Auto 0.3 0.0 - 0.4 % [facility] Lymphocytes Percent Auto 15.9(L) 20 - 40 % [facility] Monocytes Percent Auto 7.2 2 - 11 % [facility] Eosinophils Percent Auto 0.1 0 - 4 % [facility] Basophils Percent Auto 0.5 0 - 2 % [facility] NRBC Pct Auto 0.0 0.0 - 0.2 /100WBC [facility] Neutrophils Absolute Auto 8.8(H) 2.0 - 8.3 x10*3/uL [facility] Imm Gran Abs Auto 0.04(H) 0.00 - 0.03 X10*3/uL [facility] Lymphocytes Absolute Auto 1.8 1.2 - 4.9 X10*3/uL [facility] Monocytes Absolute Auto 0.8 0.1 - 1.2 X10*3/uL [facility] Eosinophils Absolute Auto 0.0 0.0 - 0.4 X10*3/uL [facility] Basophils Absolute Auto 0.1 0.0 - 0.2 X10*3/uL [facility] NRBC Abs Auto 0.000 0.0 - 0.012 X10*3/uL [facility] 11/26/2025 2:15 PM EST 11/26/2025 2:24 PM EST Generic External Data Provider LAB BLOOD ORDERAB LES Final Result Performing Organization Address City/[facility]/ZIP Co de Phone Number [facility] [address] [place] [phone] * Magnesium (11/26/2025 2:15 PM EST) Magnesium 2.2 1.6 - 2.6 mg/dL [facility] 11/26/2025 2:15 PM EST 11/26/2025 2:24 PM EST [facility] External Data Provider LAB BLOOD ORDERAB LES Final Result Performing Organization Address [facility]/ZIP Co de Phone Number [facility] [address] [place] [phone] * (ABNORMAL) Hepatic Function Panel (11/26/2025 2:15 PM EST) Bilirubin, Total 0.5 0.0 - 1.0 mg/dL [facility] Bilirubin, Direct 0.2 0.0 - 0.5 mg/dL [facility] Aspartate Amino Transferase 22 5 - 31 U/L [facility] Alanine Aminotransferase 11 0 - 31 U/L [facility] Total Protein 8.2(H) 6.5 - 8.0 g/dL [facility] Albumin Level 5.0 3.5 - 5.0 g/dL [facility] Alkaline Phosphatase 87 39 - 117 U/L [facility] 11/26/2025 2:15 PM EST 11/26/2025 2:24 PM EST us Generic External Data Provider LAB BLOOD ORDERAB LES Final Result [facility] [address] [place] [phone] [phone] * (ABNORMAL) Basic Metabolic Panel (11/26/2025 2:15 PM EST) Sodium 141 135 - 145 mmol/L [facility] Potassium 3.9 3.3 - 5.1 mmol/L [facility] Chloride 106 96 - 108 mmol/L [facility] Carbon Dioxide 25 22 - 29 mmol/L [facility] Anion Gap 14 12 - 20 [facility] Urea Nitrogen (BUN) 17(H) 9 - 16 mg/dL [facility] Creatinine, Serum 0.78 0.5 - 1.4 mg/dL [facility] Creatinine Clr Calc Pharmacy 77.4 [facility] Comment:Provided height and weight: 160.02 cm,92 kg.eGFR (calculated from the MDRD study equation) and eCrCl(calculated from the Cockcroft-Gault equation) are based ondifferent parameters and may not yield comparable results.If eCrCl result is absurd, please check patient'sheight/weight. Estimated Glomerular Filt Rate >60 [facility] Comment:Chronic Kidney Disea se: Estimated GFR < 60 mL/min/1.80x7Gxtgdt Kidney Disease: Estimated GFR < 15 mL/min/1.73m2 Glucose 101 60 - 115 mg/dL [facility] Calcium 9.9 8.4 - 10.2 mg/dL [facility] 11/26/2025 2:15 PM EST 11/26/2025 2:24 PM EST us Generic External Data Provider LAB BLOOD ORDERAB LES Final Result [facility] [address] [place] [phone] * (ABNORMAL) ECG 12 lead (11/26/2025) Kashif Layne MD ECG ORDERABLES Final Result * XR Shoulder 2+ Views Right (10/30/2025 3:37 PM EST) Anatomical Region Laterality Modality Upper Extremities, Shoulder Right Radi ographic Imaging 10/30/2025 3:37 PM EST Narrative 10/30/2025 3:50 PM EST [address] [address] XRay Report Signed Patient: Ruthie Johnston MR #: [id number] : 1960 Acct:[id number] Age/Sex: 65 / F ADM Date: 10/30/25 Loc: LETI Attending Dr: Marley Rich MD Ordering Physician: Marley Rich MD Date of Service: 10/30/25 Procedure(s): XR shoulder RT min 2V Accession Number(s): [id number] cc: Marley Rich MD Reason for Exam: 65 yo F with right shoulder pain persistent pain , send to [facility] EXAMINATION: XR SHOULDER, RIGHT CLINICAL INFORMATION: 65 yo F with right shoulder pain persistent pain , send to [facility] COMPARISON: None available. TECHNIQUE: AP external rotation, [...] 10/30/25 1547 DD/ 1537 TD/TT: 10/30/25 1544 Aluminum Fabrication Supervisor: Procedure Note Donotuseinterpreter, Image - 10/30/2025 [place] [address] XRay Report Signed Patient: Ruthie JohnstonMR #: [id number] : 1960Acct:[id number] Age/Sex: 65 / FADM Date: 10/30/25 Loc: HO.JULIAY Attending Dr: Marley Rich MD Ordering Physician: Marley Rich MD Date of Service: 10/30/25 Procedure(s): XR shoulder RT min 2V Accession Number(s): [id number] cc: Marley Rich MD Reason for Exam: 65 yo F with right shoulder pain persistent pain , [facility] EXAMINATION: XR SHOULDER, RIGHT CLINICAL INFORMATION: 65 yo F with right shoulder pain persistent pain , send to [facility] COMPARISON: None available. TECHNIQUE: AP external rotation, [...] 10/30/25 1547 DD/ 1537 TD/TT: 10/30/25 1544 Aluminum Fabrication Supervisor: us Marley Rich MD IMG XR PROCEDURES Final Resul t * HPV High Risk with Reflex to Subtypes (09/17/2025 10:50 AM EDT) HPV High Risk Negative Negative [facility] HPV Genotype 16 Negative Negative [facility] HPV Genotype 18 Negative Negative [facility] Comment:HPV testing performe d at [facility] (CLIA#[id number]), [address] [place] [address].Testing for HPV was performed using the Sophie NANCY Neptune.io0system. The presence of HPV in the female [...] MD LAB BLOOD ORDERABLES Final Re sult [facility] [address] [place] [phone] * Pap Smear (09/17/2025 12:00 AM EDT) Swab Cervical swab / Unknown 09/17/2025 09/18/2025 6:15 AM EDT Narrative [facility] - 09/25/2025 3:26 PM EDT ----- ------- Name: Ruthie Johnston Age/Sex: 65/F : 1960 Unit#: [id number] Attend Dr: Marley Rich MD Re09/17/25 Status: DEP REF Location: HO.LNP Disch: ----- ------- SPEC : [id number] RECD: 09/18/25 STATUS: JOSIAH CUNNINGHAMDaryl NUM: [id number] JENNIFER: 09/17/25-[address]: Marley Rich MD ENTERED: 09/18/25 SP TYPE: Pap Smr OTHR : ORDERED: Pap Smear, PAP path review Interpretation General Category: Epithelial cell abnormality. Adequacy: Endocervical component present. Interpretation: Atypical squamous cells of undetermined significance HPV High Risk: Negative HPV Genotyping 16: Negative HPV Genotyping 18: Negative Clinical Information LMP: Post-menopausal Previous PAP test: Other surgery: Other history: Material Received ThinPrep-Cervical ----- ------- Signed (signature on file) Katalina Flavio 09/25/25 1526 ----- ------- END OF REPORT Marley Rich MD LAB CYTOLOGY ORDERABLES Final Result [facility] [address] [place] [phone] * POCT JUAN-14 Urine Drug Screen [...] PM EDT . Internal Pass Control Lot# [id number] Exp: 09-27-26 Marley Rich MD POINT OF CARE TEST ENTER/EDIT ORDERABLES Final Result * Lipid Panel, Standard (06/20/2025 8:19 AM EDT) Triglycerides 59 <150 mg/dL [facility] Comment:Desirable Triglyceri de: less than 150 mg/dLBorderline High Triglyceride 150-199 mg/dLHigh Triglyceride: 200-499 mg/dLVery High Triglyceride: greater than or equal to 5OO mg/dL Cholesterol 111 <200 mg/dL [facility] Comment:Desirable Cholestero l: less than 200 mg/dLBorderline High Cholesterol: 200-239 mg/dLHigh Cholesterol: greater than 239 mg/dL LDL Cholesterol Calculated 45 <100 mg/dL [facility] Comment:Desirable LDL: less than 100 mg/dLNear Optimal/Above Optimal LDL: 110- 129 mg/dLBorderline High LDL: 130-159 mg/dLHigh LDL: 160-189 mg/dLVery High LDL: greater than or equal to 190 mg/dL HDL Cholesterol 55 >40 mg/dL [facility] Comment:Desirable HDL: great er than 40 mg/dL Note: This HDL assay may give artificially low results in patients with liver disease. Blood Venous blood specimen / Unknown 06/20/2025 8:19 AM EDT 06/20/2025 2:02 PM EDT Marley Rich MD LAB BLOOD ORDERABLES Final Re sult Performing Organization Address City/[facility]/ZIP Co de Phone Number [facility] [address] [place] [phone] * Hemoglobin A1c (08/10/2024 8:24 AM EDT) Hemoglobin A1c 5.4 <6.0 % [facility] Comment:Hemoglobin A1C Refer ence Range Adults: 4.8 - 6.0 % Non diabetic: < 6.0 % Goal: < 7.0 %Additional Action Suggested: > 8.0 %Note: Hemoglobin A1c results are invalid for patients with abnormal amounts of HbF. Blood transfusions may impact the HbA1c concentration in the patient sample. Estimated Average Glucose 108 mg/dL [facility] Comment:eAG = Estimated ave rage glucose which is %A1C expressed asaverage glucose, using the formula of the J0J-AnycypeKeuuxsb Glucose study (ADAG), Diabetes Care, Vol.31,#8,Jun. 2007 Blood Venous blood specimen / Unknown 08/10/2024 8:24 AM EDT 08/10/2024 2:52 PM EDT us Marley Rich MD LAB BLOOD ORDERABLES Final Re sult [facility] [address] [place] [address] [phone] * Mammography (11/03/2023) Mammogram BIRADS 1 Normal, Abnormal, BIRADS 1 , BIRADS 2 Anatomical Region Laterality Modality Other Marley Rich MD HEALTH MAINTENANCE Final Resu lt * Hepatitis Panel, General (06/06/2023 11:38 AM EDT) Pathologist [facility] Hepatitis A IgM Nonreactive Nonreactive [facility] Comment:IgM antibodies to CASTILLO V not detected; does not exclude earlyacute or recovered HAV infection. ~Hepatitis B Surface Antibody NONREACTIVE Nonreactive [facility] Comment:Nonreactive: < 8.00 mIU/mL Hepatitis B Core Antibody Nonreactive Nonreactive [facility] Hepatitis C Antibody Nonreactive Nonreactive [facility] Comment:Antibodies to HCV no t detected; does not exclude early acuteHCV infection. Hepatitis B Surface Ag Negative Negative [facility] 06/06/2023 11:3 8 AM EDT 06/06/2023 2:12 PM EDT [facility] External Provider LAB BLO OD ORDERABLES Final Result Performing Organization Address [facility] Co de Phone Number [facility] [address] [place] [phone] * Colonoscopy (12/30/2022) Colonoscopy Normal Normal 12/30/2022 Historical Provider HEALTH MAINTENANCE Edited Result - Final from Last 3 Months or Most Recently Relevant to Health Maintenance Insurance [facility] OPTIONS (O D-SNP) [facility] Care Teams Solar Energy Systems Engineer Relationship Specialty Start Date End Date Marley Rich MD [address] [place] [phone] PCP - General Family Medicine 11/25/21
--- OUTSIDE RECORDS SUMMARY | 2025-11-27 08:18 | XMS_ITS | Encounter Summary ---
Author Organization [employer] Address [address] [place] [address] [address] [place] [address] Care Team Providers Care Photonics Engineering Technician Name Role Phone Marley Rich MD Primary Care Provider [phone] Reason for Visit * Reason Onset Date Comments PT-1 08/22/2024 Encounter Details Date Type Department Care Team (Late st Contact Info) Description 08/22/2024 Telephone [facility] [address] [place] [address] Marley Rich MD [address] [place] [address] PT-1 Social History Tobacco Use Types Packs/Day [...] 10:39 AM EDT Sexual Orientation Straight 12/02/2022 8 :21 PM EST documented as of this encounter Miscellaneous Notes * Telephone Encounter - Bill Turner - 08/22/2024 9:17 AM EDT Patient calling requesting PT1 Home Address verified: Y/N: Yes Provider name or facility name: [email or web address] Facility Address: [address] [place] [address] Escort needed: Y/N: No Do you have a wheelchair: Y/N: No If yes- Manual or electric: no Visits: 6 documented in this encounter Plan of Treatment Upcoming Encounters Date Type Department Care Team (Late st Contact Info) Description 12/03/2025 1:00 PM EST Clinical Support [facility] [address] [place] [address] 12/31/2025 2:30 PM EST Clinical Support [facility] [address] [place] [address] Aletha Vazquez RN [address] [place] [address] 02/21/2026 1:30 PM EDT Office Visit [facility] [address] [place] [address] Kamran Sherman documented as of this encounter [...] documented as of this encounter Care Teams Photonics Engineering Technician Relationship Specialty Start Date End Date Marley Rich MD [address] [place] [address] PCP - General Family Medicine 11/25/21 documented as of this encounter
--- OUTSIDE RECORDS SUMMARY | 2025-11-27 08:19 | XMS_ITS | Encounter Summary ---
Author Organization [facility] Address [address] [place] [address] [place] [address] Phone Care Team Providers Care Mowing Machine Operator Name Role Phone Unknown, Unknown Primary Care Provider Veronique Jackson MD Primary Care Provider [phone] Reason for Referral * Physical Therapy (Within 1 month) - Closed Specialty Diagnoses / Procedures Referred By Contac t Referred To Contact Physical Therapy Diagnoses Traumatic injury of head, sequela Sergei Luis MD Phone: tel: fax: mailto:[email or web address] PT Phone: tel: mailto:[email or web address] Referral ID Status Reason Start Date Expiration Date Visits Re quested Visits Authorized [id number] Closed 01/28/2020 04/07/2020 9 9 Encounter Details Date Type Department Care Team (Latest Contact Info) Description 01/28/2020 Transcribe Orders [facility] [address] [place] [address] Sergei Luis MD [address] [place] [address], [place] [address] [email or web address] Traumatic injury of head, sequela (Primary [...] Upcoming Encounters Date Type Department Care Team ([facility] st Contact Info) Description 12/24/2025 9:00 AM EST Office Visit [facility] in [address] [address] Chauncey Kurtz OD 50 [place] [address] [email or web address] 12/24/2025 9:15 AM EST Procedure visit [facility] in [address] [address] Scheduled Referrals Name Type Priority Associated Diagnoses Order Schedule Ambulatory referral to N Physical Therapy Outpatient Referral Routine Traumatic injury of head, sequela Ordered: 01/28/2020 documented as of this encounter Visit Diagnoses Diagnosis Traumatic injury of head, sequela- Primary documented in this encounter Care Teams Mowing Machine Operator Relationship Specialty Start Date End Date Unknown, Unknown, MD PCP - General 12/20/19 07/03/20 Veronique Jack MD [address] [place] [address] [email or web address] PCP - General Internal Medicine 07/04/20 documented as of this encounter Additional Source Comments The information contained in this document represents components of the legal health record. It is not the complete legal health record.[facility]
--- OUTSIDE RECORDS SUMMARY | 2025-11-27 08:19 | XMS_ITS | Encounter Summary ---
Author Organization [employer] Address [address] [place] [address] 7 [place] [address] Care Team Providers Care Architectural Design Professor Name Role Phone Marley Rich MD Primary Care Provider [phone] Encounter Details Date Type Department Care Team (Late st Contact Info) Description 10/25/2022 Abstract [facility] MEDICINE 230 [place] [address] Provider, MD Jomar Social History Tobacco Use [...] [facility] [address] [place] [address] 12/31/2025 2:30 PM EST Clinical Support [facility] [address] [place] [address] Aletha Vazquez, EAN 505 [place] [address] 02/21/2026 1:30 PM EDT Office Visit [facility] AD[facility] 505 [place] [address] Kamran Sherman documented as of this encounter Visit Diagnoses Not on filedocumented in this encounter Care Teams Architectural Design Professor Relationship Specialty Start Date End Date Marley Rich MD 230 [place] [address] PCP - General Family Medicine 11/25/21 documented as of this encounter
--- OUTSIDE RECORDS SUMMARY | 2025-11-27 08:19 | XMS_ITS | Encounter Summary ---
Author Organization [employer] Address [address] [place] [address] [place] [address] Care Team Providers Care Tube Worker Name Role Phone Marley Rich MD Primary Care Provider [phone] Reason for Referral * Consultation (Routine) - Closed Specialty Diagnoses / Procedures Referred By Rhina spain Referred To Contact Ophthalmology Diagnoses Essential hypertension Eriberto Sherman MD 505 [place] [address] Phone: tel: fax: Referral ID Status Reason Start Date Expiration Date V isits Requested Visits Authorized [id number] Closed Specialty Services Required 08/28/2025 08/28/2026 1 1 Encounter Details Date Type Department Care Team (Late st Contact Info) Description 08/28/2025 Orders Only [facility] MED & PEDS 505 [place] [address] Eriberto Sherman MD 505 [place] [address] Essential hypertension (Primary Dx) Social History Tobacco [...] [facility] 505 [place] [address] 12/31/2025 2:30 PM EST Clinical Support [facility] 505 [place] [address] Aletha Vazquez, EAN 505 [place] [address] 02/21/2026 1:30 PM EDT Office Visit [facility] ADULT D[facility] 505 [facility] [place] [address] Kamran Sherman Scheduled Referrals Name Type Priority [...] documented as of this encounter Care Teams Tube Worker Relationship Specialty Start Date End Date Marley Rich MD 230 [place] [address] PCP - General Family Medicine 11/25/21 documented as of this encounter
--- OUTSIDE RECORDS SUMMARY | 2025-11-27 08:19 | XMS_ITS | Encounter Summary ---
Author Organization [employer] Address [address] [place] [address] 7 [place] [address] Care Team Providers Care Data Processing Equipment Repairer Name Role Phone Marley Rich MD Primary Care Provider [phone] Reason for Visit * Reason Onset Date Comments [facility] 03/23/2024 Encounter Details Date Type Department Care Team ([facility] st Contact Info) Description 03/23/2024 Telephone [facility] MEDICINE 230 [place] [address] Marley Rich MD 505 [place] [address] [facility] Social History Tobacco Use Types Packs/Day [...] Upcoming Encounters Date Type Department Care Team ([facility] st Contact Info) Description 12/03/2025 1:00 PM EST Clinical Support [facility] MED & PEDS 505 [place] [address] 12/31/2025 2:30 PM EST Clinical Support [facility] MED [facility] PEDS 505 [place] [address] Aletha Vazquez, RN [address] [place] [address] 02/21/2026 1:30 PM EDT Office Visit [facility] CH[facility] ADULT DENTAL [address] [place] [address] Kamran Sherman documented as of this encounter [...] as of this encounter Care Teams Data Processing Equipment Repairer Relationship Specialty Start Date End Date Marley Rich MD [address] [place] [address] PCP - General Family Medicine 11/25/21 documented as of this encounter
--- OUTSIDE RECORDS SUMMARY | 2025-11-27 08:19 | XMS_ITS | Encounter Summary ---
Author Organization [employer] Address [address] [place] [address] 7 [place] [address] Care Team Providers Care Case Manager Name Role Phone Marley Rich MD Primary Care Provider [phone] Reason for Visit * Reason Onset Date Comments Dr. Casillas continued pain 03/04/2025 Encounter Details Date Type Department Care Team ([facility] st Contact Info) Description 03/04/2025 Telephone [facility] ADULT DENTAL 505 [place] [address] Carl Casillas, DMD [address] [place], [place] [phone] Dr. Casillas continued pain Social History Tobacco [...] [facility] 505 [place] [address] 12/31/2025 2:30 PM EST Clinical Support [facility] MED & PEDS 505 [place] [address] Aletha Vazquez, RN 505 [place] [address] 02/21/2026 1:30 PM EDT Office Visit [facility] ADULT DENTAL 505 [place] [address] Kamran Sherman documented as of this encounter [...] documented as of this encounter Care Teams Case Manager Relationship Specialty Start Date End Date Marley Rich MD 230 [place] [address] PCP - General Family Medicine 11/25/21 documented as of this encounter
--- OUTSIDE RECORDS SUMMARY | 2025-11-27 08:19 | XMS_ITS | Encounter Summary ---
Author Organization [employer] Address [address] [place] [address] 7 [place] [address] Care Team Providers Care Change Control Coordinator Name Role Phone Marley Rich MD Primary Care Provider [phone] Reason for Visit * Reason Onset Date Comments PT-1 03/29/2024 Encounter Details Date Type Department Care Team (Late st Contact Info) Description 03/29/2024 Telephone [facility] MEDICINE 230 [place] [address] Marley Rich MD 505 [place] [address] PT-1 Social History Tobacco Use Types Packs/Day [...] Provider name or facility name: [facility] Facility Address: [address] [place] [address] Escort needed: Y/N: No Do you have a wheelchair: Y/N: No If yes- Manual or electric: no Visits: 3 documented in this encounter Plan of Treatment Upcoming Encounters Date Type Department Care Team ([facility] st Contact Info) Description 12/03/2025 1:00 PM EST Clinical Support [facility] MED & PEDS 505 [place] [address] 12/31/2025 2:30 PM EST Clinical Support [facility] MED & PEDS 505 [place] [address] Aletha Vazquez, RN [address] [place] [address] 02/21/2026 1:30 PM EDT Office Visit [facility] ADULT DENTAL [address] [place] [address] Kamran Sherman documented as of this encounter [...] documented as of this encounter Care Teams Change Control Coordinator Relationship Specialty Start Date End Date Marley Rich MD [address] [place] [address] PCP - General Family Medicine 11/25/21 documented as of this encounter
--- OUTSIDE RECORDS SUMMARY | 2025-11-27 08:19 | XMS_ITS | Encounter Summary ---
Author Organization [employer] Address [address] [place] [address] 7 [place] [address] Care Team Providers Care Paying Teller Name Role Phone Marley Rich MD Primary Care Provider [phone] Reason for Visit * Reason Onset Date Comments PT1 05/20/2025 Encounter Details Date Type Department Care Team ([facility] st Contact Info) Description 05/20/2025 Telephone [facility] MEDICINE 230 [place] [address] Marley Rich MD 505 [place] [address] PT1 Social History Tobacco Use Types Packs/Day [...] name or facility name: [facility] [address] [place] [address] Escort needed: Y/N: No Do you have a wheelchair: Y/N: No If yes- Manual or electric: N/A Visits: (2x weekly) documented in this encounter Plan of Treatment Upcoming Encounters Date Type Department Care Team ([facility] st Contact Info) Description 12/03/2025 1:00 PM EST Clinical Support [facility] MED [facility] PEDS 505 [place] [address] 12/31/2025 2:30 PM EST Clinical Support [facility] MED [facility]ED[facility] 505 [place] [address] Aletha Vazquez, RN 505 [place] [address] 02/21/2026 1:30 PM EDT Office Visit [facility] ADULT DENTAL [address] [place] [address] Kamran Sherman documented as of this encounter [...] documented as of this encounter Care Teams Paying Teller Relationship Specialty Start Date End Date Marley Rich MD [address] [place] [address] PCP - General Family Medicine 11/25/21 documented as of this encounter
--- OUTSIDE RECORDS SUMMARY | 2025-11-27 08:19 | XMS_ITS | Encounter Summary ---
Author Organization [employer] Address [address] [place] [address] 7t [place] [address] Care Team Providers Care Referral Specialist Name Role Phone Marley Rich MD Primary Care Provider [phone] Encounter Details Date Type Department Care Team (Late st Contact Info) Description 10/13/2023 Abstract [facility] MEDICINE [address] [place] [address] Mily Calderon Social History Tobacco Use Types [...] [facility] 505 [place] [address] 12/31/2025 2:30 PM EST Clinical Support [facility] MED & PEDS 505 [place] [address] Aletha Vazquez RN 505 [place] [address] 02/21/2026 1:30 PM EDT Office Visit [facility] ADULT DENTAL 505 [place] [address] Kamran Sherman documented as of this encounter Visit Diagnoses Not on filedocumented in this encounter Additional Health Concerns Assessment Noted Time PHQ-9 Depression Total Score: 10 023 11:29 AM EDT documented as of this encounter Care Teams Referral Specialist Relationship Specialty Start Date End Date Marley Rich MD [address] [place] [address] PCP - General Family Medicine 11/25/21 documented as of this encounter
--- OUTSIDE RECORDS SUMMARY | 2025-11-27 08:19 | XMS_ITS | Clinical Summary ---
Author Organization [facility] Address [address] [facility] [address] [place] [address] Phone Care Team Providers Care Director Digital Analytics Name Role Phone Veronique Jack MD Primary Care Provider [phone] Allergies No known active allergies Medications gabapentin [...] Upcoming Encounters Date Type Department Care Team ([facility] st Contact Info) Description 12/24/2025 9:00 AM EST Office Visit [facility] in [address] [address] Chauncey Kurtz, OD 50 [place] [address] 12/24/2025 9:15 AM EST Procedure visit [facility] in [address] [address] Health Maintenance Due Date Last Done Comments [...] topic Medical Devices Not on file [place] [address] [place] [address] DIRECT [place] [address] [address] [address] [place] [address] [employer] [address] [place] [address] Care Teams Director Digital Analytics Relationship Specialty Start Date End Date Veronique Jack MD [address] [place] [address] [email or web address] PCP - General Internal Medicine 07/04/20 Additional Source Comments The information contained in this document represents components of the legal health record. It is not the complete legal health record.[facility]
--- OUTSIDE RECORDS SUMMARY | 2025-11-27 08:19 | XMS_ITS | Encounter Summary ---
Author Organization [employer] Address [address] [place] [address] 7t [place] [address] Care Team Providers Care Auto Collision Repair Instructor Name Role Phone Marley Rich MD Primary Care Provider [phone] Encounter Details Date Type Department Care Team ([facility] st Contact Info) Description 06/06/2024 Telephone [facility] CHC MED & PEDS [address] [place] [address] Marley Rich MD 505 [place] [address] Social History Tobacco Use Types Packs/Day Years [...] Description 12/03/2025 1:00 PM EST Clinical Support [facility] MED & PEDS [address] [place] [address] 12/31/2025 2:30 PM EST Clinical Support [facility] MED & PEDS [address] [place] [address] Aletha Vazquez RN 505 [place] [address] 02/21/2026 1:30 PM EDT Office Visit [facility] ADULT DENTAL [address] [place] [address] Kamran Sherman documented as of this encounter [...] as of this encounter Care Teams Auto Collision Repair Instructor Relationship Specialty Start Date End Date Marley Rich MD 230 [place] [address] PCP - General Family Medicine 11/25/21 documented as of this encounter
--- OUTSIDE RECORDS SUMMARY | 2025-11-27 08:19 | XMS_ITS | Encounter Summary ---
Author Organization [employer] Address [address] [place] [address] 7t [place] [address] Care Team Providers Care Ballistics Teacher Name Role Phone Marley Rich MD Primary Care Provider [phone] Reason for Visit * Reason Comments Med Refill Encounter Details Date Type Department Care Team (Late st Contact Info) Description 03/23/2025 Refill [facility] [address] [place] [phone] Kashif Layne MD 230 [place], [place] [phone] Social History Tobacco Use Types Packs/Day Years [...] [facility] [address] [place] [address] 12/31/2025 2:30 PM EST Clinical Support [facility] MED & PEDS [address] [place] [address] Aletha Vazquez, EAN 505 [place] [address] 02/21/2026 1:30 PM EDT Office Visit [facility] ADULT DENTAL [address] [place] [address] Kamran Sherman documented as of this encounter [...] documented as of this encounter Care Teams Ballistics Teacher Relationship Specialty Start Date End Date Marley Rich MD 230 [place] [address] PCP - General Family Medicine 11/25/21 documented as of this encounter
--- OUTSIDE RECORDS SUMMARY | 2025-11-27 08:19 | XMS_ITS | Encounter Summary ---
Author Organization [employer] Address [address] [place] [address] 7 [place] [address] Care Team Providers Care Phlebotomy Instructor Name Role Phone Marley Rich MD Primary Care Provider [phone] Reason for Visit * Reason Onset Date Comments PT1 01/02/2025 Encounter Details Date Type Department Care Team ([facility] st Contact Info) Description 01/02/2025 Telephone [facility] CH[facility] MED & PEDS 505 [place] [address] Marley Rich MD 505 [place] [address] PT1 Social History Tobacco Use Types Packs/Day [...] or facility name: Dr Mclaughlin Facility Address: [address] [place] [address] 2nd Floor [address] [place] [address] Escort needed: Y/N: Yes Do you have a wheelchair: Y/N: No If yes- Manual or electric: n/a Visits: 2 x a month documented in this encounter Plan of Treatment Upcoming Encounters Date Type Department Care Team (Late st Contact Info) Description 12/03/2025 1:00 PM EST Clinical Support [facility] MED & PEDS 505 [place] [address] 12/31/2025 2:30 PM EST Clinical Support [facility] MED & PEDS 505 [place] [address] Aletha Vazquez, EAN 505 [place] [address] 02/21/2026 1:30 PM EDT Office Visit [facility] ADULT DENTAL 505 [place] [address] Kamran Sherman documented as of this encounter [...] Marley Rich MD 230 [place] [address] PCP - General Family Medicine 11/25/21 documented as of this encounter
--- OUTSIDE RECORDS SUMMARY | 2025-11-27 08:19 | XMS_ITS | Encounter Summary ---
Author Organization [employer] Address [address] [place] [address] 7 [place] [address] Care Team Providers Care Oil Pipeline Dispatcher Name Role Phone Marley Rich MD Primary Care Provider [phone] Reason for Visit * Reason Onset Date Comments PT-1 03/07/2025 0 Encounter Details Date Type Department Care Team ([facility] st Contact Info) Description 03/07/2025 Telephone [facility] MEDICINE 230 [place] [address] Marley Rich MD 505 [place], [place] [phone] PT-1 (0) Social History Tobacco Use Types [...] Y/N: Yes Provider name or facility name: [facility] Radiology & [place] [address] Escort needed: Y/N: No Do you have a wheelchair: Y/N: No If yes- Manual or electric: Visits: (1 x Monthly) Contact pt at [phone] documented in this encounter Plan of Treatment Upcoming Encounters Date Type Department Care Team (Late st Contact Info) Description 12/03/2025 1:00 PM EST Clinical Support [facility] MED & PEDS 505 [place] [address] 12/31/2025 2:30 PM EST Clinical Support [facility] MED & PEDS 505 [place] [address] Aletha Vazquez, EAN 505 [place] [address] 02/21/2026 1:30 PM EDT Office Visit [facility] ADULT DENTAL 505 [place] [address] Kamran Sherman documented as of this encounter [...] documented as of this encounter Care Teams Oil Pipeline Dispatcher Relationship Specialty Start Date End Date Marley Rich MD 230 [place] [address] PCP - General Family Medicine 11/25/21 documented as of this encounter
--- OUTSIDE RECORDS SUMMARY | 2025-11-27 08:19 | XMS_ITS | Encounter Summary ---
Author Organization [employer] Address [address] [place] [address] 7 [place] [address] Care Team Providers Care Student Finance Advisor Name Role Phone Marley Rich MD Primary Care Provider [phone] Reason for Visit * Reason Onset Date Comments PT-1 08/17/2024 Encounter Details Date Type Department Care Team (Late st Contact Info) Description 08/17/2024 Telephone [facility] MEDICINE 230 [place] [address] Marley Rich MD 505 [place] [address] PT-1 Social History Tobacco Use Types Packs/Day [...] Y/N: Yes Provider name or facility name: [facility] Facility Address: [address] [facility] [address] [place] [address] Escort needed: Y/N: No Do you have a wheelchair: Y/N: No If yes- Manual or electric: no Visits: 6 Patient calling requesting PT1 Home Address verified: Y/N: Yes Provider name or facility name: [facility] Facility Address: [address] [place] [address] [address] [facility] [address] Escort needed: Y/N: Yes Do you have a wheelchair: Y/N: No If yes- Manual or electric: no Visits: 6 Patient calling requesting PT1 Home Address verified: Y/N: Yes Provider name or facility name: [facility] Facility Address: [address] [facility] [address] [place] [address] Escort needed: Y/N: No Do you have a wheelchair: Y/N: No If yes- Manual or electric: no Visits: 6 Patient calling requesting PT1 Home Address verified: Y/N: Yes Provider name or facility name: [facility] Facility Address: [address] [place] [address] Escort needed: Y/N: No Do you have a wheelchair: Y/N: No If yes- Manual or electric: no Visits: 6 documented in this encounter Plan of Treatment Upcoming Encounters Date Type Department Care Team (Late st Contact Info) Description 12/03/2025 1:00 PM EST Clinical Support [facility] MED & PEDS 505 [place] [address] 12/31/2025 2:30 PM EST Clinical Support [facility] MED & PEDS 505 [place] [address] Aletha Vazquez RN 505 [place] [address] 02/21/2026 1:30 PM EDT Office Visit [facility] ADULT DENTAL 505 [place] [address] Kamran Sherman documented as of this encounter [...] documented as of this encounter Care Teams Student Finance Advisor Relationship Specialty Start Date End Date Marley Rich MD [address] [place] [address] PCP - General Family Medicine 11/25/21 documented as of this encounter
--- OUTSIDE RECORDS SUMMARY | 2025-11-27 08:19 | XMS_ITS | Encounter Summary ---
Author Organization [employer] Address [address] [place] [address] 7 [place] [address] Care Team Providers Care Leather Goods Sales Representative Name Role Phone Marley Rich MD Primary Care Provider [phone] Reason for Visit * Reason Comments Med Refill Encounter Details Date Type Department Care Team ([facility] st Contact Info) Description 05/14/2025 Refill [facility]C ADULT DENTAL 505 [place] [address] Carl Casillas, DMD 505 [place] [address] Dental caries Social History Tobacco Use Types [...] [facility] MED & PEDS 505 [place] [address] 12/31/2025 2:30 PM EST Clinical Support [facility] MED & PEDS [address] [place] [address] Aletha Vazquez RN 505 [place] [address] 02/21/2026 1:30 PM EDT Office Visit [facility] ADULT DENTAL 505 [place] [address] Kamran Sherman documented as of this encounter [...] documented as of this encounter Care Teams Leather Goods Sales Representative Relationship Specialty Start Date End Date Marley Rich MD [address] [place] [address] PCP - General Family Medicine 11/25/21 documented as of this encounter
--- OUTSIDE RECORDS SUMMARY | 2025-11-27 08:19 | XMS_ITS | Encounter Summary ---
Author Organization [employer] Address [address] [place] [address] [address] [place] [address] Care Team Providers Care Finance Attorney Name Role Phone Marley Rich MD Primary Care Provider [phone] Reason for Visit * Reason Comments Med Refill Encounter Details Date Type Department Care Team ([facility] st Contact Info) Description 01/19/2025 Refill [facility] [address] [place] [address] Carl Casillas, DMD [address] [place] [address] Dental caries Social History Tobacco Use Types [...] [facility] [address] [place] [address] 12/31/2025 2:30 PM EST Clinical Support [facility] [address] [place] [address] Aletha Vazquez RN [address] [place] [address] 02/21/2026 1:30 PM EDT Office Visit [facility] ADULT [facility] [address] [place] [address] Kamran Sherman documented as of this encounter [...] documented as of this encounter Care Teams Finance Attorney Relationship Specialty Start Date End Date Marley Rich MD [address] [place] [address] PCP - General Family Medicine 11/25/21 documented as of this encounter
--- OUTSIDE RECORDS SUMMARY | 2025-11-27 08:19 | XMS_ITS | Encounter Summary ---
Author Organization [employer] Address [address] [place] [address] [address] [place] [address] Care Team Providers Care Lodge Officer Name Role Phone Marley Rich MD Primary Care Provider [phone] Encounter Details Date Type Department Care Team ([facility] st Contact Info) Description 09/07/2023 Telephone [facility] [address] [place] [address] Marley Rich MD [address] [place] [address] Social History Tobacco Use Types Packs/Day Years [...] Description 12/03/2025 1:00 PM EST Clinical Support [facility] [address] [place] [address] 12/31/2025 2:30 PM EST Clinical Support [facility] [address] [place] [address] Aletha Vazquez, EAN [address] [place] [address] 02/21/2026 1:30 PM EDT Office Visit [facility] ADULT DENT[facility] [address] [place] [address] Kamran Sherman documented as of this encounter Visit Diagnoses Not on filedocumented in this encounter Additional Health Concerns Assessment Noted Time PHQ-9 Depression Total Score: 10 023 11:29 AM EDT documented as of this encounter Care Teams Lodge Officer Relationship Specialty Start Date End Date Marley Rich MD [address] [place] [address] PCP - General Family Medicine 11/25/21 documented as of this encounter
[2025-11-27 16:20] LABS: MANUAL DIFF FLAG NO
[2025-11-27 16:48] LABS: Hematocrit 44.1 % (37.0-47.0); Hemoglobin 14.3 g/dl (12.0-16.0); Imm Gran Abs Auto 0.04 X10*3/uL (0.00-0.03); Imm Gran Pct Auto 0.4 % (0.0-0.4); Lymphocytes Absolute Auto 2.6 X10*3/uL (1.2-4.9); Mean Corpuscular HGB Conc 32.4 g/dl (31.0-35.0); Mean Corpuscular Hemoglobin 29.5 pg (27.0-33.0); Mean Corpuscular Volume 90.9 fL (80.0-98.0); NRBC Abs Auto 0.000 X10*3/uL (0.0-0.012); NRBC Pct Auto 0.0 /100WBC (0.0-0.2); Platelet Count 335 X10*3/uL (160-400); Red Blood Count 4.85 X10*6/uL (4.20-5.50); White Blood Count 9.8 X10*3/uL (4.8-10.8)
[2025-11-27 17:16] LABS: Appearance Urine Clear; Glucose Urine UA Negative (Negative); PH 7.0 (5.0-9.0); Specific Gravity - Urine 1.015 (1.005-1.025)
[2025-11-27 17:53] LABS: Alanine Aminotransferase 11 U/L (0-31); Albumin Level 4.7 g/dL (3.5-5.0); Alkaline Phosphatase 79 U/L (39-117); Anion Gap 13 (12-20); Aspartate Amino Transferase 29 U/L (5-31); Blood Urea Nitrogen 21 mg/dL (9-16); Calcium 9.7 mg/dL (8.4-10.2); Carbon Dioxide 27 mmol/L (22-29); Chloride 106 mmol/L (96-108); Estimated Glomerular Filt Rate > 60; Potassium 4.6 mmol/L (3.3-5.1); Sodium 141 mmol/L (135-145); Total Protein 8.0 g/dL (6.5-8.0)
== END 2025-11-27 08:14 | disposition home or self-care (01) ==
LOC: HO.CHCLDS 08:13
PROVIDERS: Visit Provider Family Medicine
DX: E66.812 Obesity, class 2 (principal); Z68.36 Body mass index [BMI] 36.0-36.9, adult; Z13.29 Encounter for screening for other suspected endocrine disorder; Z13.21 Encounter for screening for nutritional disorder
CPT/HCPCS: 36415; 80053; 81001; 82306; 84443; 85025